=== PATIENT | female | born 1955 | race Caucasian/White ===

== ENCOUNTER 2020-07-26 17:45 | Inpatient (IN) | payer MEDICARE, MEDICAID, SELFPAY ==
[2020-07-26] VITALS (7 sets, daily range): BP systolic 165–173; BP diastolic 79–80; PULSE 72–83; RESP 16–24; TEMP 36.7–36.8; O2SAT 91–98; BMI 31.4
--- NOTE | 2020-07-26 21:14 | CT_ITS ---
Indication: Fall EXAMINATION: Noncontrast CT of the chest and abdomen and pelvis. Axial imaging with coronal and sagittal reformatted images. Radiation dose is [address] abdomen pelvis dated 11/03/2010 CT chest; The thoracic inlet is within normal limits. Coronary calcifications are noted. There is no fluid in the mediastinum. Some mildly prominent nodes are noted. Attention to follow-up Imaging the lung kirkpatrick. Right lung; No pneumothorax or effusion. 6 mm nodule on image 62 of series 10 Numerous small basilar nodules. Largest 4 mm. Left lung; No pneumothorax or effusion. Some scattered small areas of nodularity. Largest at the left base. Measures 7 mm. Upper abdomen; Liver within normal limits. Spleen within normal limits. Region the pancreas is unremarkable The kidneys are nonhydronephrotic. Nonobstructing calculi are noted. The adrenal glands are within normal limits. The bowel pattern is nonobstructing. There is no free fluid. Bladder is within normal limits The anterior abdominal wall is within normal limits Calcified vasculature which is not aneurysmal. There is no bulky adenopathy. Review of the bone windows is limited from motion in the chest. Fracture of the ninth and 10th ribs on the left. CT/CT abdomen pelvis wo con IMPRESSION: Fracture of the ninth and 10th ribs on the left. No underlying pneumothorax or effusion. No acute finding in the abdomen pelvis. Renal calculi Some scattered areas of groundglass change throughout the lungs may represent areas of infiltrate. In addition scattered areas of lung nodularity are noted. Recommendation is low-dose noncontrast study in 3-6 months for continued evaluation
--- NOTE | 2020-07-26 21:15 | ECG_ITS ---
Test Reason : SOB Blood Pressure : / mmHG Vent. Rate : 076 BPM Atrial Rate : 076 BPM P-R Int : 162 ms QRS Dur : 080 ms QT Int : 394 ms P-R-T Axes : 027 -36 044 degrees QTc Int : 443 ms Normal sinus rhythm Left axis deviation Borderline ECG When compared with ECG of 25-DEC-2019 16:07, Premature atrial complexes are no longer Present Referred By: Alisa Ballard Electronically Signed By:SAAD HUYNH
--- NOTE | 2020-07-26 21:15 | CT_ITS ---
EXAMINATION: CT HEAD WITHOUT CONTRAST CT CERVICAL SPINE WITHOUT CONTRAST CLINICAL INFORMATION: Fall. COMPARISON: CT head 09/11/2010 TECHNIQUE: Imaging was performed from the skull base to vertex without intravenous administration of contrast. In addition, helical noncontrast CT imaging was acquired through the cervical spine and source images were reviewed along with axial reconstructions and sagittal and coronal MPRs. [This CT examination was performed using dose optimization techniques as appropriate, variously including the following: *Automated exposure control *Adjustment of mA and/or kV according to patient size (this includes techniques or standardized protocols for targeted exams where dose is matched to indication/reason for exam; i.e. extremities or head) *Use of iterative reconstruction technique] DLP: 1110 mGy-cm FINDINGS: HEAD: Small hypodensity consistent with lacunar infarct in the right thalamus. No intracranial mass, hemorrhage, or midline shift is visualized. The ventricles and sulci are age-appropriate. No extra-axial collections are identified. There are vascular calcifications of the internal carotid arteries bilaterally. The paranasal sinuses and mastoid air cells are well aerated. CERVICAL SPINE: There is no evidence of acute cervical spine fracture. Vertebral bodies remain normal in height. Cervical vertebrae have normal alignment. There is multilevel degenerative spondylosis of the cervical spine with disc height narrowing and endplate spurs and facet joint arthrosis No pre- or paravertebral soft tissue abnormality is identified. Limited assessment of the lung apices is unremarkable. The right lobe of thyroid is mildly enlarged and lobular in contour. This can be further assessed with nonemergent thyroid ultrasound. CT/CT cervical spine wo con IMPRESSION: 1. No acute intracranial pathology. 2. No CT evidence of acute cervical spine fracture or traumatic subluxation
--- NOTE | 2020-07-26 21:17 | XR_ITS ---
EXAMINATION: XR WRIST, LEFT CLINICAL INFORMATION: Fall COMPARISON: None TECHNIQUE: PA, lateral, and oblique views of the left wrist. FINDINGS: There is no fracture or dislocation. Mild degenerative changes at the first carpometacarpal joint with osteophyte formation. The carpal rows are well aligned. Negative ulnar variance of 0.4 cm. The soft tissues are unremarkable. XR/XR wrist LT min 3V IMPRESSION: No fracture or malalignment.
--- NOTE | 2020-07-26 21:18 | ED_ITS ---
HPI - Fall General Chief Complaint: Fall Stated Complaint: Fall Time Seen by Provider: 07/26/20 21:10 Source: patient Mode of arrival: ambulatory Limitations: other (vague historian) History of Present Illness HPI Narrative: in triage noted to be sleepy and wheezing, reports she tripped and fell down 13 stairs at her house complaint: fall Onset (ago): day(s) (last night) Fall from: standing Fall witnessed: no Place fall occurred: home Loss of consciousness: none Prolonged down time: yes (1 hour) Symptoms prior to fall: none Context: tripped/slipped Location of injury - extremities: left: forearm Severity: mild Quality: dull Associated symptoms (after fall): abdominal pain (states prior to the fall c/o LLQ abdominal pain x 4 days) Related Data Home Medications Medication Instructions Recorded Confirmed albuterol sulfate [Ventolin HFA] 2 puff INHALATION Q4H PRN 07/26/20 07/26/20 celecoxib [Celebrex] 200 mg PO DAILY 07/26/20 07/26/20 fentanyl 1 patch TRANSDERMAL Q72H 07/26/20 07/26/20 fluoxetine [Prozac] 40 mg PO DAILY 07/26/20 07/26/20 fluticasone propionate [Flonase] 1 spray INTRANASAL DAILY 07/26/20 07/26/20 gabapentin 300 mg PO TID 07/26/20 07/26/20 glipizide 5 mg PO DAILY 07/26/20 07/26/20 metformin 500 mg PO BID 07/26/20 07/26/20 methocarbamol 1,000 mg PO TID 07/26/20 07/26/20 metoclopramide HCl [Reglan] 5 mg PO DAILY 07/26/20 07/26/20 omeprazole [Prilosec] 20 mg PO DAILY 07/26/20 07/26/20 trazodone 300 mg PO BEDTIME 07/26/20 07/26/20 Allergies Allergy/AdvReac Type Severity Reaction Status Date / Time aspirin [From PERCODAN] Allergy Unknown UNKNOWN Verified 07/26/20 23:11 egg [EGG] Allergy Unknown UNKNOWN Verified 07/26/20 23:11 From PERCODAN Allergy Unknown UNKNOWN Uncoded 03/21/20 17:03 Review of Systems Review of Systems: Constitutional : No Fever, No Chills ENT/Mouth : No Ear Pain, No Hoarseness, No sore throat Eyes: No Eye Pain, No Swelling, No Redness, No Foreign Body Cardiovascular : No Chest Pain, No SOB Respiratory : No Cough, No Dyspnea Gastrointestinal : No Nausea, No Vomiting, No Diarrhea, No abdominal Pain Genitourinary : No Dysuria, No Hematuria Musculoskeletal : positive joint pain, No Myalgias, No Joint Swelling Skin : No Skin lacerations, No rash Neuro : pos Weakness, No Numbness, No Loss of Consciousness, No Dizziness, No Headache Psych : No Anxiety/Panic, No Depression Heme/Lymph: no easy bruising, no Lymphadenopathy Endocrine : No Polyuria, No Polydipsia All other systems reviewed and are negative [facility] Past Medical History Attestation statement: The following information was validated with the patient. Medical History Bronchitis Chronic back pain Diabetes HTN (hypertension) UTI (urinary tract infection) Social History Social History (Updated 07/26/20 @ 21:23 by Alisa Ballard DO) Alcohol intake: never Smoking Status: Current every day smoker Smoked in Last 30 Days: Yes Use of substances other than those prescribed or required for medical reasons: No Advance Directives: No Physical Exam Vital Signs: Vital Signs: Last Vital Signs Temp 98.2 F 07/27/20 00:00 Pulse 81 07/27/20 00:00 Resp 20 07/27/20 00:00 BP 114/72 07/27/20 00:00 Pulse Ox 95 07/27/20 00:00 Body Mass Index 31.4 Appearance: Somnolent. Oriented X3. No acute distress. Eyes: Pupils equal, round and reactive to light. ENT: Pharynx normal. Neck: Normal inspection. Neck supple. CVS: Normal heart rate and rhythm. Pulses normal. Respiratory: No respiratory distress. Breath sounds diffusely wheezing Abdomen: Soft and nontender. Skin: Skin warm and dry. Normal skin color. Normal skin turgor. Extremities: No lower extremity edema. No calf ttp c/o L wrist ttp but no deformity NV intact Neuro: Oriented X 3. No motor deficit. No sensory deficit. Course Course Course Narrative: 91% on RA, wheezing still noted repeat 5mg neb ordered given CT chest possible infection vs COPD exacerbation IV antibiotics ordered 1042pm compensated ABG MDM - Fall MDM Narrative Medical decision making narrative: 65 yo female heavy smoker, bronchitis, DM, HTN c/o fall last night down 13 steps due to tripping notes lower back pain and L wrist injury no AC therapy, she is wheezing on arrival at this time will need labs, EKG, montelongo CT scan as she is somewhat somnolent at times (unsure if this is due to her fentanyl patch and gabepentin), IV steroids/magnesium and albuterol 5mg neb ordered. dispo per results and findings. Likely bronchitis, trauma r/o also ordered along with lytes/VBG for encephalopathy workup. Lab Data Result diagrams: 07/26/20 21:46 07/26/20 21:46 Labs: Lab Results 07/26/20 07/26/20 07/26/20 Range/Units 21:25 21:46 21:46 WBC 15.2 H (4.8-10.8) X10*3/uL RBC 4.72 (4.20-5.50) X10*6/uL Hgb 14.6 (12.0-16.0) g/dl Hct 45.3 (37-47) % MCV 96.0 (80-98) fL MCH 30.9 (27.0-33.0) pg MCHC 32.2 (31.0-35.0) g/dl RDW 13.2 (11.0-16.0) % Plt Count 292 (160-400) X10*3/uL MPV 8.7 L (9.4-12.3) fL Immature Gran % (Auto) 0.5 H (0.0-0.4) % Neut % (Auto) 50.0 (45-73) % Lymph % (Auto) 34.8 (20-40) % Barron % (Auto) 13.7 H (2-11) % Eos % (Auto) 0.6 (0-4) % Baso % (Auto) 0.4 (0-2) % Lymph # (Auto) 5.3 H (1.2-4.9) X10*3/uL Barron # (Auto) 2.1 H (0.1-1.2) X10*3/uL Eos # (Auto) 0.1 (0.0-0.4) X10*3/uL Baso # (Auto) 0.1 (0.0-0.2) X10*3/uL Abs Immat Gran (auto) 0.08 H (0.00-0.03) X10*3/uL Absolute Neuts (auto) 7.6 (2.0-8.3) X10*3/uL Absolute Nucleated RBC 0.000 (0.0-0.012) X10*3/uL Nucleated RBC % (auto) 0.0 (0.0-0.2) /100WBC Smear Tech's Comments VERIFIED PT (10.8-13.0) SEC INR (0.9-1.1) APTT (24.1-38.0) SEC ABG pH (7.35-7.45) ABG pCO2 (32-45) mmHg ABG pO2 (83-108) mmHg ABG HCO3 (22-26) mmol/L ABG O2 Saturation % ABG Base Excess VBG pH (7.32-7.43) VBG pCO2 mmHg VBG pO2 mmHg VBG HCO3 mmol/L VBG O2 Saturation % VBG Base Excess mmol/L Oxygen Given Sodium 136 (135-145) mmol/L Potassium 4.1 (3.3-5.1) mmol/l Chloride 100 (96-108) mmol/L Carbon Dioxide 26 (22-29) mmol/L Anion Gap 14 (12-20) BUN 16 (9-16) mg/dL Creatinine 0.86 (0.5-1.4) mg/dL Estim Creat Clear Calc 71.1 Estimated GFR > 60 POC Glucose 95 (60-115) mg/dL Random Glucose 85 (60-115) mg/dL Lactic Acid (0.5-2.0) mmol/L Calcium 9.2 (8.4-10.2) mg/dL Magnesium 2.0 (1.6-2.6) mg/dL Total Bilirubin 0.8 (0.0-1.0) mg/dL Direct Bilirubin 0.2 (0.0-0.5) mg/dL AST 16 (5-31) U/L ALT 14 (0-31) U/L Alkaline Phosphatase 114 (39-117) U/L Total Creatine Kinase 123 (26-140) U/L Troponin I High Sens (<3.5-17.0) ng/L Total Protein 7.5 (6.5-8.0) g/dL Albumin 4.2 (3.5-5.0) g/dL Ethyl Alcohol mg/dL COVID-19 ([facility]) (Negative) COVID-19 Clin Com 07/26/20 07/26/20 07/26/20 Range/Units 21:46 21:46 21:46 WBC (4.8-10.8) X10*3/uL RBC (4.20-5.50) X10*6/uL Hgb (12.0-16.0) g/dl Hct (37-47) % MCV (80-98) fL MCH (27.0-33.0) pg MCHC (31.0-35.0) g/dl RDW (11.0-16.0) % Plt Count (160-400) X10*3/uL MPV (9.4-12.3) fL Immature Gran % (Auto) (0.0-0.4) % Neut % (Auto) (45-73) % Lymph % (Auto) (20-40) % Barron % (Auto) (2-11) % Eos % (Auto) (0-4) % Baso % (Auto) (0-2) % Lymph # (Auto) (1.2-4.9) X10*3/uL Barron # (Auto) (0.1-1.2) X10*3/uL Eos # (Auto) (0.0-0.4) X10*3/uL Baso # (Auto) (0.0-0.2) X10*3/uL Abs Immat Gran (auto) (0.00-0.03) X10*3/uL Absolute Neuts (auto) (2.0-8.3) X10*3/uL Absolute Nucleated RBC (0.0-0.012) X10*3/uL Nucleated RBC % (auto) (0.0-0.2) /100WBC Smear Tech's Comments PT 12.7 (10.8-13.0) SEC INR 1.1 (0.9-1.1) APTT 26.1 (24.1-38.0) SEC ABG pH (7.35-7.45) ABG pCO2 (32-45) mmHg ABG pO2 (83-108) mmHg ABG HCO3 (22-26) mmol/L ABG O2 Saturation % ABG Base Excess VBG pH (7.32-7.43) VBG pCO2 mmHg VBG pO2 mmHg VBG HCO3 mmol/L VBG O2 Saturation % VBG Base Excess mmol/L Oxygen Given Sodium (135-145) mmol/L Potassium (3.3-5.1) mmol/l Chloride (96-108) mmol/L Carbon Dioxide (22-29) mmol/L Anion Gap (12-20) BUN (9-16) mg/dL Creatinine (0.5-1.4) mg/dL Estim Creat Clear Calc Estimated GFR POC Glucose (60-115) mg/dL Random Glucose (60-115) mg/dL Lactic Acid (0.5-2.0) mmol/L Calcium (8.4-10.2) mg/dL Magnesium (1.6-2.6) mg/dL Total Bilirubin (0.0-1.0) mg/dL Direct Bilirubin (0.0-0.5) mg/dL AST (5-31) U/L ALT (0-31) U/L Alkaline Phosphatase (39-117) U/L Total Creatine Kinase (26-140) U/L Troponin I High Sens 3.8 (<3.5-17.0) ng/L Total Protein (6.5-8.0) g/dL Albumin (3.5-5.0) g/dL Ethyl Alcohol mg/dL COVID-19 ([facility]AMA) Negative (Negative) COVID-19 Clin Com See Note 07/26/20 07/26/20 07/26/20 Range/Units 21:46 21:46 22:43 WBC (4.8-10.8) X10*3/uL RBC (4.20-5.50) X10*6/uL Hgb (12.0-16.0) g/dl Hct (37-47) % MCV (80-98) fL MCH (27.0-33.0) pg MCHC (31.0-35.0) g/dl RDW (11.0-16.0) % Plt Count (160-400) X10*3/uL MPV (9.4-12.3) fL Immature Gran % (Auto) (0.0-0.4) % Neut % (Auto) (45-73) % Lymph % (Auto) (20-40) % Barron % (Auto) (2-11) % Eos % (Auto) (0-4) % Baso % (Auto) (0-2) % Lymph # (Auto) (1.2-4.9) X10*3/uL Barron # (Auto) (0.1-1.2) X10*3/uL Eos # (Auto) (0.0-0.4) X10*3/uL Baso # (Auto) (0.0-0.2) X10*3/uL Abs Immat Gran (auto) (0.00-0.03) X10*3/uL Absolute Neuts (auto) (2.0-8.3) X10*3/uL Absolute Nucleated RBC (0.0-0.012) X10*3/uL Nucleated RBC % (auto) (0.0-0.2) /100WBC Smear Tech's Comments PT (10.8-13.0) SEC INR (0.9-1.1) APTT (24.1-38.0) SEC ABG pH 7.35 (7.35-7.45) ABG pCO2 52 H (32-45) mmHg ABG pO2 68 L (83-108) mmHg ABG HCO3 29 H (22-26) mmol/L ABG O2 Saturation 94.0 % ABG Base Excess 3.1 VBG pH 7.30 L (7.32-7.43) VBG pCO2 69 mmHg VBG pO2 40 mmHg VBG HCO3 34 mmol/L VBG O2 Saturation 70.0 % VBG Base Excess 5.8 mmol/L Oxygen Given ROOM AIR Sodium (135-145) mmol/L Potassium (3.3-5.1) mmol/l Chloride (96-108) mmol/L Carbon Dioxide (22-29) mmol/L Anion Gap (12-20) BUN (9-16) mg/dL Creatinine (0.5-1.4) mg/dL Estim Creat Clear Calc Estimated GFR POC Glucose (60-115) mg/dL Random Glucose (60-115) mg/dL Lactic Acid (0.5-2.0) mmol/L Calcium (8.4-10.2) mg/dL Magnesium (1.6-2.6) mg/dL Total Bilirubin (0.0-1.0) mg/dL Direct Bilirubin (0.0-0.5) mg/dL AST (5-31) U/L ALT (0-31) U/L Alkaline Phosphatase (39-117) U/L Total Creatine Kinase (26-140) U/L Troponin I High Sens (<3.5-17.0) ng/L Total Protein (6.5-8.0) g/dL Albumin (3.5-5.0) g/dL Ethyl Alcohol < 10 mg/dL COVID-19 ([facility]) (Negative) COVID-19 Clin Com 07/26/20 07/27/20 Range/Units 23:39 01:37 WBC (4.8-10.8) X10*3/uL RBC (4.20-5.50) X10*6/uL Hgb (12.0-16.0) g/dl Hct (37-47) % MCV (80-98) fL MCH (27.0-33.0) pg MCHC (31.0-35.0) g/dl RDW (11.0-16.0) % Plt Count (160-400) X10*3/uL MPV (9.4-12.3) fL Immature Gran % (Auto) (0.0-0.4) % Neut % (Auto) (45-73) % Lymph % (Auto) (20-40) % Barron % (Auto) (2-11) % Eos % (Auto) (0-4) % Baso % (Auto) (0-2) % Lymph # (Auto) (1.2-4.9) X10*3/uL Barron # (Auto) (0.1-1.2) X10*3/uL Eos # (Auto) (0.0-0.4) X10*3/uL Baso # (Auto) (0.0-0.2) X10*3/uL Abs Immat Gran (auto) (0.00-0.03) X10*3/uL Absolute Neuts (auto) (2.0-8.3) X10*3/uL Absolute Nucleated RBC (0.0-0.012) X10*3/uL Nucleated RBC % (auto) (0.0-0.2) /100WBC Smear Tech's Comments PT (10.8-13.0) SEC INR (0.9-1.1) APTT (24.1-38.0) SEC ABG pH (7.35-7.45) ABG pCO2 (32-45) mmHg ABG pO2 (83-108) mmHg ABG HCO3 (22-26) mmol/L ABG O2 Saturation % ABG Base Excess VBG pH (7.32-7.43) VBG pCO2 mmHg VBG pO2 mmHg VBG HCO3 mmol/L VBG O2 Saturation % VBG Base Excess mmol/L Oxygen Given Sodium (135-145) mmol/L Potassium (3.3-5.1) mmol/l Chloride (96-108) mmol/L Carbon Dioxide (22-29) mmol/L Anion Gap (12-20) BUN (9-16) mg/dL Creatinine (0.5-1.4) mg/dL Estim Creat Clear Calc Estimated GFR POC Glucose 177 H (60-115) mg/dL Random Glucose (60-115) mg/dL Lactic Acid 1.4 (0.5-2.0) mmol/L Calcium (8.4-10.2) mg/dL Magnesium (1.6-2.6) mg/dL Total Bilirubin (0.0-1.0) mg/dL Direct Bilirubin (0.0-0.5) mg/dL AST (5-31) U/L ALT (0-31) U/L Alkaline Phosphatase (39-117) U/L Total Creatine Kinase (26-140) U/L Troponin I High Sens (<3.5-17.0) ng/L Total Protein (6.5-8.0) g/dL Albumin (3.5-5.0) g/dL Ethyl Alcohol mg/dL COVID-19 ([facility]) (Negative) COVID-19 Clin Com ECG Data Attestation: I personally reviewed and interpreted this ECG as follows: ECG interpretation date: 07/26/20 ECG interpretation time: 23:28 Interpretation: Rate: 76 Rhythm: NSR [place]: left Normal P waves. Normal ANGÉLICA. Normal QRS complex. ST T wave : normal, no TOD qTC: normal prior studies: no acute ischemia The study has been interpreted contemporaneously by me. . Discharge Plan Discharge Clinical Impression: Bronchitis Fracture of rib Qualifiers: Encounter type: initial encounter Rib fracture type: multiple ribs Fracture type: closed Laterality: left Qualified Code(s): S22.42XA - Multiple fractures of ribs, left side, initial encounter for closed fracture Leukocytosis Qualifiers: Leukocytosis type: unspecified Qualified Code(s): D72.829 - Elevated white blood cell count, unspecified Patient Disposition: Admitted As Inpatient
[2020-07-26 21:27] LABS: Glucose, Whole Blood 95 mg/dL (60-115)
[2020-07-26] MEDS: Albuterol Sulfate (0.083%) 2.5 MG/3 ML VIAL.NEB 5 MG INHALE ×2 (21:30→22:51)
[2020-07-26] MEDS: Magnesium Sulfate/H2O 2 GM/50 ML PIGGYBACK IV (21:53)
[2020-07-26] MEDS: methylPREDNISolone Sod Succ/PF 125 MG/2 ML VIAL 60 MG IVPUSH (21:53)
[2020-07-26 22:03] LABS: Basophils Absolute Auto 0.1 X10*3/uL (0.0-0.2); Basophils Percent Auto 0.4 % (0-2); Eosinophils Absolute Auto 0.1 X10*3/uL (0.0-0.4); Eosinophils Percent Auto 0.6 % (0-4); Hematocrit 45.3 % (37-47); Hemoglobin 14.6 g/dl (12.0-16.0); Imm Gran Abs Auto 0.08 X10*3/uL (0.00-0.03); Imm Gran Pct Auto 0.5 % (0.0-0.4); Lymphocytes Absolute Auto 5.3 X10*3/uL (1.2-4.9); Lymphocytes Percent Auto 34.8 % (20-40); MANUAL DIFF FLAG SCAN; Mean Corpuscular HGB Conc 32.2 g/dl (31.0-35.0); Mean Corpuscular Hemoglobin 30.9 pg (27.0-33.0); Mean Platelet Volume 8.7 fL (9.4-12.3); Monocytes Absolute Auto 2.1 X10*3/uL (0.1-1.2); Monocytes Percent Auto 13.7 % (2-11); Neutrophils Absolute Auto 7.6 X10*3/uL (2.0-8.3); Platelet Count 292 X10*3/uL (160-400); Red Blood Count 4.72 X10*6/uL (4.20-5.50); Red Cell Distribution Width 13.2 % (11.0-16.0); SCAN SMEAR FLAG 1; White Blood Count 15.2 X10*3/uL (4.8-10.8)
[2020-07-26 22:07] LABS: Base Excess VBG 5.8 mmol/L; HCO3 VBG 34 mmol/L; PCO2 VBG 69 mmHg; PO2 VBG 40 mmHg
[2020-07-26 22:08] LABS: INTERNATIONAL NORM RATIO 1.1 (0.9-1.1); Prothrombin Time 12.7 SEC (10.8-13.0)
[2020-07-26 22:11] LABS: Partial Thromboplastin Time 26.1 SEC (24.1-38.0)
[2020-07-26 22:30] LABS: COVID-19 Test Negative (Negative)
[2020-07-26 22:38] LABS: SLIDE REVIEW VERIFIED
[2020-07-26 22:43] LABS: Alanine Aminotransferase 14 U/L (0-31); Albumin Level 4.2 g/dL (3.5-5.0); Alkaline Phosphatase 114 U/L (39-117); Anion Gap 14 (12-20); Aspartate Amino Transferase 16 U/L (5-31); Bilirubin Direct 0.2 mg/dL (0.0-0.5); Bilirubin Total 0.8 mg/dL (0.0-1.0); Blood Urea Nitrogen 16 mg/dL (9-16); Calcium 9.2 mg/dL (8.4-10.2); Carbon Dioxide 26 mmol/L (22-29); Chloride 100 mmol/L (96-108); Creatinine Clr Calc Pharmacy 71.1; Estimated Glomerular Filt Rate > 60; Ethanol < 10 mg/dL; Glucose Random 85 mg/dL (60-115); Potassium 4.1 mmol/l (3.3-5.1); Sodium 136 mmol/L (135-145); Total Protein 7.5 g/dL (6.5-8.0)
[2020-07-26 22:44] LABS: Troponin-I High Sensitivity 3.8 ng/L (<3.5-17.0)
[2020-07-26 22:49] LABS: Pt Ventilation O2% ROOM AIR
[2020-07-26 22:52] LABS: ABG PCO2 52 mmHg (32-45); Base Excess ABG 3.1; HCO3 ABG 29 mmol/L (22-26); PO2 ABG 68 mmHg (83-108); pH ABG 7.35 (7.35-7.45)
[2020-07-26] MEDS: cefTRIAXone sodium 1 GM in 0.9 % Sodium Chloride 50 ML IV (23:49)
[2020-07-27] VITALS (13 sets, daily range): BP systolic 110–152; BP diastolic 57–102; PULSE 70–94; RESP 16–20; TEMP 36.1–37.1; O2SAT 92–99
[2020-07-27 00:13] LABS: Lactic Acid 1.4 mmol/L (0.5-2.0)
--- NOTE | 2020-07-27 00:34 | PM.IMHP ---
History of Present Illness Date of Service: 07/27/20 Chief Complaint: Fall This is a 65-year-old female with past medical history of bronchitis(chronic smoker although denies ever being diagnosed with COPD), chronic pain, diabetes, GERD who presents to the hospital after experiencing a fall from 13 steps. She is very lethargic but arousable, does not give much history. Therefore history is obtained mostly from ED physician. It appears the patient was walking down her basement stairs and had a fall of 13 steps. Patient herself does not remember how it happened, she does not report tripping on anything. She denies missing any steps. She comes to the hospital complaining of left-sided pain. On arrival to the ED found to be hypoxic 89% on room air. She was also significantly wheezing, having a cough, sputum production. Chest CT done showed ground-glass opacities concerning for pneumonia.. COVID-19 negative Unable to obtain complete review of system is patient lethargic Vitals significant for temp of 98.2?, respiratory rate of 24, heart rate of 75, blood pressure 165/79, satting 91% on room air. Currently on 2 L of nasal cannula satting 94%. Labs are significant for WBC count of 15.2, ABG pH of 7.35, CO2 of 52, CT of the chest demonstrates of the 9th and 10th ribs on the left, some scattered areas of ground-glass opacity that may represent infiltrate. History is obtained mostly from chart Past medical history: Bronchitis, chronic back pain, diabetes, hypertension, Surgical history: Unknown Family history: Unknown Social history: Chronic heavy smoker per her daughter, no history of alcohol or illicit drugs Review of Systems Review of Systems: Yes Unobtainable due to mental status [facility] Medical History Bronchitis Chronic back pain Diabetes HTN (hypertension) UTI (urinary tract infection) Social History (Updated 07/26/20 @ 21:23 by Alisa Ballard DO) Alcohol intake: never Smoking Status: Current every day smoker Smoked in Last 30 Days: Yes Use of substances other than those prescribed or required for medical reasons: No Advance Directives: No Meds Allergies Allergy/AdvReac Type Severity Reaction Status Date / Time aspirin [From PERCODAN] Allergy Unknown UNKNOWN Verified 07/26/20 23:11 egg [EGG] Allergy Unknown UNKNOWN Verified 07/26/20 23:11 From PERCODAN Allergy Unknown UNKNOWN Uncoded 03/21/20 17:03 Home Medications Medication Instructions Recorded Confirmed Type albuterol sulfate [Ventolin HFA] 2 puff INHALATION Q4H PRN 07/26/20 07/26/20 History celecoxib [Celebrex] 200 mg PO DAILY 07/26/20 07/26/20 History fentanyl 1 patch TRANSDERMAL Q72H 07/26/20 07/26/20 History fluoxetine [Prozac] 40 mg PO DAILY 07/26/20 07/26/20 History fluticasone propionate [Flonase] 1 spray INTRANASAL DAILY 07/26/20 07/26/20 History gabapentin 300 mg PO TID 07/26/20 07/26/20 History glipizide 5 mg PO DAILY 07/26/20 07/26/20 History metformin 500 mg PO BID 07/26/20 07/26/20 History methocarbamol 1,000 mg PO TID 07/26/20 07/26/20 History metoclopramide HCl [Reglan] 5 mg PO DAILY 07/26/20 07/26/20 History omeprazole [Prilosec] 20 mg PO DAILY 07/26/20 07/26/20 History trazodone 300 mg PO BEDTIME 07/26/20 07/26/20 History Physical Exam Vital Signs and Narrative: Vital Signs: Last Vital Signs Temp 98.1 F 07/26/20 23:45 Pulse 83 07/26/20 23:45 Resp 18 07/26/20 23:45 BP 173/80 H 07/26/20 23:45 Pulse Ox 98 07/26/20 23:45 Body Mass Index 31.4 Const: General: cooperative and no acute distress Orientation/consciousness: patient oriented x3 Eyes: General: appearance normal, both eyes and all related structures Pupils: Equal, round and reactive pupils present Resp: Effort & Inspection: normal respiratory effort, able to speak in complete sentences and audible wheezes Auscultation: crackles (Throughout the lungs) Cardio: Rate: regular rate Rhythm: regular rhythm GI: Palpation (GI): Soft to palpation Auscultation: normal bowel sounds Skin: General skin exam: no rashes or lesions noted Neuro: General: patient oriented x3 Cranial nerves: Yes Equal, round and reactive pupils present Cognition (Neuro): normal cognition Extrem: General: Yes normal to inspection and Yes no pedal edema Results Labs CBC and Chem 7: 07/26/20 21:46 07/26/20 21:46 Labs: Laboratory Results - last 24 hr 07/26/20 07/26/20 07/26/20 21:25 21:46 21:46 MCV 96.0 MCH 30.9 MCHC 32.2 RDW 13.2 Plt Count 292 MPV 8.7 L Immature Gran % (Auto) 0.5 H Neut % (Auto) 50.0 Lymph % (Auto) 34.8 Otero % (Auto) 13.7 H Eos % (Auto) 0.6 Baso % (Auto) 0.4 Lymph # (Auto) 5.3 H Otero # (Auto) 2.1 H Eos # (Auto) 0.1 Baso # (Auto) 0.1 Abs Immat Gran (auto) 0.08 H Absolute Neuts (auto) 7.6 Absolute Nucleated RBC 0.000 Nucleated RBC % (auto) 0.0 Smear Tech's Comments VERIFIED PT INR APTT ABG pH ABG pCO2 ABG pO2 ABG HCO3 ABG O2 Saturation ABG Base Excess VBG pH VBG pCO2 VBG pO2 VBG HCO3 VBG O2 Saturation VBG Base Excess Oxygen Given Anion Gap 14 Estim Creat Clear Calc 71.1 Estimated GFR > 60 POC Glucose 95 Random Glucose 85 Lactic Acid Calcium 9.2 Magnesium 2.0 Total Bilirubin 0.8 Direct Bilirubin 0.2 AST 16 ALT 14 Alkaline Phosphatase 114 Total Creatine Kinase 123 Troponin I High Sens Total Protein 7.5 Albumin 4.2 Ethyl Alcohol COVID-19 ([facility]) COVID-19 Clin Com 07/26/20 07/26/20 07/26/20 21:46 21:46 21:46 MCV MCH MCHC RDW Plt Count MPV Immature Gran % (Auto) Neut % (Auto) Lymph % (Auto) Otero % (Auto) Eos % (Auto) Baso % (Auto) Lymph # (Auto) Otero # (Auto) Eos # (Auto) Baso # (Auto) Abs Immat Gran (auto) Absolute Neuts (auto) Absolute Nucleated RBC Nucleated RBC % (auto) Smear Tech's Comments PT 12.7 INR 1.1 APTT 26.1 ABG pH ABG pCO2 ABG pO2 ABG HCO3 ABG O2 Saturation ABG Base Excess VBG pH VBG pCO2 VBG pO2 VBG HCO3 VBG O2 Saturation VBG Base Excess Oxygen Given Anion Gap Estim Creat Clear Calc Estimated GFR POC Glucose Random Glucose Lactic Acid Calcium Magnesium Total Bilirubin Direct Bilirubin AST ALT Alkaline Phosphatase Total Creatine Kinase Troponin I High Sens 3.8 Total Protein Albumin Ethyl Alcohol COVID-19 ([facility]) Negative COVID-19 Clin Com See Note 07/26/20 07/26/20 07/26/20 21:46 21:46 22:43 MCV MCH MCHC RDW Plt Count MPV Immature Gran % (Auto) Neut % (Auto) Lymph % (Auto) Otero % (Auto) Eos % (Auto) Baso % (Auto) Lymph # (Auto) Otero # (Auto) Eos # (Auto) Baso # (Auto) Abs Immat Gran (auto) Absolute Neuts (auto) Absolute Nucleated RBC Nucleated RBC % (auto) Smear Tech's Comments PT INR APTT ABG pH 7.35 ABG pCO2 52 H ABG pO2 68 L ABG HCO3 29 H ABG O2 Saturation 94.0 ABG Base Excess 3.1 VBG pH 7.30 L VBG pCO2 69 VBG pO2 40 VBG HCO3 34 VBG O2 Saturation 70.0 VBG Base Excess 5.8 Oxygen Given ROOM AIR Anion Gap Estim Creat Clear Calc Estimated GFR POC Glucose Random Glucose Lactic Acid Calcium Magnesium Total Bilirubin Direct Bilirubin AST ALT Alkaline Phosphatase Total Creatine Kinase Troponin I High Sens Total Protein Albumin Ethyl Alcohol < 10 COVID-19 ([facility]) COVID-19 Clin Com 07/26/20 23:39 MCV MCH MCHC RDW Plt Count MPV Immature Gran % (Auto) Neut % (Auto) Lymph % (Auto) Otero % (Auto) Eos % (Auto) Baso % (Auto) Lymph # (Auto) Otero # (Auto) Eos # (Auto) Baso # (Auto) Abs Immat Gran (auto) Absolute Neuts (auto) Absolute Nucleated RBC Nucleated RBC % (auto) Smear Tech's Comments PT INR APTT ABG pH ABG pCO2 ABG pO2 ABG HCO3 ABG O2 Saturation ABG Base Excess VBG pH VBG pCO2 VBG pO2 VBG HCO3 VBG O2 Saturation VBG Base Excess Oxygen Given Anion Gap Estim Creat Clear Calc Estimated GFR POC Glucose Random Glucose Lactic Acid 1.4 Calcium Magnesium Total Bilirubin Direct Bilirubin AST ALT Alkaline Phosphatase Total Creatine Kinase Troponin I High Sens Total Protein Albumin Ethyl Alcohol COVID-19 ([facility]) COVID-19 Clin Com Imaging Radiologist's Impressions: Impressions Abdomen/Pelvis CT 07/26/20 21:14 IMPRESSION: Fracture of the ninth and 10th ribs on the left. No underlying pneumothorax or effusion. No acute finding in the abdomen pelvis. Renal calculi Some scattered areas of groundglass change throughout the lungs may represent areas of infiltrate. In addition scattered areas of lung nodularity are noted. Recommendation is low-dose noncontrast study in 3-6 months for continued evaluation Cervical Spine CT 07/26/20 21:15 IMPRESSION: 1. No acute intracranial pathology. 2. No CT evidence of acute cervical spine fracture or traumatic subluxation Chest CT 07/26/20 21:15 IMPRESSION: Fracture of the ninth and 10th ribs on the left. No underlying pneumothorax or effusion. No acute finding in the abdomen pelvis. Renal calculi Some scattered areas of groundglass change throughout the lungs may represent areas of infiltrate. In addition scattered areas of lung nodularity are noted. Recommendation is low-dose noncontrast study in 3-6 months for continued evaluation Head CT 07/26/20 21:15 IMPRESSION: 1. No acute intracranial pathology. 2. No CT evidence of acute cervical spine fracture or traumatic subluxation Wrist X-Ray 07/26/20 21:17 IMPRESSION: No fracture or malalignment. Assessment and Plan (1) COPD exacerbation: Status: Acute (2) Fracture of rib: Qualifiers: Encounter type: initial encounter Fracture type: closed Laterality: left Rib fracture type: multiple ribs Qualified Code(s): S22.42XA - Multiple fractures of ribs, left side, initial encounter for closed fracture Status: Acute (3) Community acquired pneumonia: Qualifiers: Laterality: unspecified laterality Qualified Code(s): J18.9 - Pneumonia, unspecified organism Status: Acute (4) Acute and chronic respiratory failure with hypoxia: Status: Acute This is a 65-year-old female who is a chronic smoker who presents to the hospital after fall. Found to have pneumonia on chest CT # acute on chronic hypoxic respiratory past - patient has history of bronchitis but is also a chronic smoker although never officially been diagnosed with COPD - has significant cough, sputum production, and audible wheezing - presented hypoxic with 89% O2 on room air - COVID-19 negative Plan: - O2 supplement - Solu-Medrol 40 IV b.i.d. - IV antibiotics for pneumonia - follow respiratory status # community-acquired pneumonia - viral versus bacterial - has leukocytosis, tachycardia - chest CT showing ground-glass opacities concerning for infiltrate Plan: - started on ceftriaxone and azithromycin - follow cultures - COVID-19 PCR negative - will obtain respiratory viral panel given CT findings # fall - most likely mechanical as she fell from steps - sustained a fracture of the 9th and 10th left rib - pain control, supportive measures - incentive spirometry - consult PT # hypertension - continue home meds # diabetes - hold oral antihyperglycemics - start low-dose sliding scale insulin DVT prophylaxis: heparin sbq
[2020-07-27] MEDS: Doxycycline Hyclate 100 MG in 0.9 % Sodium Chloride 250 ML 166.67 MG IV (01:10)
[2020-07-27 01:45] LABS: Glucose, Whole Blood 177 mg/dL (60-115)
[2020-07-27] MEDS: Azithromycin 500 MG in 0.9 % Sodium Chloride 250 ML 125 MG IV (02:49)
[2020-07-27] MEDS: fentaNYL 100 MCG PATCH.TD72 TRANSDERMA (03:39)
[2020-07-27 04:54] LABS: Adenovirus PCR Not Detected (Not Detect.); Bordetella parapertussis PCR Not Detected (Not Detect.); Bordetella pertussis PCR Not Detected (Not Detect.); Chlamydia pneumoniae PCR Not Detected (Not Detect.); Coronavirus 229E PCR Not Detected (Not Detect.); Coronavirus HKU1 PCR Not Detected (Not Detect.); Coronavirus NL63 PCR Not Detected (Not Detect.); Coronavirus OC43 PCR Not Detected (Not Detect.); Human metapneumovirus PCR Not Detected (Not Detect.); Influenza A PCR Not Detected (Not Detect.); Influenza B PCR Not Detected (Not Detect.); Mycoplasma pneumoniae PCR Not Detected (Not Detect.); Parainfluenza 1 PCR Not Detected (Not Detect.); Parainfluenza 2 PCR Not Detected (Not Detect.); Parainfluenza 3 PCR Not Detected (Not Detect.); Parainfluenza 4 PCR Not Detected (Not Detect.); RSV PCR Not Detected (Not Detect.); Rhino/Enterovirus PCR Not Detected (Not Detect.); SARS-CoV-2 PCR Not Detected (Not Detect.)
[2020-07-27] MEDS: Heparin Sodium,Porcine 5,000 UNIT/ML VIAL 5000 UNIT SUBCUT ×2 (06:40→17:45)
[2020-07-27] MEDS: oxyCODONE HCl Immed Release 5 MG TABLET PO ×3 (06:41→20:13)
[2020-07-27] MEDS: Albuterol/Iprat 2.5/0.5MG 3 ML AMPUL.NEB INHALE ×4 (07:29→20:27)
[2020-07-27 08:37] LABS: Glucose, Whole Blood 216 mg/dL (60-115)
[2020-07-27] MEDS: Cyclobenzaprine HCl 10 MG TABLET PO ×3 (08:41→20:13)
[2020-07-27] MEDS: FLUoxetine HCl 20 MG CAPSULE 40 MG PO (08:41)
[2020-07-27] MEDS: Gabapentin 300 MG CAPSULE PO ×3 (08:42→20:13)
[2020-07-27] MEDS: Metoclopramide HCl 5 MG TABLET PO (08:42)
[2020-07-27] MEDS: Omeprazole 20 MG CAPSULE.DR PO (08:42)
[2020-07-27] MEDS: Insulin Lispro 100 UNIT/ML 3 ML VIAL SUBCUT ×4 (08:42→22:23)
--- NOTE | 2020-07-27 09:55 | MHC.CM.PN ---
PATIENT LIVES WITH HER DAUGHTER. NO DME OR VNA SERVICES. SHE NO LONGER DRIVES, AND DAUGHTER ASSISTS WITH TRANSPORT,. PATIENT AGREES THAT DAUGHTER IS HER PERSON TO CONTACT . BUT SHE DENIES HCP COMPLETION. PATIENT IS AWARE THAT CASE MANAGEMENT CAN ASSIST WITH COMPLETION DURING HER STAY IF SHE IS TO CHANGE HER MIND. IMM 07/27 IN CHART
[2020-07-27 11:38] LABS: Glucose, Whole Blood 192 mg/dL (60-115)
--- NOTE | 2020-07-27 13:48 | HO.PM.IMPN ---
Subjective Subjective Date of Service: 07/27/20 Interval History: Complaining of shortness of breath, cough, wants diet to be changed to regular, since she does not like diabetic diet, complaining of pain left side of chest worse with deep breathing, also complained of lower back pain. Review of Systems General no headache no dizziness no fever chills. CVS left-sided chest pain with deep breathing and cough, no palpitation. Respiratory dry cough, shortness of breath Gastrointestinal no nausea no vomiting, no abdominal pain Physical Exam Vital Signs: Vital Signs: Last Vital Signs Temp 98.7 F 07/27/20 12:00 Pulse 82 07/27/20 12:00 Resp 19 07/27/20 12:00 BP 144/71 H 07/27/20 12:00 Pulse Ox 96 07/27/20 12:00 Body Mass Index 31.4 General no acute distress Neck is supple no JVD. CVS regular rate rhythm, Respiratory diminished breath sounds left base, clear right lung, no respiratory distress, no wheeze, no rhonchi. Gastrointestinal abdomen soft, nontender, bowel sounds audible Extremities no clubbing cyanosis or edema. Neuro nonfocal , speech clear. Skin no rash Objective Data Current Medications Generic Name Dose Route Start Last Admin Trade Name Freq PRN Reason Stop Dose Admin Acetaminophen 650 mg 07/27/20 04:02 Acetaminophen 325 Mg Tablet PO Q6H PRN Pain, Mild (Pain Scale 1-3) Albuterol Sulfate 2 puff 07/27/20 00:33 Albuterol Sulfate 90 Mcg 8 Gm Inhaler INHALE Q4H PRN Shortness Of Breath Albuterol/Ipratropium 3 ml 07/27/20 08:00 07/27/20 11:07 Albuterol/Iprat 2.5/0.5mg 3 Ml Ampul.Neb INHALE 3 ml RQ4H WHILE AWAKE HSAMIKA Administration Albuterol/Ipratropium 3 ml 07/27/20 00:33 Albuterol/Iprat 2.5/0.5mg 3 Ml Ampul.Neb INHALE RQ4H PRN Shortness of Breath/Wheezing Cyclobenzaprine HCl 10 mg 07/27/20 09:00 07/27/20 08:41 Cyclobenzaprine Hcl 10 Mg Tablet PO 10 mg TID SHAMIKA Administration Docusate Sodium 100 mg 07/27/20 04:02 Docusate Sodium 100 Mg Capsule PO DAILY PRN Constipation Fentanyl 100 mcg 07/27/20 01:00 07/27/20 03:39 Fentanyl 100 Mcg Patch.Td72 TRANSDERMA 100 mcg Q72H SHAMIKA Administration Fluoxetine HCl 40 mg 07/27/20 09:00 07/27/20 08:41 Fluoxetine Hcl 20 Mg Capsule PO 40 mg DAILY SHAMIKA Administration Gabapentin 300 mg 07/27/20 09:00 07/27/20 08:42 Gabapentin 300 Mg Capsule PO 300 mg TID SHAMIKA Administration Heparin Sodium (Porcine) 5,000 unit 07/27/20 06:00 07/27/20 06:40 Heparin Sodium,Porcine 5,000 Unit/Ml Vial SUBCUT 5,000 unit Q12H SHAMIKA Administration Azithromycin 500 mg/ Sodium 250 mls @ 125 mls/hr 07/27/20 00:33 07/27/20 05:01 Chloride IV Infused Q24H SHAMIKA Infusion Ceftriaxone Sodium 1 gm/ 50 mls @ 100 mls/hr 07/27/20 00:33 07/27/20 02:49 Sodium Chloride IV Not Given Q24H [facility] Insulin Human Lispro 0 unit 07/27/20 07:30 07/27/20 12:14 Insulin Lispro 100 Unit/Ml 3 Ml Vial SUBCUT 2 unit QIDACHS [facility] Administration Protocol Methylprednisolone Sodium Succinate 40 mg 07/27/20 00:33 07/27/20 12:07 Methylprednisolone Sod Succ/Pf 40 Mg/Ml Vial IVPUSH 40 mg Q12H SHAMIKA Administration Metoclopramide HCl 5 mg 07/27/20 09:00 07/27/20 08:42 Metoclopramide Hcl 5 Mg Tablet PO 5 mg DAILY [facility] Administration Omeprazole 20 mg 07/27/20 09:00 07/27/20 08:42 Omeprazole 20 Mg Capsule. PO 20 mg DAILY SHAMIKA Administration Ondansetron HCl 4 mg 07/27/20 04:02 Ondansetron Hcl 4 Mg/2 Ml Vial IVPUSH Q8H PRN Nausea and Vomiting Oxycodone HCl 5 mg 07/27/20 06:04 07/27/20 12:13 Oxycodone Hcl Immed Release 5 Mg Tablet PO 5 mg Q4H PRN Administration Pain, Severe (Pain Scale 7-10) Pharmacy Consult 1 each 07/26/20 21:14 Consult Rx Perform Med Rec MISCELLANE ONCE PRN Consult order Trazodone HCl 300 mg 07/27/20 21:00 Trazodone Hcl 100 Mg Tablet PO BEDTIME SHAMIKA Labs CBC & Chem 7: 07/26/20 21:46 07/26/20 21:46 Assessment and Plan (1) Community acquired pneumonia: Status: Acute (2) Acute and chronic respiratory failure with hypoxia: Status: Acute (3) COPD exacerbation: Status: Acute (4) Fracture of rib: Status: Acute (5) Bronchitis: Status: Acute (6) Leukocytosis: Status: Acute Assessment and Plan: 65-year-old female who is a chronic smoker who presents to the hospital after fall. Found to have pneumonia on chest CT # acute on chronic hypoxic respiratory failure due to pneumonia/undiagnosed COPD with exacerbation Complaining of persistent cough and shortness of breath likely due to pneumonia and undiagnosed COPD hypoxic with 89% O2 on room air on arrival to ED, COVID-19 negative, Gradually wean O2 supplement Continue IV Solu-Medrol 40 IV b.i.d. IV azithromycin and ceftriaxone day 2, schedule updraft and as needed, will add cough medication, encourage incentive spirometry chest CT showing ground-glass opacities concerning for infiltrate, and pulmonary nodules will recommend 3-[address] chest follow-up # mechanical fall with 9th and 10th rib fracture - most likely mechanical as she fell from steps, likely due to left leg pain and weakness that she has chronically due to lower spine fusion Encourage out of bed, incentive spirometry, pain control, supportive measures Awake PT input # hypertension - continue home meds, BP stable # diabetes - blood sugars elevated patient takes glipizide and Glucophage at home, continue insulin sliding scale, patient refusing diabetic diet, will resume glipizide # tobacco use disorder counseling done. DVT prophylaxis: heparin sbq
[2020-07-27] MEDS: guaiFENesin DM 200/20/10 ML 10 ML SYRUP PO ×2 (14:16→20:13)
[2020-07-27] MEDS: glipiZIDE 5 MG TABLET PO (14:16)
[2020-07-27 14:54] LABS: Glucose, Whole Blood 264 mg/dL (60-115)
[2020-07-27 17:07] LABS: Glucose, Whole Blood 267 mg/dL (60-115)
[2020-07-27] MEDS: traZODone HCL 100 MG TABLET 300 MG PO (20:13)
[2020-07-27 20:39] LABS: Glucose, Whole Blood 168 mg/dL (60-115)
[2020-07-28] VITALS (11 sets, daily range): BP systolic 123–155; BP diastolic 56–80; PULSE 67–95; RESP 18–20; TEMP 35.9–36.9; O2SAT 93–97
[2020-07-28] MEDS: cefTRIAXone sodium 1 GM in 0.9 % Sodium Chloride 50 ML IV
[2020-07-28] MEDS: Azithromycin 500 MG in 0.9 % Sodium Chloride 250 ML 125 MG IV (00:59)
[2020-07-28] MEDS: guaiFENesin DM 200/20/10 ML 10 ML SYRUP PO ×4 (02:27→20:13)
[2020-07-28] MEDS: oxyCODONE HCl Immed Release 5 MG TABLET PO ×3 (03:31→15:25)
[2020-07-28 05:33] LABS: MANUAL DIFF FLAG NO
[2020-07-28 05:39] LABS: Basophils Percent Auto 0.2 % (0-2); Eosinophils Absolute Auto 0.1 X10*3/uL (0.0-0.4); Eosinophils Percent Auto 0.5 % (0-4); Hematocrit 39.3 % (37-47); Hemoglobin 12.8 g/dl (12.0-16.0); Imm Gran Abs Auto 0.09 X10*3/uL (0.00-0.03); Imm Gran Pct Auto 0.6 % (0.0-0.4); Lymphocytes Absolute Auto 1.4 X10*3/uL (1.2-4.9); Mean Corpuscular HGB Conc 32.6 g/dl (31.0-35.0); Mean Corpuscular Hemoglobin 31.1 pg (27.0-33.0); Mean Corpuscular Volume 95.4 fL (80-98); Mean Platelet Volume 9.5 fL (9.4-12.3); Monocytes Absolute Auto 0.8 X10*3/uL (0.1-1.2); Monocytes Percent Auto 5.9 % (2-11); Neutrophils Absolute Auto 11.7 X10*3/uL (2.0-8.3); Neutrophils Percent Auto 82.8 % (45-73); Platelet Count 287 X10*3/uL (160-400); Red Blood Count 4.12 X10*6/uL (4.20-5.50); Red Cell Distribution Width 13.2 % (11.0-16.0); White Blood Count 14.1 X10*3/uL (4.8-10.8)
[2020-07-28] MEDS: Heparin Sodium,Porcine 5,000 UNIT/ML VIAL 5000 UNIT SUBCUT ×2 (05:45→17:19)
[2020-07-28 06:12] LABS: Anion Gap 17 (12-20); Blood Urea Nitrogen 20 mg/dL (9-16); Calcium 8.9 mg/dL (8.4-10.2); Carbon Dioxide 24 mmol/L (22-29); Chloride 103 mmol/L (96-108); Creatinine Clr Calc Pharmacy 75.5; Estimated Glomerular Filt Rate > 60; Glucose Random 215 mg/dL (60-115); Potassium 4.8 mmol/l (3.3-5.1); Sodium 139 mmol/L (135-145)
[2020-07-28] MEDS: Albuterol/Iprat 2.5/0.5MG 3 ML AMPUL.NEB INHALE ×4 (07:19→19:44)
[2020-07-28 08:27] LABS: Glucose, Whole Blood 213 mg/dL (60-115)
[2020-07-28] MEDS: Gabapentin 300 MG CAPSULE PO ×3 (08:42→20:14)
[2020-07-28] MEDS: Insulin Lispro 100 UNIT/ML 3 ML VIAL SUBCUT ×3 (08:43→20:15)
[2020-07-28] MEDS: FLUoxetine HCl 20 MG CAPSULE 40 MG PO (08:43)
[2020-07-28] MEDS: Metoclopramide HCl 5 MG TABLET PO (08:44)
[2020-07-28] MEDS: glipiZIDE 5 MG TABLET PO (08:44)
[2020-07-28] MEDS: Cyclobenzaprine HCl 10 MG TABLET PO ×3 (08:44→20:13)
[2020-07-28] MEDS: Omeprazole 20 MG CAPSULE.DR PO (08:45)
--- NOTE | 2020-07-28 08:48 | P.PNIM_ITS ---
Subjective Subjective Date of Service: 07/28/20 Interval History: Patient complaining of generalized body ache mostly her feet and left shoulder, denies shortness of breath, feels cough is improving, no other acute issues overnight, no fever no chills. Review of Systems Review of Systems General no headache, no dizziness no fever chills, generalized body ache, left shoulder pain. CVS left-sided chest pain with deep breathing and cough, no palpitation. Respiratory dry cough, shortness of breath Gastrointestinal no nausea no vomiting, no abdominal pain Physical Exam Vital Signs: Vital Signs: Last Vital Signs Temp 98.3 F 07/28/20 07:54 Pulse 73 07/28/20 07:54 Resp 18 07/28/20 07:54 BP 138/70 07/28/20 07:54 Pulse Ox 96 07/28/20 07:54 Body Mass Index 31.4 General no acute distress Neck is supple no JVD. CVS regular rate rhythm, Respiratory diminished breath sounds left base, clear right lung, no respiratory distress, no wheeze, no rhonchi. Gastrointestinal abdomen soft, nontender, bowel sounds audible Extremities no clubbing cyanosis or edema. Neuro nonfocal , speech clear. Skin no rash, no bruising Objective Data Current Medications Generic Name Dose Route Start Last Admin Trade Name Freq PRN Reason Stop Dose Admin Acetaminophen 650 mg 07/27/20 04:02 Acetaminophen 325 Mg Tablet PO Q6H PRN Pain, Mild (Pain Scale 1-3) Albuterol Sulfate 2 puff 07/27/20 00:33 Albuterol Sulfate 90 Mcg 8 Gm Inhaler INHALE Q4H PRN Shortness Of Breath Albuterol/Ipratropium 3 ml 07/27/20 08:00 07/28/20 07:19 Albuterol/Iprat 2.5/0.5mg 3 Ml Ampul.Neb INHALE 3 ml RQ4H WHILE AWAKE SHAMIKA Administration Albuterol/Ipratropium 3 ml 07/27/20 00:33 Albuterol/Iprat 2.5/0.5mg 3 Ml Ampul.Neb INHALE RQ4H PRN Shortness of Breath/Wheezing Cyclobenzaprine HCl 10 mg 07/27/20 09:00 07/27/20 20:13 Cyclobenzaprine Hcl 10 Mg Tablet PO 10 mg TID SHAMIKA Administration Docusate Sodium 100 mg 07/27/20 04:02 Docusate Sodium 100 Mg Capsule PO DAILY PRN Constipation Fentanyl 100 mcg 07/27/20 01:00 07/27/20 03:39 Fentanyl 100 Mcg Patch.Td72 TRANSDERMA 100 mcg Q72H SHAMIKA Administration Fluoxetine HCl 40 mg 07/27/20 09:00 07/27/20 08:41 Fluoxetine Hcl 20 Mg Capsule PO 40 mg DAILY SHAMIKA Administration Gabapentin 300 mg 07/27/20 09:00 07/27/20 20:13 Gabapentin 300 Mg Capsule PO 300 mg TID SHAMIKA Administration Glipizide 5 mg 07/27/20 14:15 07/27/20 14:16 Glipizide 5 Mg Tablet PO 5 mg DAILY SHAMIKA Administration Guaifenesin/Dextromethorphan 10 ml 07/27/20 14:15 07/28/20 02:27 Guaifenesin Dm 200/20/10 Ml 10 Ml Syrup PO 10 ml Q6H SHAMIKA Administration Heparin Sodium (Porcine) 5,000 unit 07/27/20 06:00 07/28/20 05:45 Heparin Sodium,Porcine 5,000 Unit/Ml Vial SUBCUT 5,000 unit Q12H SHAMIKA Administration Azithromycin 500 mg/ Sodium 250 mls @ 125 mls/hr 07/27/20 00:33 07/28/20 02:31 Chloride IV 0 mls/hr Q24H SHAMIKA Infusion Ceftriaxone Sodium 1 gm/ 50 mls @ 100 mls/hr 07/27/20 00:33 07/28/20 00:58 Sodium Chloride IV Infused Q24H SHAMIKA Infusion Insulin Human Lispro 0 unit 07/27/20 07:30 07/27/20 22:23 Insulin Lispro 100 Unit/Ml 3 Ml Vial SUBCUT 2 unit QIDACHS SHAMIKA Administration Protocol Methylprednisolone Sodium Succinate 40 mg 07/27/20 00:33 07/28/20 00:00 Methylprednisolone Sod Succ/Pf 40 Mg/Ml Vial IVPUSH 40 mg Q12H SHAMIKA Administration Metoclopramide HCl 5 mg 07/27/20 09:00 07/27/20 08:42 Metoclopramide Hcl 5 Mg Tablet PO 5 mg DAILY SHAMIKA Administration Omeprazole 20 mg 07/27/20 09:00 07/27/20 08:42 Omeprazole 20 Mg Capsule.Dr PO 20 mg DAILY SHAMIKA Administration Ondansetron HCl 4 mg 07/27/20 04:02 Ondansetron Hcl 4 Mg/2 Ml Vial IVPUSH Q8H PRN Nausea and Vomiting Oxycodone HCl 5 mg 07/27/20 06:04 07/28/20 03:31 Oxycodone Hcl Immed Release 5 Mg Tablet PO 5 mg Q4H PRN Administration Pain, Severe (Pain Scale 7-10) Pharmacy Consult 1 each 07/26/20 21:14 Consult Rx Perform Med Rec MISCELLANE ONCE PRN Consult order Trazodone HCl 300 mg 07/27/20 21:00 07/27/20 20:13 Trazodone Hcl 100 Mg Tablet PO 300 mg BEDTIME SHAMIKA Administration Labs CBC & Chem 7: 07/28/20 04:26 07/28/20 04:26 Microbiology Microbiology Results: Microbiology 07/26/20 23:39 Blood - Venous Blood Culture - Preliminary No growth after 24 hours. 07/26/20 23:39 Blood - Venous Blood Culture - Preliminary No growth after 24 hours. Assessment and Plan (1) Acute and chronic respiratory failure with hypoxia: Status: Acute (2) COPD exacerbation: Status: Acute (3) Fracture of rib: Status: Acute (4) Leukocytosis: Status: Acute (5) Bronchitis: Status: Acute Assessment and Plan: 65-year-old female who is a chronic smoker who presents to the hospital after fall. Found to have pneumonia on chest CT # acute on chronic hypoxic respiratory failure due to pneumonia/undiagnosed COPD with exacerbation cough and shortness of breath improving was likely due to pneumonia and undiagnosed COPD hypoxic with 89% O2 on room air on arrival to ED, COVID-19 negative, patient weaned off oxygen currently 96% on room air Continue IV Solu-Medrol 40 IV b.i.d., on IV azithromycin and ceftriaxone day 3, will switch antibiotics to by mouth, continue schedule updraft changed to q.i.d. and as needed, continue cough medication, encourage incentive spirometry chest CT showing ground-glass opacities concerning for infiltrate, and pulmonary nodules will recommend 3-[address] chest follow-up # mechanical fall with 9th and 10th rib fracture likely due to left leg pain and weakness that she has chronically due to lower spine fusion, today complaining of generalized body ache left shoulder pain and foot pain Encourage out of bed, incentive spirometry, pain control, supportive measures Patient is on fentanyl patch that will be continued, patient placed on as needed oxycodone, also on gabapentin, use cold packs Seen by Physical therapy and they recommend outpatient PT if foot pain continues to limit ambulation # hypertension - patient not on antihypertensive med , patient noted to have high blood pressure readings overnight likely due to pain currently blood pressure is sta ble will follow # diabetes - blood sugars elevated patient takes glipizide and Glucophage at home, continue insulin sliding scale, patient refusing diabetic diet, will resume glipizide and glucophage. # tobacco use disorder counseling done. DVT prophylaxis: heparin sbq
[2020-07-28] MEDS: Docusate Sodium 100 MG CAPSULE PO (09:51)
[2020-07-28 12:07] LABS: Glucose, Whole Blood 143 mg/dL (60-115)
--- NOTE | 2020-07-28 15:20 | MHC.CM.PN ---
PER REVIEW OF REPORTS, NO PLAN FOR DISCHARGE TODAY. BLOOD PRESSURE CONTINUING TO BE MONITORED. PHYSICAL THERAPY RECOMMENDING OUTPATIENT P.T. OF THIS NOTE. CASE MANAGEMENT FOLLOWING.
[2020-07-28 16:25] LABS: Glucose, Whole Blood 276 mg/dL (60-115)
[2020-07-28] MEDS: metFORMIN HCl 500 MG TABLET PO (17:19)
[2020-07-28] MEDS: traZODone HCL 100 MG TABLET 300 MG PO (20:14)
[2020-07-28 20:18] LABS: Glucose, Whole Blood 254 mg/dL (60-115)
[2020-07-29] VITALS (11 sets, daily range): BP systolic 109–153; BP diastolic 55–88; PULSE 61–93; RESP 18–21; TEMP 36.5–37.7; O2SAT 90–97; BMI 31.4
[2020-07-29] MEDS: guaiFENesin DM 200/20/10 ML 10 ML SYRUP PO ×4 (02:56→20:35)
[2020-07-29] MEDS: oxyCODONE HCl Immed Release 5 MG TABLET PO ×3 (03:43→16:08)
[2020-07-29] MEDS: Heparin Sodium,Porcine 5,000 UNIT/ML VIAL 5000 UNIT SUBCUT ×2 (06:00→18:36)
[2020-07-29 07:27] LABS: Glucose, Whole Blood 190 mg/dL (60-115)
[2020-07-29] MEDS: Insulin Lispro 100 UNIT/ML 3 ML VIAL SUBCUT ×3 (08:05→20:36)
[2020-07-29] MEDS: metFORMIN HCl 500 MG TABLET PO ×2 (08:06→18:35)
[2020-07-29] MEDS: FLUoxetine HCl 20 MG CAPSULE 40 MG PO (08:14)
[2020-07-29] MEDS: Omeprazole 20 MG CAPSULE.DR PO (08:15)
[2020-07-29] MEDS: Metoclopramide HCl 5 MG TABLET PO (08:15)
[2020-07-29] MEDS: Gabapentin 300 MG CAPSULE PO ×3 (08:16→20:35)
[2020-07-29] MEDS: Azithromycin 500 MG TABLET PO (08:16)
[2020-07-29] MEDS: glipiZIDE 5 MG TABLET PO (08:16)
[2020-07-29] MEDS: Cyclobenzaprine HCl 10 MG TABLET PO ×3 (08:16→20:35)
[2020-07-29] MEDS: Albuterol/Iprat 2.5/0.5MG 3 ML AMPUL.NEB INHALE ×4 (08:46→19:36)
[2020-07-29 11:36] LABS: Glucose, Whole Blood 155 mg/dL (60-115)
--- NOTE | 2020-07-29 12:34 | P.PNIM_ITS ---
Subjective Subjective Date of Service: 07/29/20 Interval History: Patient foot pain and left-sided chest discomfort is better since yesterday complaining of shortness of breath with exertion, no acute issues overnight. Review of Systems General no headache, no dizziness, no fever chills, generalized body ache, left foot pain. CVS left-sided chest pain with deep breathing and coughing improving, no palpitation. Respiratory dry cough, shortness of breath with exertion. Gastrointestinal no nausea, no vomiting, no abdominal pain Physical Exam Vital Signs: Vital Signs: Last Vital Signs Temp 98.5 F 07/29/20 11:31 Pulse 74 07/29/20 11:46 Resp 18 07/29/20 11:31 BP 143/67 H 07/29/20 11:31 Pulse Ox 92 07/29/20 11:31 Body Mass Index 31.4 General no acute distress Neck is supple no JVD. CVS regular rate rhythm, Respiratory clear lung, good air entry to bases,no respiratory distress, no wheeze, no rhonchi. Gastrointestinal abdomen soft, nontender, bowel sounds audible Extremities no clubbing, cyanosis or edema. Neuro nonfocal , speech clear. Skin no rash, no bruising Objective Data Current Medications Generic Name Dose Route Start Last Admin Trade Name Freq PRN Reason Stop Dose Admin Acetaminophen 650 mg 07/27/20 04:02 Acetaminophen 325 Mg Tablet PO Q6H PRN Pain, Mild (Pain Scale 1-3) Albuterol Sulfate 2 puff 07/27/20 00:33 Albuterol Sulfate 90 Mcg 8 Gm Inhaler INHALE Q4H PRN Shortness Of Breath Albuterol/Ipratropium 3 ml 07/27/20 08:00 07/29/20 11:46 Albuterol/Iprat 2.5/0.5mg 3 Ml Ampul.Neb INHALE 3 ml RQ4H WHILE AWAKE SHAMIKA Administration Albuterol/Ipratropium 3 ml 07/27/20 00:33 Albuterol/Iprat 2.5/0.5mg 3 Ml Ampul.Neb INHALE RQ4H PRN Shortness of Breath/Wheezing Azithromycin 500 mg 07/29/20 09:00 07/29/20 08:16 Azithromycin 500 Mg Tablet PO 500 mg Q24H [facility]A Administration Cefuroxime Axetil 500 mg 07/28/20 09:15 07/29/20 08:15 Cefuroxime Axetil 500 Mg Tablet PO 500 mg Q12H [facility]IKA Administration Cyclobenzaprine HCl 10 mg 07/27/20 09:00 07/29/20 08:16 Cyclobenzaprine Hcl 10 Mg Tablet PO 10 mg TID [facility]A Administration Docusate Sodium 100 mg 07/27/20 04:02 07/28/20 09:51 Docusate Sodium 100 Mg Capsule PO 100 mg DAILY PRN Administration Constipation Fentanyl 100 mcg 07/27/20 01:00 07/27/20 03:39 Fentanyl 100 Mcg Patch.Td72 TRANSDERMA 100 mcg Q72H [facility]IMKA Administration Fluoxetine HCl 40 mg 07/27/20 09:00 07/29/20 08:14 Fluoxetine Hcl 20 Mg Capsule PO 40 mg DAILY [facility] Administration Fluticasone/Vilanterol 1 puff 07/30/20 08:00 Fluticasone/Vilanterol 100/25 Blst.W.Dev INHALE RDAILY [facility] Gabapentin 300 mg 07/27/20 09:00 07/29/20 08:16 Gabapentin 300 Mg Capsule PO 300 mg TID [facility] Administration Glipizide 5 mg 07/27/20 14:15 07/29/20 08:16 Glipizide 5 Mg Tablet PO 5 mg DAILY [facility] Administration Guaifenesin/Dextromethorphan 10 ml 07/27/20 14:15 07/29/20 08:06 Guaifenesin Dm 200/20/10 Ml 10 Ml Syrup PO 10 ml Q6H [facility] Administration Heparin Sodium (Porcine) 5,000 unit 07/27/20 06:00 07/29/20 06:00 Heparin Sodium,Porcine 5,000 Unit/Ml Vial SUBCUT 5,000 unit Q12H [facility]A Administration Insulin Human Lispro 0 unit 07/27/20 07:30 07/29/20 11:47 Insulin Lispro 100 Unit/Ml 3 Ml Vial SUBCUT 2 unit QIDACHS [facility] Administration Protocol Metformin HCl 500 mg 07/28/20 17:00 07/29/20 08:06 Metformin Hcl 500 Mg Tablet PO 500 mg BIDWM [facility] Administration Metoclopramide HCl 5 mg 07/27/20 09:00 07/29/20 08:15 Metoclopramide Hcl 5 Mg Tablet PO 5 mg DAILY [facility] Administration Omeprazole 20 mg 07/27/20 09:00 07/29/20 08:15 Omeprazole 20 Mg Capsule. PO 20 mg DAILY [facility] Administration Ondansetron HCl 4 mg 07/27/20 04:02 Ondansetron Hcl 4 Mg/2 Ml Vial IVPUSH Q8H PRN Nausea and Vomiting Oxycodone HCl 5 mg 07/27/20 06:04 07/29/20 08:16 Oxycodone Hcl Immed Release 5 Mg Tablet PO 5 mg Q4H PRN Administration Pain, Severe (Pain Scale 7-10) Pharmacy Consult 1 each 07/26/20 21:14 Consult Rx Perform Med Rec MISCELLANE ONCE PRN Consult order Prednisone 20 mg 07/30/20 09:00 Prednisone 20 Mg Tablet PO DAILY [facility] Trazodone HCl 300 mg 07/27/20 21:00 07/28/20 20:14 Trazodone Hcl 100 Mg Tablet PO 300 mg BEDTIME [facility] Administration Labs CBC & Chem 7: 07/28/20 04:26 07/28/20 04:26 Microbiology Microbiology Results: Microbiology 07/26/20 23:39 Blood - Venous Blood Culture - Preliminary No growth after 48 hours. 07/26/20 23:39 Blood - Venous Blood Culture - Preliminary No growth after 48 hours. Assessment and Plan (1) Acute and chronic respiratory failure with hypoxia: Status: Acute (2) Community acquired pneumonia: Status: Acute (3) COPD exacerbation: Status: Acute (4) Fracture of rib: Status: Acute (5) Bronchitis: Status: Acute (6) Leukocytosis: Status: Acute Assessment and Plan: 65-year-old female who is a chronic smoker who presents to the hospital after fall. Found to have pneumonia on chest CT # acute on chronic hypoxic respiratory failure due to pneumonia/undiagnosed COPD with exacerbation cough and shortness of breath significantly better, today feels short of breath with exertion hypoxia resolved,COVID-19 negative on prednisone 20 mg, on azithromycin and ceftin day 4, continue schedule updraft q4h. and as needed, continue cough medication, encourage incentive spirometry Will add Breo since patient use a rescue inhaler twice daily will need pulmonary follow-up as outpatient chest CT showing ground-glass opacities concerning for infiltrate, and pulmonary nodules will recommend 3-[address] chest follow-up Home O2 eval obtained it seems patient oxygenation remains stable at rest and with ambulation but noted to have tachycardia likely due to deconditioning, pain and pneumonia patient does not feel ready for discharge therefore will monitor for another 24h. # mechanical fall with 9th and 10th rib fracture Better pain control today continue current pain medication Encourage out of bed, incentive spirometry, supportive measures Patient is on fentanyl patch at home, on as needed oxycodone, also on gabapentin Seen by Physical therapy and they recommend outpatient PT if foot pain continues to limit ambulation, patient is walking better today, but is deconditioned becomes tachycardic and short of breath after ambulating # hypertension - patient not on antihypertensive med , patient noted to have high blood pressure readings likely due to pain, currently blood pressure is stable will follow # diabetes - blood sugars elevated likely due to steroid, continue home meds glipizide and Glucophage , continue insulin sliding scale, patient refusing diabetic diet, strongly recommend to follow a low-carbohydrate Diet # tobacco use disorder counseling done, patient declined nicotine patch. DVT prophylaxis: heparin sbq
[2020-07-29 16:35] LABS: Glucose, Whole Blood 146 mg/dL (60-115)
[2020-07-29 20:27] LABS: Glucose, Whole Blood 202 mg/dL (60-115)
[2020-07-29] MEDS: traZODone HCL 100 MG TABLET 300 MG PO (22:52)
[2020-07-30] MEDS: guaiFENesin DM 200/20/10 ML 10 ML SYRUP PO ×3 (01:22→14:05)
[2020-07-30] MEDS: fentaNYL 100 MCG PATCH.TD72 TRANSDERMA (01:23)
[2020-07-30] MEDS: oxyCODONE HCl Immed Release 5 MG TABLET PO ×4 (01:37→14:05)
[2020-07-30 03:48] VITALS: BP 141/70; PULSE 74; RESP 18; TEMP 36.3; O2SAT 93
[2020-07-30] MEDS: Heparin Sodium,Porcine 5,000 UNIT/ML VIAL 5000 UNIT SUBCUT (05:57)
[2020-07-30] MEDS: Albuterol/Iprat 2.5/0.5MG 3 ML AMPUL.NEB INHALE ×2 (07:16→10:54)
[2020-07-30] MEDS: Fluticasone/Vilanterol 100/25 BLST.W.DEV 1 PUFF INHALE (07:17)
[2020-07-30 07:48] LABS: Glucose, Whole Blood 142 mg/dL (60-115)
[2020-07-30 07:55] VITALS: BP 147/86; PULSE 85; RESP 16; TEMP 36.4; O2SAT 95
[2020-07-30] MEDS: Cyclobenzaprine HCl 10 MG TABLET PO ×2 (09:23→14:05)
[2020-07-30] MEDS: Azithromycin 500 MG TABLET PO (09:24)
[2020-07-30] MEDS: Metoclopramide HCl 5 MG TABLET PO (09:24)
[2020-07-30] MEDS: Omeprazole 20 MG CAPSULE.DR PO (09:24)
[2020-07-30] MEDS: glipiZIDE 5 MG TABLET PO (09:24)
[2020-07-30] MEDS: FLUoxetine HCl 20 MG CAPSULE 40 MG PO (09:24)
[2020-07-30] MEDS: metFORMIN HCl 500 MG TABLET PO (09:24)
[2020-07-30] MEDS: Gabapentin 300 MG CAPSULE PO ×2 (09:24→14:05)
[2020-07-30] MEDS: predniSONE 20 MG TABLET PO (09:24)
[2020-07-30] MEDS: Acetaminophen 325 MG TABLET 650 MG PO (09:58)
[2020-07-30 10:55] VITALS: PULSE 81; O2SAT 94
--- NOTE | 2020-07-30 11:00 | P.DS_ITS ---
DS: Providers Provider Date of Service: 07/30/20 Date of admission: 07/27/20 04:02 Primary care physician: Neymar Daugherty MD DS: Diagnosis Discharge Diagnosis (1) Acute and chronic respiratory failure with hypoxia: Status: Acute (2) Community acquired pneumonia: Status: Acute (3) COPD exacerbation: Status: Acute (4) Fracture of rib: Status: Acute (5) Bronchitis: Status: Acute (6) Leukocytosis: Status: Acute DS: Medications Discharge Medications Home Medications: Home Medications Medication Instructions Recorded Confirmed albuterol sulfate [Ventolin HFA] 2 puff INHALATION Q4H PRN 07/26/20 07/26/20 celecoxib [Celebrex] 200 mg PO DAILY 07/26/20 07/26/20 fentanyl 1 patch TRANSDERMAL Q72H 07/26/20 07/26/20 fluoxetine [Prozac] 40 mg PO DAILY 07/26/20 07/26/20 fluticasone propionate 1 spray INTRANASAL DAILY 07/26/20 07/26/20 gabapentin 300 mg PO TID 07/26/20 07/26/20 glipizide 5 mg PO DAILY 07/26/20 07/26/20 metformin 500 mg PO BID 07/26/20 07/26/20 methocarbamol 1,000 mg PO TID 07/26/20 07/26/20 metoclopramide HCl [Reglan] 5 mg PO DAILY 07/26/20 07/26/20 omeprazole 20 mg PO DAILY 07/26/20 07/26/20 trazodone 300 mg PO BEDTIME 07/26/20 07/26/20 Previous Rx's Medication Instructions Recorded azithromycin 500 mg PO Q24H #3 tab 07/29/20 cefuroxime axetil 500 mg PO Q12H #10 tab 07/29/20 dextromethorphan-guaifenesin 10 ml PO Q6H #200 ml 07/29/20 fluticasone furoate-vilanterol 1 puff INHALATION RDAILY #1 ea 07/30/20 [Breo Ellipta] prednisone 20 mg PO DAILY #5 tab 07/30/20 DS: Summary Hospital Course Hospital Course: 65-year-old female with past medical history of bronchitis(chronic smoker although denies ever being diagnosed with COPD), chronic pain, diabetes, GERD who presents to the hospital after experiencing a fall from 13 steps. She is very lethargic but arousable, does not give much history. Therefore history is obtained mostly from ED physician. It appears the patient was walking down her basement stairs and had a fall of 13 steps. Patient herself does not remember how it happened, she does not report tripping on anything. She denies missing any steps. She comes to the hospital complaining of left-sided pain. On arrival to the ED found to be hypoxic 89% on room air. She was also significantly wheezing, having a cough, sputum production. Chest CT done showed ground-glass opacities concerning for pneumonia.. COVID-19 negative Unable to obtain complete review of system is patient lethargic Vitals significant for temp of 98.2?, respiratory rate of 24, heart rate of 75, blood pressure 165/79, satting 91% on room air. Currently on 2 L of nasal cannula satting 94%. Labs are significant for WBC count of 15.2, ABG pH of 7.35, CO2 of 52, CT of the chest demonstrates of the 9th and 10th ribs on the left, some scattered areas of ground-glass opacity that may represent infiltrate. History is obtained mostly from chart Past medical history: Bronchitis, chronic back pain, diabetes, hypertension, 65-year-old female chronic smoker presented to the hospital after fall. Found to have pneumonia on chest CT # acute on chronic hypoxic respiratory failure due to pneumonia/undiagnosed COPD with exacerbation, COVID-19 negative patient treated with IV steroids IV azithromycin and Ceftin as well as updraft treatment patient shortness of breath and cough has significantly improved patient has been advised to have outpatient follow-up with pulmonology in strongly advised to abstain from smoking patient is now being discharged home on azithromycin and Ceftin to finish a total 7 day course of antibiotics patient was also been given a prescription of 5 days of prednisone 20 mg daily and Breo inhale CT chest showed ground-glass opacities concerning for infiltrate, and pulmonary nodules , recommend 3-[address] chest follow-up Patient has been weaned off oxygen. # Mechanical fall with 9th and 10th rib fracture with significant bruising to both feet and left shoulder, patient with persistent pain she has been encouraged to use incentive spirometry continue fentanyl patch, Celebrex and to use Tylenol, patient evaluated by Physical therapy and they recommended outpatient PT if foot pain continues to limit ambulation,patient provide history of little and ring finger numbness present even prior to fall with history of cervical disc disease and arthritis. # hypertension patient not on antihypertensive med , patient noted to have few high blood pressure readings likely due to pain, advised to follow-up blood pressure with PCP # diabetes - blood sugars elevated likely due to steroid, continue home meds glipizide and Glucophage , strongly advised to follow diabetic diet # tobacco use disorder counseling done, patient declined nicotine patch. Time Spent with Patient Time attestation: Total time spent providing and/or coordinating discharge services: Discharge coordination time: Greater than 30 minutes Physical Exam Vital Signs: Vital Signs: Last Vital Signs Temp 97.5 F 07/30/20 07:55 Pulse 81 07/30/20 10:55 Resp 16 07/30/20 07:55 BP 147/86 H 07/30/20 07:55 Pulse Ox 95 07/30/20 07:55 Body Mass Index 31.4 General no acute distress Neck is supple no JVD. CVS regular rate rhythm, Respiratory clear lung, good air entry to bases,no respiratory distress, no wheeze, no rhonchi. Gastrointestinal abdomen soft, nontender, bowel sounds audible Extremities bruises both feet and left shoulder,no edema Neuro nonfocal , speech clear. Skin no rash, bruising left shoulder and feet now more noticeable DS: Data Data Completed and Pending Labs on day of discharge: Laboratory Tests 07/26/20 07/26/20 07/26/20 21:25 21:46 21:46 WBC 15.2 H RBC 4.72 Hgb 14.6 Hct 45.3 MCV 96.0 MCH 30.9 MCHC 32.2 RDW 13.2 Plt Count 292 MPV 8.7 L Immature Gran % (Auto) 0.5 H Neut % (Auto) 50.0 Lymph % (Auto) 34.8 [place] % (Auto) 13.7 H Eos % (Auto) 0.6 Baso % (Auto) 0.4 Lymph # (Auto) 5.3 H [place] # (Auto) 2.1 H Eos # (Auto) 0.1 Baso # (Auto) 0.1 Abs Immat Gran (auto) 0.08 H Absolute Neuts (auto) 7.6 Absolute Nucleated RBC 0.000 Nucleated RBC % (auto) 0.0 Smear Tech's Comments VERIFIED PT INR APTT ABG pH ABG pCO2 ABG pO2 ABG HCO3 ABG O2 Saturation ABG Base Excess VBG pH VBG pCO2 VBG pO2 VBG HCO3 VBG O2 Saturation VBG Base Excess Oxygen Given Sodium 136 Potassium 4.1 Chloride 100 Carbon Dioxide 26 Anion Gap 14 BUN 16 Creatinine 0.86 Estim Creat Clear Calc 71.1 Estimated GFR > 60 POC Glucose 95 Random Glucose 85 Lactic Acid Calcium 9.2 Magnesium 2.0 Total Bilirubin 0.8 Direct Bilirubin 0.2 AST 16 ALT 14 Alkaline Phosphatase 114 Total Creatine Kinase 123 Troponin I High Sens Total Protein 7.5 Albumin 4.2 Ethyl Alcohol Respiratory Panel Garcia Adenovirus (Rapid PCR) B.pert (TEM-PCR) B.parapertussis DNA PCR C. pneumoniae DNA (PCR) Coronavirus OC43 (PCR) Coronavirus HKU1 (PCR) Coronavirus 229E (PCR) COVID-19 ([facility]) COVID-19 Clin Com Coronavirus NL63 (PCR) Human Metapneumovir PCR Influenza A (RT-PCR) Influenza B (RT-PCR) M. pneumoniae (PCR) Parainfluenza 1 (PCR) Parainfluenza 2 (PCR) Parainfluenza 3 (PCR) Parainfluenza 4 (PCR) RSV (PCR) Entero/Rhino (PCR) SARS-CoV-2 RNA (RT-PCR) 07/26/20 07/26/20 07/26/20 21:46 21:46 21:46 WBC RBC Hgb Hct MCV MCH MCHC RDW Plt Count MPV Immature Gran % (Auto) Neut % (Auto) Lymph % (Auto) [place] % (Auto) Eos % (Auto) Baso % (Auto) Lymph # (Auto) [place] # (Auto) Eos # (Auto) Baso # (Auto) Abs Immat Gran (auto) Absolute Neuts (auto) Absolute Nucleated RBC Nucleated RBC % (auto) Smear Tech's Comments PT 12.7 INR 1.1 APTT 26.1 ABG pH ABG pCO2 ABG pO2 ABG HCO3 ABG O2 Saturation ABG Base Excess VBG pH VBG pCO2 VBG pO2 VBG HCO3 VBG O2 Saturation VBG Base Excess Oxygen Given Sodium Potassium Chloride Carbon Dioxide Anion Gap BUN Creatinine Estim Creat Clear Calc Estimated GFR POC Glucose Random Glucose Lactic Acid Calcium Magnesium Total Bilirubin Direct Bilirubin AST ALT Alkaline Phosphatase Total Creatine Kinase Troponin I High Sens 3.8 Total Protein Albumin Ethyl Alcohol Respiratory Panel Garcia Adenovirus (Rapid PCR) B.pert (TEM-PCR) B.parapertussis DNA PCR C. pneumoniae DNA (PCR) Coronavirus OC43 (PCR) Coronavirus HKU1 (PCR) Coronavirus 229E (PCR) COVID-19 ([facility]) Negative COVID-19 Clin Com See Note Coronavirus NL63 (PCR) Human Metapneumovir PCR Influenza A (RT-PCR) Influenza B (RT-PCR) M. pneumoniae (PCR) Parainfluenza 1 (PCR) Parainfluenza 2 (PCR) Parainfluenza 3 (PCR) Parainfluenza 4 (PCR) RSV (PCR) Entero/Rhino (PCR) SARS-CoV-2 RNA (RT-PCR) 07/26/20 07/26/20 07/26/20 21:46 21:46 22:43 WBC RBC Hgb Hct MCV MCH MCHC RDW Plt Count MPV Immature Gran % (Auto) Neut % (Auto) Lymph % (Auto) [place] % (Auto) Eos % (Auto) Baso % (Auto) Lymph # (Auto) [place] # (Auto) Eos # (Auto) Baso # (Auto) Abs Immat Gran (auto) Absolute Neuts (auto) Absolute Nucleated RBC Nucleated RBC % (auto) Smear Tech's Comments PT INR APTT ABG pH 7.35 ABG pCO2 52 H ABG pO2 68 L ABG HCO3 29 H ABG O2 Saturation 94.0 ABG Base Excess 3.1 VBG pH 7.30 L VBG pCO2 69 VBG pO2 40 VBG HCO3 34 VBG O2 Saturation 70.0 VBG Base Excess 5.8 Oxygen Given ROOM AIR Sodium Potassium Chloride Carbon Dioxide Anion Gap BUN Creatinine Estim Creat Clear Calc Estimated GFR POC Glucose Random Glucose Lactic Acid Calcium Magnesium Total Bilirubin Direct Bilirubin AST ALT Alkaline Phosphatase Total Creatine Kinase Troponin I High Sens Total Protein Albumin Ethyl Alcohol < 10 Respiratory Panel Garcia Adenovirus (Rapid PCR) B.pert (TEM-PCR) B.parapertussis DNA PCR C. pneumoniae DNA (PCR) Coronavirus OC43 (PCR) Coronavirus HKU1 (PCR) Coronavirus 229E (PCR) COVID-19 ([facility]AMA) COVID-19 Clin Com Coronavirus NL63 (PCR) Human Metapneumovir PCR Influenza A (RT-PCR) Influenza B (RT-PCR) M. pneumoniae (PCR) Parainfluenza 1 (PCR) Parainfluenza 2 (PCR) Parainfluenza 3 (PCR) Parainfluenza 4 (PCR) RSV (PCR) Entero/Rhino (PCR) SARS-CoV-2 RNA (RT-PCR) 07/26/20 07/27/20 07/27/20 23:39 01:37 04:49 WBC RBC Hgb Hct MCV MCH MCHC RDW Plt Count MPV Immature Gran % (Auto) Neut % (Auto) Lymph % (Auto) [place] % (Auto) Eos % (Auto) Baso % (Auto) Lymph # (Auto) [place] # (Auto) Eos # (Auto) Baso # (Auto) Abs Immat Gran (auto) Absolute Neuts (auto) Absolute Nucleated RBC Nucleated RBC % (auto) Smear Tech's Comments PT INR APTT ABG pH ABG pCO2 ABG pO2 ABG HCO3 ABG O2 Saturation ABG Base Excess VBG pH VBG pCO2 VBG pO2 VBG HCO3 VBG O2 Saturation VBG Base Excess Oxygen Given Sodium Potassium Chloride Carbon Dioxide Anion Gap BUN Creatinine Estim Creat Clear Calc Estimated GFR POC Glucose 177 H Random Glucose Lactic Acid 1.4 Calcium Magnesium Total Bilirubin Direct Bilirubin AST ALT Alkaline Phosphatase Total Creatine Kinase Troponin I High Sens Total Protein Albumin Ethyl Alcohol Respiratory Panel Garcia See Note Adenovirus (Rapid PCR) Not Detected B.pert (TEM-PCR) Not Detected B.parapertussis DNA PCR Not Detected C. pneumoniae DNA (PCR) Not Detected Coronavirus OC43 (PCR) Not Detected Coronavirus HKU1 (PCR) Not Detected Coronavirus 229E (PCR) Not Detected COVID-19 ([facility]) COVID-19 Clin Com Coronavirus NL63 (PCR) Not Detected Human Metapneumovir PCR Not Detected Influenza A (RT-PCR) Not Detected Influenza B (RT-PCR) Not Detected M. pneumoniae (PCR) Not Detected Parainfluenza 1 (PCR) Not Detected Parainfluenza 2 (PCR) Not Detected Parainfluenza 3 (PCR) Not Detected Parainfluenza 4 (PCR) Not Detected RSV (PCR) Not Detected Entero/Rhino (PCR) Not Detected SARS-CoV-2 RNA (RT-PCR) Not Detected 07/27/20 07/27/20 07/27/20 08:33 11:26 14:40 WBC RBC Hgb Hct MCV MCH MCHC RDW Plt Count MPV Immature Gran % (Auto) Neut % (Auto) Lymph % (Auto) [place] % (Auto) Eos % (Auto) Baso % (Auto) Lymph # (Auto) [place] # (Auto) Eos # (Auto) Baso # (Auto) Abs Immat Gran (auto) Absolute Neuts (auto) Absolute Nucleated RBC Nucleated RBC % (auto) Smear Tech's Comments PT INR APTT ABG pH ABG pCO2 ABG pO2 ABG HCO3 ABG O2 Saturation ABG Base Excess VBG pH VBG pCO2 VBG pO2 VBG HCO3 VBG O2 Saturation VBG Base Excess Oxygen Given Sodium Potassium Chloride Carbon Dioxide Anion Gap BUN Creatinine Estim Creat Clear Calc Estimated GFR POC Glucose 216 H 192 H 264 H Random Glucose Lactic Acid Calcium Magnesium Total Bilirubin Direct Bilirubin AST ALT Alkaline Phosphatase Total Creatine Kinase Troponin I High Sens Total Protein Albumin Ethyl Alcohol Respiratory Panel [place] Adenovirus (Rapid PCR) B.pert (TEM-PCR) B.parapertussis DNA PCR C. pneumoniae DNA (PCR) Coronavirus OC43 (PCR) Coronavirus HKU1 (PCR) Coronavirus 229E (PCR) COVID-19 ([facility]) COVID-19 Clin Com Coronavirus NL63 (PCR) Human Metapneumovir PCR Influenza A (RT-PCR) Influenza B (RT-PCR) M. pneumoniae (PCR) Parainfluenza 1 (PCR) Parainfluenza 2 (PCR) Parainfluenza 3 (PCR) Parainfluenza 4 (PCR) RSV (PCR) Entero/Rhino (PCR) SARS-CoV-2 RNA (RT-PCR) 07/27/20 07/27/20 07/28/20 17:00 20:30 04:26 WBC 14.1 H RBC 4.12 L Hgb 12.8 Hct 39.3 MCV 95.4 MCH 31.1 MCHC 32.6 RDW 13.2 Plt Count 287 MPV 9.5 Immature Gran % (Auto) 0.6 H Neut % (Auto) 82.8 H Lymph % (Auto) 10.0 L [place] % (Auto) 5.9 Eos % (Auto) 0.5 Baso % (Auto) 0.2 Lymph # (Auto) 1.4 [place] # (Auto) 0.8 Eos # (Auto) 0.1 Baso # (Auto) 0.0 Abs Immat Gran (auto) 0.09 H Absolute Neuts (auto) 11.7 H Absolute Nucleated RBC 0.000 Nucleated RBC % (auto) 0.0 Smear Tech's Comments PT INR APTT ABG pH ABG pCO2 ABG pO2 ABG HCO3 ABG O2 Saturation ABG Base Excess VBG pH VBG pCO2 VBG pO2 VBG HCO3 VBG O2 Saturation VBG Base Excess Oxygen Given Sodium Potassium Chloride Carbon Dioxide Anion Gap BUN Creatinine Estim Creat Clear Calc Estimated GFR POC Glucose 267 H 168 H Random Glucose Lactic Acid Calcium Magnesium Total Bilirubin Direct Bilirubin AST ALT Alkaline Phosphatase Total Creatine Kinase Troponin I High Sens Total Protein Albumin Ethyl Alcohol Respiratory Panel [place] Adenovirus (Rapid PCR) B.pert (TEM-PCR) B.parapertussis DNA PCR C. pneumoniae DNA (PCR) Coronavirus OC43 (PCR) Coronavirus HKU1 (PCR) Coronavirus 229E (PCR) COVID-19 ([facility]) COVID-19 Clin Com Coronavirus NL63 (PCR) Human Metapneumovir PCR Influenza A (RT-PCR) Influenza B (RT-PCR) M. pneumoniae (PCR) Parainfluenza 1 (PCR) Parainfluenza 2 (PCR) Parainfluenza 3 (PCR) Parainfluenza 4 (PCR) RSV (PCR) Entero/Rhino (PCR) SARS-CoV-2 RNA (RT-PCR) 07/28/20 07/28/20 07/28/20 04:26 07:53 11:39 WBC RBC Hgb Hct MCV MCH MCHC RDW Plt Count MPV Immature Gran % (Auto) Neut % (Auto) Lymph % (Auto) [place] % (Auto) Eos % (Auto) Baso % (Auto) Lymph # (Auto) [place] # (Auto) Eos # (Auto) Baso # (Auto) Abs Immat Gran (auto) Absolute Neuts (auto) Absolute Nucleated RBC Nucleated RBC % (auto) Smear Tech's Comments PT INR APTT ABG pH ABG pCO2 ABG pO2 ABG HCO3 ABG O2 Saturation ABG Base Excess VBG pH VBG pCO2 VBG pO2 VBG HCO3 VBG O2 Saturation VBG Base Excess Oxygen Given Sodium 139 Potassium 4.8 Chloride 103 Carbon Dioxide 24 Anion Gap 17 BUN 20 H Creatinine 0.81 Estim Creat Clear Calc 75.5 Estimated GFR > 60 POC Glucose 213 H 143 H Random Glucose 215 H D Lactic Acid Calcium 8.9 Magnesium Total Bilirubin Direct Bilirubin AST ALT Alkaline Phosphatase Total Creatine Kinase Troponin I High Sens Total Protein Albumin Ethyl Alcohol Respiratory Panel Garcia Adenovirus (Rapid PCR) B.pert (TEM-PCR) B.parapertussis DNA PCR C. pneumoniae DNA (PCR) Coronavirus OC43 (PCR) Coronavirus HKU1 (PCR) Coronavirus 229E (PCR) COVID-19 ([facility]) COVID-19 Clin Com Coronavirus NL63 (PCR) Human Metapneumovir PCR Influenza A (RT-PCR) Influenza B (RT-PCR) M. pneumoniae (PCR) Parainfluenza 1 (PCR) Parainfluenza 2 (PCR) Parainfluenza 3 (PCR) Parainfluenza 4 (PCR) RSV (PCR) Entero/Rhino (PCR) SARS-CoV-2 RNA (RT-PCR) 07/28/20 07/28/20 07/29/20 16:17 20:08 07:11 WBC RBC Hgb Hct MCV MCH MCHC RDW Plt Count MPV Immature Gran % (Auto) Neut % (Auto) Lymph % (Auto) [place] % (Auto) Eos % (Auto) Baso % (Auto) Lymph # (Auto) [place] # (Auto) Eos # (Auto) Baso # (Auto) Abs Immat Gran (auto) Absolute Neuts (auto) Absolute Nucleated RBC Nucleated RBC % (auto) Smear Tech's Comments PT INR APTT ABG pH ABG pCO2 ABG pO2 ABG HCO3 ABG O2 Saturation ABG Base Excess VBG pH VBG pCO2 VBG pO2 VBG HCO3 VBG O2 Saturation VBG Base Excess Oxygen Given Sodium Potassium Chloride Carbon Dioxide Anion Gap BUN Creatinine Estim Creat Clear Calc Estimated GFR POC Glucose 276 H 254 H 190 H Random Glucose Lactic Acid Calcium Magnesium Total Bilirubin Direct Bilirubin AST ALT Alkaline Phosphatase Total Creatine Kinase Troponin I High Sens Total Protein Albumin Ethyl Alcohol Respiratory Panel Garcia Adenovirus (Rapid PCR) B.pert (TEM-PCR) B.parapertussis DNA PCR C. pneumoniae DNA (PCR) Coronavirus OC43 (PCR) Coronavirus HKU1 (PCR) Coronavirus 229E (PCR) COVID-19 ([facility]) COVID-19 Clin Com Coronavirus NL63 (PCR) Human Metapneumovir PCR Influenza A (RT-PCR) Influenza B (RT-PCR) M. pneumoniae (PCR) Parainfluenza 1 (PCR) Parainfluenza 2 (PCR) Parainfluenza 3 (PCR) Parainfluenza 4 (PCR) RSV (PCR) Entero/Rhino (PCR) SARS-CoV-2 RNA (RT-PCR) 07/29/20 07/29/20 07/29/20 11:29 16:31 20:16 WBC RBC Hgb Hct MCV MCH MCHC RDW Plt Count MPV Immature Gran % (Auto) Neut % (Auto) Lymph % (Auto) [place] % (Auto) Eos % (Auto) Baso % (Auto) Lymph # (Auto) [place] # (Auto) Eos # (Auto) Baso # (Auto) Abs Immat Gran (auto) Absolute Neuts (auto) Absolute Nucleated RBC Nucleated RBC % (auto) Smear Tech's Comments PT INR APTT ABG pH ABG pCO2 ABG pO2 ABG HCO3 ABG O2 Saturation ABG Base Excess VBG pH VBG pCO2 VBG pO2 VBG HCO3 VBG O2 Saturation VBG Base Excess Oxygen Given Sodium Potassium Chloride Carbon Dioxide Anion Gap BUN Creatinine Estim Creat Clear Calc Estimated GFR POC Glucose 155 H 146 H 202 H Random Glucose Lactic Acid Calcium Magnesium Total Bilirubin Direct Bilirubin AST ALT Alkaline Phosphatase Total Creatine Kinase Troponin I High Sens Total Protein Albumin Ethyl Alcohol Respiratory Panel Garcia Adenovirus (Rapid PCR) B.pert (TEM-PCR) B.parapertussis DNA PCR C. pneumoniae DNA (PCR) Coronavirus OC43 (PCR) Coronavirus HKU1 (PCR) Coronavirus 229E (PCR) COVID-19 ([facility]) COVID-19 Clin Com Coronavirus NL63 (PCR) Human Metapneumovir PCR Influenza A (RT-PCR) Influenza B (RT-PCR) M. pneumoniae (PCR) Parainfluenza 1 (PCR) Parainfluenza 2 (PCR) Parainfluenza 3 (PCR) Parainfluenza 4 (PCR) RSV (PCR) Entero/Rhino (PCR) SARS-CoV-2 RNA (RT-PCR) 07/30/20 07:41 WBC RBC Hgb Hct MCV MCH MCHC RDW Plt Count MPV Immature Gran % (Auto) Neut % (Auto) Lymph % (Auto) [place] % (Auto) Eos % (Auto) Baso % (Auto) Lymph # (Auto) [place] # (Auto) Eos # (Auto) Baso # (Auto) Abs Immat Gran (auto) Absolute Neuts (auto) Absolute Nucleated RBC Nucleated RBC % (auto) Smear Tech's Comments PT INR APTT ABG pH ABG pCO2 ABG pO2 ABG HCO3 ABG O2 Saturation ABG Base Excess VBG pH VBG pCO2 VBG pO2 VBG HCO3 VBG O2 Saturation VBG Base Excess Oxygen Given Sodium Potassium Chloride Carbon Dioxide Anion Gap BUN Creatinine Estim Creat Clear Calc Estimated GFR POC Glucose 142 H Random Glucose Lactic Acid Calcium Magnesium Total Bilirubin Direct Bilirubin AST ALT Alkaline Phosphatase Total Creatine Kinase Troponin I High Sens Total Protein Albumin Ethyl Alcohol Respiratory Panel Garcia Adenovirus (Rapid PCR) B.pert (TEM-PCR) B.parapertussis DNA PCR C. pneumoniae DNA (PCR) Coronavirus OC43 (PCR) Coronavirus HKU1 (PCR) Coronavirus 229E (PCR) COVID-19 ([facility]) COVID-19 Clin Com Coronavirus NL63 (PCR) Human Metapneumovir PCR Influenza A (RT-PCR) Influenza B (RT-PCR) M. pneumoniae (PCR) Parainfluenza 1 (PCR) Parainfluenza 2 (PCR) Parainfluenza 3 (PCR) Parainfluenza 4 (PCR) RSV (PCR) Entero/Rhino (PCR) SARS-CoV-2 RNA (RT-PCR) Preliminary micro results at discharge 07/26/20 23:39 Blood Culture - Preliminary Blood - Venous No growth after 48 hours. 07/26/20 23:39 Blood Culture - Preliminary Blood - Venous No growth after 48 hours. Discharge Plan Discharge Patient Disposition: Home, Self-Care Referrals: Neymar Daugherty MD [Primary Care Provider] - Discharge Medications: New dextromethorphan-guaifenesin 10-100 mg/5 mL Syrup 10 ml PO Q6H Qty: 200 RF: 0 cefuroxime axetil 500 mg Tablet 500 mg PO Q12H Qty: 10 RF: 0 azithromycin 500 mg Tablet 500 mg PO Q24H Qty: 3 RF: 0 prednisone 20 mg Tablet 20 mg PO DAILY Qty: 5 RF: 0 Breo Ellipta 100-25 mcg/dose Blister With Device 1 puff inhalation RDAILY Qty: 1 RF: 0 Continued celecoxib [Celebrex] 200 mg Capsule 200 mg PO DAILY RF: 0 fluoxetine [Prozac] 40 mg Capsule 40 mg PO DAILY RF: 0 methocarbamol 500 mg Tablet 1,000 mg PO TID RF: 0 metformin 500 mg Tablet 500 mg PO BID RF: 0 metoclopramide HCl [Reglan] 5 mg Tablet 5 mg PO DAILY RF: 0 fentanyl 100 mcg/hr Patch 72 Hour 1 patch TRANSDERMAL Q72H RF: 0 trazodone 100 mg Tablet 300 mg PO BEDTIME RF: 0 gabapentin 300 mg Capsule 300 mg PO TID RF: 0 omeprazole 20 mg Capsule,Delayed Release(Dr/Ec) 20 mg PO DAILY RF: 0 albuterol sulfate [Ventolin HFA] 90 mcg/actuation Hfa Aerosol Inhaler 2 puff INHALATION Q4H PRN (Reason: Shortness Of Breath) RF: 0 fluticasone propionate 50 mcg/actuation [place],Suspension 1 spray INTRANASAL DAILY RF: 0 glipizide 5 mg Tablet 5 mg PO DAILY RF: 0 Discharge Orders: Discharge Order (Routine); Ordered 07/30/20 Ordered By: Mihaela Beal Diet: diabetic diet Activity on Discharge: As tolerated Stand Alone Forms: Patient Portal Discharge page Visit Report Forms: Patient Portal Discharge page Care Plan Goals: Completely abstain from smoking, repeat CT chest in 3-6 months Health Concerns: Rib fracture,pain, tobacco use disorder and pneumonia take tylenol in addition to fentanyl and celebrex Plan of Treatment: Close outpatient follow-up with Pcp
[2020-07-30 11:40] LABS: Glucose, Whole Blood 148 mg/dL (60-115)
[2020-07-30 12:00] VITALS: BP 162/84; PULSE 86; RESP 16; TEMP 36.2; O2SAT 93
--- NOTE | 2020-07-30 12:03 | MHC.CM.PN ---
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
--- NOTE | 2020-07-30 14:04 | P.DS_ITS ---
DS: Providers Provider Date of Service: 07/30/20 Date of admission: 07/27/20 04:02 Primary care physician: Neymar Daugherty MD DS: Diagnosis Discharge Diagnosis (1) Acute and chronic respiratory failure with hypoxia: Status: Acute (2) Community acquired pneumonia: Status: Acute (3) COPD exacerbation: Status: Acute (4) Fracture of rib: Status: Acute (5) Bronchitis: Status: Acute (6) Leukocytosis: Status: Acute DS: Medications Discharge Medications Home Medications: Home Medications Medication Instructions Recorded Confirmed albuterol sulfate [Ventolin HFA] 2 puff INHALATION Q4H PRN 07/26/20 07/26/20 celecoxib [Celebrex] 200 mg PO DAILY 07/26/20 07/26/20 fentanyl 1 patch TRANSDERMAL Q72H 07/26/20 07/26/20 fluoxetine [Prozac] 40 mg PO DAILY 07/26/20 07/26/20 fluticasone propionate 1 spray INTRANASAL DAILY 07/26/20 07/26/20 gabapentin 300 mg PO TID 07/26/20 07/26/20 glipizide 5 mg PO DAILY 07/26/20 07/26/20 metformin 500 mg PO BID 07/26/20 07/26/20 methocarbamol 1,000 mg PO TID 07/26/20 07/26/20 metoclopramide HCl [Reglan] 5 mg PO DAILY 07/26/20 07/26/20 omeprazole 20 mg PO DAILY 07/26/20 07/26/20 trazodone 300 mg PO BEDTIME 07/26/20 07/26/20 Previous Rx's Medication Instructions Recorded azithromycin 500 mg PO Q24H #3 tab 07/29/20 cefuroxime axetil 500 mg PO Q12H #10 tab 07/29/20 dextromethorphan-guaifenesin 10 ml PO Q6H #200 ml 07/29/20 fluticasone furoate-vilanterol 1 puff INHALATION RDAILY #1 ea 07/30/20 [Breo Ellipta] prednisone 20 mg PO DAILY #5 tab 07/30/20 DS: Summary Hospital Course Hospital Course: 65-year-old female with past medical history of bronchitis(chronic smoker although denies ever being diagnosed with COPD), chronic pain, diabetes, GERD who presents to the hospital after experiencing a fall from 13 steps. She is very lethargic but arousable, does not give much history. Therefore history is obtained mostly from ED physician. It appears the patient was walking down her basement stairs and had a fall of 13 steps. Patient herself does not remember how it happened, she does not report tripping on anything. She denies missing any steps. She comes to the hospital complaining of left-sided pain. On arrival to the ED found to be hypoxic 89% on room air. She was also significantly wheezing, having a cough, sputum production. Chest CT done showed ground-glass opacities concerning for pneumonia.. COVID-19 negative Unable to obtain complete review of system is patient lethargic Vitals significant for temp of 98.2?, respiratory rate of 24, heart rate of 75, blood pressure 165/79, satting 91% on room air. Currently on 2 L of nasal cannula satting 94%. Labs are significant for WBC count of 15.2, ABG pH of 7.35, CO2 of 52, CT of the chest demonstrates of the 9th and 10th ribs on the left, some scattered areas of ground-glass opacity that may represent infiltrate. History is obtained mostly from chart Past medical history: Bronchitis, chronic back pain, diabetes, hypertension, 65-year-old female chronic smoker presented to the hospital after fall. Found to have pneumonia on chest CT # acute on chronic hypoxic respiratory failure due to pneumonia/undiagnosed COPD with exacerbation, COVID-19 negative patient treated with IV steroids IV azithromycin and Ceftin as well as updraft treatment patient shortness of breath and cough has significantly improved patient has been advised to have outpatient follow-up with pulmonology in strongly advised to abstain from smoking patient is now being discharged home on azithromycin and Ceftin to finish a total 7 day course of antibiotics patient was also been given a prescription of 5 days of prednisone 20 mg daily and Breo inhale CT chest showed ground-glass opacities concerning for infiltrate, and pulmonary nodules , recommend 3-[address] chest follow-up Patient has been weaned off oxygen. # Mechanical fall with 9th and 10th rib fracture with significant bruising to both feet and left shoulder, patient with persistent pain she has been encouraged to use incentive spirometry continue fentanyl patch, Celebrex and to use Tylenol, patient evaluated by Physical therapy and they recommended outpatient PT if foot pain continues to limit ambulation,patient provide history of little and ring finger numbness present even prior to fall with history of cervical disc disease and arthritis. # hypertension patient not on antihypertensive med , patient noted to have few high blood pressure readings likely due to pain, advised to follow-up blood pressure with PCP # diabetes - blood sugars elevated likely due to steroid, continue home meds glipizide and Glucophage , strongly advised to follow diabetic diet # tobacco use disorder counseling done, patient declined nicotine patch. Time Spent with Patient Time attestation: Total time spent providing and/or coordinating discharge services: Discharge coordination time: Greater than 30 minutes Physical Exam Vital Signs: Vital Signs: Last Vital Signs Temp 97.1 F 07/30/20 12:00 Pulse 86 07/30/20 12:00 Resp 16 07/30/20 12:00 BP 162/84 H 07/30/20 12:00 Pulse Ox 93 07/30/20 12:00 Body Mass Index 31.4 DS: Data Data Completed and Pending Labs on day of discharge: Laboratory Tests 07/26/20 07/26/20 07/26/20 21:25 21:46 21:46 WBC 15.2 H RBC 4.72 Hgb 14.6 Hct 45.3 MCV 96.0 MCH 30.9 MCHC 32.2 RDW 13.2 Plt Count 292 MPV 8.7 L Immature Gran % (Auto) 0.5 H Neut % (Auto) 50.0 Lymph % (Auto) 34.8 [place] % (Auto) 13.7 H Eos % (Auto) 0.6 Baso % (Auto) 0.4 Lymph # (Auto) 5.3 H [place] # (Auto) 2.1 H Eos # (Auto) 0.1 Baso # (Auto) 0.1 Abs Immat Gran (auto) 0.08 H Absolute Neuts (auto) 7.6 Absolute Nucleated RBC 0.000 Nucleated RBC % (auto) 0.0 Smear Tech's Comments VERIFIED PT INR APTT ABG pH ABG pCO2 ABG pO2 ABG HCO3 ABG O2 Saturation ABG Base Excess VBG pH VBG pCO2 VBG pO2 VBG HCO3 VBG O2 Saturation VBG Base Excess Oxygen Given Sodium 136 Potassium 4.1 Chloride 100 Carbon Dioxide 26 Anion Gap 14 BUN 16 Creatinine 0.86 Estim Creat Clear Calc 71.1 Estimated GFR > 60 POC Glucose 95 Random Glucose 85 Lactic Acid Calcium 9.2 Magnesium 2.0 Total Bilirubin 0.8 Direct Bilirubin 0.2 AST 16 ALT 14 Alkaline Phosphatase 114 Total Creatine Kinase 123 Troponin I High Sens Total Protein 7.5 Albumin 4.2 Ethyl Alcohol Respiratory Panel Garcia Adenovirus (Rapid PCR) B.pert (TEM-PCR) B.parapertussis DNA PCR C. pneumoniae DNA (PCR) Coronavirus OC43 (PCR) Coronavirus HKU1 (PCR) Coronavirus 229E (PCR) COVID-19 ([facility]) COVID-19 Clin Com Coronavirus NL63 (PCR) Human Metapneumovir PCR Influenza A (RT-PCR) Influenza B (RT-PCR) M. pneumoniae (PCR) Parainfluenza 1 (PCR) Parainfluenza 2 (PCR) Parainfluenza 3 (PCR) Parainfluenza 4 (PCR) RSV (PCR) Entero/Rhino (PCR) SARS-CoV-2 RNA (RT-PCR) 07/26/20 07/26/20 07/26/20 21:46 21:46 21:46 WBC RBC Hgb Hct MCV MCH MCHC RDW Plt Count MPV Immature Gran % (Auto) Neut % (Auto) Lymph % (Auto) [place] % (Auto) Eos % (Auto) Baso % (Auto) Lymph # (Auto) [place] # (Auto) Eos # (Auto) Baso # (Auto) Abs Immat Gran (auto) Absolute Neuts (auto) Absolute Nucleated RBC Nucleated RBC % (auto) Smear Tech's Comments PT 12.7 INR 1.1 APTT 26.1 ABG pH ABG pCO2 ABG pO2 ABG HCO3 ABG O2 Saturation ABG Base Excess VBG pH VBG pCO2 VBG pO2 VBG HCO3 VBG O2 Saturation VBG Base Excess Oxygen Given Sodium Potassium Chloride Carbon Dioxide Anion Gap BUN Creatinine Estim Creat Clear Calc Estimated GFR POC Glucose Random Glucose Lactic Acid Calcium Magnesium Total Bilirubin Direct Bilirubin AST ALT Alkaline Phosphatase Total Creatine Kinase Troponin I High Sens 3.8 Total Protein Albumin Ethyl Alcohol Respiratory Panel Garcia Adenovirus (Rapid PCR) B.pert (TEM-PCR) B.parapertussis DNA PCR C. pneumoniae DNA (PCR) Coronavirus OC43 (PCR) Coronavirus HKU1 (PCR) Coronavirus 229E (PCR) COVID-19 ([facility]) Negative COVID-19 Clin Com See Note Coronavirus NL63 (PCR) Human Metapneumovir PCR Influenza A (RT-PCR) Influenza B (RT-PCR) M. pneumoniae (PCR) Parainfluenza 1 (PCR) Parainfluenza 2 (PCR) Parainfluenza 3 (PCR) Parainfluenza 4 (PCR) RSV (PCR) Entero/Rhino (PCR) SARS-CoV-2 RNA (RT-PCR) 07/26/20 07/26/20 07/26/20 21:46 21:46 22:43 WBC RBC Hgb Hct MCV MCH MCHC RDW Plt Count MPV Immature Gran % (Auto) Neut % (Auto) Lymph % (Auto) [place] % (Auto) Eos % (Auto) Baso % (Auto) Lymph # (Auto) [place] # (Auto) Eos # (Auto) Baso # (Auto) Abs Immat Gran (auto) Absolute Neuts (auto) Absolute Nucleated RBC Nucleated RBC % (auto) Smear Tech's Comments PT INR APTT ABG pH 7.35 ABG pCO2 52 H ABG pO2 68 L ABG HCO3 29 H ABG O2 Saturation 94.0 ABG Base Excess 3.1 VBG pH 7.30 L VBG pCO2 69 VBG pO2 40 VBG HCO3 34 VBG O2 Saturation 70.0 VBG Base Excess 5.8 Oxygen Given ROOM AIR Sodium Potassium Chloride Carbon Dioxide Anion Gap BUN Creatinine Estim Creat Clear Calc Estimated GFR POC Glucose Random Glucose Lactic Acid Calcium Magnesium Total Bilirubin Direct Bilirubin AST ALT Alkaline Phosphatase Total Creatine Kinase Troponin I High Sens Total Protein Albumin Ethyl Alcohol < 10 Respiratory Panel Garcia Adenovirus (Rapid PCR) B.pert (TEM-PCR) B.parapertussis DNA PCR C. pneumoniae DNA (PCR) Coronavirus OC43 (PCR) Coronavirus HKU1 (PCR) Coronavirus 229E (PCR) COVID-19 ([facility]) COVID-19 Clin Com Coronavirus NL63 (PCR) Human Metapneumovir PCR Influenza A (RT-PCR) Influenza B (RT-PCR) M. pneumoniae (PCR) Parainfluenza 1 (PCR) Parainfluenza 2 (PCR) Parainfluenza 3 (PCR) Parainfluenza 4 (PCR) RSV (PCR) Entero/Rhino (PCR) SARS-CoV-2 RNA (RT-PCR) 07/26/20 07/27/20 07/27/20 23:39 01:37 04:49 WBC RBC Hgb Hct MCV MCH MCHC RDW Plt Count MPV Immature Gran % (Auto) Neut % (Auto) Lymph % (Auto) [place] % (Auto) Eos % (Auto) Baso % (Auto) Lymph # (Auto) [place] # (Auto) Eos # (Auto) Baso # (Auto) Abs Immat Gran (auto) Absolute Neuts (auto) Absolute Nucleated RBC Nucleated RBC % (auto) Smear Tech's Comments PT INR APTT ABG pH ABG pCO2 ABG pO2 ABG HCO3 ABG O2 Saturation ABG Base Excess VBG pH VBG pCO2 VBG pO2 VBG HCO3 VBG O2 Saturation VBG Base Excess Oxygen Given Sodium Potassium Chloride Carbon Dioxide Anion Gap BUN Creatinine Estim Creat Clear Calc Estimated GFR POC Glucose 177 H Random Glucose Lactic Acid 1.4 Calcium Magnesium Total Bilirubin Direct Bilirubin AST ALT Alkaline Phosphatase Total Creatine Kinase Troponin I High Sens Total Protein Albumin Ethyl Alcohol Respiratory Panel Garcia See Note Adenovirus (Rapid PCR) Not Detected B.pert (TEM-PCR) Not Detected B.parapertussis DNA PCR Not Detected C. pneumoniae DNA (PCR) Not Detected Coronavirus OC43 (PCR) Not Detected Coronavirus HKU1 (PCR) Not Detected Coronavirus 229E (PCR) Not Detected COVID-19 ([facility]) COVID-19 Clin Com Coronavirus NL63 (PCR) Not Detected Human Metapneumovir PCR Not Detected Influenza A (RT-PCR) Not Detected Influenza B (RT-PCR) Not Detected M. pneumoniae (PCR) Not Detected Parainfluenza 1 (PCR) Not Detected Parainfluenza 2 (PCR) Not Detected Parainfluenza 3 (PCR) Not Detected Parainfluenza 4 (PCR) Not Detected RSV (PCR) Not Detected Entero/Rhino (PCR) Not Detected SARS-CoV-2 RNA (RT-PCR) Not Detected 07/27/20 07/27/20 07/27/20 08:33 11:26 14:40 WBC RBC Hgb Hct MCV MCH MCHC RDW Plt Count MPV Immature Gran % (Auto) Neut % (Auto) Lymph % (Auto) [place] % (Auto) Eos % (Auto) Baso % (Auto) Lymph # (Auto) [place] # (Auto) Eos # (Auto) Baso # (Auto) Abs Immat Gran (auto) Absolute Neuts (auto) Absolute Nucleated RBC Nucleated RBC % (auto) Smear Tech's Comments PT INR APTT ABG pH ABG pCO2 ABG pO2 ABG HCO3 ABG O2 Saturation ABG Base Excess VBG pH VBG pCO2 VBG pO2 VBG HCO3 VBG O2 Saturation VBG Base Excess Oxygen Given Sodium Potassium Chloride Carbon Dioxide Anion Gap BUN Creatinine Estim Creat Clear Calc Estimated GFR POC Glucose 216 H 192 H 264 H Random Glucose Lactic Acid Calcium Magnesium Total Bilirubin Direct Bilirubin AST ALT Alkaline Phosphatase Total Creatine Kinase Troponin I High Sens Total Protein Albumin Ethyl Alcohol Respiratory Panel Garcia Adenovirus (Rapid PCR) B.pert (TEM-PCR) B.parapertussis DNA PCR C. pneumoniae DNA (PCR) Coronavirus OC43 (PCR) Coronavirus HKU1 (PCR) Coronavirus 229E (PCR) COVID-19 ([facility]) COVID-19 Clin Com Coronavirus NL63 (PCR) Human Metapneumovir PCR Influenza A (RT-PCR) Influenza B (RT-PCR) M. pneumoniae (PCR) Parainfluenza 1 (PCR) Parainfluenza 2 (PCR) Parainfluenza 3 (PCR) Parainfluenza 4 (PCR) RSV (PCR) Entero/Rhino (PCR) SARS-CoV-2 RNA (RT-PCR) 07/27/20 07/27/20 07/28/20 17:00 20:30 04:26 WBC 14.1 H RBC 4.12 L Hgb 12.8 Hct 39.3 MCV 95.4 MCH 31.1 MCHC 32.6 RDW 13.2 Plt Count 287 MPV 9.5 Immature Gran % (Auto) 0.6 H Neut % (Auto) 82.8 H Lymph % (Auto) 10.0 L [place] % (Auto) 5.9 Eos % (Auto) 0.5 Baso % (Auto) 0.2 Lymph # (Auto) 1.4 [place] # (Auto) 0.8 Eos # (Auto) 0.1 Baso # (Auto) 0.0 Abs Immat Gran (auto) 0.09 H Absolute Neuts (auto) 11.7 H Absolute Nucleated RBC 0.000 Nucleated RBC % (auto) 0.0 Smear Tech's Comments PT INR APTT ABG pH ABG pCO2 ABG pO2 ABG HCO3 ABG O2 Saturation ABG Base Excess VBG pH VBG pCO2 VBG pO2 VBG HCO3 VBG O2 Saturation VBG Base Excess Oxygen Given Sodium Potassium Chloride Carbon Dioxide Anion Gap BUN Creatinine Estim Creat Clear Calc Estimated GFR POC Glucose 267 H 168 H Random Glucose Lactic Acid Calcium Magnesium Total Bilirubin Direct Bilirubin AST ALT Alkaline Phosphatase Total Creatine Kinase Troponin I High Sens Total Protein Albumin Ethyl Alcohol Respiratory Panel Garcia Adenovirus (Rapid PCR) B.pert (TEM-PCR) B.parapertussis DNA PCR C. pneumoniae DNA (PCR) Coronavirus OC43 (PCR) Coronavirus HKU1 (PCR) Coronavirus 229E (PCR) COVID-19 ([facility]) COVID-19 Clin Com Coronavirus NL63 (PCR) Human Metapneumovir PCR Influenza A (RT-PCR) Influenza B (RT-PCR) M. pneumoniae (PCR) Parainfluenza 1 (PCR) Parainfluenza 2 (PCR) Parainfluenza 3 (PCR) Parainfluenza 4 (PCR) RSV (PCR) Entero/Rhino (PCR) SARS-CoV-2 RNA (RT-PCR) 07/28/20 07/28/20 07/28/20 04:26 07:53 11:39 WBC RBC Hgb Hct MCV MCH MCHC RDW Plt Count MPV Immature Gran % (Auto) Neut % (Auto) Lymph % (Auto) [place] % (Auto) Eos % (Auto) Baso % (Auto) Lymph # (Auto) [place] # (Auto) Eos # (Auto) Baso # (Auto) Abs Immat Gran (auto) Absolute Neuts (auto) Absolute Nucleated RBC Nucleated RBC % (auto) Smear Tech's Comments PT INR APTT ABG pH ABG pCO2 ABG pO2 ABG HCO3 ABG O2 Saturation ABG Base Excess VBG pH VBG pCO2 VBG pO2 VBG HCO3 VBG O2 Saturation VBG Base Excess Oxygen Given Sodium 139 Potassium 4.8 Chloride 103 Carbon Dioxide 24 Anion Gap 17 BUN 20 H Creatinine 0.81 Estim Creat Clear Calc 75.5 Estimated GFR > 60 POC Glucose 213 H 143 H Random Glucose 215 H D Lactic Acid Calcium 8.9 Magnesium Total Bilirubin Direct Bilirubin AST ALT Alkaline Phosphatase Total Creatine Kinase Troponin I High Sens Total Protein Albumin Ethyl Alcohol Respiratory Panel Garcia Adenovirus (Rapid PCR) B.pert (TEM-PCR) B.parapertussis DNA PCR C. pneumoniae DNA (PCR) Coronavirus OC43 (PCR) Coronavirus HKU1 (PCR) Coronavirus 229E (PCR) COVID-19 ([facility]) COVID-19 Clin Com Coronavirus NL63 (PCR) Human Metapneumovir PCR Influenza A (RT-PCR) Influenza B (RT-PCR) M. pneumoniae (PCR) Parainfluenza 1 (PCR) Parainfluenza 2 (PCR) Parainfluenza 3 (PCR) Parainfluenza 4 (PCR) RSV (PCR) Entero/Rhino (PCR) SARS-CoV-2 RNA (RT-PCR) 07/28/20 07/28/20 07/29/20 16:17 20:08 07:11 WBC RBC Hgb Hct MCV MCH MCHC RDW Plt Count MPV Immature Gran % (Auto) Neut % (Auto) Lymph % (Auto) [place] % (Auto) Eos % (Auto) Baso % (Auto) Lymph # (Auto) [place] # (Auto) Eos # (Auto) Baso # (Auto) Abs Immat Gran (auto) Absolute Neuts (auto) Absolute Nucleated RBC Nucleated RBC % (auto) Smear Tech's Comments PT INR APTT ABG pH ABG pCO2 ABG pO2 ABG HCO3 ABG O2 Saturation ABG Base Excess VBG pH VBG pCO2 VBG pO2 VBG HCO3 VBG O2 Saturation VBG Base Excess Oxygen Given Sodium Potassium Chloride Carbon Dioxide Anion Gap BUN Creatinine Estim Creat Clear Calc Estimated GFR POC Glucose 276 H 254 H 190 H Random Glucose Lactic Acid Calcium Magnesium Total Bilirubin Direct Bilirubin AST ALT Alkaline Phosphatase Total Creatine Kinase Troponin I High Sens Total Protein Albumin Ethyl Alcohol Respiratory Panel Garcia Adenovirus (Rapid PCR) B.pert (TEM-PCR) B.parapertussis DNA PCR C. pneumoniae DNA (PCR) Coronavirus OC43 (PCR) Coronavirus HKU1 (PCR) Coronavirus 229E (PCR) COVID-19 ([facility]) COVID-19 Clin Com Coronavirus NL63 (PCR) Human Metapneumovir PCR Influenza A (RT-PCR) Influenza B (RT-PCR) M. pneumoniae (PCR) Parainfluenza 1 (PCR) Parainfluenza 2 (PCR) Parainfluenza 3 (PCR) Parainfluenza 4 (PCR) RSV (PCR) Entero/Rhino (PCR) SARS-CoV-2 RNA (RT-PCR) 07/29/20 07/29/20 07/29/20 11:29 16:31 20:16 WBC RBC Hgb Hct MCV MCH MCHC RDW Plt Count MPV Immature Gran % (Auto) Neut % (Auto) Lymph % (Auto) [place] % (Auto) Eos % (Auto) Baso % (Auto) Lymph # (Auto) [place] # (Auto) Eos # (Auto) Baso # (Auto) Abs Immat Gran (auto) Absolute Neuts (auto) Absolute Nucleated RBC Nucleated RBC % (auto) Smear Tech's Comments PT INR APTT ABG pH ABG pCO2 ABG pO2 ABG HCO3 ABG O2 Saturation ABG Base Excess VBG pH VBG pCO2 VBG pO2 VBG HCO3 VBG O2 Saturation VBG Base Excess Oxygen Given Sodium Potassium Chloride Carbon Dioxide Anion Gap BUN Creatinine Estim Creat Clear Calc Estimated GFR POC Glucose 155 H 146 H 202 H Random Glucose Lactic Acid Calcium Magnesium Total Bilirubin Direct Bilirubin AST ALT Alkaline Phosphatase Total Creatine Kinase Troponin I High Sens Total Protein Albumin Ethyl Alcohol Respiratory Panel Garcia Adenovirus (Rapid PCR) B.pert (TEM-PCR) B.parapertussis DNA PCR C. pneumoniae DNA (PCR) Coronavirus OC43 (PCR) Coronavirus HKU1 (PCR) Coronavirus 229E (PCR) COVID-19 ([facility]) COVID-19 Clin Com Coronavirus NL63 (PCR) Human Metapneumovir PCR Influenza A (RT-PCR) Influenza B (RT-PCR) M. pneumoniae (PCR) Parainfluenza 1 (PCR) Parainfluenza 2 (PCR) Parainfluenza 3 (PCR) Parainfluenza 4 (PCR) RSV (PCR) Entero/Rhino (PCR) SARS-CoV-2 RNA (RT-PCR) 07/30/20 07/30/20 07:41 11:18 WBC RBC Hgb Hct MCV MCH MCHC RDW Plt Count MPV Immature Gran % (Auto) Neut % (Auto) Lymph % (Auto) [place] % (Auto) Eos % (Auto) Baso % (Auto) Lymph # (Auto) [place] # (Auto) Eos # (Auto) Baso # (Auto) Abs Immat Gran (auto) Absolute Neuts (auto) Absolute Nucleated RBC Nucleated RBC % (auto) Smear Tech's Comments PT INR APTT ABG pH ABG pCO2 ABG pO2 ABG HCO3 ABG O2 Saturation ABG Base Excess VBG pH VBG pCO2 VBG pO2 VBG HCO3 VBG O2 Saturation VBG Base Excess Oxygen Given Sodium Potassium Chloride Carbon Dioxide Anion Gap BUN Creatinine Estim Creat Clear Calc Estimated GFR POC Glucose 142 H 148 H Random Glucose Lactic Acid Calcium Magnesium Total Bilirubin Direct Bilirubin AST ALT Alkaline Phosphatase Total Creatine Kinase Troponin I High Sens Total Protein Albumin Ethyl Alcohol Respiratory Panel Garcia Adenovirus (Rapid PCR) B.pert (TEM-PCR) B.parapertussis DNA PCR C. pneumoniae DNA (PCR) Coronavirus OC43 (PCR) Coronavirus HKU1 (PCR) Coronavirus 229E (PCR) COVID-19 ([facility]) COVID-19 Clin Com Coronavirus NL63 (PCR) Human Metapneumovir PCR Influenza A (RT-PCR) Influenza B (RT-PCR) M. pneumoniae (PCR) Parainfluenza 1 (PCR) Parainfluenza 2 (PCR) Parainfluenza 3 (PCR) Parainfluenza 4 (PCR) RSV (PCR) Entero/Rhino (PCR) SARS-CoV-2 RNA (RT-PCR) Preliminary micro results at discharge 07/26/20 23:39 Blood Culture - Preliminary Blood - Venous No growth after 48 hours. 07/26/20 23:39 Blood Culture - Preliminary Blood - Venous No growth after 48 hours. Discharge Plan Discharge Patient Disposition: Home, Self-Care Referrals: Neymar Daugherty MD [Primary Care Provider] - Discharge Medications: New dextromethorphan-guaifenesin 10-100 mg/5 mL Syrup 10 ml PO Q6H Qty: 200 RF: 0 cefuroxime axetil 500 mg Tablet 500 mg PO Q12H Qty: 10 RF: 0 azithromycin 500 mg Tablet 500 mg PO Q24H Qty: 3 RF: 0 prednisone 20 mg Tablet 20 mg PO DAILY Qty: 5 RF: 0 Breo Ellipta 100-25 mcg/dose Blister With Device 1 puff inhalation RDAILY Qty: 1 RF: 0 Continued celecoxib [Celebrex] 200 mg Capsule 200 mg PO DAILY RF: 0 fluoxetine [Prozac] 40 mg Capsule 40 mg PO DAILY RF: 0 methocarbamol 500 mg Tablet 1,000 mg PO TID RF: 0 metformin 500 mg Tablet 500 mg PO BID RF: 0 metoclopramide HCl [Reglan] 5 mg Tablet 5 mg PO DAILY RF: 0 fentanyl 100 mcg/hr Patch 72 Hour 1 patch TRANSDERMAL Q72H RF: 0 trazodone 100 mg Tablet 300 mg PO BEDTIME RF: 0 gabapentin 300 mg Capsule 300 mg PO TID RF: 0 omeprazole 20 mg Capsule,Delayed Release(Dr/Ec) 20 mg PO DAILY RF: 0 albuterol sulfate [Ventolin HFA] 90 mcg/actuation Hfa Aerosol Inhaler 2 puff INHALATION Q4H PRN (Reason: Shortness Of Breath) RF: 0 fluticasone propionate 50 mcg/actuation [place],Suspension 1 spray INTRANASAL DAILY RF: 0 glipizide 5 mg Tablet 5 mg PO DAILY RF: 0 Discharge Orders: Discharge Order (Routine); Ordered 07/30/20 Ordered By: Mihaela Beal Diet: diabetic diet Activity on Discharge: As tolerated Stand Alone Forms: Patient Portal Discharge page Discharge Date/Time: 07/30/20 14:40 Visit Report Forms: Patient Portal Discharge page Care Plan Goals: Completely abstain from smoking, repeat CT chest in 3-6 months Health Concerns: Rib fracture,pain, tobacco use disorder and pneumonia take tylenol in addition to fentanyl and celebrex Plan of Treatment: Close outpatient follow-up with Pcp
== END 2020-07-30 14:40 | disposition home or self-care (01) | DRG 193 ==
LOC: HO.ED 22:53 → HO.S3 07-27 04:30
PROVIDERS: Admitting Provider Internal Medicine; Emergency Provider Emergency Medicine; PCP Family Medicine; Visit Provider Hospitalist
DX: J18.9 Pneumonia, unspecified organism (principal); J96.21 Acute and chronic respiratory failure with hypoxia; J44.1 Chronic obstructive pulmonary disease with (acute) exacerbation; S22.42XA Multiple fractures of ribs, left side, initial encounter for closed fracture; N39.0 Urinary tract infection, site not specified; J44.0 Chronic obstructive pulmonary disease with (acute) lower respiratory infection; F17.210 Nicotine dependence, cigarettes, uncomplicated; D72.829 Elevated white blood cell count, unspecified; Z71.6 Tobacco abuse counseling; Z20.822 Contact with and (suspected) exposure to COVID-19; W10.9XXA Fall (on) (from) unspecified stairs and steps, initial encounter; Y93.9 Activity, unspecified; J40 Bronchitis, not specified as acute or chronic; Y92.009 Unspecified place in unspecified non-institutional (private) residence as the place of occurrence of the external cause; E11.9 Type 2 diabetes mellitus without complications; Y99.9 Unspecified external cause status; Z88.6 Allergy status to analgesic agent; Z79.1 Long term (current) use of non-steroidal anti-inflammatories (NSAID); Z79.84 Long term (current) use of oral hypoglycemic drugs; Z79.899 Other long term (current) drug therapy
CPT/HCPCS: 36415; 70450; 71250; 72125; 73110; 74176; 80048; 80076; 80320; 82550; 82803; 82947; 83605; 83735; 84484; 85025; 85610; 85730; 87040; 87633; 87635; 93005; 94640; 96365; 96366; 96367; 96375; 97162; 99285; J0456; J0696; J2920; J2930; J3475

== ENCOUNTER 2020-09-03 17:43 | Emergency (ER) | payer MEDICARE, MEDICAID, SELFPAY ==
--- NOTE | ~2020-09-03 | XR_ITS ---
EXAMINATION: XR CHEST CLINICAL INFORMATION: Weakness COMPARISON: Chest CT 07/26/2020 TECHNIQUE: Frontal view of the chest was obtained. FINDINGS: No significant abnormality is noted involving the heart, lungs, mediastinum, bony thorax or soft tissues. XR/XR chest 1V IMPRESSION: Unremarkable examination.
--- NOTE | ~2020-09-03 | CT_ITS ---
EXAMINATION: CT HEAD WITHOUT CONTRAST CLINICAL INFORMATION: Weakness. COMPARISON: CT head 07/26/2020 TECHNIQUE: Contiguous axial imaging was performed from the skull base to vertex without intravenous administration of contrast. Coronal and sagittal reformatted images performed at the CT scanner This CT examination was performed using dose optimization techniques as appropriate, variously including the following: *Automated exposure control *Adjustment of mA and/or kV according to patient size (this includes techniques or standardized protocols for targeted exams where dose is matched to indication/reason for exam; i.e. extremities or head) *Use of iterative reconstruction technique DLP: 776 mGy-cm FINDINGS: There is no evidence of acute intracranial hemorrhage or territorial infarction. No abnormal mass effect or midline shift is seen. Hutson to white matter differentiation is well preserved. No extra-axial fluid collections are identified. There are vascular calcifications of the internal carotid arteries bilaterally. The ventricles are normal in size for patient age. There is no abnormal attenuation within the brain parenchyma. The osseous structures and soft tissues are normal. The mastoid air cells and visualized portions of the paranasal sinuses are well aerated. CT/CT head/brain wo con IMPRESSION: No acute intracranial pathology.
[2020-09-03 17:51] VITALS: BP 160/92; BP 164/80; PULSE 80; PULSE 81; RESP 14; TEMP 36.9; O2SAT 95; O2SAT 98; BMI 30.7
--- NOTE | 2020-09-03 18:09 | ED_ITS ---
HPI - General Adult General Chief complaint: General Medical Stated complaint: LT RIB PAIN + LT SIDED WEAKNESS S/P FALL 1.5 WKS Source: patient Mode of arrival: ambulatory Limitations: physical limitation History of Present Illness HPI narrative: 65-year-old female with past medical history of COPD, hypertension, leukocytosis, diabetes type 2, GERD, insomnia with 3 rib fractures status post fall on 07/26/2020 presents from home requesting VNA services or home health aides. Patient states that she is having a difficult time managing her care at home. She is being treated for pain with fentanyl patch which she changed earlier today. She still has rib pain, but does not report any chest pressure, palpitations, shortness of breath, abdominal pain, abdominal distention, dysuria, hematuria, fevers or chills. Onset (ago): week(s) Location: chest Radiation: non-radiation Severity: moderate Quality: aching Pain Consistency: constant Exacerbating factors: movement Treatments prior to arrival: other (Fentanyl patch, opioids, muscle relaxers) Related Data Home Medications Medication Instructions Recorded Confirmed albuterol sulfate [Ventolin HFA] 2 puff INHALATION Q4H PRN 07/26/20 09/03/20 celecoxib [Celebrex] 200 mg PO DAILY 07/26/20 09/03/20 fluoxetine [Prozac] 40 mg PO DAILY 07/26/20 09/03/20 fluticasone propionate 1 spray INTRANASAL DAILY 07/26/20 09/03/20 gabapentin 300 mg PO TID 07/26/20 09/03/20 glipizide 5 mg PO DAILY 07/26/20 09/03/20 metformin 500 mg PO BIDWM 07/26/20 09/03/20 methocarbamol 1,000 mg PO TID 07/26/20 09/03/20 metoclopramide HCl [Reglan] 5 mg PO DAILY 07/26/20 09/03/20 omeprazole 20 mg PO DAILY 07/26/20 09/03/20 trazodone 300 mg PO BEDTIME 07/26/20 09/03/20 fentanyl 1 patch TOPICAL Q3D 09/03/20 09/03/20 Previous Rx's Medication Instructions Recorded fluticasone furoate-vilanterol 1 puff INHALATION RDAILY #1 ea 07/30/20 [Breo Ellipta] Allergies Allergy/AdvReac Type Severity Reaction Status Date / Time aspirin [From PERCODAN] Allergy Unknown UNKNOWN Verified 07/26/20 23:11 egg [EGG] Allergy Unknown UNKNOWN Verified 07/26/20 23:11 oxycodone AdvReac Nausea Verified 09/03/20 17:56 From PERCODAN Allergy Unknown UNKNOWN Uncoded 03/21/20 17:03 Review of Systems Review of Systems: Constitutional: Positive weakness, No Fever, No Chills ENT/Mouth: No Ear Pain, No Hoarseness, No sore throat Eyes: No Eye Pain, No Swelling, No Redness, No Foreign Body Cardiovascular: No Chest Pain, No SOB Respiratory: No Cough, No Dyspnea Gastrointestinal: No Nausea, No Vomiting, No Diarrhea, No abdominal Pain Genitourinary: No Dysuria, No Hematuria Musculoskeletal: positive chest wall pain, No Myalgias, No Joint Swelling Skin: No Skin lacerations, No rash Neuro: No Weakness, No Numbness, No Paresthesias, No Loss of Consciousness, No Dizziness, No Headache Psych: No Anxiety/Panic, No Depression Heme/Lymph: no easy bruising, no Lymphadenopathy Endocrine: No Polyuria, No Polydipsia Yes all other systems are reviewed and are negative [facility] Past Medical History Attestation statement: The following information was validated with the patient. Source: old records reviewed Medical History Bronchitis Chronic back pain Diabetes High cholesterol HTN (hypertension) UTI (urinary tract infection) Social History Social History Household Members: Family Housing: House Alcohol intake: never Smoking Status: Smoker, status unknown Tobacco Type: Cigarette Cigarettes Per Day: 1 Second Hand Smoke Exposure: Yes Use of substances other than those prescribed or required for medical reasons: No Advance Directives: No Advance Directives Information Provided: Yes service: No Current occupational status: unemployed Physical Exam Vital Signs: Vital Signs: Last Vital Signs Temp 98.4 F 09/03/20 17:51 Pulse 83 09/03/20 22:36 Resp 15 09/04/20 00:00 BP 150/83 H 09/03/20 22:36 Pulse Ox 95 09/03/20 22:36 Body Mass Index 30.7 Appearance: Alert. Oriented X3. No acute distress. Head: Normal external exam. Normocephalic. Atraumatic. No Reyes signs noted. No raccoon eyes noted Eyes: PERRLA. EOMI. Conjunctiva and sclera normal. Eyelids normal. ENT: TM's Normal. Pharynx normal. Uvula midline. Moist mucous membranes. No trismus noted. No drooling noted. No muffled voice noted. Neck: Normal inspection. Neck supple. No adenopathy. Thyroid Normal. No meningeal signs. No neck mass noted. CVS: Normal heart rate and rhythm. Heart sound normal. No murmurs noted. Pulses equal to all extremities. Respiratory: No respiratory distress. Painless inspiration. Lung sounds i nspiratory and expiratory wheezing, diminished at the bases consistent with COPD and excessive tobacco abuse. Chest appropriately tender to palpation secondary to multiple rib fractures. No accessory muscle usage noted. Abdomen: Soft and nontender. Obese. Bowel sounds normal in all 4 quadrants. No distention noted. No organomegaly noted. No visible injury noted. Back: No CVA tenderness. Full range of motion noted. Skin: Skin warm and dry. Multiple bruises to extremities in various stages of healing consistent with fall on 07/26/2020. Normal skin turgor. No rashes/lesions/lacerations noted. Extremities: No lower extremity edema. Extremities exhibit normal range of motion. Extremities nontender. Neuro: cranial nerves 2-12 intact, no focal neural deficits, strength 5/5 to all extremities, No motor deficit. No sensory deficit. Course Course Course Narrative: 65-year-old female with past medical history of hypertension, hyperlipidemia, diabetes type 2 non-insulin dependent, chronic back pain with opioid management, COPD, and heavy tobacco dependence, recently seen on 07/26/2020 for a fall down 13 stairs and admitted for respiratory failure with hypoxia and multiple rib fracture. patient was discharged with recommendation for subacute rehab however patient wanted to go home that time. Patient has been unable to take care of herself at home, is requesting VNA services. Case management consulted. Because of patient's chest pain and stated weakness, we will rule out ACS. At 7:03 p.m. CBC unremarkable, PT INR normal, chemistries normal with the exception of the elevated glucose of 129. Troponin is 0. Urinalysis is negative, COVID-[address] head negative, chest x-ray negative, EKG shows no significant changes from prior, no ST elevation or depression indicating ischemia. Patient medically cleared. 9:56 p.m. family preservation caseworker states that she discussed in length patient's conditions at home, patient is not able to walk long distances, uses furniture to help support herself has been dropping cigarettes with multiple cigarette ansari to the floor, unable to walk up 1 step. Daughter states that she is afraid for her safety because of the smoking and dropped cigarettes, no one else in the family smokes. Patient has been cared for by her other children, at this point daughter does not feel that this would be a reasonable option for patient and that patient's children may not want her back in the home. The daughter would is willing to take this patient back into her home if patient is strong enough to walk on her own. Order for PT and social work coordinator at this time, based on family discussion patient is not safe to return home. 1:33 a.m. sign out to Dr. Cronin. Medical Decision Making Differential Diagnosis Differential Diagnosis: CVA, pneumonia, ACS, failure to thrive Medical Records Medical records reviewed: Yes I reviewed the patient's medical records. Lab Data Lab results reviewed: Yes I reviewed the patient's lab results. Result diagrams: 09/03/20 18:59 09/03/20 18:59 Labs: Lab Results 09/03/20 09/03/20 09/03/20 Range/Units 18:28 18:56 18:59 WBC 9.9 (4.8-10.8) X10*3/uL RBC 4.56 (4.20-5.50) X10*6/uL Hgb 14.1 (12.0-16.0) g/dl Hct 43.3 (37-47) % MCV 95.0 (80-98) fL MCH 30.9 (27.0-33.0) pg MCHC 32.6 (31.0-35.0) g/dl RDW 12.8 (11.0-16.0) % Plt Count 301 (160-400) X10*3/uL MPV 8.5 L (9.4-12.3) fL Immature Gran % (Auto) 0.7 H (0.0-0.4) % Neut % (Auto) 60.3 (45-73) % Lymph % (Auto) 25.6 (20-40) % [place] % (Auto) 11.8 H (2-11) % Eos % (Auto) 0.8 (0-4) % Baso % (Auto) 0.8 (0-2) % Lymph # (Auto) 2.5 (1.2-4.9) X10*3/uL [place] # (Auto) 1.2 (0.1-1.2) X10*3/uL Eos # (Auto) 0.1 (0.0-0.4) X10*3/uL Baso # (Auto) 0.1 (0.0-0.2) X10*3/uL Abs Immat Gran (auto) 0.07 H (0.00-0.03) X10*3/uL Absolute Neuts (auto) 6.0 (2.0-8.3) X10*3/uL Absolute Nucleated RBC 0.000 (0.0-0.012) X10*3/uL Nucleated RBC % (auto) 0.0 (0.0-0.2) /100WBC PT (10.8-13.0) SEC INR (0.9-1.1) APTT (24.1-38.0) SEC Sodium (135-145) mmol/L Potassium (3.3-5.1) mmol/L Chloride (96-108) mmol/L Carbon Dioxide (22-29) mmol/L Anion Gap (12-20) BUN (9-16) mg/dL Creatinine (0.5-1.4) mg/dL Estim Creat Clear Calc Estimated GFR Random Glucose (60-115) mg/dL Calcium (8.4-10.2) mg/dL Troponin I High Sens (<3.5-17.0) ng/L Urine Color YELLOW Urine Appearance CLEAR Urine pH 8.0 (5.0-8.0) Ur Specific [place] 1.020 (1.005-1.025) Urine Protein NEG (NEG-TRACE) MG/DL Urine Glucose (UA) NEG (NEG) MG/DL Urine Ketones NEG (NEG) MG/DL Urine Blood NEG (NEG) Urine Nitrite NEG (NEG) Ur Leukocyte Esterase NEG (NEG) COVID-19 (ADAMA) Negative (Negative) COVID-19 Clin Com See Note 09/03/20 09/03/20 09/03/20 Range/Units 18:59 18:59 18:59 WBC (4.8-10.8) X10*3/uL RBC (4.20-5.50) X10*6/uL Hgb (12.0-16.0) g/dl Hct (37-47) % MCV (80-98) fL MCH (27.0-33.0) pg MCHC (31.0-35.0) g/dl RDW (11.0-16.0) % Plt Count (160-400) X10*3/uL MPV (9.4-12.3) fL Immature Gran % (Auto) (0.0-0.4) % Neut % (Auto) (45-73) % Lymph % (Auto) (20-40) % [place] % (Auto) (2-11) % Eos % (Auto) (0-4) % Baso % (Auto) (0-2) % Lymph # (Auto) (1.2-4.9) X10*3/uL [place] # (Auto) (0.1-1.2) X10*3/uL Eos # (Auto) (0.0-0.4) X10*3/uL Baso # (Auto) (0.0-0.2) X10*3/uL Abs Immat Gran (auto) (0.00-0.03) X10*3/uL Absolute Neuts (auto) (2.0-8.3) X10*3/uL Absolute Nucleated RBC (0.0-0.012) X10*3/uL Nucleated RBC % (auto) (0.0-0.2) /100WBC PT 11.3 (10.8-13.0) SEC INR 1.0 (0.9-1.1) APTT 34.3 D (24.1-38.0) SEC Sodium 139 (135-145) mmol/L Potassium 4.4 (3.3-5.1) mmol/L Chloride 101 (96-108) mmol/L Carbon Dioxide 29 (22-29) mmol/L Anion Gap 13 (12-20) BUN 12 (9-16) mg/dL Creatinine 0.76 (0.5-1.4) mg/dL Estim Creat Clear Calc 76.8 Estimated GFR > 60 Random Glucose 129 H D (60-115) mg/dL Calcium 8.7 (8.4-10.2) mg/dL Troponin I High Sens < 3.5 (<3.5-17.0) ng/L Urine Color Urine Appearance Urine pH (5.0-8.0) Ur Specific [place] (1.005-1.025) Urine Protein (NEG-TRACE) MG/DL Urine Glucose (UA) (NEG) MG/DL Urine Ketones (NEG) MG/DL Urine Blood (NEG) Urine Nitrite (NEG) Ur Leukocyte Esterase (NEG) COVID-19 (ADAMA) (Negative) COVID-19 Clin Com Imaging Data Chest x-ray: Attestation: I personally reviewed and interpreted this imaging study as follows: Radiologist's impression: EXAMINATION: XR CHEST CLINICAL INFORMATION: Weakness COMPARISON: Chest CT 07/26/2020 TECHNIQUE: Frontal view of the chest was obtained. FINDINGS: No significant abnormality is noted involving the heart, lungs, mediastinum, bony thorax or soft tissues. XR/XR chest 1V IMPRESSION: Unremarkable examination. CT scan - head: Attestation: I personally reviewed and interpreted this imaging study as follows: Radiologist's impression: EXAMINATION: CT HEAD WITHOUT CONTRAST CLINICAL INFORMATION: Weakness. COMPARISON: CT head 07/26/2020 TECHNIQUE: Contiguous axial imaging was performed from the skull base to vertex without intravenous administration of contrast. Coronal and sagittal reformatted images performed at the CT scanner This CT examination was performed using dose optimization techniques as appropriate, variously including the following: *Automated exposure control *Adjustment of mA and/or kV according to patient size (this includes techniques or standardized protocols for targeted exams where dose is matched to indication/reason for exam; i.e. extremities or head) *Use of iterative reconstruction technique DLP: 776 mGy-cm FINDINGS: There is no evidence of acute intracranial hemorrhage or territorial infarction. No abnormal mass effect or midline shift is seen. Hutson to white matter differentiation is well preserved. No extra-axial fluid collections are identified. There are vascular calcifications of the internal carotid arteries bilaterally. The ventricles are normal in size for patient age. There is no abnormal attenuation within the brain parenchyma. The osseous structures and soft tissues are normal. The mastoid air cells and visualized portions of the paranasal sinuses are well aerated. CT/CT head/brain wo con IMPRESSION: No acute intracranial pathology. ECG Data Attestation: I personally reviewed and interpreted this ECG as follows: Prior ECG tracings: available for review Interpretation: Vent. rate 82 BPM MS interval 172 ms QRS duration 70 ms QT/QTc 362/422 ms P-R-T axes 17 -31 17 Normal sinus rhythm Left axis deviation Abnormal ECG When compared with ECG of 26-JUL-2020 23:23, No significant change was found Date September 03, 2020, time 7:02 p.m. Discharge Plan Discharge Prescriptions: No [facility] celecoxib [Celebrex] 200 mg Capsule 200 mg PO DAILY RF: 0 fluoxetine [Prozac] 40 mg Capsule 40 mg PO DAILY RF: 0 methocarbamol 500 mg Tablet 1,000 mg PO TID RF: 0 metformin 500 mg Tablet 500 mg PO BIDWM RF: 0 metoclopramide HCl [Reglan] 5 mg Tablet 5 mg PO DAILY RF: 0 trazodone 100 mg Tablet 300 mg PO BEDTIME RF: 0 gabapentin 300 mg Capsule 300 mg PO TID RF: 0 omeprazole 20 mg Capsule,Delayed Release(Dr/Ec) 20 mg PO DAILY RF: 0 albuterol sulfate [Ventolin HFA] 90 mcg/actuation Hfa Aerosol Inhaler 2 puff INHALATION Q4H PRN (Reason: Shortness Of Breath) RF: 0 fluticasone propionate 50 mcg/actuation [place],Suspension 1 spray INTRANASAL DAILY RF: 0 glipizide 5 mg Tablet 5 mg PO DAILY RF: 0 Breo Ellipta 100-25 mcg/dose Blister With Device 1 puff inhalation RDAILY Qty: 1 RF: 0 fentanyl 100 mcg/hr patch 72 hour 1 patch topical Q3D RF: 0
--- NOTE | 2020-09-03 18:17 | ECG_ITS ---
Test Reason : RIB PAIN Blood Pressure : / mmHG Vent. Rate : 082 BPM Atrial Rate : 082 BPM P-R Int : 172 ms QRS Dur : 070 ms QT Int : 362 ms P-R-T Axes : 017 -31 017 degrees QTc Int : 422 ms Normal sinus rhythm Left axis deviation Borderline ECG When compared with ECG of 26-JUL-2020 23:23, No significant change was found Referred By: Monet Walter Electronically Signed By:SAAD HUYNH
--- NOTE | 2020-09-03 18:32 | PC.NURSE ---
daughter dorcas at [phone]
[2020-09-03 18:38] LABS: Glucose Urine UA NEG (NEG); Leukocyte Esterase Urine NEG (NEG); Nitrite Urine NEG (NEG); Urine Blood NEG (NEG); Urine Ketones NEG (NEG); Urine Protein NEG (NEG-TRACE)
[2020-09-03 18:40] LABS: Appearance Urine CLEAR; Color Urine YELLOW
[2020-09-03 19:07] LABS: MANUAL DIFF FLAG NO
[2020-09-03 19:10] LABS: Basophils Absolute Auto 0.1 X10*3/uL (0.0-0.2); Basophils Percent Auto 0.8 % (0-2); Eosinophils Absolute Auto 0.1 X10*3/uL (0.0-0.4); Eosinophils Percent Auto 0.8 % (0-4); Hematocrit 43.3 % (37-47); Hemoglobin 14.1 g/dl (12.0-16.0); Imm Gran Abs Auto 0.07 X10*3/uL (0.00-0.03); Imm Gran Pct Auto 0.7 % (0.0-0.4); Lymphocytes Absolute Auto 2.5 X10*3/uL (1.2-4.9); Lymphocytes Percent Auto 25.6 % (20-40); Mean Corpuscular HGB Conc 32.6 g/dl (31.0-35.0); Mean Corpuscular Hemoglobin 30.9 pg (27.0-33.0); Mean Platelet Volume 8.5 fL (9.4-12.3); Monocytes Absolute Auto 1.2 X10*3/uL (0.1-1.2); Monocytes Percent Auto 11.8 % (2-11); Neutrophils Percent Auto 60.3 % (45-73); Platelet Count 301 X10*3/uL (160-400); Red Blood Count 4.56 X10*6/uL (4.20-5.50); Red Cell Distribution Width 12.8 % (11.0-16.0); White Blood Count 9.9 X10*3/uL (4.8-10.8)
[2020-09-03 19:22] LABS: Prothrombin Time 11.3 SEC (10.8-13.0)
[2020-09-03 19:24] LABS: Partial Thromboplastin Time 34.3 SEC (24.1-38.0)
[2020-09-03 19:25] LABS: COVID-19 Test Negative (Negative); IDNOW Serial# 9DD0AD1C
[2020-09-03 19:40] LABS: Anion Gap 13 (12-20); Blood Urea Nitrogen 12 mg/dL (9-16); Calcium 8.7 mg/dL (8.4-10.2); Carbon Dioxide 29 mmol/L (22-29); Chloride 101 mmol/L (96-108); Creatinine Clr Calc Pharmacy 76.8; Estimated Glomerular Filt Rate > 60; Glucose Random 129 mg/dL (60-115); Potassium 4.4 mmol/L (3.3-5.1); Sodium 139 mmol/L (135-145)
[2020-09-03 19:45] LABS: Troponin-I High Sensitivity < 3.5 ng/L (<3.5-17.0)
[2020-09-03 20:03] VITALS: BP 133/76; PULSE 73; RESP 18; O2SAT 96
[2020-09-03] MEDS: traZODone HCL 100 MG TABLET 300 MG PO (22:17)
[2020-09-03] MEDS: Gabapentin 300 MG CAPSULE PO (22:17)
[2020-09-03] MEDS: metFORMIN HCl 500 MG TABLET PO (22:17)
--- NOTE | 2020-09-03 22:17 | MHC.CM.PN ---
CM met with pt. Pt weepy and sl. angry. States she has pain on her left chest secondary to 2 fx ribs from a fall she took on 07/26. Pt also s/0 L sided weakness since before her fall. Hx a hx of chronic back pain.Absolutely refuses STR. Pt tells CM that if her daughter cannot take her home, she will sleep in the street. CM explained to pt that it is 20 degrees outside, the shelters fill up at 3pm and if her daughter cannot take her home, she must stay. Pt is agreeable to VNA. Upon further discussion, pt states that her PCP ordered VNA for her last wednesday, but she lost her phone and hasn't had any contact with them. Does not know what VNA company her PCP called. States her almost 2 weeks ago. States she doesn't think her daughter wants her. They have had words over her smoking and her slow healing after the fall and pneumonia. Pt states her daughter thinks she is not trying to get better. Pt aware that Cm will call her daughter. Pt doesn't have a HCP and does not want to complete one now. CM to follow for d/c needs.
--- NOTE | 2020-09-03 22:26 | MHC.CM.ED ---
CM spoke with daughter, Rossi Santizo ([phone]). Rossi expressed frustration over caring for her mother and states that since she feel, she is not the same person. She doesn't try to care for herself, doesn't walk much, and when she does, she cruises the furniture for stability. Rossi also states that her mother smokes in the home and has fallen sleep while smoking. Rossi states it is an unsafe situation. Her mother lives in the finished basement and has great difficulty navigating the stairs. Rossi states she has her mother on a restricted smoking schedule, but her mother hides cigarettes to smoke when no one is watching. Daughter spoke to PCP Dr. Seth Calderon today about her mother and he recommended she bring her to the hospital for evaluation. Rossi and her tell CM that pt does nothing to help herself at home. They understand that her 1 1/2 weeks ago, but state this has been going on for quite some time. Rossi tells me her mother has suffered from depression her entire life. Tells CM that pt has been living with her for 3 years. Prior to that she lived with her son, Mosoe Richard ([phone]). He told both the pt and his father that they could not longer live with him and have had little to do with them. He is aware that she is in the hospital. The other son, Anant Richard ([phone]) had lived with his parents until they were evicted from their home. Rossi suggests that CM call them. This internal communications writer told her we would call them tomorrow. Will speak with pt. Per Rossi, pt cannot come home now and must go to rehab. States she loves her mother and will consider having her return to her home after rehab if she gets stronger. Would like CM to update her tomorrow on plan of care for her mother. Will follow for d/c needs.
[2020-09-03 22:36] VITALS: BP 150/83; PULSE 83; RESP 20; O2SAT 95
--- NOTE | 2020-09-03 22:39 | MHC.CM.PN ---
CM spoke with pt again regarding conversation with her daughter. Explained that her daughter would not take her home now, and that she needed to go to rehab if recommended by PT. Also explained that Rossi loved her and would take her back after she gets stronger. Pt weepy, started to protest, and CM gently explained that she was a very smart woman and understood the situation. Explained that sometimes we have to do what we do not want to and what's best. Pt understands and agrees. Pt will stay overnight and will have PT evaluation in the am. If STR is recommended, then CM will speak with pt to determine where she would like to go. Will facilitate pt calling her son's tomorrow, as it is 10pm now. Offered a nicotine patch, but pt refused x2. Offered cup of tea, which pt happily accepted. Reassured pt that we would care for her and help her to get stronger to return home to her daughter. CM to follow for d/c needs. No referrals placed yet pending PT evaluation . Will address HCP tomorrow.
[2020-09-03] MEDS: fentaNYL 100 MCG PATCH.TD72 TRANSDERMA (22:46)
--- NOTE | 2020-09-03 22:50 | PC.NURSE ---
Prior fentanyl patch from l chest removed and witnessed waste w/ MARIFER Will.
[2020-09-03] MEDS: Acetaminophen 325 MG TABLET 650 MG PO (22:56)
[2020-09-04] VITALS: RESP 15
[2020-09-04 01:37] VITALS: RESP 16
[2020-09-04 02:00] VITALS: RESP 16
[2020-09-04 05:44] VITALS: RESP 18
--- NOTE | 2020-09-04 06:26 | PC.NURSE ---
Patient slept all night and recently got up to use the bathroom. No issues during the shift
[2020-09-04 08:12] VITALS: BP 113/80; PULSE 81; RESP 16; O2SAT 98
[2020-09-04] MEDS: glipiZIDE 5 MG TABLET PO (08:22)
[2020-09-04] MEDS: Omeprazole 20 MG CAPSULE.DR PO (08:22)
[2020-09-04] MEDS: metFORMIN HCl 500 MG TABLET PO (08:22)
[2020-09-04] MEDS: FLUoxetine HCl 20 MG CAPSULE 40 MG PO (08:23)
[2020-09-04] MEDS: Cyclobenzaprine HCl 10 MG TABLET PO (08:23)
[2020-09-04] MEDS: Gabapentin 300 MG CAPSULE PO (08:23)
[2020-09-04] MEDS: Fluticasone/Vilanterol 100/25 BLST.W.DEV 1 PUFF INHALE (08:35)
[2020-09-04] MEDS: Celecoxib 200 MG CAPSULE PO (08:35)
[2020-09-04] MEDS: Metoclopramide HCl 5 MG TABLET PO (08:35)
[2020-09-04] MEDS: Fluticasone Propionate Nasal 16 GM SPRAY 1 SPRAY NOSTRIL-B (08:35)
--- NOTE | 2020-09-04 10:14 | MHC.CM.ED ---
Patient remains in ER. Physical therapy eval completed. Home therapy is recommended. Spoke with patient's daughter, Rossi via telephone. Rossi doesn't feel patient can safely return home regardless of physical therapy eval findings. She will not let the patient return to her home without going to rehab. T/W anticipates patient will not be agreeable. Referral for shor term rehab broadcasted in [employer] at this time. Continue to monitor for d/c needs.
[2020-09-04 11:24] VITALS: BP 130/86; PULSE 75; RESP 16; TEMP 36.8; O2SAT 96
--- NOTE | 2020-09-04 11:41 | MHC.CM.ED ---
Met with patient in regards to discharge planning. List of facilities that are willing to offer patient a bed provided via [facility]. Patient[facility] 1[facility] chioce is [facility]. Continue to monitor for d/c needs.
--- NOTE | 2020-09-04 13:37 | MHC.CM.ED ---
Patient can leave for [facility] at 2pm. [facility] booked. Med nec with chart. Patient, daughter Leonila Richey and Merle CAICEDO aware. Continue to monitor for dc/ needs.
--- NOTE | 2020-09-04 14:06 | PC.NURSE ---
Report called at [phone] x1. No picker operator.
--- NOTE | 2020-09-04 15:04 | PC.NURSE ---
Called report to Tracy- at [facility] at [phone]
== END 2020-09-04 15:41 | disposition skilled nursing facility (03) ==
PROVIDERS: Nurse Practitioner Family; Emergency Provider Student in an Organized Health Care Education/Training Program; PCP Family Medicine
DX: R07.81 Pleurodynia (principal); R53.1 Weakness; Z91.81 History of falling; Z20.822 Contact with and (suspected) exposure to COVID-19; I10 Essential (primary) hypertension; E11.9 Type 2 diabetes mellitus without complications; E78.5 Hyperlipidemia, unspecified; J44.9 Chronic obstructive pulmonary disease, unspecified; G89.29 Other chronic pain; M54.9 Dorsalgia, unspecified; F17.210 Nicotine dependence, cigarettes, uncomplicated; Z79.84 Long term (current) use of oral hypoglycemic drugs; Z79.899 Other long term (current) drug therapy; Z87.440 Personal history of urinary (tract) infections; Z79.891 Long term (current) use of opiate analgesic
CPT/HCPCS: 36415; 70450; 71045; 80048; 81003; 84484; 85025; 85610; 85730; 87635; 93005; 97161; 99284; 99285

== ENCOUNTER 2021-11-21 00:21 | Inpatient (IN) | payer MEDICARE, MEDICAID, SELFPAY ==
[2021-11-21] VITALS (11 sets, daily range): BP systolic 113–171; BP diastolic 55–82; PULSE 90–105; RESP 14–24; TEMP 37–38.3; O2SAT 89–100; BMI 35.5; BMI 34.5
--- NOTE | ~2021-11-21 | XR_ITS ---
EXAMINATION: XR CHEST CLINICAL INFORMATION: Unresponsive COMPARISON: 09/03/2020 TECHNIQUE: Frontal view of the chest was obtained. FINDINGS: Lung volumes are low. Diffuse bronchial wall thickening with patchy opacities. This is throughout both lungs. No pleural effusion or pneumothorax. The cardiomediastinal silhouette is unchanged. XR/XR chest 1V IMPRESSION: Bronchial wall thickening with patchy opacities could represent a small airways process with associated infectious/inflammatory disease. Alternatively this could represent interstitial and alveolar edema.
--- NOTE | ~2021-11-21 | CT_ITS ---
EXAMINATION: CT HEAD WITHOUT CONTRAST CLINICAL INFORMATION: Unresponsive COMPARISON: 09/03/2020 TECHNIQUE: Contiguous axial imaging was performed from the skull base to vertex without intravenous contrast. This CT examination was performed using dose optimization techniques as appropriate, variously including the following: * Automated exposure control * Adjustment of mA and/or kV according to patient size (this includes techniques or standardized protocols for targeted exams where dose is matched to indication/reason for exam; i.e. extremities or head) Use of iterative reconstruction technique DLP: 784 mGy-cm. FINDINGS: There is no evidence of acute intracranial hemorrhage or territorial infarction. No abnormal mass effect or midline shift is seen. [place] to white matter differentiation is well preserved. No extra-axial fluid collections are identified. No hydrocephalus. Proportional prominence of the ventricles and sulcal spaces is consistent with mild volume loss. Patchy periventricular and deep white matter hypoattenuation is consistent with mild small vessel ischemic changes. The osseous structures and soft tissues are normal. The mastoid air cells and visualized portions of the paranasal sinuses are well aerated. CT/CT head/brain wo con IMPRESSION: No acute intracranial pathology.
--- NOTE | ~2021-11-21 | CT_ITS ---
EXAMINATION: CT CERVICAL SPINE WITHOUT CONTRAST CLINICAL INFORMATION: Fall with neck pain COMPARISON: 07/26/2020 TECHNIQUE: Contiguous helical images of the cervical spine were obtained without IV contrast. Multiplanar reconstructions were performed. This CT examination was performed using dose optimization techniques as appropriate, variously including the following: *Automated exposure control *Adjustment of mA and/or kV according to patient size (this includes techniques or standardized protocols for targeted exams where dose is matched to indication/reason for exam; i.e. extremities or head) *Use of iterative reconstruction technique DLP: 378 mGy-cm FINDINGS: Motion limited evaluation. There is anatomic alignment of the vertebral bodies and posterior elements. The atlantoaxial and atlantooccipital articulations are intact. Vertebral body heights are maintained. There is multilevel intervertebral disc space narrowing with endplate osteophyte formation and facet arthropathy. No evidence of acute fracture. No prevertebral soft tissue swelling. There is no cervical lymphadenopathy. 1.6 cm right thyroid nodule.. The visualized base of the brain is unremarkable. The visualized lung apices are clear. CT/CT cervical spine wo con IMPRESSION: No evidence for acute injury to the cervical spine. Motion limited evaluation. 1.6 cm right thyroid nodule. Suggest nonemergent ultrasound to evaluate.
--- NOTE | 2021-11-21 00:43 | ED.AMS ---
HPI - Altered Mental Status General Chief Complaint: General Medical Stated Complaint: IN/OUT CON. Time Seen by Provider: 11/21/21 00:40 Source: patient, EMS and RN notes reviewed Mode of arrival: EMS Limitations: no limitations History of Present Illness HPI narrative: 66-year-old female brought in by ambulance from [facility] for evaluation of change mental status. Patient with past medical history of COPD/active smoker/chronic pain on fentanyl and oxycodone/DM/GERD. Reportedly by EMS patient when out ptosis smoker this morning and fell, patient declined hitting her head, patient is been lethargic and sleepy. In the ED patient had a fentanyl patch on her chest that was removed. Patient is opening her eyes to verbal stimuli able to answer question intermittently. Patient had little wheezing and rales but patient declined subjective shortness of breath. Patient admitted to falling in the morning while she was smoking unable to give the details of the fall and decline head injury. Related Data Home Medications Medication Instructions Recorded Confirmed albuterol sulfate 90 mcg/actuation 2 puff INHALATION Q4H PRN 07/26/20 09/03/20 aerosol inhaler (Ventolin HFA) celecoxib 200 mg capsule (Celebrex) 200 mg PO DAILY 07/26/20 09/03/20 fluoxetine 40 mg capsule (Prozac) 40 mg PO DAILY 07/26/20 09/03/20 fluticasone propionate 50 1 spray INTRANASAL DAILY 07/26/20 09/03/20 mcg/actuation nasal spray,suspension gabapentin 300 mg capsule 300 mg PO TID 07/26/20 09/03/20 glipizide 5 mg tablet 5 mg PO DAILY 07/26/20 09/03/20 metformin 500 mg tablet 500 mg PO BIDWM 07/26/20 09/03/20 methocarbamol 500 mg tablet 1,000 mg PO TID 07/26/20 09/03/20 metoclopramide HCl 5 mg tablet 5 mg PO DAILY 07/26/20 09/03/20 (Reglan) omeprazole 20 mg capsule,delayed 20 mg PO DAILY 07/26/20 09/03/20 release trazodone 100 mg tablet 300 mg PO BEDTIME 07/26/20 09/03/20 fentanyl 100 mcg/hr transdermal 1 patch TOPICAL Q3D 09/03/20 09/03/20 patch Previous Rx's Medication Instructions Recorded fluticasone furoate 100 1 puff INHALATION RDAILY #1 ea 07/30/20 mcg-vilanterol 25 mcg/dose inhalation powder (Breo Ellipta) fentanyl 100 mcg/hr transdermal 1 patch TRANSDERMAL Q72H #5 ea 09/04/20 patch Allergies Allergy/AdvReac Type Severity Reaction Status Date / Time aspirin [From PERCODAN] Allergy Unknown UNKNOWN Verified 07/26/20 23:11 egg [EGG] Allergy Unknown UNKNOWN Verified 07/26/20 23:11 oxycodone AdvReac Nausea Verified 09/03/20 17:56 From PERCODAN Allergy Unknown UNKNOWN Uncoded 03/21/20 17:03 Review of Systems Review of Systems: All other systems are reviewed and are negative Constitutional: Reports as per HPI and Reports no additional constitutional complaints Eyes: Reports as per HPI and Reports no additional eye complaints Reports system reviewed and no additional complaints, except as documented Cardiovascular: Reports as per HPI and Reports no additional cardiovascular complaints Respiratory: Reports as per HPI and Reports no additional respiratory complaints Gastrointestinal: Reports as per HPI and Reports no additional gastrointestinal complaints Genitourinary: Reports no additional female genitourinary complaints Musculoskeletal: Reports no additional musculoskeletal complaints Skin/Breast: Reports system reviewed and no additional complaints, except as docu Psychiatric: Reports no additional psychiatric complaints Endocrine: Reports no additional endocrine complaints Hematologic/Lymphatic: Reports no additional hematologic/lymphatic complaints Allergic/Immunologic: Reports no additional allergic/immunologic complaints Reports system reviewed and no additional complaints, except as documented and Reports Abnormal speech present [facility] Past Medical History Medical History Bronchitis Chronic back pain Diabetes High cholesterol HTN (hypertension) UTI (urinary tract infection) Social History Social History Household Members: Family Housing: House Do you presently have visiting nurse or other home services: No Alcohol intake: never Cigarettes Per Day: 1 Second Hand Smoke Exposure: Yes service: No Current occupational status: unemployed Physical Exam ED Vital Signs: Vital Signs - 24 hr 11/21/21 00:49 11/21/21 01:07 11/21/21 02:10 Temperature 99.5 F 100.9 F H Pulse Rate 105 H 99 92 Respiratory Rate 24 H 24 H 22 H Blood Pressure 144/82 H 121/55 L Pulse Oximetry 89 L 94 95 BMI result Body Mass Index 35.5 Vital signs have been reviewed as appeared to be correct. Blood pressure normal. Heart rate normal. Respiration rate normal. Temperature normal. Oxygen saturation normal. Appearance: Alert. Oriented X3 to place and person and event No acute distress. Head: Normal external exam. Normocephalic. Atraumatic. No Reyes signs noted. No raccoon eyes noted Eyes: PERRLA. EOMI. Conjunctiva and sclera normal. Eyelids normal. ENT: TM's Normal. Pharynx normal. Uvula midline. Moist mucous membranes. No trismus noted. No drooling noted. No muffled voice noted. Neck: Normal inspection. Neck supple. FROM. No adenopathy. Thyroid Normal. No meningeal signs. No neck mass noted. CVS: Normal heart rate and rhythm. Heart sound normal. No murmurs noted. Pulses normal throughout. Respiratory: No respiratory distress. Painless inspiration. Breath sounds normal. Bilateral expiratory wheezing with prolonged expiration, bilateral basilar rales. Chest nontender. No accessory muscle usage noted or decreased air movement noted. Abdomen: Soft and nontender. Bowel sounds normal in all 4 quadrants. No distention noted. No organomegaly noted. No visible injury noted. Back: No CVA tenderness. Full range of motion noted. Skin: Skin warm and dry. Normal skin color. Normal skin turgor. No rashes/lesions/lacerations noted. Extremities: No lower extremity edema. Extremities exhibit normal range of motion. Extremities nontender. Neuro: Oriented X 3 (place, person, and event) Cranial nerve exam: II-XII are grossly intact No motor deficit. No sensory deficit. Reflexes normal. Course Course Course Narrative: Assessment and plan. [age] year female came in for evaluation of lethargy, patient had a prior fall. Also history of COPD and active smoking history. 1. Intact neuro exam except lethargy patient is arousing to vocal stimuli, head CT showing no intracranial trauma. 2. Patient chronic opiate use for chronic pain which is thought to be contributing to patient's symptoms fentanyl patch was discontinued. 3. Flu A positive which is likely triggering her COPD patient received bronchodilator/Solu-Medrol/magnesium will admit for respiratory monitoring. 4. Meets SIRS criteria which is likely secondary to viral infection (flu A positive) and not bacterial, patient is not an septic shock or severe sepsis. MDM - Altered Mental Status Lab Data Attestation: I reviewed the patient's lab results. Result diagrams: 11/21/21 00:56 11/21/21 00:56 Labs: Lab Results 11/21/21 11/21/21 11/21/21 Range/Units 00:56 00:56 00:56 WBC 16.7 H (4.8-10.8) X10*3/uL RBC 4.32 (4.20-5.50) X10*6/uL Hgb 13.0 (12.0-16.0) g/dl Hct 39.2 (37.0-47.0) % MCV 90.7 (80.0-98.0) fL MCH 30.1 (27.0-33.0) pg MCHC 33.2 (31.0-35.0) g/dl RDW 13.2 (11.0-16.0) % Plt Count 274 (160-400) X10*3/uL MPV 9.7 (9.4-12.3) fL Immature Gran % (Auto) 0.8 H (0.0-0.4) % Neut % (Auto) 81.2 H (45-73) % Lymph % (Auto) 7.2 L (20-40) % [place] % (Auto) 10.5 (2-11) % Eos % (Auto) 0.1 (0-4) % Baso % (Auto) 0.2 (0-2) % Lymph # (Auto) 1.2 (1.2-4.9) X10*3/uL [place] # (Auto) 1.8 H (0.1-1.2) X10*3/uL Eos # (Auto) 0.0 (0.0-0.4) X10*3/uL Baso # (Auto) 0.0 (0.0-0.2) X10*3/uL Abs Immat Gran (auto) 0.13 H (0.00-0.03) X10*3/uL Absolute Neuts (auto) 13.6 H (2.0-8.3) x10*3/uL Absolute Nucleated RBC 0.000 (0.0-0.012) X10*3/uL Nucleated RBC % (auto) 0.0 (0.0-0.2) /100WBC Smear Tech's Comments VERIFIED PT 12.6 (9.9-13.0) SEC INR 1.1 (0.9-1.1) APTT 30.2 (24.1-38.0) SEC VBG pH (7.32-7.43) VBG pCO2 mmHg VBG pO2 mmHg VBG HCO3 (22-26) mmol/L VBG O2 Saturation % VBG Base Excess mmol/L Sodium 135 (135-145) mmol/L Potassium 4.0 (3.3-5.1) mmol/L Chloride 100 (96-108) mmol/L Carbon Dioxide 28 (22-29) mmol/L Anion Gap 11 L (12-20) BUN 15 (9-16) mg/dL Creatinine 0.86 (0.5-1.4) mg/dL Estim Creat Clear Calc 74.5 Estimated GFR > 60 Random Glucose 245 H (60-115) mg/dL Lactic Acid (0.5-2.0) mmol/L Calcium 8.6 (8.4-10.2) mg/dL Total Bilirubin 0.4 (0.0-1.0) mg/dL Direct Bilirubin 0.2 (0.0-0.5) mg/dL AST 15 (5-31) U/L ALT 14 (0-31) U/L Alkaline Phosphatase 80 D (39-117) U/L Troponin I High Sens (<3.5-17.0) ng/L B-Natriuretic Peptide (<100) pg/mL Total Protein 6.5 (6.5-8.0) g/dL Albumin 3.5 (3.5-5.0) g/dL Lipase 16 (8-78) U/L Urine Color Urine Appearance Urine pH (5.0-8.0) Ur Specific [place] (1.005-1.025) Urine Protein (NEG-TRACE) MG/DL Urine Glucose (UA) (NEG) MG/DL Urine Ketones (NEG) MG/DL Urine Blood (NEG) Urine Nitrite (NEG) Ur Leukocyte Esterase (NEG) Urine RBC (0) /HPF Urine WBC (0-4) /HPF Urine WBC Clumps Ur Squamous Epith Cells /LPF Urine Bacteria /LPF Urine Mucus /LPF Urine Opiates Screen (Not Detect) Urine Fentanyl Screen (Not Detect) Ur Barbiturates Screen (Not Detect) Ur Phencyclidine Scrn (Not Detect) Ur Amphetamines Screen (Not Detect) U Benzodiazepines Scrn (Not Detect) Urine Cocaine Screen (Not Detect) U Marijuana (THC) Screen (Not Detect) Ethyl Alcohol mg/dL Influenza Type A (PCR) (Negative) Influenza Type B (PCR) (Negative) RSV RNA Qual (PCR) (Negative) SARS-CoV-2 RNA (RT-PCR) (Negative) 11/21/21 11/21/21 11/21/21 Range/Units 00:56 00:56 00:56 WBC (4.8-10.8) X10*3/uL RBC (4.20-5.50) X10*6/uL Hgb (12.0-16.0) g/dl Hct (37.0-47.0) % MCV (80.0-98.0) fL MCH (27.0-33.0) pg MCHC (31.0-35.0) g/dl RDW (11.0-16.0) % Plt Count (160-400) X10*3/uL MPV (9.4-12.3) fL Immature Gran % (Auto) (0.0-0.4) % Neut % (Auto) (45-73) % Lymph % (Auto) (20-40) % [place] % (Auto) (2-11) % Eos % (Auto) (0-4) % Baso % (Auto) (0-2) % Lymph # (Auto) (1.2-4.9) X10*3/uL [place] # (Auto) (0.1-1.2) X10*3/uL Eos # (Auto) (0.0-0.4) X10*3/uL Baso # (Auto) (0.0-0.2) X10*3/uL Abs Immat Gran (auto) (0.00-0.03) X10*3/uL Absolute Neuts (auto) (2.0-8.3) x10*3/uL Absolute Nucleated RBC (0.0-0.012) X10*3/uL Nucleated RBC % (auto) (0.0-0.2) /100WBC Smear Tech's Comments PT (9.9-13.0) SEC INR (0.9-1.1) APTT (24.1-38.0) SEC VBG pH (7.32-7.43) VBG pCO2 mmHg VBG pO2 mmHg VBG HCO3 (22-26) mmol/L VBG O2 Saturation % VBG Base Excess mmol/L Sodium (135-145) mmol/L Potassium (3.3-5.1) mmol/L Chloride (96-108) mmol/L Carbon Dioxide (22-29) mmol/L Anion Gap (12-20) BUN (9-16) mg/dL Creatinine (0.5-1.4) mg/dL Estim Creat Clear Calc Estimated GFR Random Glucose (60-115) mg/dL Lactic Acid 2.2 H* (0.5-2.0) mmol/L Calcium (8.4-10.2) mg/dL Total Bilirubin (0.0-1.0) mg/dL Direct Bilirubin (0.0-0.5) mg/dL AST (5-31) U/L ALT (0-31) U/L Alkaline Phosphatase (39-117) U/L Troponin I High Sens 8.3 (<3.5-17.0) ng/L B-Natriuretic Peptide 68 (<100) pg/mL Total Protein (6.5-8.0) g/dL Albumin (3.5-5.0) g/dL Lipase (8-78) U/L Urine Color Urine Appearance Urine pH (5.0-8.0) Ur Specific [place] (1.005-1.025) Urine Protein (NEG-TRACE) MG/DL Urine Glucose (UA) (NEG) MG/DL Urine Ketones (NEG) MG/DL Urine Blood (NEG) Urine Nitrite (NEG) Ur Leukocyte Esterase (NEG) Urine RBC (0) /HPF Urine WBC (0-4) /HPF Urine WBC Clumps Ur Squamous Epith Cells /LPF Urine Bacteria /LPF Urine Mucus /LPF Urine Opiates Screen (Not Detect) Urine Fentanyl Screen (Not Detect) Ur Barbiturates Screen (Not Detect) Ur Phencyclidine Scrn (Not Detect) Ur Amphetamines Screen (Not Detect) U Benzodiazepines Scrn (Not Detect) Urine Cocaine Screen (Not Detect) U Marijuana (THC) Screen (Not Detect) Ethyl Alcohol mg/dL Influenza Type A (PCR) POSITIVE A (Negative) Influenza Type B (PCR) NEGATIVE (Negative) RSV RNA Qual (PCR) NEGATIVE (Negative) SARS-CoV-2 RNA (RT-PCR) NEGATIVE (Negative) 11/21/21 11/21/21 11/21/21 Range/Units 00:56 00:56 00:56 WBC (4.8-10.8) X10*3/uL RBC (4.20-5.50) X10*6/uL Hgb (12.0-16.0) g/dl Hct (37.0-47.0) % MCV (80.0-98.0) fL MCH (27.0-33.0) pg MCHC (31.0-35.0) g/dl RDW (11.0-16.0) % Plt Count (160-400) X10*3/uL MPV (9.4-12.3) fL Immature Gran % (Auto) (0.0-0.4) % Neut % (Auto) (45-73) % Lymph % (Auto) (20-40) % [place] % (Auto) (2-11) % Eos % (Auto) (0-4) % Baso % (Auto) (0-2) % Lymph # (Auto) (1.2-4.9) X10*3/uL [place] # (Auto) (0.1-1.2) X10*3/uL Eos # (Auto) (0.0-0.4) X10*3/uL Baso # (Auto) (0.0-0.2) X10*3/uL Abs Immat Gran (auto) (0.00-0.03) X10*3/uL Absolute Neuts (auto) (2.0-8.3) x10*3/uL Absolute Nucleated RBC (0.0-0.012) X10*3/uL Nucleated RBC % (auto) (0.0-0.2) /100WBC Smear Tech's Comments PT (9.9-13.0) SEC INR (0.9-1.1) APTT (24.1-38.0) SEC VBG pH (7.32-7.43) VBG pCO2 mmHg VBG pO2 mmHg VBG HCO3 (22-26) mmol/L VBG O2 Saturation % VBG Base Excess mmol/L Sodium (135-145) mmol/L Potassium (3.3-5.1) mmol/L Chloride (96-108) mmol/L Carbon Dioxide (22-29) mmol/L Anion Gap (12-20) BUN (9-16) mg/dL Creatinine (0.5-1.4) mg/dL Estim Creat Clear Calc Estimated GFR Random Glucose (60-115) mg/dL Lactic Acid (0.5-2.0) mmol/L Calcium (8.4-10.2) mg/dL Total Bilirubin (0.0-1.0) mg/dL Direct Bilirubin (0.0-0.5) mg/dL AST (5-31) U/L ALT (0-31) U/L Alkaline Phosphatase (39-117) U/L Troponin I High Sens (<3.5-17.0) ng/L B-Natriuretic Peptide (<100) pg/mL Total Protein (6.5-8.0) g/dL Albumin (3.5-5.0) g/dL Lipase (8-78) U/L Urine Color YELLOW Urine Appearance CLOUDY Urine pH 6.5 (5.0-8.0) Ur Specific [place] 1.015 (1.005-1.025) Urine Protein 2+ H (NEG-TRACE) MG/DL Urine Glucose (UA) 100 H (NEG) MG/DL Urine Ketones NEG (NEG) MG/DL Urine Blood NEG (NEG) Urine Nitrite POS H (NEG) Ur Leukocyte Esterase TRACE H (NEG) Urine RBC 1-4 (0) /HPF Urine WBC 10-14 H (0-4) /HPF Urine WBC Clumps NOTED Ur Squamous Epith Cells TRACE /LPF Urine Bacteria 4+ /LPF Urine Mucus 1+ /LPF Urine Opiates Screen Not Detected (Not Detect) Urine Fentanyl Screen POSITIVE H (Not Detect) Ur Barbiturates Screen Not Detected (Not Detect) Ur Phencyclidine Scrn Not Detected (Not Detect) Ur Amphetamines Screen Not Detected (Not Detect) U Benzodiazepines Scrn Not Detected (Not Detect) Urine Cocaine Screen Not Detected (Not Detect) U Marijuana (THC) Screen Not Detected (Not Detect) Ethyl Alcohol < 10 mg/dL Influenza Type A (PCR) (Negative) Influenza Type B (PCR) (Negative) RSV RNA Qual (PCR) (Negative) SARS-CoV-2 RNA (RT-PCR) (Negative) 11/21/21 Range/Units 01:03 WBC (4.8-10.8) X10*3/uL RBC (4.20-5.50) X10*6/uL Hgb (12.0-16.0) g/dl Hct (37.0-47.0) % MCV (80.0-98.0) fL MCH (27.0-33.0) pg MCHC (31.0-35.0) g/dl RDW (11.0-16.0) % Plt Count (160-400) X10*3/uL MPV (9.4-12.3) fL Immature Gran % (Auto) (0.0-0.4) % Neut % (Auto) (45-73) % Lymph % (Auto) (20-40) % [place] % (Auto) (2-11) % Eos % (Auto) (0-4) % Baso % (Auto) (0-2) % Lymph # (Auto) (1.2-4.9) X10*3/uL [place] # (Auto) (0.1-1.2) X10*3/uL Eos # (Auto) (0.0-0.4) X10*3/uL Baso # (Auto) (0.0-0.2) X10*3/uL Abs Immat Gran (auto) (0.00-0.03) X10*3/uL Absolute Neuts (auto) (2.0-8.3) x10*3/uL Absolute Nucleated RBC (0.0-0.012) X10*3/uL Nucleated RBC % (auto) (0.0-0.2) /100WBC Smear Tech's Comments PT (9.9-13.0) SEC INR (0.9-1.1) APTT (24.1-38.0) SEC VBG pH 7.40 (7.32-7.43) VBG pCO2 43 mmHg VBG pO2 75 mmHg VBG HCO3 27 H (22-26) mmol/L VBG O2 Saturation 92.0 % VBG Base Excess 2.3 mmol/L Sodium (135-145) mmol/L Potassium (3.3-5.1) mmol/L Chloride (96-108) mmol/L Carbon Dioxide (22-29) mmol/L Anion Gap (12-20) BUN (9-16) mg/dL Creatinine (0.5-1.4) mg/dL Estim Creat Clear Calc Estimated GFR Random Glucose (60-115) mg/dL Lactic Acid (0.5-2.0) mmol/L Calcium (8.4-10.2) mg/dL Total Bilirubin (0.0-1.0) mg/dL Direct Bilirubin (0.0-0.5) mg/dL AST (5-31) U/L ALT (0-31) U/L Alkaline Phosphatase (39-117) U/L Troponin I High Sens (<3.5-17.0) ng/L B-Natriuretic Peptide (<100) pg/mL Total Protein (6.5-8.0) g/dL Albumin (3.5-5.0) g/dL Lipase (8-78) U/L Urine Color Urine Appearance Urine pH (5.0-8.0) Ur Specific [place] (1.005-1.025) Urine Protein (NEG-TRACE) MG/DL Urine Glucose (UA) (NEG) MG/DL Urine Ketones (NEG) MG/DL Urine Blood (NEG) Urine Nitrite (NEG) Ur Leukocyte Esterase (NEG) Urine RBC (0) /HPF Urine WBC (0-4) /HPF Urine WBC Clumps Ur Squamous Epith Cells /LPF Urine Bacteria /LPF Urine Mucus /LPF Urine Opiates Screen (Not Detect) Urine Fentanyl Screen (Not Detect) Ur Barbiturates Screen (Not Detect) Ur Phencyclidine Scrn (Not Detect) Ur Amphetamines Screen (Not Detect) U Benzodiazepines Scrn (Not Detect) Urine Cocaine Screen (Not Detect) U Marijuana (THC) Screen (Not Detect) Ethyl Alcohol mg/dL Influenza Type A (PCR) (Negative) Influenza Type B (PCR) (Negative) RSV RNA Qual (PCR) (Negative) SARS-CoV-2 RNA (RT-PCR) (Negative) Imaging Data CT scan - head: Attestation: I personally reviewed and interpreted this imaging study as follows: Radiologist's impression: No acute intracranial pathology. Chest x-ray: Attestation: I personally reviewed and interpreted this imaging study as follows: Radiologist's impression: Bronchial wall thickening with patchy opacities could represent a small airways process with associated infectious/inflammatory disease. Alternatively this could represent interstitial and alveolar edema. ? ECG Data ECG #1: Attestation: I personally reviewed and interpreted this ECG as follows: Interpretation: Sinus tachycardia at 105 beats per minutes, PACs, left axis deviation, normal intervals, no change from old EKG. Discharge Plan Discharge Clinical Impression: Acute exacerbation of chronic obstructive pulmonary disease (COPD), Flu Patient Disposition: Admitted As Inpatient
[2021-11-21 01:07] LABS: Basophils Percent Auto 0.2 % (0-2); Eosinophils Percent Auto 0.1 % (0-4); Hematocrit 39.2 % (37.0-47.0); Imm Gran Abs Auto 0.13 X10*3/uL (0.00-0.03); Imm Gran Pct Auto 0.8 % (0.0-0.4); Lymphocytes Absolute Auto 1.2 X10*3/uL (1.2-4.9); Lymphocytes Percent Auto 7.2 % (20-40); MANUAL DIFF FLAG SCAN; Mean Corpuscular HGB Conc 33.2 g/dl (31.0-35.0); Mean Corpuscular Hemoglobin 30.1 pg (27.0-33.0); Mean Corpuscular Volume 90.7 fL (80.0-98.0); Mean Platelet Volume 9.7 fL (9.4-12.3); Monocytes Absolute Auto 1.8 X10*3/uL (0.1-1.2); Monocytes Percent Auto 10.5 % (2-11); Neutrophils Absolute Auto 13.6 x10*3/uL (2.0-8.3); Neutrophils Percent Auto 81.2 % (45-73); Platelet Count 274 X10*3/uL (160-400); Red Blood Count 4.32 X10*6/uL (4.20-5.50); Red Cell Distribution Width 13.2 % (11.0-16.0); SCAN SMEAR FLAG 1; White Blood Count 16.7 X10*3/uL (4.8-10.8)
[2021-11-21 01:10] LABS: Appearance Urine CLOUDY; Color Urine YELLOW; Glucose Urine UA 100 MG/DL (NEG); Leukocyte Esterase Urine TRACE (NEG); Nitrite Urine POS (NEG); PH 6.5 (5.0-8.0); Specific Gravity - Urine 1.015 (1.005-1.025); UACC Culture Trigger YES; Urine Blood NEG (NEG); Urine Ketones NEG (NEG); Urine Protein 2+ MG/DL (NEG-TRACE)
[2021-11-21 01:12] LABS: Venous Blood Gas Refer to POC result
[2021-11-21 01:12] LABS: VBG Base Excess 2.3 mmol/L; VBG HCO3 27 mmol/L (22-26); VBG pCO2 43 mmHg; VBG pO2 75 mmHg
[2021-11-21 01:16] LABS: INTERNATIONAL NORM RATIO 1.1 (0.9-1.1); Prothrombin Time 12.6 SEC (9.9-13.0)
[2021-11-21 01:18] LABS: Partial Thromboplastin Time 30.2 SEC (24.1-38.0)
[2021-11-21 01:24] LABS: Bacteria Urine 4+ /LPF; Lactic Acid 2.2 mmol/L (0.5-2.0); Mucus Urine 1+ /LPF; Squamous Epithelial Cell Urine TRACE /LPF; WBC Clumps Urine NOTED
--- NOTE | 2021-11-21 01:25 | ECG_ITS ---
Test Reason : weakness Blood Pressure : / mmHG Vent. Rate : 105 BPM Atrial Rate : 105 BPM P-R Int : 192 ms QRS Dur : 072 ms QT Int : 334 ms P-R-T Axes : 085 -27 030 degrees QTc Int : 441 ms Sinus tachycardia with Premature supraventricular complexes Left axis deviation Borderline ECG When compared with ECG of 03-SEP-2020 19:02, Premature supraventricular complexes are now Present Referred By: Barbara Winkler Electronically Signed By:SAAD HUYNH
[2021-11-21 01:27] LABS: B Type Natriuretic Peptide 68 pg/mL (<100); Troponin-I High Sensitivity 8.3 ng/L (<3.5-17.0)
[2021-11-21 01:30] LABS: Amphetamine Screen Urine Not Detected (Not Detect); Barbiturates, Urine Not Detected (Not Detect); Benzodiazepines Screen Urine Not Detected (Not Detect); Cannabinoid Screen Urine Not Detected (Not Detect); Cocaine Screen Urine Not Detected (Not Detect); Fentanyl, urine POSITIVE (Not Detect); Opiate Screen Urine Not Detected (Not Detect); Phencyclidine Screen Urine Not Detected (Not Detect)
[2021-11-21 01:31] LABS: Ethanol < 10 mg/dL
[2021-11-21 01:32] LABS: Alanine Aminotransferase 14 U/L (0-31); Albumin Level 3.5 g/dL (3.5-5.0); Alkaline Phosphatase 80 U/L (39-117); Anion Gap 11 (12-20); Aspartate Amino Transferase 15 U/L (5-31); Bilirubin Direct 0.2 mg/dL (0.0-0.5); Bilirubin Total 0.4 mg/dL (0.0-1.0); Blood Urea Nitrogen 15 mg/dL (9-16); Calcium 8.6 mg/dL (8.4-10.2); Carbon Dioxide 28 mmol/L (22-29); Chloride 100 mmol/L (96-108); Creatinine Clr Calc Pharmacy 74.5; Estimated Glomerular Filt Rate > 60; Glucose Random 245 mg/dL (60-115); Lipase 16 U/L (8-78); Sodium 135 mmol/L (135-145); Total Protein 6.5 g/dL (6.5-8.0)
[2021-11-21 01:37] LABS: SLIDE REVIEW VERIFIED
[2021-11-21 01:44] LABS: Influenza A PCR POSITIVE (Negative); Influenza B PCR NEGATIVE (Negative); Resp Syncy Virus RNA Qual PCR NEGATIVE (Negative); SARS COV2 PCR INHOUSE NEGATIVE (Negative)
[2021-11-21] MEDS: Albuterol/Iprat 2.5/0.5MG 3 ML AMPUL.NEB INHALE ×4 (02:25→20:17)
[2021-11-21] MEDS: Magnesium Sulfate/H2O 2 GM/50 ML PIGGYBACK IV (02:38)
[2021-11-21] MEDS: methylPREDNISolone Sod Succ 125 MG/2 ML VIAL IVPUSH (02:38)
[2021-11-21 03:05] LABS: Reflex Lactate? Lactic Acid Added
[2021-11-21 03:48] LABS: ~Lactic Acid-LAB USE ONLY 2.2 mmol/L (0.5-2.0)
--- NOTE | 2021-11-21 03:50 | PM.IMHP ---
History of Present Illness Date of Service: 11/21/21 Chief Complaint: Altered mental status 66-year-old female with past medical history of COPD, active smoker, chronic pain on fentanyl patch and oxycodone, diabetes, GERD broght in from SNF for evaluation of altered mental status. Patient reportedly went to smoke the morning before admission and fell but without head injury. She was very somnolent, hypoxic with O2 of 89, wheezing and influenza positive. Head CT shows no acute finding. CXR shows Bronchial wall thickening with patchy opacities could represent a small airways process with associated infectious/inflammatory disease. VBG show no CO2 retention, Fentanyl patch taking off and becomes more alert. Review of Systems Review of Systems: Gen: no fever Resp: no sob, no cough CV: no chest, no GUTIERREZ, no leg edema GI: No n/v, no abd pain Neuro: No confusion Yes all other systems are reviewed and are negative [facility] Medical History Bronchitis Chronic back pain Diabetes High cholesterol HTN (hypertension) UTI (urinary tract infection) Social History Household Members: Family Housing: House Do you presently have visiting nurse or other home services: No Alcohol intake: never Cigarettes Per Day: 1 Second Hand Smoke Exposure: Yes Advance Directives: No service: No Current occupational status: unemployed Meds Allergies Allergy/AdvReac Type Severity Reaction Status Date / Time aspirin [From PERCODAN] Allergy Unknown UNKNOWN Verified 07/26/20 23:11 egg [EGG] Allergy Unknown UNKNOWN Verified 07/26/20 23:11 oxycodone AdvReac Nausea Verified 09/03/20 17:56 From PERCODAN Allergy Unknown UNKNOWN Uncoded 03/21/20 17:03 Active Medications: Current Medications Magnesium Sulfate (Magnesium Sulfate/H2o) 2 gm in 50 mls @ 25 mls/hr IV ONCE ONE Stop: 11/21/21 04:14 Last Admin: 11/21/21 02:38 Dose: 25 mls/hr Documented by: Home Medications Medication Instructions Recorded Confirmed Last Taken Type albuterol sulfate 90 mcg/actuation 2 puff INHALATION Q4H PRN 07/26/20 11/21/21 Unknown History aerosol inhaler (Ventolin HFA) celecoxib 200 mg capsule (Celebrex) 200 mg PO DAILY 07/26/20 09/03/20 Unknown History fluoxetine 40 mg capsule (Prozac) 40 mg PO DAILY 07/26/20 09/03/20 Unknown History fluticasone propionate 50 1 spray INTRANASAL DAILY 07/26/20 09/03/20 Unknown History mcg/actuation nasal spray,suspension gabapentin 300 mg capsule 300 mg PO TID 07/26/20 09/03/20 Unknown History glipizide 5 mg tablet 5 mg PO DAILY 07/26/20 09/03/20 Unknown History metformin 500 mg tablet 1,000 mg PO BIDWM 07/26/20 09/03/20 Unknown History methocarbamol 500 mg tablet 1,000 mg PO TID 07/26/20 09/03/20 Unknown History metoclopramide HCl 5 mg tablet 5 mg PO DAILY 07/26/20 09/03/20 Unknown History (Reglan) omeprazole 20 mg capsule,delayed 20 mg PO DAILY 07/26/20 09/03/20 Unknown History release trazodone 100 mg tablet 300 mg PO BEDTIME 07/26/20 09/03/20 Unknown History fentanyl 100 mcg/hr transdermal 1 patch TOPICAL Q3D 09/03/20 09/03/20 Unknown History patch baclofen 10 mg tablet 10 mg Q8W 11/21/21 11/21/21 Unknown History cholecalciferol (vitamin D3) 25 11/21/21 Unknown History mcg (1,000 unit) capsule furosemide 20 mg tablet (Lasix) 20 mg PO DAILY 11/21/21 11/21/21 Unknown History insulin detemir U-100 100 unit/mL 22 unit SUBCUT DAILY 11/21/21 11/21/21 Unknown History subcutaneous solution (Levemir U-100 Insulin) insulin lispro 100 unit/mL See Protocol 11/21/21 Unknown History subcutaneous cartridge (Humalog U-100 Insulin) lansoprazole 15 mg capsule,delayed 15 mg PO DAILY 11/21/21 11/21/21 Unknown History release (Prevacid 24Hr) Physical Exam Vital Signs and Narrative: Vital Signs: Last Vital Signs Temp 100.9 F H 11/21/21 01:07 Pulse 92 11/21/21 02:10 Resp 22 H 11/21/21 02:10 BP 121/55 L 11/21/21 02:10 Pulse Ox 95 11/21/21 02:10 BMI result Body Mass Index 35.5 Const: Other: Constitutional: Alert, in no distress, overweight. Mental Status: Oriented to person, place and time. Eyes: Pupils are equal, round and reactive to light. Ear, Nose and Throat: Oropharynx clear, mucous membranes moist. Respiratory: Clear to auscultation. No wheezing, rales or rhonchi. Cardiovascular: S1 S2 regular. No murmurs, rubs or gallops. Gastrointestinal: Abdomen soft, non-tender, non-distended. Normal bowel sounds.? Neurologic: Cranial nerves II-XII grossly intact. No focal neurological deficits. Moves all extremities spontaneously.? Skin: No rashes or lesions.? Musculoskeletal: No cyanosis or clubbing. Psychiatric: Normal mood and affect? Results Labs CBC and Chem 7: 11/21/21 00:56 11/21/21 00:56 Labs: Laboratory Results - last 24 hr 11/21/21 11/21/21 11/21/21 00:56 00:56 00:56 MCV 90.7 MCH 30.1 MCHC 33.2 RDW 13.2 Plt Count 274 MPV 9.7 Immature Gran % (Auto) 0.8 H Neut % (Auto) 81.2 H Lymph % (Auto) 7.2 L [place] % (Auto) 10.5 Eos % (Auto) 0.1 Baso % (Auto) 0.2 Lymph # (Auto) 1.2 [place] # (Auto) 1.8 H Eos # (Auto) 0.0 Baso # (Auto) 0.0 Abs Immat Gran (auto) 0.13 H Absolute Neuts (auto) 13.6 H Absolute Nucleated RBC 0.000 Nucleated RBC % (auto) 0.0 Smear Tech's Comments VERIFIED PT 12.6 INR 1.1 APTT 30.2 VBG pH VBG pCO2 VBG pO2 VBG HCO3 VBG O2 Saturation VBG Base Excess Anion Gap 11 L Estim Creat Clear Calc 74.5 Estimated GFR > 60 Random Glucose 245 H Lactic Acid Lactic Acid F/U @ 2Hr Calcium 8.6 Total Bilirubin 0.4 Direct Bilirubin 0.2 AST 15 ALT 14 Alkaline Phosphatase 80 D Troponin I High Sens B-Natriuretic Peptide Total Protein 6.5 Albumin 3.5 Lipase 16 Urine Color Urine Appearance Urine pH Ur Specific [place] Urine Protein Urine Glucose (UA) Urine Ketones Urine Blood Urine Nitrite Ur Leukocyte Esterase Urine RBC Urine WBC Urine WBC Clumps Ur Squamous Epith Cells Urine Bacteria Urine Mucus Urine Opiates Screen Urine Fentanyl Screen Ur Barbiturates Screen Ur Phencyclidine Scrn Ur Amphetamines Screen U Benzodiazepines Scrn Urine Cocaine Screen U Marijuana (THC) Screen Ethyl Alcohol Influenza Type A (PCR) Influenza Type B (PCR) RSV RNA Qual (PCR) SARS-CoV-2 RNA (RT-PCR) 11/21/21 11/21/21 11/21/21 00:56 00:56 00:56 MCV MCH MCHC RDW Plt Count MPV Immature Gran % (Auto) Neut % (Auto) Lymph % (Auto) [place] % (Auto) Eos % (Auto) Baso % (Auto) Lymph # (Auto) [place] # (Auto) Eos # (Auto) Baso # (Auto) Abs Immat Gran (auto) Absolute Neuts (auto) Absolute Nucleated RBC Nucleated RBC % (auto) Smear Tech's Comments PT INR APTT VBG pH VBG pCO2 VBG pO2 VBG HCO3 VBG O2 Saturation VBG Base Excess Anion Gap Estim Creat Clear Calc Estimated GFR Random Glucose Lactic Acid 2.2 H* Lactic Acid F/U @ 2Hr Calcium Total Bilirubin Direct Bilirubin AST ALT Alkaline Phosphatase Troponin I High Sens 8.3 B-Natriuretic Peptide 68 Total Protein Albumin Lipase Urine Color Urine Appearance Urine pH Ur Specific [place] Urine Protein Urine Glucose (UA) Urine Ketones Urine Blood Urine Nitrite Ur Leukocyte Esterase Urine RBC Urine WBC Urine WBC Clumps Ur Squamous Epith Cells Urine Bacteria Urine Mucus Urine Opiates Screen Urine Fentanyl Screen Ur Barbiturates Screen Ur Phencyclidine Scrn Ur Amphetamines Screen U Benzodiazepines Scrn Urine Cocaine Screen U Marijuana (THC) Screen Ethyl Alcohol Influenza Type A (PCR) POSITIVE A Influenza Type B (PCR) NEGATIVE RSV RNA Qual (PCR) NEGATIVE SARS-CoV-2 RNA (RT-PCR) NEGATIVE 11/21/21 11/21/21 11/21/21 00:56 00:56 00:56 MCV MCH MCHC RDW Plt Count MPV Immature Gran % (Auto) Neut % (Auto) Lymph % (Auto) [place] % (Auto) Eos % (Auto) Baso % (Auto) Lymph # (Auto) [place] # (Auto) Eos # (Auto) Baso # (Auto) Abs Immat Gran (auto) Absolute Neuts (auto) Absolute Nucleated RBC Nucleated RBC % (auto) Smear Tech's Comments PT INR APTT VBG pH VBG pCO2 VBG pO2 VBG HCO3 VBG O2 Saturation VBG Base Excess Anion Gap Estim Creat Clear Calc Estimated GFR Random Glucose Lactic Acid Lactic Acid F/U @ 2Hr Calcium Total Bilirubin Direct Bilirubin AST ALT Alkaline Phosphatase Troponin I High Sens B-Natriuretic Peptide Total Protein Albumin Lipase Urine Color YELLOW Urine Appearance CLOUDY Urine pH 6.5 Ur Specific [place] 1.015 Urine Protein 2+ H Urine Glucose (UA) 100 H Urine Ketones NEG Urine Blood NEG Urine Nitrite POS H Ur Leukocyte Esterase TRACE H Urine RBC 1-4 Urine WBC 10-14 H Urine WBC Clumps NOTED Ur Squamous Epith Cells TRACE Urine Bacteria 4+ Urine Mucus 1+ Urine Opiates Screen Not Detected Urine Fentanyl Screen POSITIVE H Ur Barbiturates Screen Not Detected Ur Phencyclidine Scrn Not Detected Ur Amphetamines Screen Not Detected U Benzodiazepines Scrn Not Detected Urine Cocaine Screen Not Detected U Marijuana (THC) Screen Not Detected Ethyl Alcohol < 10 Influenza Type A (PCR) Influenza Type B (PCR) RSV RNA Qual (PCR) SARS-CoV-2 RNA (RT-PCR) 11/21/21 11/21/21 01:03 03:30 MCV MCH MCHC RDW Plt Count MPV Immature Gran % (Auto) Neut % (Auto) Lymph % (Auto) [place] % (Auto) Eos % (Auto) Baso % (Auto) Lymph # (Auto) [place] # (Auto) Eos # (Auto) Baso # (Auto) Abs Immat Gran (auto) Absolute Neuts (auto) Absolute Nucleated RBC Nucleated RBC % (auto) Smear Tech's Comments PT INR APTT VBG pH 7.40 VBG pCO2 43 VBG pO2 75 VBG HCO3 27 H VBG O2 Saturation 92.0 VBG Base Excess 2.3 Anion Gap Estim Creat Clear Calc Estimated GFR Random Glucose Lactic Acid Lactic Acid F/U @ 2Hr 2.2 H* Calcium Total Bilirubin Direct Bilirubin AST ALT Alkaline Phosphatase Troponin I High Sens B-Natriuretic Peptide Total Protein Albumin Lipase Urine Color Urine Appearance Urine pH Ur Specific [place] Urine Protein Urine Glucose (UA) Urine Ketones Urine Blood Urine Nitrite Ur Leukocyte Esterase Urine RBC Urine WBC Urine WBC Clumps Ur Squamous Epith Cells Urine Bacteria Urine Mucus Urine Opiates Screen Urine Fentanyl Screen Ur Barbiturates Screen Ur Phencyclidine Scrn Ur Amphetamines Screen U Benzodiazepines Scrn Urine Cocaine Screen U Marijuana (THC) Screen Ethyl Alcohol Influenza Type A (PCR) Influenza Type B (PCR) RSV RNA Qual (PCR) SARS-CoV-2 RNA (RT-PCR) Imaging Radiologist's Impressions: Impressions Chest X-Ray 11/21/21 01:15 IMPRESSION: Bronchial wall thickening with patchy opacities could represent a small airways process with associated infectious/inflammatory disease. Alternatively this could represent interstitial and alveolar edema. Head CT 11/21/21 01:29 IMPRESSION: No acute intracranial pathology. Assessment and Plan (1) Acute exacerbation of chronic obstructive pulmonary disease (COPD): Status: Acute (2) Metabolic encephalopathy: Status: Acute (3) Acute respiratory failure without hypercapnia: Status: Acute (4) Influenza: Status: Acute Plan 66-year-old female with past medical history of COPD, active smoker, chronic pain on fentanyl patch and oxycodone, diabetes, GERD broght in from SNF for evaluation of altered mental status and found to have acute hypoxic respiratory failure due to COPD exacerbation and Influeza, metatabolic encephalopathy due to Fentanyl and UTI. #Acute on chronic hypoxic respiratory failure due to COPD, and Influenza -treat underlying issues -O2 maintain sat around 92 #COPD exacer+Bronhitis--Initial hypoxia is better -Bronchodilators by Neb, IV corticosteroid, O2 #Influenza with viral sepsis--Tamiflu 75 bid x 5 days #Metabolic encephalopathy--due to hypoxia, UTI -Treat underlying causes #UTI--Ceftriaxone, culture pending #Diabetes---Lantus, Metformin and add SSI, Diabetic diet #Chronic Pain--hold Fentanyl, Oxycodone or Tramadol PRN #Obesity-- affecting underlying medical issues (diabetes) weight loss advised #Tobaccco dependence--NRT, Cessation discussed DVT prophylaxis: Lovneox Full Code, MOLST in chart Admission to span at least 2 midnight to treat Acute hypoxic resp due to COPD, associated with encephalopathy Quality Stroke Does the patient have a stroke diagnosis?: No VTE Prior VTE?: No VTE Risk Level:: Medical - moderate - high VTE Device Contraindication: Treatment Not Indicated VTE Drug Contraindication: N/A - Med Ordered
[2021-11-21] MEDS: cefTRIAXone sodium 1 GM in 0.9 % Sodium Chloride 50 ML IV (05:02)
[2021-11-21] MEDS: methylPREDNISolone Sod Succ 40 MG/ML VIAL IVPUSH ×4 (05:02→22:01)
[2021-11-21] MEDS: Enoxaparin Sodium 40 MG/0.4 ML SYRINGE SUBCUT (05:02)
[2021-11-21] MEDS: Oseltamivir Phosphate 75 MG CAPSULE PO ×2 (05:03→17:40)
[2021-11-21 05:34] LABS: Reflex Lactate? 2 Y
[2021-11-21 07:08] LABS: Glucose, Whole Blood 312 mg/dL (60-115)
[2021-11-21] MEDS: Insulin Lispro 100 UNIT/ML 3 ML VIAL SUBCUT ×3 (07:12→22:04)
[2021-11-21 07:21] LABS: ~Lactic Acid-LAB USE ONLY 1.7 mmol/L (0.5-2.0)
--- NOTE | 2021-11-21 10:02 | PHA.MEDREC ---
MED REC COMPLETE, NO ISSUES Pharmacy Consult ? Medication Reconciliation Pharmacy has completed the medication reconciliation.
--- NOTE | 2021-11-21 12:08 | MHC.CM.PN ---
Addendum entered by Evelyn Berger 11/21/21 12:12: CM RETRIEVED AN ALTERNATE PHONE NUMBER FOR PTS DAUGHTER IN PTS EMR CM TRIED TO REACH THOMPSON WITH THIS NUMBER [phone] HOWEVER THE PHONE JUST CONTINUES TO RING. THERE IS NO ANSWER AND NO VM. Original Note: PT IS ADMITTED WITH THE FLU. SHE HAS NO ONE LISTED PRIMARY CONTACT OR NOK. SHE IS A LTC RESIDENT OF [facility] CM CONTACTED [facility] AND THEY REPORTED THE PTS CONTACT IS HER DAUGHTER, THOMPSON MCBRIDE, AND PROVIDED A PHONE NUMBER OF [phone]. CM CALLED THE NUMBER PROVIDED AND REACHED A VM THAT INDICATED THE NUMBER BELONGED TO THE ICER HAND OF [facility]. MESSAGE SENT TO [place] TO DETERMINE IF THEY HAVE ANY OTHER PHONE NUMBERS FOR FAMILY. [facility]. PT IS A BED HOLD
[2021-11-21 12:39] LABS: Glucose, Whole Blood 341 mg/dL (60-115)
[2021-11-21] MEDS: fentaNYL 100 MCG PATCH.TD72 TRANSDERMA (13:16)
[2021-11-21 13:22] LABS: Glucose, Whole Blood 318 mg/dL (60-115)
--- NOTE | 2021-11-21 13:35 | PM.EVENT ---
Event Note Date of Service: 11/21/21 Event Note: patient seen examined history and physical reviewed , patient remained somnolent easily arousable wakes up and complain of pain and request for her fentanyl patch that was discontinued in the ED patient admitted early this morning due to altered mental status and fall without head injury and admitted to medical floor with a diagnosis of acute on chronic hypoxic respiratory failure due to COPD influenza 66-year-old female with past medical history of COPD, active smoker, chronic pain on fentanyl patch and oxycodone, diabetes, GERD broght in from SNF for evaluation of altered mental status and found to have acute hypoxic respiratory failure due to COPD exacerbation and Influeza, metatabolic encephalopathy due to Fentanyl and UTI. #Acute on chronic hypoxic respiratory failure due to COPD, and Influenza continue oxygen and gradually wean as tolerated #COPD exacer+Bronchitis continue Bronchodilators , IV corticosteroid, O2 #Influenza with viral sepsis--Tamiflu 75 bid x day1/5 days #Metabolic encephalopathy--due to hypoxia, UTI and polypharmacy on fentanyl patch, trazodone ,Neurontin all contributing to sedation - will treat influenza, UTI, dose trazodone reduced to 100 mg #UTI--Ceftriaxone, follow urine and blood culture #Diabetes--- will hold Levemir, Metformin and glipizide, continue insulin sliding scale diabetic diet will add low-dose Lantus 10 units at bedtime #Chronic Pain-- reordered fentanyl, will hold oxycodone, on multiple stool softeners at home, follow bowels closely continue Senokot and MiraLax #Obesity-- affecting underlying medical issues (diabetes) weight loss advised #Tobaccco dependence--NRT, Cessation discussed med reconciliation done patient on multiple medications including antihypertensive/ muscle relaxers/ antidepressants, will hold these medications follow BP closely ,resume as indicated. DVT prophylaxis: Lovneox.
[2021-11-21] MEDS: Gabapentin 400 MG CAPSULE PO ×2 (16:03→22:01)
--- NOTE | 2021-11-21 16:09 | PC.NURSE ---
pt a&ox3, vss - hypertensive, pt c/o 03/14 pain, medicated per provider order. no new orders at this time.
[2021-11-21] MEDS: Acetaminophen 325 MG TABLET 650 MG PO (17:40)
--- NOTE | 2021-11-21 17:42 | PC.NURSE ---
medicated per provider order. pt c/o 03/14 headache, medicated w PRN tylenol. insulin held, pending dinner arrival to ED
--- NOTE | 2021-11-21 18:40 | PC.NURSE ---
RN-RN report given.
[2021-11-21 19:15] LABS: Glucose, Whole Blood 318 mg/dL (60-115)
[2021-11-21 21:22] LABS: Glucose, Whole Blood 313 mg/dL (60-115)
[2021-11-21] MEDS: Sennosides 8.6 MG TABLET 17.2 MG PO (22:00)
[2021-11-21] MEDS: Insulin Glargine,Hum.rec.anlog 100 UNIT/ML 10 ML VIAL 10 UNIT SUBCUT (22:01)
[2021-11-21] MEDS: 0.9 % Sodium Chloride Flush 3 ML SYRINGE IVFLUSH (22:04)
[2021-11-21] MEDS: traZODone HCL 100 MG TABLET PO (22:07)
[2021-11-22] VITALS (10 sets, daily range): BP systolic 138–168; BP diastolic 69–74; PULSE 64–101; RESP 16–20; TEMP 36.2–37; O2SAT 91–96
[2021-11-22] MEDS: cefTRIAXone sodium 1 GM in 0.9 % Sodium Chloride 50 ML IV (05:47)
[2021-11-22] MEDS: Omeprazole 20 MG CAPSULE.DR PO (05:48)
[2021-11-22] MEDS: methylPREDNISolone Sod Succ 40 MG/ML VIAL IVPUSH ×4 (05:48→21:25)
[2021-11-22] MEDS: Oseltamivir Phosphate 75 MG CAPSULE PO ×2 (05:48→16:04)
[2021-11-22] MEDS: Enoxaparin Sodium 40 MG/0.4 ML SYRINGE SUBCUT (05:49)
[2021-11-22 06:32] LABS: Hematocrit 36.3 % (37.0-47.0); Hemoglobin 11.7 g/dl (12.0-16.0); Mean Corpuscular HGB Conc 32.2 g/dl (31.0-35.0); Mean Corpuscular Hemoglobin 29.9 pg (27.0-33.0); Mean Corpuscular Volume 92.8 fL (80.0-98.0); Mean Platelet Volume 9.2 fL (9.4-12.3); Platelet Count 264 X10*3/uL (160-400); Red Blood Count 3.91 X10*6/uL (4.20-5.50); Red Cell Distribution Width 13.1 % (11.0-16.0); White Blood Count 13.4 X10*3/uL (4.8-10.8)
[2021-11-22 06:47] LABS: Anion Gap 10 (12-20); Blood Urea Nitrogen 15 mg/dL (9-16); Calcium 8.8 mg/dL (8.4-10.2); Carbon Dioxide 29 mmol/L (22-29); Chloride 100 mmol/L (96-108); Creatinine Clr Calc Pharmacy 79.1; Estimated Glomerular Filt Rate > 60; Glucose Random 293 mg/dL (60-115); Potassium 4.2 mmol/L (3.3-5.1); Sodium 135 mmol/L (135-145)
[2021-11-22] MEDS: Albuterol/Iprat 2.5/0.5MG 3 ML AMPUL.NEB INHALE ×4 (07:45→20:41)
[2021-11-22 07:54] LABS: Glucose, Whole Blood 246 mg/dL (60-115)
[2021-11-22] MEDS: Fluticasone/Vilanterol 100/25 BLST.W.DEV 1 PUFF INHALE (07:54)
[2021-11-22] MEDS: Cholecalciferol (Vitamin D3) 25 MCG TABLET PO (09:01)
[2021-11-22] MEDS: Insulin Lispro 100 UNIT/ML 3 ML VIAL SUBCUT ×4 (09:01→21:26)
[2021-11-22] MEDS: 0.9 % Sodium Chloride Flush 3 ML SYRINGE IVFLUSH ×3 (09:02→21:26)
[2021-11-22] MEDS: polyethylene glycoL 3350 17 GM POWD.PACK PO (09:02)
[2021-11-22] MEDS: Celecoxib 200 MG CAPSULE PO (09:02)
[2021-11-22] MEDS: Sennosides 8.6 MG TABLET 17.2 MG PO ×2 (09:02→21:25)
[2021-11-22] MEDS: Gabapentin 400 MG CAPSULE PO ×3 (09:02→21:25)
[2021-11-22] MEDS: FLUoxetine HCl 20 MG CAPSULE 40 MG PO (09:02)
[2021-11-22 11:13] LABS: Glucose, Whole Blood 317 mg/dL (60-115)
--- NOTE | 2021-11-22 14:21 | HO.PM.IMPN ---
Subjective Subjective Date of Service: 11/22/21 Interval History: No acute issues overnight. States back to baseline Review of Systems Denies chest pain Denies shortness of breath Denies nausea vomiting diarrhea denies fever chills Physical Exam Vital Signs: Vital Signs: Last Vital Signs Temp 98.3 F 11/22/21 11:28 Pulse 82 11/22/21 11:28 Resp 20 11/22/21 11:28 BP 150/70 H 11/22/21 11:28 Pulse Ox 92 11/22/21 11:28 BMI result Body Mass Index 34.5 Const: Other: Awake alert no acute distress Resp: Other: Clear but diminished at bases; scant expiratory wheezes throughout Cardio: Other: No S4; positive S1-S2; no S3 murmurs rubs or gallops GI: Other: Soft nontender nondistended with normoactive bowel sounds Neuro: Other: Cranial nerves 2-12 grossly intact as tested. Motor is 5/5 all extremities. Sensation is intact. Cognition appropriate Extrem: Other: No edema bilaterally Objective Data Active Medications Acetaminophen (Acetaminophen 325 Mg Tablet) 650 mg PO Q6H PRN PRN Reason: Pain, Mild (Pain Scale 1-3) Last Admin: 11/21/21 17:40 Dose: 650 mg Documented by: RACHEL Albuterol Sulfate (Albuterol Sulfate 90 Mcg 8 Gm Inhaler) 1 puff INHALE Q4H PRN PRN Reason: Shortness Of Breath Albuterol/Ipratropium (Albuterol/Iprat 2.5/0.5mg 3 Ml Ampul.Neb) 3 ml INHALE RQ4H WHILE AWAKE [facility] Last Admin: 11/22/21 10:58 Dose: 3 ml Documented by: TRAE Celecoxib (Celecoxib 200 Mg Capsule) 200 mg PO DAILY [facility] Last Admin: 11/22/21 09:02 Dose: 200 mg Documented by: LUPILLO Enoxaparin Sodium (Enoxaparin Sodium 40 Mg/0.4 Ml Syringe) 40 mg SUBCUT Q24H [facility] Last Admin: 11/22/21 05:49 Dose: 40 mg Documented by: CARMEN Fluoxetine HCl (Fluoxetine Hcl 20 Mg Capsule) 40 mg PO DAILY [facility] Last Admin: 11/22/21 09:02 Dose: 40 mg Documented by: LUPILLO Fluticasone/Vilanterol (Fluticasone/Vilanterol 100/25 Blst.W.Dev) 1 puff INHALE RDAILY [facility] Last Admin: 11/22/21 07:54 Dose: 1 puff Documented by: TRAE Gabapentin (Gabapentin 400 Mg Capsule) 400 mg PO TID [facility] Last Admin: 11/22/21 09:02 Dose: 400 mg Documented by: LUPILLO Ceftriaxone Sodium 1 gm/ (Sodium Chloride) 50 mls @ 100 mls/hr IV Q24H [facility] Last Infusion: 11/22/21 06:17 Dose: 0 mls/hr Documented by: CARMEN Insulin Glargine (Insulin Glargine,Hum.Rec.Anlog 100 Unit/Ml 10 Ml Vial) 10 unit SUBCUT BEDTIME [facility] Last Admin: 11/21/21 22:01 Dose: 10 unit Documented by: CARMEN Insulin Human Lispro (Insulin Lispro 100 Unit/Ml 3 Ml Vial) 0 unit SUBCUT QIDACHS [facility]; Protocol Last Admin: 11/22/21 12:17 Dose: 8 unit Documented by: LUPILLO Lisinopril (Lisinopril 5 Mg Tablet) 5 mg PO DAILY [facility]; Protocol Melatonin (Melatonin 3 Mg Tablet) 6 mg PO BEDTIME PRN PRN Reason: Insomnia Methylprednisolone Sodium Succinate (Methylprednisolone Sod Succ 40 Mg/Ml Vial) 40 mg IVPUSH Q6H [facility] Last Admin: 11/22/21 09:02 Dose: 40 mg Documented by: LUPILLO Nicotine (Nicotine 14 Mg Patch.Td24) 14 mg TRANSDERMA DAILY [facility] Last Admin: 11/22/21 09:03 Dose: Not Given Documented by: LUPILLO Non-Admin Reason: Patient Refused Omeprazole (Omeprazole 20 Mg Capsule.) 20 mg PO DAILY@0630 [facility] Last Admin: 11/22/21 05:48 Dose: 20 mg Documented by: CARMEN Ondansetron HCl (Ondansetron Hcl 4 Mg/2 Ml Vial) 4 mg IVPUSH Q8H PRN PRN Reason: Nausea and Vomiting Oseltamivir Phosphate (Oseltamivir Phosphate 75 Mg Capsule) 75 mg PO Q12H [facility] Stop: 11/25/21 17:01 Last Admin: 11/22/21 05:48 Dose: 75 mg Documented by: CARMEN Oxycodone HCl (Oxycodone Hcl Immed Release 5 Mg Tablet) 5 mg PO BID PRN PRN Reason: Pain (Scale Score 4-6) Polyethylene Glycol (Polyethylene Glycol 3350 17 Gm Powd.Pack) 17 gm PO DAILY [facility] Last Admin: 11/22/21 09:02 Dose: 17 gm Documented by: LUPILLO Senna (Sennosides 8.6 Mg Tablet) 17.2 mg PO BID [facility] Last Admin: 11/22/21 09:02 Dose: 17.2 mg Documented by: LUPILLO Sodium Chloride (0.9 % Sodium Chloride Flush 3 Ml Syringe) 3 ml IVFLUSH QSHIFT [facility] Last Admin: 11/22/21 09:02 Dose: 3 ml Documented by: LUPILLO Trazodone HCl (Trazodone Hcl 100 Mg Tablet) 100 mg PO BEDTIME [facility] Last Admin: 11/21/21 22:07 Dose: 100 mg Documented by: CARMEN Trazodone HCl (Trazodone Hcl 100 Mg Tablet) 300 mg PO BEDTIME [facility] Vitamin D (Cholecalciferol (Vitamin D3) 25 Mcg Tablet) 25 mcg PO DAILY [facility] Last Admin: 11/22/21 09:01 Dose: 25 mcg Documented by: LUPILLO Labs CBC & Chem 7: 11/22/21 06:05 11/22/21 06:05 Labs: Laboratory Results - last 24 hr 11/21/21 11/21/21 11/21/21 00:56 18:47 21:12 WBC 16.7 H MCV MCH MCHC RDW Plt Count MPV Absolute Nucleated RBC Nucleated RBC % (auto) Anion Gap Estim Creat Clear Calc Estimated GFR POC Glucose 318 H 313 H Random Glucose Calcium 11/22/21 11/22/21 11/22/21 06:05 06:05 07:48 WBC 13.4 H MCV 92.8 MCH 29.9 MCHC 32.2 RDW 13.1 Plt Count 264 MPV 9.2 L Absolute Nucleated RBC 0.000 Nucleated RBC % (auto) 0.0 Anion Gap 10 L Estim Creat Clear Calc 79.1 Estimated GFR > 60 POC Glucose 246 H Random Glucose 293 H Calcium 8.8 11/22/21 11:00 WBC MCV MCH MCHC RDW Plt Count MPV Absolute Nucleated RBC Nucleated RBC % (auto) Anion Gap Estim Creat Clear Calc Estimated GFR POC Glucose 317 H Random Glucose Calcium Microbiology Microbiology Results: Microbiology 11/21/21 Unknown Urine Culture - Preliminary Urine clean catch - Urine hoang top Gram negative latoya 11/21/21 00:56 Blood Culture - Preliminary Blood - Venous No growth after 24 hours. 11/21/21 00:56 Blood Culture - Preliminary Blood - Venous No growth after 24 hours. Assessment and Plan (1) Acute exacerbation of chronic obstructive pulmonary disease (COPD): Status: Acute (2) UTI (urinary tract infection): Status: Acute (3) Acute respiratory failure without hypercapnia: Status: Acute (4) Influenza: Status: Acute Plan 66-year-old female with past medical history of COPD, active smoker, chronic pain on fentanyl patch and oxycodone, diabetes, GERD broght in from SNF for evaluation of altered mental status and found to have acute hypoxic respiratory failure due to COPD exacerbation and Influeza, metatabolic encephalopathy due to Fentanyl and UTI. 1. Acute respiratory failure without hypercapnia/COPD exacerbation -mentation appears back to baseline -continue pulse dose Solu-Medrol nebulizers, supplemental O2 to maintain sats greater than 92% 2. Urinary tract infection -preliminary GNR>100K continue ceftriaxone pending ID and sensitivities 3. Influenza -continue Tamiflu as ordered Full Code Lovenox Requires ongoing hospitalization for IV be antibiotics for treatment of UTI until ID and sensitivities Quality Stroke Does the patient have a stroke diagnosis?: No VTE Prior VTE?: No VTE Risk Level:: Medical - moderate - high VTE Device Contraindication: Treatment Not Indicated VTE Drug Contraindication: N/A - Med Ordered
[2021-11-22 16:04] LABS: Glucose, Whole Blood 327 mg/dL (60-115)
[2021-11-22] MEDS: oxyCODONE HCl Immed Release 5 MG TABLET PO (16:04)
[2021-11-22] MEDS: fentaNYL 75 MCG PATCH.TD72 TRANSDERMA (19:08)
[2021-11-22 21:18] LABS: Glucose, Whole Blood 263 mg/dL (60-115)
[2021-11-22] MEDS: traZODone HCL 100 MG TABLET 300 MG PO (21:25)
[2021-11-22] MEDS: Insulin Glargine,Hum.rec.anlog 100 UNIT/ML 10 ML VIAL 10 UNIT SUBCUT (21:26)
[2021-11-23 03:10] VITALS: BP 130/65; PULSE 64; RESP 16; TEMP 36; O2SAT 90
[2021-11-23] MEDS: methylPREDNISolone Sod Succ 40 MG/ML VIAL IVPUSH (05:17)
[2021-11-23] MEDS: Oseltamivir Phosphate 75 MG CAPSULE PO (05:17)
[2021-11-23] MEDS: Enoxaparin Sodium 40 MG/0.4 ML SYRINGE SUBCUT (05:18)
[2021-11-23] MEDS: cefTRIAXone sodium 1 GM in 0.9 % Sodium Chloride 50 ML IV (05:18)
[2021-11-23] MEDS: Omeprazole 20 MG CAPSULE.DR PO (05:25)
[2021-11-23 06:42] LABS: MANUAL DIFF FLAG NO
[2021-11-23 06:45] LABS: Basophils Percent Auto 0.1 % (0-2); Eosinophils Percent Auto 0.1 % (0-4); Hematocrit 36.3 % (37.0-47.0); Hemoglobin 11.8 g/dl (12.0-16.0); Imm Gran Abs Auto 0.14 X10*3/uL (0.00-0.03); Imm Gran Pct Auto 1.2 % (0.0-0.4); Lymphocytes Absolute Auto 1.4 X10*3/uL (1.2-4.9); Lymphocytes Percent Auto 12.2 % (20-40); Mean Corpuscular HGB Conc 32.5 g/dl (31.0-35.0); Mean Corpuscular Hemoglobin 30.1 pg (27.0-33.0); Mean Corpuscular Volume 92.6 fL (80.0-98.0); Mean Platelet Volume 9.2 fL (9.4-12.3); Monocytes Absolute Auto 1.2 X10*3/uL (0.1-1.2); Monocytes Percent Auto 10.1 % (2-11); Neutrophils Absolute Auto 8.7 x10*3/uL (2.0-8.3); Neutrophils Percent Auto 76.3 % (45-73); Platelet Count 271 X10*3/uL (160-400); Red Blood Count 3.92 X10*6/uL (4.20-5.50); Red Cell Distribution Width 13.1 % (11.0-16.0); White Blood Count 11.4 X10*3/uL (4.8-10.8)
[2021-11-23 07:13] LABS: Alanine Aminotransferase 19 U/L (0-31); Albumin Level 3.1 g/dL (3.5-5.0); Alkaline Phosphatase 67 U/L (39-117); Anion Gap 11 (12-20); Aspartate Amino Transferase 13 U/L (5-31); Bilirubin Total 0.2 mg/dL (0.0-1.0); Blood Urea Nitrogen 23 mg/dL (9-16); Calcium 8.7 mg/dL (8.4-10.2); Carbon Dioxide 29 mmol/L (22-29); Chloride 100 mmol/L (96-108); Estimated Glomerular Filt Rate > 60; Glucose Fasting 341 mg/dL (60-99); Potassium 4.6 mmol/L (3.3-5.1); Sodium 135 mmol/L (135-145); Total Protein 5.9 g/dL (6.5-8.0)
[2021-11-23 07:45] VITALS: PULSE 64; O2SAT 90
[2021-11-23] MEDS: Albuterol/Iprat 2.5/0.5MG 3 ML AMPUL.NEB INHALE (07:45)
[2021-11-23] MEDS: Fluticasone/Vilanterol 100/25 BLST.W.DEV 1 PUFF INHALE (07:45)
[2021-11-23 08:00] VITALS: BP 172/82; PULSE 75; RESP 20; TEMP 36.2; O2SAT 94
[2021-11-23] MEDS: Insulin Lispro 100 UNIT/ML 3 ML VIAL SUBCUT (08:43)
[2021-11-23] MEDS: 0.9 % Sodium Chloride Flush 3 ML SYRINGE IVFLUSH (08:45)
[2021-11-23] MEDS: Celecoxib 200 MG CAPSULE PO (08:45)
[2021-11-23] MEDS: Gabapentin 400 MG CAPSULE PO (08:45)
[2021-11-23] MEDS: lisinopriL 5 MG TABLET PO (08:45)
[2021-11-23] MEDS: Sennosides 8.6 MG TABLET 17.2 MG PO (08:45)
[2021-11-23] MEDS: Cholecalciferol (Vitamin D3) 25 MCG TABLET PO (08:45)
[2021-11-23] MEDS: polyethylene glycoL 3350 17 GM POWD.PACK PO (08:45)
[2021-11-23] MEDS: FLUoxetine HCl 20 MG CAPSULE 40 MG PO (08:45)
[2021-11-23] MEDS: oxyCODONE HCl Immed Release 5 MG TABLET PO (08:52)
--- NOTE | 2021-11-23 09:57 | MHC.CM.PN ---
PT CLEARED TO RETURN TO [facility] TODAY [facility]IA [facility] CM UNABLE TO REACH PTS DAUGHTER HOWEVER PT IS ALERT AND ORIENTED AND EAGER TO DC
--- NOTE | 2021-11-23 10:01 | P.DS_ITS ---
DS: Providers Provider Date of Service: 11/23/21 Date of admission: 11/21/21 04:33 Date of discharge: 11/23/21 Primary care physician: Vaishali Mora MD DS: Diagnosis Discharge Diagnosis (1) Acute exacerbation of chronic obstructive pulmonary disease (COPD): Status: Resolved (2) UTI (urinary tract infection): Status: Resolved (3) Acute respiratory failure without hypercapnia: Status: Resolved (4) Influenza: Status: Resolved DS: Summary Hospital Course Hospital Course: 66-year-old female with past medical history of COPD, active smoker, chronic pain on fentanyl patch and oxycodone, diabetes, GERD broght in from SNF for evaluation of altered mental status. Patient reportedly went to smoke the morning before admission and fell but without head injury. She was very somnolent, hypoxic with O2 of 89, wheezing and influenza positive. Head CT shows no acute finding.? CXR shows?Bronchial wall thickening with patchy opacities could represent a small airways process with associated infectious/inflammatory disease. VBG show no CO2 retention, Fentanyl patch? taking off and becomes more alert.? Hospital Course Admitted to general medical floor and treated with ceftriaxone, IV steroids and DuoNebs. Urine growing E coli. Over the next 48 hours patient improved to the point where she is medically acceptable for transport back to facility. Complete course of Tamiflu, Ceftin and steroids as Time Spent with Patient Time attestation: Total time spent providing and/or coordinating discharge services: Discharge coordination time: Greater than 30 minutes Quality: Safe Use of Opioids Does Pt have an Active Cancer Diagnosis on the Problem List?: No Quality: Stroke Does the patient have a stroke diagnosis?: No Physical Exam Vital Signs: Vital Signs: Last Vital Signs Temp 97.1 F 11/23/21 08:00 Pulse 75 11/23/21 08:00 Resp 20 11/23/21 08:00 BP 172/82 H 11/23/21 08:00 Pulse Ox 94 11/23/21 08:00 BMI result Body Mass Index 34.5 Const: Other: Awake alert no acute distress Resp: Other: Clear but diminished at bases; scant expiratory wheezes throughout Cardio: Other: No S4; positive S1-S2; no S3 murmurs rubs or gallops GI: Other: Soft nontender nondistended with normoactive bowel sounds Neuro: Other: Cranial nerves 2-12 grossly intact as tested. Motor is 5/5 all extremities. Se nsation is intact. Cognition appropriate Extrem: Other: No edema bilaterally DS: Data Data Completed and Pending Labs on day of discharge: Laboratory Results - last 24 hr 11/22/21 11/22/21 11/22/21 11:00 15:40 21:15 WBC RBC Hgb Hct MCV MCH MCHC RDW Plt Count MPV Immature Gran % (Auto) Neut % (Auto) Lymph % (Auto) Cameron % (Auto) Eos % (Auto) Baso % (Auto) Lymph # (Auto) Cameron # (Auto) Eos # (Auto) Baso # (Auto) Abs Immat Gran (auto) Absolute Neuts (auto) Absolute Nucleated RBC Nucleated RBC % (auto) Sodium Potassium Chloride Carbon Dioxide Anion Gap BUN Creatinine Estim Creat Clear Calc Estimated GFR POC Glucose 317 H 327 H 263 H Fasting Glucose Calcium Total Bilirubin AST ALT Alkaline Phosphatase Total Protein Albumin 11/23/21 11/23/21 06:26 06:26 WBC 11.4 H RBC 3.92 L Hgb 11.8 L Hct 36.3 L MCV 92.6 MCH 30.1 MCHC 32.5 RDW 13.1 Plt Count 271 MPV 9.2 L Immature Gran % (Auto) 1.2 H Neut % (Auto) 76.3 H Lymph % (Auto) 12.2 L Cameron % (Auto) 10.1 Eos % (Auto) 0.1 Baso % (Auto) 0.1 Lymph # (Auto) 1.4 Cameron # (Auto) 1.2 Eos # (Auto) 0.0 Baso # (Auto) 0.0 Abs Immat Gran (auto) 0.14 H Absolute Neuts (auto) 8.7 H Absolute Nucleated RBC 0.000 Nucleated RBC % (auto) 0.0 Sodium 135 Potassium 4.6 Chloride 100 Carbon Dioxide 29 Anion Gap 11 L BUN 23 H D Creatinine 0.81 Estim Creat Clear Calc 78.0 Estimated GFR > 60 POC Glucose Fasting Glucose 341 H Calcium 8.7 Total Bilirubin 0.2 AST 13 ALT 19 Alkaline Phosphatase 67 Total Protein 5.9 L Albumin 3.1 L Preliminary micro results at discharge 11/21/21 Unknown Urine Culture - Preliminary Urine clean catch - Urine hoang top Escherichia coli 11/21/21 00:56 Blood Culture - Preliminary Blood - Venous No growth after 48 hours. 11/21/21 00:56 Blood Culture - Preliminary Blood - Venous No growth after 48 hours. Discharge Plan Discharge Patient Disposition: Xfer [facility] Discharge Diagnosis: Urinary tract infection Referrals: VIK[facility] ROE [Other] - 1 Week Vaishali Mora MD [Primary Care Provider] - 1 Week Discharge Medications: New fentanyl 75 mcg/hr Patch 72 Hour 75 mcg transdermal Q72H Qty: 5 0RF Continued celecoxib [Celebrex] 200 mg Capsule 200 mg PO DAILY fluoxetine [Prozac] 40 mg Capsule 40 mg PO DAILY metformin 500 mg Tablet 1,000 mg PO BIDWM metoclopramide HCl [Reglan] 5 mg Tablet 5 mg PO DAILY albuterol sulfate [Ventolin HFA] 90 mcg/actuation Hfa Aerosol Inhaler 1 puff INHALATION Q4H PRN (Reason: Shortness Of Breath) fluticasone propionate 50 mcg/actuation Dahinda,Suspension 1 spray INTRANASAL DAILY glipizide 5 mg Tablet 10 mg PO BIDAC fluticasone furoate-vilanterol [Breo Ellipta] 100-25 mcg/dose Blister With Device 1 puff inhalation RDAILY Qty: 1 0RF baclofen 10 mg Tablet 10 mg Q8H PRN (Reason: Muscle Spasm) Humalog U-100 Insulin 100 unit/mL Cartridge See Protocol QIDACHS Protocol: Insulin Correction Scale Less than or equal to 110 ---- Give (units): 0 111 to 150 Give (units): 0 151 to 200 Give (units): 0 201 to 250 Give (units): 2 251 to 300 Give (units): 4 301 to 350 Give (units): 6 Greater than 350 Give (units): 8 Call if Blood Glucose > : 350 furosemide [Lasix] 20 mg Tablet 20 mg PO DAILY Levemir U-100 Insulin 100 unit/mL Solution 22 unit SUBCUT DAILY lansoprazole [Prevacid 24Hr] 15 mg Capsule,Delayed Release(Dr/Ec) 15 mg PO DAILY lisinopril 5 mg Tablet 5 mg PO DAILY oxycodone 5 mg Tablet 5 mg PO BID PRN (Reason: Pain (Scale Score 4-6)) gabapentin 400 mg Capsule 400 mg PO TID acetaminophen 325 mg Tablet 650 mg PO Q4H PRN (Reason: PAIN/FEVER) Discontinued fentanyl 100 mcg/hr patch 72 hour 1 patch transdermal Q72H Qty: 5 0RF No Action trazodone 150 mg tablet 300 tab PO BEDTIME amoxicillin-pot clavulanate 875-125 mg tablet 1 tab PO BID Qty: 14 0RF Discharge Orders: Discharge Order (Routine); Ordered 11/23/21 Ordered By: Paul Hammond Diet: Advance to usual diet Activity on Discharge: As tolerated Stand Alone Forms: Patient Portal Discharge page Care Plan Goals: Complete course of Tamiflu as ordered. Ceftin 500 mg twice a day for 7 days Health Concerns: Resume all previous therapies Plan of Treatment: As dictated by receiving facility Assessment: See discharge summary Discharge Date/Time: 11/23/21 11:27
[2021-11-23 11:23] LABS: Glucose, Whole Blood 399 mg/dL (60-115)
== END 2021-11-23 11:27 | DRG 871 ==
LOC: HO.ED 04:37 → HO.EDOVER 04:52 → HO.IMC 18:26 → HO.S3 11-22 17:39
PROVIDERS: Hospitalist; Admitting Provider Internal Medicine; Emergency Provider Emergency Medicine; PCP Internal Medicine; Visit Provider Hospitalist
DX: A41.89 Other specified sepsis (principal); J96.21 Acute and chronic respiratory failure with hypoxia; G92.8 Other toxic encephalopathy; J96.22 Acute and chronic respiratory failure with hypercapnia; J44.1 Chronic obstructive pulmonary disease with (acute) exacerbation; N39.0 Urinary tract infection, site not specified; G89.29 Other chronic pain; E11.9 Type 2 diabetes mellitus without complications; I10 Essential (primary) hypertension; E66.9 Obesity, unspecified; J11.81 Influenza due to unidentified influenza virus with encephalopathy; Z20.822 Contact with and (suspected) exposure to COVID-19; Z68.34 Body mass index [BMI] 34.0-34.9, adult; T50.915A Adverse effect of multiple unspecified drugs, medicaments and biological substances, initial encounter; F17.210 Nicotine dependence, cigarettes, uncomplicated; Z71.6 Tobacco abuse counseling; Z91.012 Allergy to eggs; Z88.5 Allergy status to narcotic agent; Z88.6 Allergy status to analgesic agent; Z79.4 Long term (current) use of insulin; Z79.899 Other long term (current) drug therapy
CPT/HCPCS: 0241U; 36415; 70450; 71045; 72125; 80048; 80053; 80076; 80307; 81001; 82077; 82803; 82947; 83605; 83690; 83880; 84484; 85025; 85027; 85610; 85730; 87040; 87086; 87088; 87186; 93005; 94640; 96361; 96365; 96375; 99285; J0696; J1650; J2920; J2930; J3475

== ENCOUNTER 2021-12-17 12:45 | Inpatient (IN) | payer MEDICARE, MEDICAID, SELFPAY ==
[2021-12-17] VITALS (7 sets, daily range): BP systolic 113–142; BP diastolic 54–88; PULSE 40–85; RESP 16–20; TEMP 36.7–37.3; O2SAT 91–96; BMI 37.4
--- NOTE | ~2021-12-17 | US_ITS ---
EXAMINATION: US VENOUS ULTRASOUND WITH DOPPLER LOWER EXTREMITY, BILATERAL CLINICAL INFORMATION: Pain. Swelling. COMPARISON: None TECHNIQUE: Ultrasound of the deep veins is performed from the hip to the calf with compression sonography and color and pulse Doppler assessment. Spectral analysis with color-flow imaging is performed. FINDINGS: RIGHT: There is normal venous compression and respiratory variation and augmented flow. The visualized common femoral vein, superficial femoral vein, profunda femoral vein, popliteal vein, and the trifurcation region shows no evidence of deep venous thrombosis. There is no significant popliteal fossa cyst. LEFT: There is normal venous compression and respiratory variation and augmented flow. The visualized common femoral vein, superficial femoral vein, profunda femoral vein, popliteal vein, and the trifurcation region shows no evidence of deep venous thrombosis. There is no significant popliteal fossa cyst. If the patient's symptoms persist, followup ultrasound in 5 days 7 days might be of value to exclude proximal propagation from a non-visualized calf vein. US/US venous duplex LE BI IMPRESSION: No DVT demonstrated in the bilateral lower extremity.
--- NOTE | ~2021-12-17 | XR_ITS ---
EXAMINATION: XR CHEST CLINICAL INFORMATION: Weakness COMPARISON: Previous chest x-ray most recent November 2021 TECHNIQUE: Frontal view of the chest was obtained. FINDINGS: The cardiac and mediastinal contours are stable. The lungs are clear. The lung volumes are low. There is no pleural effusion or pneumothorax. There is curvature of the mid thoracic spine to the right and degenerative changes. XR/XR chest 1V IMPRESSION: No evidence for acute disease in the chest.
--- NOTE | 2021-12-17 13:10 | ED.WEAKNESS ---
HPI - Weakness General Chief complaint: Altered Mental Status Stated complaint: WEAK,H/O UTI FROM SNF PER EMS Time Seen by Provider: 12/17/21 13:06 Source: patient and old records reviewed Mode of arrival: EMS Limitations: no limitations History of Present Illness HPI Narrative: 66 yo female with hx asthma, HTN, COPD, depression, DM, GERD, HLD, ERIKA, ESBL + E. Coli UTI, chronic pain on fentanyl patches and PRN oxycodone at [facility] - treated for multiple recurrent UTIs currently on macrobid suppressive therapy has hx of ESBL + UTI states today I have a UTI and I am sleepy Also reports she is WC bound and her legs are swollen MD Complaint: generalized weakness ( I have a UTI ) Onset (ago): week(s) (8) Duration: constant Location: generalized Migration: none Severity: moderate Quality: dull Relieving factors: none Exacerbating factors: none Context: recent illness Associated symptoms: loss of appetite and other (fatigue, malaise) Related Data Home Medications Medication Instructions Recorded Confirmed albuterol sulfate 90 mcg/actuation 1 puff inhalation Q4H PRN 07/26/20 12/17/21 aerosol inhaler (Ventolin HFA) Shortness Of Breath celecoxib 200 mg capsule (Celebrex) 200 mg PO DAILY 07/26/20 12/17/21 fluoxetine 40 mg capsule (Prozac) 40 mg PO DAILY 07/26/20 12/17/21 fluticasone propionate 50 1 spray intranasal DAILY 07/26/20 12/17/21 mcg/actuation nasal spray,suspension glipizide 5 mg tablet 10 mg PO BIDAC 07/26/20 12/17/21 metformin 500 mg tablet 1,000 mg PO BIDWM 07/26/20 12/17/21 methocarbamol 500 mg tablet 1,000 mg PO TID 07/26/20 11/21/21 metoclopramide HCl 5 mg tablet 5 mg PO DAILY 07/26/20 12/17/21 (Reglan) omeprazole 20 mg capsule,delayed 20 mg PO DAILY 07/26/20 11/21/21 release Lactobacillus acidophilus 10 mg PO BID 11/21/21 11/21/21 acetaminophen 325 mg tablet 650 mg PO Q4H PRN PAIN/FEVER 11/21/21 11/21/21 baclofen 10 mg tablet 10 mg Q8H PRN Muscle Spasm 11/21/21 12/17/21 bisacodyl 10 mg rectal suppository 10 mg UT Q8H PRN IF NO BM AFTER MOM 11/21/21 11/21/21 bisacodyl 5 mg tablet 10 mg PO Q12H PRN Constipation 11/21/21 11/21/21 cholecalciferol (vitamin D3) 25 25 mcg PO DAILY 11/21/21 11/21/21 mcg (1,000 unit) capsule furosemide 20 mg tablet (Lasix) 20 mg PO DAILY 11/21/21 12/17/21 gabapentin 400 mg capsule 400 mg PO TID 11/21/21 12/17/21 hydralazine 50 mg tablet 50 mg PO Q8H PRN SBP>160, DBP>90 11/21/21 11/21/21 insulin detemir U-100 100 unit/mL 22 unit subcut DAILY 11/21/21 12/17/21 subcutaneous solution (Levemir U-100 Insulin) insulin lispro 100 unit/mL See Protocol QIDACHS 11/21/21 12/17/21 subcutaneous cartridge (Humalog U-100 Insulin) lansoprazole 15 mg capsule,delayed 15 mg PO DAILY 11/21/21 12/17/21 release (Prevacid 24Hr) lisinopril 5 mg tablet 5 mg PO DAILY 11/21/21 12/17/21 magnesium citrate (Citrate of 300 ml PO DAILY PRN Constipation 11/21/21 11/21/21 Magnesia) magnesium hydroxide 400 mg/5 mL 30 ml PO BEDTIME PRN Constipation 11/21/21 11/21/21 oral suspension (Milk of Magnesia) oxycodone 5 mg tablet 5 mg PO BID PRN Pain (Scale Score 11/21/21 12/17/21 4-6) polyethylene glycol 3350 17 17 g PO DAILY 11/21/21 11/21/21 gram/dose oral powder (Miralax) polyethylene glycol 3350 17 17 g PO DAILY PRN Constipation 11/21/21 11/21/21 gram/dose oral powder (Miralax) sennosides 8.6 mg tablet (senna) 17.2 mg PO BID 11/21/21 11/21/21 sennosides 8.6 mg tablet (senna) 17.2 mg PO DAILY PRN Constipation 11/21/21 11/21/21 trazodone 150 mg tablet 300 tab PO BEDTIME 12/17/21 12/17/21 Previous Rx's Medication Instructions Recorded fluticasone furoate 100 1 puff inhalation RDAILY #1 ea 07/30/20 mcg-vilanterol 25 mcg/dose inhalation powder (Breo Ellipta) cefuroxime axetil 500 mg tablet 500 mg PO BID 7 days #14 tabs 11/23/21 fentanyl 75 mcg/hr transdermal 75 mcg transdermal Q72H pain #5 ea 11/23/21 patch oseltamivir 75 mg capsule (Tamiflu) 75 mg PO Q12H #5 caps 11/23/21 prednisone 10 mg tablet See Rx Instructions .Route 11/23/21 .COMPLEX #45 tabs Allergies Allergy/AdvReac Type Severity Reaction Status Date / Time aspirin [From PERCODAN] Allergy Unknown UNKNOWN Verified 07/26/20 23:11 egg [EGG] Allergy Unknown UNKNOWN Verified 07/26/20 23:11 oxycodone AdvReac Nausea Verified 09/03/20 17:56 From PERCODAN Allergy Unknown UNKNOWN Uncoded 03/21/20 17:03 Review of Systems Review of Systems: Constitutional : No Weight loss, No Fever, No Chills, pos Fatigue, pos Malaise ENT/Mouth : No sore throat, No Rhinorrhea Eyes: No Eye Pain, No Swelling, No Redness Cardiovascular : No Chest Pain, No SOB, No Dyspnea on Exertion, No Orthopnea, pos Edema, No Palpitations Respiratory : No Cough, No Sputum, pos Wheezing Gastrointestinal : No Nausea, No Vomiting, No Diarrhea, No Constipation, No abdominal Pain, No Hematochezia, No Melena Genitourinary : No Dysuria, pos Urinary Frequency, No Hematuria, Musculoskeletal : No joint pain, No Myalgias, No Joint Swelling Skin : No Skin Lesions, No rash Neuro : pos Weakness, No Numbness, No Dizziness, No Headache Psych : No Anxiety/Panic, No Depression Heme/Lymph: No Bruising, No Bleeding,No Lymphadenopathy Endocrine : No Polyuria, No Polydipsia All other systems reviewed and are negative PMFSH Past Medical History Attestation statement: The following information was validated with the patient. Medical History Bronchitis Chronic back pain Diabetes High cholesterol HTN (hypertension) UTI (urinary tract infection) Social History Social History Household Members: Other Household Members Other:: roomate Housing: Intermediate Do you presently have visiting nurse or other home services: No Alcohol intake: never Patient Tobacco Use Status: Current everyday Tobacco user Tobacco use type: Cigarette Cigarettes Per Day: 8 Second Hand Smoke Exposure: Yes Advance Directives: No Advance Directives Information Provided: No service: No Current occupational status: unemployed Physical Exam Vital Signs: Vital Signs: Last Vital Signs Temp 98.4 F 12/17/21 13:48 Pulse 73 12/17/21 14:47 Resp 20 12/17/21 14:47 BP 131/67 12/17/21 14:47 Pulse Ox 96 12/17/21 14:47 O2 Del Method 12/17/21 14:47 BMI result Body Mass Index 37.4 Appearance: Alert. Oriented X3. No acute distress. Eyes: Pupils equal, round and reactive to light. ENT: Pharynx normal. Neck: Normal inspection. Neck supple. CVS: Normal heart rate and rhythm. Pulses normal. Chest: fentanyl patch dated 12/16 12pm on chest wall Respiratory: No respiratory distress. Breath sounds diminished with mild wheezes Abdomen: Soft and nontender. Skin: Skin warm and dry. Normal skin color. Normal skin turgor. Extremities: 1+ pitting lower extremity edema. No calf ttp Neuro: Oriented X 3. No motor deficit. No sensory deficit. Course Course Course Narrative: + UTI with weakness already on macrobid suppressant will start on ertapenam MDM - Weakness MDM Narrative Medical decision making narrative: 6 yo female with hx asthma, HTN, COPD, depression, DM, GERD, HLD, REIKA, ESBL + E. Coli UTI, chronic pain on fentanyl patches and PRN oxycodone comes in today stating that she has a UTI for 8 weeks and that my legs are swollen and that she doesn't feel well. At this time will need labs, albuterol treatment, VBG, CXR, UA. Given LE edema will obtain BNP and DVT study. Dispo per results and findings. Lab Data Result diagrams: 12/17/21 14:08 12/17/21 14:08 Labs: Lab Results 12/17/21 12/17/21 12/17/21 Range/Units 14:08 14:08 14:08 WBC 14.0 H (4.8-10.8) X10*3/uL RBC 3.95 L (4.20-5.50) X10*6/uL Hgb 11.9 L (12.0-16.0) g/dl Hct 37.1 (37.0-47.0) % MCV 93.9 (80.0-98.0) fL MCH 30.1 (27.0-33.0) pg MCHC 32.1 (31.0-35.0) g/dl RDW 13.2 (11.0-16.0) % Plt Count 257 (160-400) X10*3/uL MPV 9.2 L (9.4-12.3) fL Immature Gran % (Auto) 0.6 H (0.0-0.4) % Neut % (Auto) 56.6 (45-73) % Lymph % (Auto) 31.2 (20-40) % [place] % (Auto) 10.6 (2-11) % Eos % (Auto) 0.6 (0-4) % Baso % (Auto) 0.4 (0-2) % Lymph # (Auto) 4.4 (1.2-4.9) X10*3/uL [place] # (Auto) 1.5 H (0.1-1.2) X10*3/uL Eos # (Auto) 0.1 (0.0-0.4) X10*3/uL Baso # (Auto) 0.1 (0.0-0.2) X10*3/uL Abs Immat Gran (auto) 0.08 H (0.00-0.03) X10*3/uL Absolute Neuts (auto) 7.9 (2.0-8.3) x10*3/uL Absolute Nucleated RBC 0.000 (0.0-0.012) X10*3/uL Nucleated RBC % (auto) 0.0 (0.0-0.2) /100WBC PT (9.9-13.0) SEC INR (0.9-1.1) APTT (24.1-38.0) SEC VBG pH (7.32-7.43) VBG pCO2 mmHg VBG pO2 mmHg VBG HCO3 (22-26) mmol/L VBG O2 Saturation % VBG Base Excess mmol/L Sodium 138 (135-145) mmol/L Potassium 4.4 (3.3-5.1) mmol/L Chloride 101 (96-108) mmol/L Carbon Dioxide 30 H (22-29) mmol/L Anion Gap 11 L (12-20) BUN 11 D (9-16) mg/dL Creatinine 0.79 (0.5-1.4) mg/dL Estim Creat Clear Calc 77.9 Estimated GFR > 60 Random Glucose 121 H (60-115) mg/dL Lactic Acid (0.5-2.0) mmol/L Calcium 8.4 (8.4-10.2) mg/dL Magnesium 1.3 L* (1.6-2.6) mg/dL Total Bilirubin 0.5 (0.0-1.0) mg/dL Direct Bilirubin 0.2 (0.0-0.5) mg/dL AST 14 (5-31) U/L ALT 13 (0-31) U/L Alkaline Phosphatase 76 (39-117) U/L Troponin I High Sens (<3.5-17.0) ng/L B-Natriuretic Peptide Cancelled Total Protein 6.3 L (6.5-8.0) g/dL Albumin 3.3 L (3.5-5.0) g/dL Lipase 18 (8-78) U/L Urine Color Urine Appearance Urine pH (5.0-8.0) Ur Specific [place] (1.005-1.025) Urine Protein (NEG-TRACE) MG/DL Urine Glucose (UA) (NEG) MG/DL Urine Ketones (NEG) MG/DL Urine Blood (NEG) Urine Nitrite (NEG) Ur Leukocyte Esterase (NEG) Urine RBC (0) /HPF Urine WBC (0-4) /HPF Ur Squamous Epith Cells /LPF Urine Bacteria /LPF COVID-19 ([facility]) (Negative) COVID-19 Clin Com 12/17/21 12/17/21 12/17/21 Range/Units 14:08 14:08 14:08 WBC (4.8-10.8) X10*3/uL RBC (4.20-5.50) X10*6/uL Hgb (12.0-16.0) g/dl Hct (37.0-47.0) % MCV (80.0-98.0) fL MCH (27.0-33.0) pg MCHC (31.0-35.0) g/dl RDW (11.0-16.0) % Plt Count (160-400) X10*3/uL MPV (9.4-12.3) fL Immature Gran % (Auto) (0.0-0.4) % Neut % (Auto) (45-73) % Lymph % (Auto) (20-40) % [place] % (Auto) (2-11) % Eos % (Auto) (0-4) % Baso % (Auto) (0-2) % Lymph # (Auto) (1.2-4.9) X10*3/uL [place] # (Auto) (0.1-1.2) X10*3/uL Eos # (Auto) (0.0-0.4) X10*3/uL Baso # (Auto) (0.0-0.2) X10*3/uL Abs Immat Gran (auto) (0.00-0.03) X10*3/uL Absolute Neuts (auto) (2.0-8.3) x10*3/uL Absolute Nucleated RBC (0.0-0.012) X10*3/uL Nucleated RBC % (auto) (0.0-0.2) /100WBC PT 12.7 (9.9-13.0) SEC INR 1.1 (0.9-1.1) APTT 29.4 (24.1-38.0) SEC VBG pH (7.32-7.43) VBG pCO2 mmHg VBG pO2 mmHg VBG HCO3 (22-26) mmol/L VBG O2 Saturation % VBG Base Excess mmol/L Sodium (135-145) mmol/L Potassium (3.3-5.1) mmol/L Chloride (96-108) mmol/L Carbon Dioxide (22-29) mmol/L Anion Gap (12-20) BUN (9-16) mg/dL Creatinine (0.5-1.4) mg/dL Estim Creat Clear Calc Estimated GFR Random Glucose (60-115) mg/dL Lactic Acid 1.6 (0.5-2.0) mmol/L Calcium (8.4-10.2) mg/dL Magnesium (1.6-2.6) mg/dL Total Bilirubin (0.0-1.0) mg/dL Direct Bilirubin (0.0-0.5) mg/dL AST (5-31) U/L ALT (0-31) U/L Alkaline Phosphatase (39-117) U/L Troponin I High Sens (<3.5-17.0) ng/L B-Natriuretic Peptide Total Protein (6.5-8.0) g/dL Albumin (3.5-5.0) g/dL Lipase (8-78) U/L Urine Color Urine Appearance Urine pH (5.0-8.0) Ur Specific [place] (1.005-1.025) Urine Protein (NEG-TRACE) MG/DL Urine Glucose (UA) (NEG) MG/DL Urine Ketones (NEG) MG/DL Urine Blood (NEG) Urine Nitrite (NEG) Ur Leukocyte Esterase (NEG) Urine RBC (0) /HPF Urine WBC (0-4) /HPF Ur Squamous Epith Cells /LPF Urine Bacteria /LPF COVID-19 ([facility]) Negative (Negative) COVID-19 Clin Com See Note 12/17/21 12/17/21 12/17/21 Range/Units 14:08 14:08 14:16 WBC (4.8-10.8) X10*3/uL RBC (4.20-5.50) X10*6/uL Hgb (12.0-16.0) g/dl Hct (37.0-47.0) % MCV (80.0-98.0) fL MCH (27.0-33.0) pg MCHC (31.0-35.0) g/dl RDW (11.0-16.0) % Plt Count (160-400) X10*3/uL MPV (9.4-12.3) fL Immature Gran % (Auto) (0.0-0.4) % Neut % (Auto) (45-73) % Lymph % (Auto) (20-40) % [place] % (Auto) (2-11) % Eos % (Auto) (0-4) % Baso % (Auto) (0-2) % Lymph # (Auto) (1.2-4.9) X10*3/uL [place] # (Auto) (0.1-1.2) X10*3/uL Eos # (Auto) (0.0-0.4) X10*3/uL Baso # (Auto) (0.0-0.2) X10*3/uL Abs Immat Gran (auto) (0.00-0.03) X10*3/uL Absolute Neuts (auto) (2.0-8.3) x10*3/uL Absolute Nucleated RBC (0.0-0.012) X10*3/uL Nucleated RBC % (auto) (0.0-0.2) /100WBC PT (9.9-13.0) SEC INR (0.9-1.1) APTT (24.1-38.0) SEC VBG pH 7.36 (7.32-7.43) VBG pCO2 46 mmHg VBG pO2 50 mmHg VBG HCO3 26 (22-26) mmol/L VBG O2 Saturation 79.0 % VBG Base Excess 1.1 mmol/L Sodium (135-145) mmol/L Potassium (3.3-5.1) mmol/L Chloride (96-108) mmol/L Carbon Dioxide (22-29) mmol/L Anion Gap (12-20) BUN (9-16) mg/dL Creatinine (0.5-1.4) mg/dL Estim Creat Clear Calc Estimated GFR Random Glucose (60-115) mg/dL Lactic Acid (0.5-2.0) mmol/L Calcium (8.4-10.2) mg/dL Magnesium (1.6-2.6) mg/dL Total Bilirubin (0.0-1.0) mg/dL Direct Bilirubin (0.0-0.5) mg/dL AST (5-31) U/L ALT (0-31) U/L Alkaline Phosphatase (39-117) U/L Troponin I High Sens 5.5 (<3.5-17.0) ng/L B-Natriuretic Peptide 48 Total Protein (6.5-8.0) g/dL Albumin (3.5-5.0) g/dL Lipase (8-78) U/L Urine Color YELLOW Urine Appearance HAZY Urine pH 7.0 (5.0-8.0) Ur Specific [place] <= 1.005 (1.005-1.025) Urine Protein NEG (NEG-TRACE) MG/DL Urine Glucose (UA) NEG (NEG) MG/DL Urine Ketones NEG (NEG) MG/DL Urine Blood NEG (NEG) Urine Nitrite POS H (NEG) Ur Leukocyte Esterase 3+ H (NEG) Urine RBC 0 (0) /HPF Urine WBC 50-75 H (0-4) /HPF Ur Squamous Epith Cells 1+ /LPF Urine Bacteria 2+ /LPF COVID-19 ([facility]) (Negative) COVID-19 Clin Com ECG Data Attestation: I personally reviewed and interpreted this ECG as follows: ECG interpretation date: 12/17/21 ECG interpretation time: 14:03 Interpretation: Rate: 76 Rhythm: NSR [place]: left Normal P waves. Normal ANGÉLICA. Normal QRS complex. ST T wave : normal no TOD qTC: normal prior studies: no acute ischemia The study has been interpreted contemporaneously by me. . Discharge Plan Discharge Clinical Impression: Weakness, Acute UTI, Hypomagnesemia Leukocytosis Qualifiers: Leukocytosis type: unspecified Qualified Code(s): D72.829 - Elevated white blood cell count, unspecified Patient Disposition: Admitted As Inpatient
--- NOTE | 2021-12-17 13:18 | ECG_ITS ---
Test Reason : weakness Blood Pressure : / mmHG Vent. Rate : 076 BPM Atrial Rate : 076 BPM P-R Int : 184 ms QRS Dur : 074 ms QT Int : 362 ms P-R-T Axes : 011 -26 016 degrees QTc Int : 407 ms Normal sinus rhythm Low voltage QRS Borderline ECG When compared with ECG of 21-NOV-2021 00:26, Premature supraventricular complexes are no longer Present Referred By: Alisa Ballard Electronically Signed By:Diego Fajardo
[2021-12-17] MEDS: Albuterol Sulfate (0.083%) 2.5 MG/3 ML VIAL.NEB INHALE (13:32)
--- NOTE | 2021-12-17 14:19 | PC.NURSE ---
pt amb to br independent, aox4 how ever is very sleepy. arouses to voice
[2021-12-17 14:20] LABS: Venous Blood Gas Refer to POC result
[2021-12-17 14:21] LABS: VBG Base Excess 1.1 mmol/L; VBG HCO3 26 mmol/L (22-26); VBG pCO2 46 mmHg; VBG pH 7.36 (7.32-7.43); VBG pO2 50 mmHg
[2021-12-17 14:24] LABS: MANUAL DIFF FLAG NO
[2021-12-17 14:28] LABS: Basophils Absolute Auto 0.1 X10*3/uL (0.0-0.2); Basophils Percent Auto 0.4 % (0-2); Eosinophils Absolute Auto 0.1 X10*3/uL (0.0-0.4); Eosinophils Percent Auto 0.6 % (0-4); Hematocrit 37.1 % (37.0-47.0); Hemoglobin 11.9 g/dl (12.0-16.0); Imm Gran Abs Auto 0.08 X10*3/uL (0.00-0.03); Imm Gran Pct Auto 0.6 % (0.0-0.4); Lymphocytes Absolute Auto 4.4 X10*3/uL (1.2-4.9); Lymphocytes Percent Auto 31.2 % (20-40); Mean Corpuscular HGB Conc 32.1 g/dl (31.0-35.0); Mean Corpuscular Hemoglobin 30.1 pg (27.0-33.0); Mean Corpuscular Volume 93.9 fL (80.0-98.0); Mean Platelet Volume 9.2 fL (9.4-12.3); Monocytes Absolute Auto 1.5 X10*3/uL (0.1-1.2); Monocytes Percent Auto 10.6 % (2-11); Neutrophils Absolute Auto 7.9 x10*3/uL (2.0-8.3); Neutrophils Percent Auto 56.6 % (45-73); Platelet Count 257 X10*3/uL (160-400); Red Blood Count 3.95 X10*6/uL (4.20-5.50); Red Cell Distribution Width 13.2 % (11.0-16.0)
[2021-12-17 14:29] LABS: Appearance Urine HAZY; Color Urine YELLOW; Glucose Urine UA NEG (NEG); Leukocyte Esterase Urine 3+ (NEG); Nitrite Urine POS (NEG); Specific Gravity - Urine <= 1.005 (1.005-1.025); UACC Culture Trigger YES; Urine Blood NEG (NEG); Urine Ketones NEG (NEG); Urine Protein NEG (NEG-TRACE)
[2021-12-17 14:33] LABS: INTERNATIONAL NORM RATIO 1.1 (0.9-1.1); Prothrombin Time 12.7 SEC (9.9-13.0)
[2021-12-17 14:36] LABS: Bacteria Urine 2+ /LPF; Partial Thromboplastin Time 29.4 SEC (24.1-38.0); RBC Urine 0 /HPF (0); Squamous Epithelial Cell Urine 1+ /LPF; WBC Urine 50-75 /HPF (0-4)
[2021-12-17 14:38] LABS: Lactic Acid 1.6 mmol/L (0.5-2.0)
[2021-12-17 14:48] LABS: B Type Natriuretic Peptide 48 pg/mL (<100); Troponin-I High Sensitivity 5.5 ng/L (<3.5-17.0)
[2021-12-17 14:52] LABS: COVID-19 Test Negative (Negative); IDNOW Serial# 16C4AD1C
[2021-12-17 14:53] LABS: Alanine Aminotransferase 13 U/L (0-31); Albumin Level 3.3 g/dL (3.5-5.0); Alkaline Phosphatase 76 U/L (39-117); Anion Gap 11 (12-20); Aspartate Amino Transferase 14 U/L (5-31); Bilirubin Direct 0.2 mg/dL (0.0-0.5); Bilirubin Total 0.5 mg/dL (0.0-1.0); Blood Urea Nitrogen 11 mg/dL (9-16); Calcium 8.4 mg/dL (8.4-10.2); Carbon Dioxide 30 mmol/L (22-29); Chloride 101 mmol/L (96-108); Creatinine Clr Calc Pharmacy 77.9; Estimated Glomerular Filt Rate > 60; Glucose Random 121 mg/dL (60-115); Lipase 18 U/L (8-78); Magnesium 1.3 mg/dL (1.6-2.6); Potassium 4.4 mmol/L (3.3-5.1); Sodium 138 mmol/L (135-145); Total Protein 6.3 g/dL (6.5-8.0)
[2021-12-17] MEDS: Ertapenem Sodium 1 GM in 0.9 % Sodium Chloride 50 ML IV (14:58)
[2021-12-17] MEDS: Magnesium Sulfate/H2O 2 GM/50 ML PIGGYBACK IV (15:45)
--- NOTE | 2021-12-17 16:15 | PM.IMHP ---
History of Present Illness Date of Service: 12/17/21 Chief Complaint: weakness, leg edema a 66 years old female with PMH of HTN, COPD, diabetes, asthma, ERIKA, chronic pain on fentanyl, recurrent UTIs who presents to the hospital complaining of increased weakness and sleepiness for the last week. The patient reports that she has been feeling more tired with no energy and feeling like sleepy all the time stable most of the day for the last week or so. Denies any fever or chills but reported decreased oral intake in feeling and well with associated bilateral lower extremities edema and mild pain to the left leg. Denies any chest pain, palpitation, shortness of breath, nausea, vomiting, change in bowel habit but reported feeling of urine infection. She was recently discharged from the hospital for treatment of UTI. Has been on Macrobid suppressive therapy at home. Last urine infection grew ESBL E coli. Admitted for further evaluation and treatment. Review of Systems Review of Systems: No fever, chills But reports generalized weakness No chest pain, palpitation No shortness of breath or coughing No abdominal pain, nausea or vomiting feels like having your UTI symptoms No any rash or wounds PMFSH Medical History Bronchitis Chronic back pain Diabetes High cholesterol HTN (hypertension) UTI (urinary tract infection) Social History Household Members: None Household Members Other:: roomate Housing: Half-Way Do you presently have visiting nurse or other home services: No Alcohol intake: never Patient Tobacco Use Status: Current everyday Tobacco user Tobacco use type: Cigarette Cigarettes Per Day: 8 Smoked in Last 30 Days: Yes Patient Interested in Nicotine Replacement: No Second Hand Smoke Exposure: Yes Use of substances other than those prescribed or required for medical reasons: No Have you been hit, kicked, punched, or otherwise hurt by someone within the past year? If so, by whom?: No Do you feel safe in your current relationship?: No Current Relationship Is there a partner from a previous relationship who is making you feel unsafe now?: No Advance Directives: No Advance Directives Information Provided: No Do you have thoughts of harming others: None Do you have a plan to hurt others: No Plan Recently lost weight without trying: No Eating poorly because of decreased appetite: No Nutrition Risks: No Nutritional Risk Patient : No : No Poor oral hygiene: No service: No Current occupational status: unemployed Meds Allergies Allergy/AdvReac Type Severity Reaction Status Date / Time aspirin [From PERCODAN] Allergy Unknown UNKNOWN Verified 12/17/21 17:40 egg [EGG] Allergy Unknown UNKNOWN Verified 12/17/21 17:40 oxycodone AdvReac Nausea Verified 12/17/21 17:40 From PERCODAN Allergy Unknown UNKNOWN Uncoded 12/17/21 17:40 Active Medications: Current Medications Magnesium Sulfate (Magnesium Sulfate/H2o) 2 gm in 50 mls @ 25 mls/hr IV ONCE ONE Stop: 12/17/21 16:52 Last Admin: 12/17/21 15:45 Dose: 25 mls/hr Insulin Glargine (Insulin Glargine,Hum.Rec.Anlog 100 Unit/Ml 10 Ml Vial) 20 unit SUBCUT DAILY [facility] Insulin Human Lispro (Insulin Lispro 100 Unit/Ml 3 Ml Vial) 0 unit SUBCUT QIDACHS [facility]; Protocol Omeprazole (Omeprazole 40 Mg Capsule.Dr) 40 mg PO DAILY@0630 [facility] Pharmacy Consult (Consult Rx Perform Med Rec) 1 each MISCELLANE ONCE PRN PRN Reason: Consult order Home Medications Medication Instructions Recorded Confirmed Last Taken Type albuterol sulfate 90 mcg/actuation 1 puff inhalation Q4H PRN 07/26/20 12/17/21 Unknown History aerosol inhaler (Ventolin HFA) Shortness Of Breath celecoxib 200 mg capsule (Celebrex) 200 mg PO DAILY 07/26/20 12/17/21 Unknown History fluoxetine 40 mg capsule (Prozac) 40 mg PO DAILY 07/26/20 12/17/21 Unknown History fluticasone propionate 50 1 spray intranasal DAILY 07/26/20 12/17/21 Unknown History mcg/actuation nasal spray,suspension glipizide 5 mg tablet 10 mg PO BIDAC 07/26/20 12/17/21 Unknown History metformin 500 mg tablet 1,000 mg PO BIDWM 07/26/20 12/17/21 Unknown History metoclopramide HCl 5 mg tablet 5 mg PO DAILY 07/26/20 12/17/21 Unknown History (Reglan) acetaminophen 325 mg tablet 650 mg PO Q4H PRN PAIN/FEVER 11/21/21 12/17/21 Unknown History baclofen 10 mg tablet 10 mg Q8H PRN Muscle Spasm 11/21/21 12/17/21 Unknown History furosemide 20 mg tablet (Lasix) 20 mg PO DAILY 11/21/21 12/17/21 Unknown History gabapentin 400 mg capsule 400 mg PO TID 11/21/21 12/17/21 Unknown History insulin detemir U-100 100 unit/mL 22 unit subcut DAILY 11/21/21 12/17/21 Unknown History subcutaneous solution (Levemir U-100 Insulin) insulin lispro 100 unit/mL See Protocol QIDACHS 11/21/21 12/17/21 Unknown History subcutaneous cartridge (Humalog U-100 Insulin) lansoprazole 15 mg capsule,delayed 15 mg PO DAILY 11/21/21 12/17/21 Unknown History release (Prevacid 24Hr) lisinopril 5 mg tablet 5 mg PO DAILY 11/21/21 12/17/21 Unknown History oxycodone 5 mg tablet 5 mg PO BID PRN Pain (Scale Score 11/21/21 12/17/21 Unknown History 4-6) trazodone 150 mg tablet 300 tab PO BEDTIME 12/17/21 12/17/21 Unknown History Physical Exam Vital Signs and Narrative: Vital Signs: Last Vital Signs Temp 98.4 F 12/17/21 13:48 Pulse 73 12/17/21 14:47 Resp 20 12/17/21 14:47 BP 131/67 12/17/21 14:47 Pulse Ox 96 12/17/21 14:47 O2 Del Method 12/17/21 14:47 BMI result Body Mass Index 37.4 Const: Other: Constitutional : Alert with stimulation, very sleepy, not in distress Neck : Normal inspection, Supple Cardiovascular : RRR, no JVP, no lower extremity edema Respiratory : fair bilateral air entry, no crackles, wheezes or rhonchi Gastrointestinal: soft, lax, Normal bowel sounds, Non tender Skin : Warm, Dry Neurological : Alert & oriented to self and place, No focal deficit , CN 2-12 within normal Results Labs CBC and Chem 7: 12/18/21 06:08 12/18/21 06:08 Labs: Laboratory Results - last 24 hr 12/17/21 12/17/21 12/17/21 14:08 14:08 14:08 MCV 93.9 MCH 30.1 MCHC 32.1 RDW 13.2 Plt Count 257 MPV 9.2 L Immature Gran % (Auto) 0.6 H Neut % (Auto) 56.6 Lymph % (Auto) 31.2 [place] % (Auto) 10.6 Eos % (Auto) 0.6 Baso % (Auto) 0.4 Lymph # (Auto) 4.4 [place] # (Auto) 1.5 H Eos # (Auto) 0.1 Baso # (Auto) 0.1 Abs Immat Gran (auto) 0.08 H Absolute Neuts (auto) 7.9 Absolute Nucleated RBC 0.000 Nucleated RBC % (auto) 0.0 PT INR APTT VBG pH VBG pCO2 VBG pO2 VBG HCO3 VBG O2 Saturation VBG Base Excess Anion Gap 11 L Estim Creat Clear Calc 77.9 Estimated GFR > 60 Random Glucose 121 H Lactic Acid Calcium 8.4 Magnesium 1.3 L* Total Bilirubin 0.5 Direct Bilirubin 0.2 AST 14 ALT 13 Alkaline Phosphatase 76 Troponin I High Sens B-Natriuretic Peptide Cancelled Total Protein 6.3 L Albumin 3.3 L Lipase 18 Urine Color Urine Appearance Urine pH Ur Specific [place] Urine Protein Urine Glucose (UA) Urine Ketones Urine Blood Urine Nitrite Ur Leukocyte Esterase Urine RBC Urine WBC Ur Squamous Epith Cells Urine Bacteria COVID-19 ([facility]) COVID-19 Clin Com 12/17/21 12/17/21 12/17/21 14:08 14:08 14:08 MCV MCH MCHC RDW Plt Count MPV Immature Gran % (Auto) Neut % (Auto) Lymph % (Auto) [place] % (Auto) Eos % (Auto) Baso % (Auto) Lymph # (Auto) [place] # (Auto) Eos # (Auto) Baso # (Auto) Abs Immat Gran (auto) Absolute Neuts (auto) Absolute Nucleated RBC Nucleated RBC % (auto) PT 12.7 INR 1.1 APTT 29.4 VBG pH VBG pCO2 VBG pO2 VBG HCO3 VBG O2 Saturation VBG Base Excess Anion Gap Estim Creat Clear Calc Estimated GFR Random Glucose Lactic Acid 1.6 Calcium Magnesium Total Bilirubin Direct Bilirubin AST ALT Alkaline Phosphatase Troponin I High Sens B-Natriuretic Peptide Total Protein Albumin Lipase Urine Color Urine Appearance Urine pH Ur Specific [place] Urine Protein Urine Glucose (UA) Urine Ketones Urine Blood Urine Nitrite Ur Leukocyte Esterase Urine RBC Urine WBC Ur Squamous Epith Cells Urine Bacteria COVID-19 ([facility]) Negative COVID-19 Clin Com See Note 12/17/21 12/17/21 12/17/21 14:08 14:08 14:16 MCV MCH MCHC RDW Plt Count MPV Immature Gran % (Auto) Neut % (Auto) Lymph % (Auto) [place] % (Auto) Eos % (Auto) Baso % (Auto) Lymph # (Auto) [place] # (Auto) Eos # (Auto) Baso # (Auto) Abs Immat Gran (auto) Absolute Neuts (auto) Absolute Nucleated RBC Nucleated RBC % (auto) PT INR APTT VBG pH 7.36 VBG pCO2 46 VBG pO2 50 VBG HCO3 26 VBG O2 Saturation 79.0 VBG Base Excess 1.1 Anion Gap Estim Creat Clear Calc Estimated GFR Random Glucose Lactic Acid Calcium Magnesium Total Bilirubin Direct Bilirubin AST ALT Alkaline Phosphatase Troponin I High Sens 5.5 B-Natriuretic Peptide 48 Total Protein Albumin Lipase Urine Color YELLOW Urine Appearance HAZY Urine pH 7.0 Ur Specific [place] <= 1.005 Urine Protein NEG Urine Glucose (UA) NEG Urine Ketones NEG Urine Blood NEG Urine Nitrite POS H Ur Leukocyte Esterase 3+ H Urine RBC 0 Urine WBC 50-75 H Ur Squamous Epith Cells 1+ Urine Bacteria 2+ COVID-19 ([facility]) COVID-19 Clin Com Imaging Radiologist's Impressions: Impressions Chest X-Ray 12/17/21 14:36 IMPRESSION: No evidence for acute disease in the chest. Assessment and Plan (1) Weakness: Status: Acute (2) Leukocytosis: Qualifiers: Leukocytosis type: unspecified Qualified Code(s): D72.829 - Elevated white blood cell count, unspecified Status: Acute (3) Acute UTI: Status: Acute (4) Hypomagnesemia: Status: Acute Plan a 66 years old female with PMH of HTN, COPD, diabetes, asthma, ERIKA, chronic pain on fentanyl, recurrent UTIs who presents to the hospital complaining of increased weakness and sleepiness for the last week. weakness likely 2/2 ESBL E coli UTI Start meropenem Pending blood cultures ID evaluation Hypo magnesemia Replacement given Follow the levels Type 2 diabetes Start SSI, diabetic diet Lantus 20 units in the morning Hold p.o. meds Chronic pain continue home medications of fentanyl and oxycodone DVT PPX Lovenox The patient will need at least 2 overnight hospital stay for treatment of acute infection pending ID evaluation to prevent possible decompensation in to sepsis. Quality Stroke Does the patient have a stroke diagnosis?: No VTE Prior VTE?: No VTE Risk Level:: Medical - moderate - high VTE Device Contraindication: Treatment Not Indicated VTE Drug Contraindication: N/A - Med Ordered
[2021-12-17 16:39] LABS: Glucose, Whole Blood 86 mg/dL (60-115)
--- NOTE | 2021-12-17 16:43 | PHA.MEDREC ---
Pharmacy Consult ? Medication Reconciliation Pharmacy has completed the medication reconciliation. Patient kept falling asleep during interview. Report it would be easier for me to contact pharmacy. Patient could not confirm how much insulin she takes therefore it was left the same as previous admission. Marisela Garcia, PharmD
[2021-12-17] MEDS: Enoxaparin Sodium 40 MG/0.4 ML SYRINGE SUBCUT (18:24)
[2021-12-17] MEDS: traZODone HCL 100 MG TABLET 300 MG PO (20:11)
[2021-12-17] MEDS: Gabapentin 100 MG CAPSULE 200 MG PO (20:11)
[2021-12-17] MEDS: 0.9 % Sodium Chloride Flush 3 ML SYRINGE IVFLUSH (20:11)
[2021-12-17 20:26] LABS: Glucose, Whole Blood 142 mg/dL (60-115)
[2021-12-18] VITALS (7 sets, daily range): BP systolic 146–171; BP diastolic 60–76; PULSE 68–74; RESP 18; TEMP 36.6–37.4; O2SAT 90–95
[2021-12-18] MEDS: oxyCODONE HCl Immed Release 5 MG TABLET PO ×3 (03:00→23:12)
[2021-12-18] MEDS: Omeprazole 40 MG CAPSULE.DR PO (05:38)
[2021-12-18 06:35] LABS: Hematocrit 35.9 % (37.0-47.0); Hemoglobin 11.5 g/dl (12.0-16.0); Mean Corpuscular Hemoglobin 30.2 pg (27.0-33.0); Mean Corpuscular Volume 94.2 fL (80.0-98.0); Mean Platelet Volume 9.1 fL (9.4-12.3); Platelet Count 234 X10*3/uL (160-400); Red Blood Count 3.81 X10*6/uL (4.20-5.50); Red Cell Distribution Width 13.3 % (11.0-16.0); White Blood Count 8.6 X10*3/uL (4.8-10.8)
[2021-12-18 07:09] LABS: Anion Gap 10 (12-20); Blood Urea Nitrogen 9 mg/dL (9-16); Calcium 8.2 mg/dL (8.4-10.2); Carbon Dioxide 29 mmol/L (22-29); Chloride 104 mmol/L (96-108); Creatinine Clr Calc Pharmacy 83.1; Estimated Glomerular Filt Rate > 60; Glucose Random 164 mg/dL (60-115); Potassium 4.1 mmol/L (3.3-5.1); Sodium 139 mmol/L (135-145)
[2021-12-18 08:03] LABS: Glucose, Whole Blood 164 mg/dL (60-115)
[2021-12-18] MEDS: Insulin Lispro 100 UNIT/ML 3 ML VIAL SUBCUT ×4 (08:31→21:07)
[2021-12-18] MEDS: Insulin Glargine,Hum.rec.anlog 100 UNIT/ML 10 ML VIAL 20 UNIT SUBCUT (08:32)
[2021-12-18] MEDS: Celecoxib 200 MG CAPSULE PO (08:33)
[2021-12-18] MEDS: Gabapentin 100 MG CAPSULE 200 MG PO ×3 (08:33→21:07)
[2021-12-18] MEDS: Metoclopramide HCl 5 MG TABLET PO (08:33)
[2021-12-18] MEDS: Furosemide 20 MG TABLET PO (08:33)
[2021-12-18] MEDS: FLUoxetine HCl 20 MG CAPSULE 40 MG PO (08:33)
[2021-12-18] MEDS: 0.9 % Sodium Chloride Flush 3 ML SYRINGE IVFLUSH ×3 (08:35→23:00)
[2021-12-18] MEDS: lisinopriL 5 MG TABLET PO (08:42)
[2021-12-18] MEDS: Acetaminophen 325 MG TABLET 650 MG PO (08:47)
[2021-12-18] MEDS: Baclofen 10 MG TABLET PO (08:47)
[2021-12-18] MEDS: Fluticasone/Vilanterol 100/25 BLST.W.DEV 1 PUFF INHALE (09:11)
[2021-12-18] MEDS: Fluticasone Propionate Nasal 16 GM SPRAY 1 SPRAY NOSTRIL-B (09:24)
--- NOTE | 2021-12-18 11:19 | MHC.CM.PN ---
Met [facility] patient. Delivered IMM. Patient from [facility]. reports she has lived there for 1.5 years. She is not sure if she has a HCP on file with them, thinks it would be her daughter. Sent referral to [facility] and requested copy of HCP
[2021-12-18 12:02] LABS: Glucose, Whole Blood 229 mg/dL (60-115)
--- NOTE | 2021-12-18 12:59 | P.PNIM_ITS ---
Subjective Subjective Date of Service: 12/18/21 Interval History: seen and evaluated this morning More alert and interactive denies any fever, chills No other overnight events Review of Systems No fever, chills But reports generalized weakness No chest pain, palpitation No shortness of breath or coughing No abdominal pain, nausea or vomiting feels like having your UTI symptoms No any rash or wounds Physical Exam Vital Signs: Vital Signs: Last Vital Signs Temp 98.3 F 12/18/21 07:50 Pulse 74 12/18/21 09:14 Resp 18 12/18/21 09:14 BP 150/76 H 12/18/21 08:11 Pulse Ox 90 L 12/18/21 08:11 O2 Del Method 12/18/21 07:50 O2 Flow Rate 2 12/17/21 23:18 BMI result Body Mass Index 37.4 Const: Other: Constitutional : Alert , more interactive, not in distress Neck : Normal inspection, Supple Cardiovascular : RRR, no JVP, no lower extremity edema Respiratory : fair bilateral air entry, no crackles, wheezes or rhonchi Gastrointestinal: soft, lax, Normal bowel sounds, Non tender Skin : Warm, Dry Neurological : Alert & oriented to self and place, No focal deficit Objective Data Active Medications Acetaminophen (Acetaminophen 325 Mg Tablet) 650 mg PO Q6H PRN PRN Reason: Pain, Mild (Pain Scale 1-3) Last Admin: 12/18/21 08:47 Dose: 650 mg Documented By: CUONG Albuterol Sulfate (Albuterol Sulfate 90 Mcg 8 Gm Inhaler) 1 puff INHALE Q4H PRN PRN Reason: Shortness Of Breath Baclofen (Baclofen 10 Mg Tablet) 10 mg PO Q8H PRN PRN Reason: Muscle Spasm Last Admin: 12/18/21 08:47 Dose: 10 mg Documented By: CUONG Celecoxib (Celecoxib 200 Mg Capsule) 200 mg PO DAILY [facility] Last Admin: 12/18/21 08:33 Dose: 200 mg Documented By: CUONG Enoxaparin Sodium (Enoxaparin Sodium 40 Mg/0.4 Ml Syringe) 40 mg SUBCUT Q24H [facility] Last Admin: 12/17/21 18:24 Dose: 40 mg Documented By: GOOD Fentanyl (Fentanyl 75 Mcg Patch.Td72) 75 mcg TRANSDERMA Q72H [facility] Fluoxetine HCl (Fluoxetine Hcl 20 Mg Capsule) 40 mg PO DAILY [facility] Last Admin: 12/18/21 08:33 Dose: 40 mg Documented By: CUONG Fluticasone Propionate (Fluticasone Propionate Nasal 16 Gm [place]) 1 spray NOSTRIL-B DAILY [facility] Last Admin: 12/18/21 09:24 Dose: 1 spray Documented By: GOOD Fluticasone/Vilanterol (Fluticasone/Vilanterol 100/25 Blst.W.Dev) 1 puff INHALE RDAILY [facility] Last Admin: 12/18/21 09:11 Dose: 1 puff Documented By: PJ Furosemide (Furosemide 20 Mg Tablet) 20 mg PO DAILY [facility]; Protocol Last Admin: 12/18/21 08:33 Dose: 20 mg Documented By: CUONG Gabapentin (Gabapentin 100 Mg Capsule) 200 mg PO TID [facility] Last Admin: 12/18/21 08:33 Dose: 200 mg Documented By: CUONG Meropenem 1,000 mg/ Sodium (Chloride) 50 mls @ 100 mls/hr IV Q8H [facility] Insulin Glargine (Insulin Glargine,Hum.Rec.Anlog 100 Unit/Ml 10 Ml Vial) 20 unit SUBCUT DAILY [facility] Last Admin: 12/18/21 08:32 Dose: 20 unit Documented By: CUONG Insulin Human Lispro (Insulin Lispro 100 Unit/Ml 3 Ml Vial) 0 unit SUBCUT QIDACHS [facility]; Protocol Last Admin: 12/18/21 12:19 Dose: 4 unit Documented By: UCONG Lisinopril (Lisinopril 5 Mg Tablet) 5 mg PO DAILY [facility]; Protocol Last Admin: 12/18/21 08:42 Dose: 5 mg Documented By: CUONG Metoclopramide HCl (Metoclopramide Hcl 5 Mg Tablet) 5 mg PO DAILY [facility] Last Admin: 12/18/21 08:33 Dose: 5 mg Documented By: CUONG Omeprazole (Omeprazole 40 Mg Capsule.Dr) 40 mg PO DAILY@0630 [facility] Last Admin: 12/18/21 05:38 Dose: 40 mg Documented By: PHOEBE Ondansetron HCl (Ondansetron Hcl 4 Mg/2 Ml Vial) 4 mg IVPUSH Q8H PRN PRN Reason: Nausea and Vomiting Oxycodone HCl (Oxycodone Hcl Immed Release 5 Mg Tablet) 5 mg PO BID PRN PRN Reason: Pain (Scale Score 4-6) Last Admin: 12/18/21 03:00 Dose: 5 mg Documented By: PHOEBE Pharmacy Consult (Consult Rx Perform Med Rec) 1 each MISCELLANE ONCE PRN PRN Reason: Consult order Sodium Chloride (0.9 % Sodium Chloride Flush 3 Ml Syringe) 3 ml IVFLUSH QSHIFT [facility] Last Admin: 12/18/21 08:35 Dose: 3 ml Documented By: CUONG Trazodone HCl (Trazodone Hcl 100 Mg Tablet) 300 mg PO BEDTIME [facility] Last Admin: 12/17/21 20:11 Dose: 300 mg Documented By: PHOEBE Labs CBC & Chem 7: 12/18/21 06:08 12/18/21 06:08 Labs: Laboratory Results - last 24 hr 12/17/21 12/17/21 12/17/21 14:08 14:08 14:08 MCV 93.9 MCH 30.1 MCHC 32.1 RDW 13.2 Plt Count 257 MPV 9.2 L Immature Gran % (Auto) 0.6 H Neut % (Auto) 56.6 Lymph % (Auto) 31.2 [place] % (Auto) 10.6 Eos % (Auto) 0.6 Baso % (Auto) 0.4 Lymph # (Auto) 4.4 [place] # (Auto) 1.5 H Eos # (Auto) 0.1 Baso # (Auto) 0.1 Abs Immat Gran (auto) 0.08 H Absolute Neuts (auto) 7.9 Absolute Nucleated RBC 0.000 Nucleated RBC % (auto) 0.0 PT INR APTT VBG pH VBG pCO2 VBG pO2 VBG HCO3 VBG O2 Saturation VBG Base Excess Anion Gap 11 L Estim Creat Clear Calc 77.9 Estimated GFR > 60 POC Glucose Random Glucose 121 H Lactic Acid Calcium 8.4 Magnesium 1.3 L* Total Bilirubin 0.5 Direct Bilirubin 0.2 AST 14 ALT 13 Alkaline Phosphatase 76 Troponin I High Sens B-Natriuretic Peptide Cancelled Total Protein 6.3 L Albumin 3.3 L Lipase 18 Urine Color Urine Appearance Urine pH Ur Specific [place] Urine Protein Urine Glucose (UA) Urine Ketones Urine Blood Urine Nitrite Ur Leukocyte Esterase Urine RBC Urine WBC Ur Squamous Epith Cells Urine Bacteria COVID-19 ([facility]) COVID-19 Clin Com 12/17/21 12/17/21 12/17/21 14:08 14:08 14:08 MCV MCH MCHC RDW Plt Count MPV Immature Gran % (Auto) Neut % (Auto) Lymph % (Auto) [place] % (Auto) Eos % (Auto) Baso % (Auto) Lymph # (Auto) [place] # (Auto) Eos # (Auto) Baso # (Auto) Abs Immat Gran (auto) Absolute Neuts (auto) Absolute Nucleated RBC Nucleated RBC % (auto) PT 12.7 INR 1.1 APTT 29.4 VBG pH VBG pCO2 VBG pO2 VBG HCO3 VBG O2 Saturation VBG Base Excess Anion Gap Estim Creat Clear Calc Estimated GFR POC Glucose Random Glucose Lactic Acid 1.6 Calcium Magnesium Total Bilirubin Direct Bilirubin AST ALT Alkaline Phosphatase Troponin I High Sens B-Natriuretic Peptide Total Protein Albumin Lipase Urine Color Urine Appearance Urine pH Ur Specific [place] Urine Protein Urine Glucose (UA) Urine Ketones Urine Blood Urine Nitrite Ur Leukocyte Esterase Urine RBC Urine WBC Ur Squamous Epith Cells Urine Bacteria COVID-19 ([facility]) Negative COVID-19 Clin Com See Note 12/17/21 12/17/21 12/17/21 14:08 14:08 14:16 MCV MCH MCHC RDW Plt Count MPV Immature Gran % (Auto) Neut % (Auto) Lymph % (Auto) [place] % (Auto) Eos % (Auto) Baso % (Auto) Lymph # (Auto) [place] # (Auto) Eos # (Auto) Baso # (Auto) Abs Immat Gran (auto) Absolute Neuts (auto) Absolute Nucleated RBC Nucleated RBC % (auto) PT INR APTT VBG pH 7.36 VBG pCO2 46 VBG pO2 50 VBG HCO3 26 VBG O2 Saturation 79.0 VBG Base Excess 1.1 Anion Gap Estim Creat Clear Calc Estimated GFR POC Glucose Random Glucose Lactic Acid Calcium Magnesium Total Bilirubin Direct Bilirubin AST ALT Alkaline Phosphatase Troponin I High Sens 5.5 B-Natriuretic Peptide 48 Total Protein Albumin Lipase Urine Color YELLOW Urine Appearance HAZY Urine pH 7.0 Ur Specific [place] <= 1.005 Urine Protein NEG Urine Glucose (UA) NEG Urine Ketones NEG Urine Blood NEG Urine Nitrite POS H Ur Leukocyte Esterase 3+ H Urine RBC 0 Urine WBC 50-75 H Ur Squamous Epith Cells 1+ Urine Bacteria 2+ COVID-19 ([facility]) COVID-19 Clin Com 12/17/21 12/17/21 12/18/21 16:32 19:21 06:08 MCV 94.2 MCH 30.2 MCHC 32.0 RDW 13.3 Plt Count 234 MPV 9.1 L Immature Gran % (Auto) Neut % (Auto) Lymph % (Auto) [place] % (Auto) Eos % (Auto) Baso % (Auto) Lymph # (Auto) [place] # (Auto) Eos # (Auto) Baso # (Auto) Abs Immat Gran (auto) Absolute Neuts (auto) Absolute Nucleated RBC 0.000 Nucleated RBC % (auto) 0.0 PT INR APTT VBG pH VBG pCO2 VBG pO2 VBG HCO3 VBG O2 Saturation VBG Base Excess Anion Gap Estim Creat Clear Calc Estimated GFR POC Glucose 86 142 H Random Glucose Lactic Acid Calcium Magnesium Total Bilirubin Direct Bilirubin AST ALT Alkaline Phosphatase Troponin I High Sens B-Natriuretic Peptide Total Protein Albumin Lipase Urine Color Urine Appearance Urine pH Ur Specific [place] Urine Protein Urine Glucose (UA) Urine Ketones Urine Blood Urine Nitrite Ur Leukocyte Esterase Urine RBC Urine WBC Ur Squamous Epith Cells Urine Bacteria COVID-19 ([facility]) COVID-19 Clin Com 12/18/21 12/18/21 12/18/21 06:08 07:52 11:01 MCV MCH MCHC RDW Plt Count MPV Immature Gran % (Auto) Neut % (Auto) Lymph % (Auto) [place] % (Auto) Eos % (Auto) Baso % (Auto) Lymph # (Auto) [place] # (Auto) Eos # (Auto) Baso # (Auto) Abs Immat Gran (auto) Absolute Neuts (auto) Absolute Nucleated RBC Nucleated RBC % (auto) PT INR APTT VBG pH VBG pCO2 VBG pO2 VBG HCO3 VBG O2 Saturation VBG Base Excess Anion Gap 10 L Estim Creat Clear Calc 83.1 Estimated GFR > 60 POC Glucose 164 H 229 H Random Glucose 164 H Lactic Acid Calcium 8.2 L Magnesium Total Bilirubin Direct Bilirubin AST ALT Alkaline Phosphatase Troponin I High Sens B-Natriuretic Peptide Total Protein Albumin Lipase Urine Color Urine Appearance Urine pH Ur Specific [place] Urine Protein Urine Glucose (UA) Urine Ketones Urine Blood Urine Nitrite Ur Leukocyte Esterase Urine RBC Urine WBC Ur Squamous Epith Cells Urine Bacteria COVID-19 ([facility]) COVID-19 Clin Com Microbiology Microbiology Results: Microbiology 12/17/21 Unknown Urine Culture - Preliminary Urine clean catch - Urine hoang top Culture in progress. Assessment and Plan (1) Weakness: Status: Acute (2) Acute UTI: Status: Acute (3) Hypomagnesemia: Status: Acute Plan a 66 years old female with PMH of HTN, COPD, diabetes, asthma, ERIKA, chronic omid n on fentanyl, recurrent UTIs who presents to the hospital complaining of increased weakness and sleepiness for the last week. ESBL E coli UTI continue meropenem Pending blood cultures ID evaluation weakness To do physical therapy evaluation Treat underlying infection Hypomagnesemia Replacement given Follow the levels Type 2 diabetes Continue SSI, diabetic diet Lantus 20 units in the morning Hold p.o. meds Chronic pain continue home medications of fentanyl and oxycodone DVT PPX Lovenox The patient will need overnight hospital stay for treatment of acute infection pending ID evaluation to prevent possible decompensation in to sepsis. Quality Stroke Does the patient have a stroke diagnosis?: No VTE Prior VTE?: No VTE Risk Level:: Medical - moderate - high VTE Device Contraindication: Treatment Not Indicated VTE Drug Contraindication: N/A - Med Ordered
[2021-12-18 17:05] LABS: Glucose, Whole Blood 171 mg/dL (60-115)
[2021-12-18] MEDS: Enoxaparin Sodium 40 MG/0.4 ML SYRINGE SUBCUT (17:51)
[2021-12-18 20:31] LABS: Glucose, Whole Blood 198 mg/dL (60-115)
--- NOTE | 2021-12-18 22:54 | P.CNID_ITS ---
History of Present Illness Data of Consult Service Date: 12/18/21 Requesting physician: Courtney Gillespie Primary Care Provider: Unknown Physician HPI Reason for consult: UTI She presents with discomfort right flank. She has dysuria. She has ESBL urinary infection one month ago. She has been on preventive nitrofurantion for last month. Review of Systems Review of Systems: Yes all other systems are reviewed and are negative PMFSH Past Medical History Medical History Bronchitis Chronic back pain Diabetes High cholesterol HTN (hypertension) UTI (urinary tract infection) Family History Family history: reviewed and not pertinent Social History Social History Household Members: None Household Members Other:: roomate Housing: Long Term Do you presently have visiting nurse or other home services: No Alcohol intake: never Patient Tobacco Use Status: Current everyday Tobacco user Tobacco use type: Cigarette Cigarettes Per Day: 8 Smoked in Last 30 Days: Yes Patient Interested in Nicotine Replacement: No Second Hand Smoke Exposure: Yes Use of substances other than those prescribed or required for medical reasons: No Have you been hit, kicked, punched, or otherwise hurt by someone within the past year? If so, by whom?: No Do you feel safe in your current relationship?: No Current Relationship Is there a partner from a previous relationship who is making you feel unsafe now?: No Advance Directives: No Advance Directives Information Provided: No Do you have thoughts of harming others: None Do you have a plan to hurt others: No Plan Recently lost weight without trying: No Eating poorly because of decreased appetite: No Nutrition Risks: No Nutritional Risk Patient : No : No Poor oral hygiene: No service: No Current occupational status: unemployed Meds Allergies Allergy/AdvReac Type Severity Reaction Status Date / Time aspirin [From PERCODAN] Allergy Unknown UNKNOWN Verified 12/17/21 17:40 egg [EGG] Allergy Unknown UNKNOWN Verified 12/17/21 17:40 oxycodone AdvReac Nausea Verified 12/17/21 17:40 From PERCODAN Allergy Unknown UNKNOWN Uncoded 12/17/21 17:40 Active Medications: Current Medications Acetaminophen (Acetaminophen 325 Mg Tablet) 650 mg PO Q6H PRN PRN Reason: Pain, Mild (Pain Scale 1-3) Last Admin: 12/18/21 08:47 Dose: 650 mg Albuterol Sulfate (Albuterol Sulfate 90 Mcg 8 Gm Inhaler) 1 puff INHALE Q4H PRN PRN Reason: Shortness Of Breath Baclofen (Baclofen 10 Mg Tablet) 10 mg PO Q8H PRN PRN Reason: Muscle Spasm Last Admin: 12/18/21 08:47 Dose: 10 mg Celecoxib (Celecoxib 200 Mg Capsule) 200 mg PO DAILY [facility] Last Admin: 12/18/21 08:33 Dose: 200 mg Enoxaparin Sodium (Enoxaparin Sodium 40 Mg/0.4 Ml Syringe) 40 mg SUBCUT Q24H [facility] Last Admin: 12/18/21 17:51 Dose: 40 mg Fentanyl (Fentanyl 75 Mcg Patch.Td72) 75 mcg TRANSDERMA Q72H [facility] Fluoxetine HCl (Fluoxetine Hcl 20 Mg Capsule) 40 mg PO DAILY [facility] Last Admin: 12/18/21 08:33 Dose: 40 mg Fluticasone Propionate (Fluticasone Propionate Nasal 16 Gm [place]) 1 spray NOSTRIL-B DAILY [facility], [facility] Last Admin: 12/18/21 09:24 Dose: 1 spray Fluticasone/Vilanterol (Fluticasone/Vilanterol 100/25 Blst.W.Dev) 1 puff INHALE RDAILY [facility] Last Admin: 12/18/21 09:11 Dose: 1 puff Furosemide (Furosemide 20 Mg Tablet) 20 mg PO DAILY [facility], [facility]; Protocol Last Admin: 12/18/21 08:33 Dose: 20 mg Gabapentin (Gabapentin 100 Mg Capsule) 200 mg PO TID [facility] Last Admin: 12/18/21 21:07 Dose: 200 mg Meropenem 1 gm/ Sodium (Chloride) 100 mls @ 100 mls/hr IV Q8H [facility] Last Infusion: 12/18/21 13:45 Dose: Infused Insulin Glargine (Insulin Glargine,Hum.Rec.Anlog 100 Unit/Ml 10 Ml Vial) 20 unit SUBCUT DAILY [facility] Last Admin: 12/18/21 08:32 Dose: 20 unit Insulin Human Lispro (Insulin Lispro 100 Unit/Ml 3 Ml Vial) 0 unit SUBCUT Q IDACHS [facility], [facility]; Protocol Last Admin: 12/18/21 21:07 Dose: 2 unit Lisinopril (Lisinopril 5 Mg Tablet) 5 mg PO DAILY [facility]; Protocol Last Admin: 12/18/21 08:42 Dose: 5 mg Metoclopramide HCl (Metoclopramide Hcl 5 Mg Tablet) 5 mg PO DAILY [facility] Last Admin: 12/18/21 08:33 Dose: 5 mg Omeprazole (Omeprazole 40 Mg Capsule.Dr) 40 mg PO DAILY@0630 [facility] Last Admin: 12/18/21 05:38 Dose: 40 mg Ondansetron HCl (Ondansetron Hcl 4 Mg/2 Ml Vial) 4 mg IVPUSH Q8H PRN PRN Reason: Nausea and Vomiting Oxycodone HCl (Oxycodone Hcl Immed Release 5 Mg Tablet) 5 mg PO BID PRN PRN Reason: Pain (Scale Score 4-6) Last Admin: 12/18/21 14:50 Dose: 5 mg Pharmacy Consult (Consult Rx Perform Med Rec) 1 each MISCELLANE ONCE PRN PRN Reason: Consult order Sodium Chloride (0.9 % Sodium Chloride Flush 3 Ml Syringe) 3 ml IVFLUSH QSHIFT [facility] Last Admin: 12/18/21 14:51 Dose: 3 ml Trazodone HCl (Trazodone Hcl 100 Mg Tablet) 300 mg PO BEDTIME [facility] Last Admin: 12/17/21 20:11 Dose: 300 mg Home Medications Medication Instructions Recorded Confirmed Last Taken Type albuterol sulfate 90 mcg/actuation 1 puff inhalation Q4H PRN 07/26/20 12/17/21 Unknown History aerosol inhaler (Ventolin HFA) Shortness Of Breath celecoxib 200 mg capsule (Celebrex) 200 mg PO DAILY 07/26/20 12/17/21 Unknown History fluoxetine 40 mg capsule (Prozac) 40 mg PO DAILY 07/26/20 12/17/21 Unknown History fluticasone propionate 50 1 spray intranasal DAILY 07/26/20 12/17/21 Unknown History mcg/actuation nasal spray,suspension glipizide 5 mg tablet 10 mg PO BIDAC 07/26/20 12/17/21 Unknown History metformin 500 mg tablet 1,000 mg PO BIDWM 07/26/20 12/17/21 Unknown History metoclopramide HCl 5 mg tablet 5 mg PO DAILY 07/26/20 12/17/21 Unknown History (Reglan) acetaminophen 325 mg tablet 650 mg PO Q4H PRN PAIN/FEVER 11/21/21 12/17/21 Unknown History baclofen 10 mg tablet 10 mg Q8H PRN Muscle Spasm 11/21/21 12/17/21 Unknown History furosemide 20 mg tablet (Lasix) 20 mg PO DAILY 11/21/21 12/17/21 Unknown History gabapentin 400 mg capsule 400 mg PO TID 11/21/21 12/17/21 Unknown History insulin detemir U-100 100 unit/mL 22 unit subcut DAILY 11/21/21 12/17/21 Unknown History subcutaneous solution (Levemir U-100 Insulin) insulin lispro 100 unit/mL See Protocol QIDACHS 11/21/21 12/17/21 Unknown History subcutaneous cartridge (Humalog U-100 Insulin) lansoprazole 15 mg capsule,delayed 15 mg PO DAILY 11/21/21 12/17/21 Unknown History release (Prevacid 24Hr) lisinopril 5 mg tablet 5 mg PO DAILY 11/21/21 12/17/21 Unknown History oxycodone 5 mg tablet 5 mg PO BID PRN Pain (Scale Score 11/21/21 12/17/21 Unknown History 4-6) trazodone 150 mg tablet 300 tab PO BEDTIME 12/17/21 12/17/21 Unknown History Physical Exam Vital Signs: Vital Signs: Last Vital Signs Temp 98.8 F 12/18/21 19:31 Pulse 70 12/18/21 19:31 Resp 18 12/18/21 19:31 BP 146/67 H 12/18/21 19:31 Pulse Ox 95 12/18/21 19:31 O2 Del Method 12/18/21 19:31 O2 Flow Rate 2 12/17/21 23:18 BMI result Body Mass Index 37.4 Const: General: cooperative HEENT: Mouth: Normal oral and palatal mucosa present Eyes: Pupils: Equal, round and reactive pupils present Resp: Effort & Inspection: normal respiratory effort Cardio: Rate: regular rate Rhythm: regular rhythm GI: Palpation (GI): Soft to palpation and nontender Neuro: Cranial nerves: Yes Equal, round and reactive pupils present Results Labs CBC & Chem 7: 12/18/21 06:08 12/18/21 06:08 Labs: Short CBC 12/18/21 Range/Units 06:08 WBC 8.6 (4.8-10.8) X10*3/uL Hgb 11.5 L (12.0-16.0) g/dl Hct 35.9 L (37.0-47.0) % Plt Count 234 (160-400) X10*3/uL BMP 12/18/21 06:08 Sodium 139 Potassium 4.1 Chloride 104 Carbon Dioxide 29 BUN 9 Creatinine 0.74 Calcium 8.2 L Microbiology Microbiology Results: Microbiology 12/17/21 14:08 Blood - Venous Blood Culture - Preliminary No growth after 24 hours. 12/17/21 14:08 Blood - Venous Blood Culture - Preliminary No growth after 24 hours. 12/17/21 Unknown Urine clean catch - Urine hoang top Urine Culture - Preliminary Culture in progress. Assessment and Plan (1) Weakness: Status: Acute (2) Leukocytosis: Qualifiers: Leukocytosis type: unspecified Qualified Code(s): D72.829 - Elevated white blood cell count, unspecified Status: Acute She has dysuria and recent resistant UTI. She has urine culture pending. (3) Acute UTI: Status: Acute Plan Continue Merem awaiting results of above. Await urine culture and adjust antibiotics accordingly.
[2021-12-18] MEDS: traZODone HCL 100 MG TABLET 300 MG PO (23:00)
[2021-12-19] MEDS: Omeprazole 40 MG CAPSULE.DR PO (05:21)
[2021-12-19 07:10] LABS: Anion Gap 10 (12-20); Blood Urea Nitrogen 9 mg/dL (9-16); Calcium 8.5 mg/dL (8.4-10.2); Carbon Dioxide 29 mmol/L (22-29); Chloride 104 mmol/L (96-108); Creatinine Clr Calc Pharmacy 71.6; Estimated Glomerular Filt Rate > 60; Glucose Random 209 mg/dL (60-115); Magnesium 1.7 mg/dL (1.6-2.6); Sodium 139 mmol/L (135-145)
[2021-12-19 07:31] VITALS: BP 163/85; PULSE 64; RESP 18; TEMP 36.6; O2SAT 94
[2021-12-19] MEDS: Furosemide 20 MG TABLET PO (07:43)
[2021-12-19] MEDS: Gabapentin 100 MG CAPSULE 200 MG PO ×3 (07:43→22:17)
[2021-12-19] MEDS: Celecoxib 200 MG CAPSULE PO (07:43)
[2021-12-19] MEDS: FLUoxetine HCl 20 MG CAPSULE 40 MG PO (07:43)
[2021-12-19] MEDS: Insulin Glargine,Hum.rec.anlog 100 UNIT/ML 10 ML VIAL 20 UNIT SUBCUT (07:44)
[2021-12-19] MEDS: Metoclopramide HCl 5 MG TABLET PO (07:44)
[2021-12-19] MEDS: lisinopriL 5 MG TABLET PO (07:44)
[2021-12-19] MEDS: Insulin Lispro 100 UNIT/ML 3 ML VIAL SUBCUT ×4 (07:45→22:18)
[2021-12-19] MEDS: 0.9 % Sodium Chloride Flush 3 ML SYRINGE IVFLUSH ×3 (07:45→22:18)
[2021-12-19] MEDS: Fluticasone Propionate Nasal 16 GM SPRAY 1 SPRAY NOSTRIL-B (07:45)
[2021-12-19 07:46] LABS: Glucose, Whole Blood 196 mg/dL (60-115)
[2021-12-19] MEDS: oxyCODONE HCl Immed Release 5 MG TABLET PO ×3 (07:47→22:18)
[2021-12-19 11:55] LABS: Glucose, Whole Blood 173 mg/dL (60-115)
[2021-12-19] MEDS: cefTRIAXone sodium 1 GM in 0.9 % Sodium Chloride 50 ML IV (12:04)
[2021-12-19 15:46] VITALS: BP 168/71; PULSE 73; RESP 18; TEMP 37; O2SAT 96
[2021-12-19 16:44] LABS: Glucose, Whole Blood 198 mg/dL (60-115)
[2021-12-19] MEDS: fentaNYL 75 MCG PATCH.TD72 TRANSDERMA (17:00)
[2021-12-19] MEDS: Enoxaparin Sodium 40 MG/0.4 ML SYRINGE SUBCUT (17:01)
[2021-12-19 19:00] LABS: Glucose, Whole Blood 276 mg/dL (60-115)
[2021-12-19] MEDS: traZODone HCL 100 MG TABLET 300 MG PO (22:18)
[2021-12-20] VITALS: BP 167/94; PULSE 76; RESP 20; TEMP 36.8; O2SAT 93
[2021-12-20] MEDS: Omeprazole 40 MG CAPSULE.DR PO (06:07)
[2021-12-20 07:18] LABS: Anion Gap 11 (12-20); Blood Urea Nitrogen 9 mg/dL (9-16); Calcium 8.8 mg/dL (8.4-10.2); Carbon Dioxide 28 mmol/L (22-29); Chloride 103 mmol/L (96-108); Creatinine Clr Calc Pharmacy 76.9; Estimated Glomerular Filt Rate > 60; Glucose Random 145 mg/dL (60-115); Potassium 3.6 mmol/L (3.3-5.1); Sodium 138 mmol/L (135-145)
[2021-12-20 07:35] VITALS: PULSE 72; RESP 18; O2SAT 95
[2021-12-20] MEDS: Fluticasone/Vilanterol 100/25 BLST.W.DEV 1 PUFF INHALE (07:35)
--- NOTE | 2021-12-20 07:38 | HO.PM.IMPN ---
Subjective Subjective Date of Service: 12/19/21 Interval History: Late entry the patient was seen and evaluated this morning Laying in bed, feels comfortable Denies any fever, chills or shortness of breath No reported other overnight events. Systemic review: No fever, chills but has weakness No chest pain, palpitation No shortness of breath or coughing No abdominal pain, nausea or vomiting No urinary symptoms No any rash or wounds Physical Exam Vital Signs: Vital Signs: Last Vital Signs Temp 98.3 F 12/20/21 00:00 Pulse 72 12/20/21 07:35 Resp 18 12/20/21 07:35 BP 167/94 H 12/20/21 00:00 Pulse Ox 93 12/20/21 00:00 O2 Del Method 12/20/21 00:00 O2 Flow Rate 2 12/17/21 23:18 BMI result Body Mass Index 37.4 Const: Other: Constitutional : Alert , more interactive, not in distress Neck : Normal inspection, Supple Cardiovascular : RRR, no JVP, no lower extremity edema Respiratory : fair bilateral air entry, no crackles, wheezes or rhonchi Gastrointestinal: soft, lax, Normal bowel sounds, Non tender Skin : Warm, Dry Neurological : Alert & oriented to self and place, No focal deficit Objective Data Active Medications Acetaminophen (Acetaminophen 325 Mg Tablet) 650 mg PO Q6H PRN PRN Reason: Pain, Mild (Pain Scale 1-3) Last Admin: 12/18/21 08:47 Dose: 650 mg Documented By: CUONG Albuterol Sulfate (Albuterol Sulfate 90 Mcg 8 Gm Inhaler) 1 puff INHALE Q4H PRN PRN Reason: Shortness Of Breath Baclofen (Baclofen 10 Mg Tablet) 10 mg PO Q8H PRN PRN Reason: Muscle Spasm Last Admin: 12/18/21 08:47 Dose: 10 mg Documented By: CUONG Celecoxib (Celecoxib 200 Mg Capsule) 200 mg PO DAILY [facility] Last Admin: 12/19/21 07:43 Dose: 200 mg Documented By: GOOD Enoxaparin Sodium (Enoxaparin Sodium 40 Mg/0.4 Ml Syringe) 40 mg SUBCUT Q24H [facility] Last Admin: 12/19/21 17:01 Dose: 40 mg Documented By: GOOD Fentanyl (Fentanyl 75 Mcg Patch.Td72) 75 mcg TRANSDERMA Q72H [facility] Last Admin: 12/19/21 17:00 Dose: 75 mcg Documented By: GOOD Fluoxetine HCl (Fluoxetine Hcl 20 Mg Capsule) 40 mg PO DAILY [facility] Last Admin: 12/19/21 07:43 Dose: 40 mg Documented By: GOOD Fluticasone Propionate (Fluticasone Propionate Nasal 16 Gm [place]) 1 spray NOSTRIL-B DAILY [facility] Last Admin: 12/19/21 07:45 Dose: 1 spray Documented By: GOOD Fluticasone/Vilanterol (Fluticasone/Vilanterol 100/25 Blst.W.Dev) 1 puff INHALE RDAILY [facility] Last Admin: 12/20/21 07:35 Dose: 1 puff Documented By: TRAE Furosemide (Furosemide 20 Mg Tablet) 20 mg PO DAILY [facility]; Protocol Last Admin: 12/19/21 07:43 Dose: 20 mg Documented By: GOOD Gabapentin (Gabapentin 100 Mg Capsule) 200 mg PO TID [facility] Last Admin: 12/19/21 22:17 Dose: 200 mg Documented By: SACHA Ceftriaxone Sodium 1 gm/ (Sodium Chloride) 50 mls @ 100 mls/hr IV Q24H [facility] Last Infusion: 12/19/21 13:00 Dose: 0 mls/hr Documented By: GOOD Insulin Glargine (Insulin Glargine,Hum.Rec.Anlog 100 Unit/Ml 10 Ml Vial) 20 unit SUBCUT DAILY [facility] Last Admin: 12/19/21 07:44 Dose: 20 unit Documented By: GOOD Insulin Human Lispro (Insulin Lispro 100 Unit/Ml 3 Ml Vial) 0 unit SUBCUT QIDACHS [facility]; Protocol Last Admin: 12/19/21 22:18 Dose: 6 unit Documented By: SACHA Lisinopril (Lisinopril 5 Mg Tablet) 5 mg PO DAILY [facility]; Protocol Last Admin: 12/19/21 07:44 Dose: 5 mg Documented By: GOOD Metoclopramide HCl (Metoclopramide Hcl 5 Mg Tablet) 5 mg PO DAILY [facility] Last Admin: 12/19/21 07:44 Dose: 5 mg Documented By: GOOD Omeprazole (Omeprazole 40 Mg Capsule.Dr) 40 mg PO DAILY@0630 [facility] Last Admin: 12/20/21 06:07 Dose: 40 mg Documented By: SACHA Ondansetron HCl (Ondansetron Hcl 4 Mg/2 Ml Vial) 4 mg IVPUSH Q8H PRN PRN Reason: Nausea and Vomiting Oxycodone HCl (Oxycodone Hcl Immed Release 5 Mg Tablet) 5 mg PO Q6H PRN PRN Reason: Pain (Scale Score 4-6) Last Admin: 12/19/21 22:18 Dose: 5 mg Documented By: SACHA Pharmacy Consult (Consult Rx Perform Med Rec) 1 each MISCELLANE ONCE PRN PRN Reason: Consult order Sodium Chloride (0.9 % Sodium Chloride Flush 3 Ml Syringe) 3 ml IVFLUSH QSHIFT [facility] Last Admin: 12/19/21 22:18 Dose: 3 ml Documented By: SACHA Trazodone HCl (Trazodone Hcl 100 Mg Tablet) 300 mg PO BEDTIME [facility] Last Admin: 12/19/21 22:18 Dose: 300 mg Documented By: SACHA Labs CBC & Chem 7: 12/18/21 06:08 12/20/21 05:42 Labs: Laboratory Results - last 24 hr 12/19/21 12/19/21 12/19/21 07:30 11:45 16:37 Anion Gap Estim Creat Clear Calc Estimated GFR POC Glucose 196 H 173 H 198 H Random Glucose Calcium 12/19/21 12/20/21 18:56 05:42 Anion Gap 11 L Estim Creat Clear Calc 76.9 Estimated GFR > 60 POC Glucose 276 H Random Glucose 145 H Calcium 8.8 Microbiology Microbiology Results: Microbiology 12/17/21 14:08 Blood Culture - Preliminary Blood - Venous No growth after 48 hours. 12/17/21 14:08 Blood Culture - Preliminary Blood - Venous No growth after 48 hours. 12/17/21 Unknown Urine Culture - Final Urine clean catch - Urine hoang top Assessment and Plan (1) Weakness: Status: Acute (2) Leukocytosis: Status: Acute (3) Acute UTI: Status: Acute (4) Hypomagnesemia: Status: Acute Plan a 66 years old female with PMH of HTN, COPD, diabetes, asthma, ERIKA, chronic pain on fentanyl, recurrent UTIs who presents to the hospital complaining of increased weakness and sleepiness for the last week. ESBL E coli UTI continue meropenem U.cx growing mix bacteria Pending blood cultures ID evaluation weakness physical therapy evaluation Treat underlying infection Hypomagnesemia Replacement given Follow the levels Type 2 diabetes Continue SSI, diabetic diet Lantus 20 units in the morning Hold p.o. meds Chronic pain continue home medications of fentanyl and oxycodone DVT PPX Lovenox The patient will need overnight hospital stay for treatment of acute infection pending ID evaluation to prevent possible decompensation in to sepsis. Quality Stroke Does the patient have a stroke diagnosis?: No VTE Prior VTE?: No VTE Risk Level:: Medical - moderate - high VTE Device Contraindication: Treatment Not Indicated VTE Drug Contraindication: N/A - Med Ordered
[2021-12-20 08:00] VITALS: BP 191/88; PULSE 73; RESP 18; TEMP 36.4; O2SAT 95
[2021-12-20 08:04] VITALS: BP 191/88; PULSE 73; RESP 18; TEMP 36.4; O2SAT 95
[2021-12-20] MEDS: Furosemide 20 MG TABLET PO (08:04)
[2021-12-20] MEDS: Gabapentin 100 MG CAPSULE 200 MG PO (08:05)
[2021-12-20] MEDS: Insulin Glargine,Hum.rec.anlog 100 UNIT/ML 10 ML VIAL 20 UNIT SUBCUT (08:05)
[2021-12-20] MEDS: lisinopriL 5 MG TABLET PO ×2 (08:05→11:31)
[2021-12-20] MEDS: 0.9 % Sodium Chloride Flush 3 ML SYRINGE IVFLUSH (08:05)
[2021-12-20] MEDS: Metoclopramide HCl 5 MG TABLET PO (08:05)
[2021-12-20] MEDS: Celecoxib 200 MG CAPSULE PO (08:05)
[2021-12-20] MEDS: Insulin Lispro 100 UNIT/ML 3 ML VIAL SUBCUT ×2 (08:05→10:56)
[2021-12-20] MEDS: FLUoxetine HCl 20 MG CAPSULE 40 MG PO (08:05)
[2021-12-20] MEDS: oxyCODONE HCl Immed Release 5 MG TABLET PO ×2 (08:07→13:24)
[2021-12-20] MEDS: Fluticasone Propionate Nasal 16 GM SPRAY 1 SPRAY NOSTRIL-B (08:11)
[2021-12-20 08:36] LABS: Glucose, Whole Blood 190 mg/dL (60-115)
--- NOTE | 2021-12-20 09:02 | MHC.CM.PN ---
Addendum entered by Evelyn Berger 12/20/21 11:34: TRANSPORT REQUESTED FOR 1200 HOURS HOWEVER [facility] HAS INDICATED THEY ARE UNABLE TO TRANSPORT PRIOR TO [id number] HOURS. [facility] Original Note: PT CLEARED TO DC TODAY UPDATES AND INTENT TO DC SENT TO [facility]. AWAITING RESPONSE TO COORDINATE DC TIME
[2021-12-20 10:53] VITALS: BP 172/93; PULSE 72; RESP 18; TEMP 36.8; O2SAT 95
[2021-12-20] MEDS: cefTRIAXone sodium 1 GM in 0.9 % Sodium Chloride 50 ML IV (10:57)
[2021-12-20 11:15] LABS: Glucose, Whole Blood 219 mg/dL (60-115)
--- NOTE | 2021-12-20 11:20 | P.DS_ITS ---
DS: Providers Provider Date of Service: 12/20/21 Date of admission: 12/17/21 16:06 Primary care physician: Unknown Physician Consults: 12/17/21 16:10 Consult to Infectious Diseases Routine Consulting Provider: Chrissy Gates Reason for consultation: history ESBL E coli previously DS: Diagnosis Discharge Diagnosis (1) Weakness: Status: Acute (2) Leukocytosis: Status: Acute (3) Acute UTI: Status: Acute (4) Hypomagnesemia: Status: Acute DS: Summary Hospital Course Hospital Course: Admission note HPI ?a 66 years old female with PMH of HTN, COPD, diabetes, asthma, ERIKA, chronic pain on fentanyl, recurrent UTIs who presents to the hospital complaining of increased weakness and sleepiness for the last week.? The patient reports that she has been feeling more tired with no energy and feeling like sleepy all the time stable most of the day for the last week or so. ? Denies any fever or chills but reported decreased oral intake in feeling and well with associated bilateral lower extremities edema and mild pain to the left leg. Denies any chest pain, palpitation, shortness of breath, nausea, vomiting, change in bowel habit but reported feeling of urine infection.? She was recently discharged from the hospital for treatment of UTI.? Has been on Macrobid suppressive therapy at home.? Last urine infection grew ESBL E coli.? Admitted for further evaluation and treatment. Hospital course The patient was admitted to the hospital for evaluation of increased weakness. Found to have evidence of urinary tract infection that was treated with IV antibiotics of meropenem given her history of ESBL E coli infection before. Her urine culture grew mixed bacteria as the patient was evaluated by infectious disease specialist who recommended discharging her on 1 week of Augmentin. The patient has already an appointment with infectious disease to follow regarding her recurrent UTIs. Her blood pressure was noted to be elevated. Lisinopril increased to 10 mg from 5. To be monitored at the facility after discharge. Her magnesium level was noted to be low at time of presentation. Corrected with replacement as repeated readings were within normal. Continue Augmentin for 1 more week To follow-up with infectious disease as scheduled Time Spent with Patient Time attestation: Total time spent providing and/or coordinating discharge services: Discharge coordination time: Greater than 30 minutes Quality: Safe Use of Opioids Does Pt have an Active Cancer Diagnosis on the Problem List?: No Quality: Stroke Does the patient have a stroke diagnosis?: No Physical Exam Vital Signs: Vital Signs: Last Vital Signs Temp 98.2 F 12/20/21 10:53 Pulse 72 12/20/21 10:53 Resp 18 12/20/21 10:53 BP 172/93 H 12/20/21 10:53 Pulse Ox 95 12/20/21 10:53 O2 Del Method 12/20/21 10:53 O2 Flow Rate 2 12/17/21 23:18 BMI result Body Mass Index 37.4 Const: Other: Constitutional : Alert , more interactive, not in distress Neck : Normal inspection, Supple Cardiovascular : RRR, no JVP, no lower extremity edema Respiratory : fair bilateral air entry, no crackles, wheezes or rhonchi Gastrointestinal: soft, lax, Normal bowel sounds, Non tender Skin : Warm, Dry Neurological : Alert & oriented to self and place, No focal deficit DS: Data Data Completed and Pending Labs on day of discharge: Laboratory Results - last 24 hr 12/19/21 12/19/21 12/19/21 11:45 16:37 18:56 Sodium Potassium Chloride Carbon Dioxide Anion Gap BUN Creatinine Estim Creat Clear Calc Estimated GFR POC Glucose 173 H 198 H 276 H Random Glucose Calcium 12/20/21 12/20/21 12/20/21 05:42 08:00 10:52 Sodium 138 Potassium 3.6 Chloride 103 Carbon Dioxide 28 Anion Gap 11 L BUN 9 Creatinine 0.80 Estim Creat Clear Calc 76.9 Estimated GFR > 60 POC Glucose 190 H 219 H Random Glucose 145 H Calcium 8.8 Preliminary micro results at discharge 12/17/21 14:08 Blood Culture - Preliminary Blood - Venous No growth after 48 hours. 12/17/21 14:08 Blood Culture - Preliminary Blood - Venous No growth after 48 hours. Discharge Plan Discharge Patient Disposition: Xfer [facility] Discharge Diagnosis: Urinary tract infection Referrals: Physician,Unknown J [Primary Care Provider] - 1 Week Discharge Medications: New amoxicillin-pot clavulanate 875-125 mg tablet 1 tab PO BID Qty: 14 0RF Continued celecoxib [Celebrex] 200 mg Capsule 200 mg PO DAILY fluoxetine [Prozac] 40 mg Capsule 40 mg PO DAILY metformin 500 mg Tablet 1,000 mg PO BIDWM metoclopramide HCl [Reglan] 5 mg Tablet 5 mg PO DAILY albuterol sulfate [Ventolin HFA] 90 mcg/actuation Hfa Aerosol Inhaler 1 puff INHALATION Q4H PRN (Reason: Shortness Of Breath) fluticasone propionate 50 mcg/actuation [place],Suspension 1 spray INTRANASAL DAILY glipizide 5 mg Tablet 10 mg PO BIDAC fluticasone furoate-vilanterol [Breo Ellipta] 100-25 mcg/dose Blister With Device 1 puff inhalation RDAILY Qty: 1 0RF baclofen 10 mg Tablet 10 mg Q8H PRN (Reason: Muscle Spasm) Humalog U-100 Insulin 100 unit/mL Cartridge See Protocol QIDACHS Protocol: Insulin Correction Scale Less than or equal to 110 ---- Give (units): 0 111 to 150 Give (units): 0 151 to 200 Give (units): 0 201 to 250 Give (units): 2 251 to 300 Give (units): 4 301 to 350 Give (units): 6 Greater than 350 Give (units): 8 Call MD if Blood Glucose > : 350 furosemide [Lasix] 20 mg Tablet 20 mg PO DAILY Levemir U-100 Insulin 100 unit/mL Solution 22 unit SUBCUT DAILY lansoprazole [Prevacid 24Hr] 15 mg Capsule,Delayed Release(Dr/Ec) 15 mg PO DAILY lisinopril 5 mg Tablet 5 mg PO DAILY oxycodone 5 mg Tablet 5 mg PO BID PRN (Reason: Pain (Scale Score 4-6)) gabapentin 400 mg Capsule 400 mg PO TID acetaminophen 325 mg Tablet 650 mg PO Q4H PRN (Reason: PAIN/FEVER) fentanyl 75 mcg/hr Patch 72 Hour 75 mcg transdermal Q72H Qty: 5 0RF trazodone 150 mg tablet 300 tab PO BEDTIME Discharge Orders: Discharge Order (Routine); Ordered 12/20/21 Ordered By: Courtney Gillespie Diet: advance to usual diet Activity on Discharge: As tolerated Stand Alone Forms: Patient Portal Discharge page Care Plan Goals: Read below Health Concerns: Read below Plan of Treatment: Continue Augmentin for 1 more week To follow-up with infectious disease as scheduled Assessment: You were admitted to the hospital for evaluation of weakness. Found urinary tract infection that was treated with IV antibiotics with good response over the course of hospital stay as you were evaluated by infectious disease specialist. Your urine culture grew mixed bacteria.
== END 2021-12-20 16:38 | disposition skilled nursing facility (03) | DRG 690 ==
LOC: HO.ED 14:34 → HO.EDOVER 16:35 → HO.S3 17:24
PROVIDERS: Admitting Provider Student in an Organized Health Care Education/Training Program; Emergency Provider Emergency Medicine; Visit Provider Student in an Organized Health Care Education/Training Program
DX: N39.0 Urinary tract infection, site not specified (principal); D72.829 Elevated white blood cell count, unspecified; E11.9 Type 2 diabetes mellitus without complications; F17.210 Nicotine dependence, cigarettes, uncomplicated; E83.42 Hypomagnesemia; G47.33 Obstructive sleep apnea (adult) (pediatric); Z20.822 Contact with and (suspected) exposure to COVID-19; Z87.440 Personal history of urinary (tract) infections; G89.29 Other chronic pain; Z99.3 Dependence on wheelchair; Z71.6 Tobacco abuse counseling; Z88.5 Allergy status to narcotic agent; Z88.6 Allergy status to analgesic agent; Z79.2 Long term (current) use of antibiotics; Z79.4 Long term (current) use of insulin; Z79.51 Long term (current) use of inhaled steroids; Z79.84 Long term (current) use of oral hypoglycemic drugs; Z79.899 Other long term (current) drug therapy
CPT/HCPCS: 36415; 71045; 80048; 80076; 81001; 82803; 82947; 83605; 83690; 83735; 83880; 84484; 85025; 85027; 85610; 85730; 87040; 87086; 87635; 93005; 93970; 94640; 94664; 96365; 96367; 97162; 99285; J0696; J1335; J1650; J2185; J3475

== ENCOUNTER 2022-06-11 10:51 | Inpatient (IN) | payer MEDICARE, MEDICAID, SELFPAY ==
[2022-06-11] VITALS (8 sets, daily range): BP systolic 125–198; BP diastolic 60–92; PULSE 77–140; RESP 16–22; TEMP 36.8–36.9; O2SAT 93–96; BMI 24.1
--- NOTE | ~2022-06-11 | XR_ITS ---
EXAMINATION: XR CHEST CLINICAL INFORMATION: Chest pain. COMPARISON: 02/17/2020 chest radiograph. TECHNIQUE: 2 views of the chest were obtained. FINDINGS: There is mild elevation of the left hemidiaphragm. The lungs are clear. There are no pleural effusions. The heart and mediastinal structures are unremarkable. XR/XR chest 2V IMPRESSION: No acute cardiopulmonary process.
--- NOTE | ~2022-06-11 | CT_ITS ---
EXAMINATION: CT ABDOMEN AND PELVIS WITH CONTRAST CLINICAL INFORMATION: Flank pain. Question pyelonephritis. COMPARISON: Previous CT July 2020 TECHNIQUE: Multidetector volumetric images were obtained from the superior aspect of the liver through the pubic symphysis following administration 85 mL of Omnipaque 350 intravenous contrast. Sagittal and coronal reformatted images were obtained on the technologist's workstation. Oral contrast: Yes This CT examination was performed using dose optimization techniques as appropriate, variously including the following: *Automated exposure control *Adjustment of mA and/or kV according to patient size (this includes techniques or standardized protocols for targeted exams where dose is matched to indication/reason for exam; i.e. extremities or head) *Use of iterative reconstruction technique DLP: 813 mGy-cm FINDINGS: LUNG BASES: There is question of increased soft tissue in the right hilum. LIVER, GALLBLADDER, AND BILIARY TREE: The liver is normal in size, shape, and attenuation. No focal hepatic lesion or biliary ductal dilatation is present. The gallbladder is unremarkable with no evidence of radiopaque gallstones, gallbladder wall thickening, or obvious pericholecystic inflammatory changes. PANCREAS: Mild atrophic changes of the pancreas. Small calcification suggestive of chronic pancreatitis. SPLEEN: Unremarkable. ADRENAL GLANDS: Unremarkable. KIDNEYS AND URETERS: Multiple right renal calcifications probably representing a combination of vascular calcifications and small stones. Largest stone measures 3 mm in the lower pole. No evidence of hilar nephritis. No hydronephrosis, ureteral dilatation or ureteral stone. BLADDER: Not optimally distended but appears unremarkable. GASTROINTESTINAL TRACT: There is gastric wall thickening. There is diverticulosis of the colon. No evidence of diverticulitis. ABDOMINAL WALL: No significant hernia is appreciated. LYMPH NODES: There is an enlarged lymph nodes adjacent to the head of the pancreas distal stomach and periportal region measuring 1.6 x 4 cm. VASCULAR: Unremarkable. PELVIC VISCERA: There is low-attenuation in the uterus suggestive of endometrial fluid or thickening. Endometrial thickness measures 1.6 cm. OSSEOUS STRUCTURES: Postsurgical changes to the lower lumbar spine with posterior fusion hardware at L3-L4. Degenerative changes. Lucency in the bilateral iliac bones probably related to bone harvest donor site CT/CT abdomen pelvis w IV con IMPRESSION: Left renal calcifications probably representing a combination of vascular calcifications and small stone. No evidence of pyelonephritis. Abnormal wall thickening of the stomach and enlarged lymph nodes. Follow-up endoscopy and biopsy should be considered. Low-attenuation in the uterus suggestive of endometrial fluid or thickening. Follow-up pelvic ultrasound recommended. Prominent soft tissue in the right inferior hilar region. Follow-up chest CT should be considered. Diverticulosis. Fleischner guidelines were followed.
--- NOTE | ~2022-06-11 | US_ITS ---
EXAMINATION: US PELVIS CLINICAL INFORMATION: Endometrial thickening. Adenopathy. COMPARISON: Previous CT of the abdomen and pelvis from yesterday TECHNIQUE: Ultrasound of the pelvis is performed using both transabdominal and transvaginal transducers along with Doppler. Transvaginal imaging is performed due to inadequate visualization transabdominally. FINDINGS: The uterus is anteverted and measures 6 x 3.9 x 4.8 cm in dimension. There is fluid in the endometrial cavity. Anterior and posterior single thickness endometrium measures 0.3 cm. No focal uterine lesion. The ovaries are normal. The right ovary measures 1.6 x 1.5 x 1.7 cm and the left ovary measures 1.9 x 1.2 x 1.3 cm. There is a small amount of fluid in the pelvis. US/US pelvic and transvaginal IMPRESSION: Fluid-filled endometrium. Double thickness endometrium measures 0.6 cm which is minimally thickened for a postmenopausal patient. DRUM SANDER consultation recommended.
--- NOTE | ~2022-06-11 | CT_ITS ---
EXAMINATION: CT CHEST WITH CONTRAST CLINICAL INFORMATION: Follow-up abnormal right hilum COMPARISON: Previous chest x-rays most recent 06/11/[address] July 2020 and lung windows from abdominal and pelvic CT 06/12/2022 TECHNIQUE: Multidetector volumetric CT imaging of the chest was obtained after the administration of 65 mL of Omnipaque 350 intravenous contrast without immediate adverse reactions. Axial MIP volume rendering provided. Sagittal and coronal reformatted images were obtained. This CT examination was performed using dose optimization techniques as appropriate, variously including the following: *Automated exposure control *Adjustment of mA and/or kV according to patient size (this includes techniques or standardized protocols for targeted exams where dose is matched to indication/reason for exam; i.e. extremities or head) *Use of iterative reconstruction technique DLP: 472 mGy-cm FINDINGS: LUNGS: There is an irregularly-shaped density seen in the anterior central right lower lobe/infrahilar region abutting the major fissure. This measures approximately 3 cm for example axial image 224 series 5. This appears unchanged from previous abdominal and pelvic CT from earlier this month. This is new from prior chest CT. There are multiple small pulmonary nodules. These are similar to July 2020 exam. Largest pulmonary nodules are a 3 mm right middle lobe nodule axial image 220 series 5 and a 5 mm peripheral or subpleural left lower lobe nodule axial image 243 series 5. There is a 1 cm cyst in the right lower lobe. MEDIASTINUM: There is diffuse mediastinal and bilateral hilar lymphadenopathy. It is uncertain whether the right central left lower lobe lesion represents enlarged hilar lymph node. Largest lymph nodes are in the right hilar region measuring 1 cm. Upper normal-size heart. Severe coronary artery calcification. No pericardial effusion. Aortic valve calcification. Normal caliber thoracic aorta. PLEURA: There is no pleural effusion. No pleural mass or thickening. AXILLA: Bilateral axillary lymph nodes and retropectoral lymph nodes. Largest lymph nodes are upper normal in size. Question low-attenuation subcutaneous right breast lesion measuring 1 cm axial image 37 series 3. This may represent a sebaceous cyst. UPPER ABDOMEN: There is again suggestion of wall thickening of. There are enlarged lymph nodes adjacent to the distal stomach and head of the pancreas and periportal region. Other stable upper abdominal findings left renal stones pancreatitis. OSSEOUS STRUCTURES: Unremarkable. CT/CT chest w IV con IMPRESSION: Stable central right lower lobe or infrahilar lesion. Differential would include an enlarged hilar lymph node, mass and infiltrate. Diffuse mediastinal and hilar lymphadenopathy. Diffuse bilateral axillary lymphadenopathy. Stable upper abdominal findings. Constellation of chest and abdominal findings makes lymphoma a consideration. Tissue sampling or PET CT scan should be considered. Fleischner guidelines were followed. Findings communicated by the [place] work flow rock wool applicator.
--- NOTE | 2022-06-11 11:12 | ED_ITS ---
HPI - General Adult General Chief complaint: Nausea/Vomiting/Diarrhea Stated complaint: n/v/d, No eating x1 week per EMS Time Seen by Provider: 06/11/22 11:11 Source: patient and EMS Mode of arrival: EMS Limitations: no limitations History of Present Illness HPI narrative: Patient is a 67 year old assigned female at with a history of multiple back surgeries presenting to the emergency department today with persistent dizziness, nausea, and vomiting. Patient states that for the last few months she has had intermittent dizziness, nausea, and vomiting. Patient states that she thought it was the chronic UTI she has been battling since last summer. Patient denies any lightheadedness, abdominal pain, fever, chills, blurry vision, double vision, loss of vision, chest pain, difficulty breathing, shortness of breath, back pain, night sweats, pain with urination, increased urinary frequency, increased urinary urgency, blood in her urine or stool, syncope or a near syncopal episode, recent trauma or falls, bowel incontinence, bladder incontinence, bowel retention, bladder retention, or any other complaints at this time. Severity: mild Severity scale (1-10): 3 Relieving factors: none Exacerbating factors: none Associated symptoms: nausea/vomiting Treatments prior to arrival: none Related Data Home Medications Medication Instructions Recorded Confirmed albuterol sulfate 90 mcg/actuation 1 puff inhalation Q4H PRN 07/26/20 06/11/22 aerosol inhaler (Ventolin HFA) Shortness Of Breath celecoxib 200 mg capsule (Celebrex) 200 mg PO DAILY 07/26/20 06/11/22 fluoxetine 40 mg capsule (Prozac) 40 mg PO DAILY 07/26/20 06/11/22 fluticasone propionate 50 1 spray intranasal DAILY 07/26/20 06/11/22 mcg/actuation nasal spray,suspension glipizide 5 mg tablet 10 mg PO BIDAC 07/26/20 06/11/22 metformin 500 mg tablet 1,000 mg PO BIDWM 07/26/20 06/11/22 metoclopramide HCl 5 mg tablet 5 mg PO DAILY 07/26/20 06/11/22 (Reglan) acetaminophen 325 mg tablet 650 mg PO Q4H PRN PAIN/FEVER 11/21/21 06/11/22 baclofen 10 mg tablet 10 mg Q8H PRN Muscle Spasm 11/21/21 06/11/22 furosemide 20 mg tablet (Lasix) 20 mg PO DAILY 11/21/21 06/11/22 gabapentin 400 mg capsule 400 mg PO TID 11/21/21 06/11/22 insulin detemir U-100 100 unit/mL 25 unit subcut DAILY 11/21/21 06/11/22 subcutaneous solution (Levemir U-100 Insulin) insulin lispro 100 unit/mL See Protocol QIDACHS 11/21/21 06/11/22 subcutaneous cartridge (Humalog U-100 Insulin) lansoprazole 15 mg capsule,delayed 15 mg PO DAILY 11/21/21 06/11/22 release (Prevacid 24Hr) lisinopril 5 mg tablet 5 mg PO DAILY 11/21/21 06/11/22 oxycodone 5 mg tablet 5 mg PO Q4H PRN Pain (Scale Score 11/21/21 06/11/22 4-6) trazodone 150 mg tablet 300 tab PO BEDTIME 12/17/21 06/11/22 cholecalciferol (vitamin D3) 25 25 mcg PO DAILY 06/11/22 06/11/22 mcg (1,000 unit) tablet hydralazine 50 mg tablet 1 tab PO TID 06/11/22 06/11/22 levofloxacin 250 mg tablet 1 tab PO DAILY 06/11/22 06/11/22 magnesium citrate 150 ml PO DAILY PRN Constipation 06/11/22 06/11/22 methenamine hippurate 1 gram tablet 1 tab PO BID 06/11/22 06/11/22 methocarbamol 500 mg tablet 1,000 tab PO TID 06/11/22 06/11/22 Previous Rx's Medication Instructions Recorded fluticasone furoate 100 1 puff inhalation RDAILY #1 ea 07/30/20 mcg-vilanterol 25 mcg/dose inhalation powder (Breo Ellipta) fentanyl 75 mcg/hr transdermal 75 mcg transdermal Q72H pain #5 ea 11/23/21 patch Allergies Allergy/AdvReac Type Severity Reaction Status Date / Time aspirin [From PERCODAN] Allergy Unknown UNKNOWN Verified 12/17/21 17:40 egg [EGG] Allergy Unknown UNKNOWN Verified 12/17/21 17:40 oxycodone AdvReac Nausea Verified 12/17/21 17:40 From PERCODAN Allergy Unknown UNKNOWN Uncoded 12/17/21 17:40 Review of Systems Constitutional: Constitutional: Reports no additional constitutional complaints, Denies chills, Denies fever(s) and Denies night sweats Eyes: Eyes: Reports no additional eye complaints, Denies blurry vision, Denies change in vision, Denies diplopia, Denies eye discharge, Denies loss of vision and Denies eye pain ENT: Reports dizziness Cardiovascular: Cardiovascular: Reports no additional cardiovascular complaints, Denies chest pain, Denies lightheadedness, Denies Loss of Conscio usness and Denies dyspnea Respiratory: Respiratory: Reports no additional respiratory complaints and Denies dyspnea Gastrointestinal: Gastrointestinal: Reports no additional gastrointestinal complaints, Denies abdominal pain, Denies melena, Denies hematochezia, Denies change in bowel habits, Denies change in stool character, Reports nausea and Reports vomiting Genitourinary: Genitourinary: Denies hematuria, Denies urinary frequency, D enies dysuria, Denies urinary incontinence, Denies urinary hesitancy and Denies urinary urgency Musculoskeletal: Musculoskeletal: Reports no additional musculoskeletal complaints, Denies numbness and Denies tingling Neurologic: Reports dizziness, Denies loss of vision, Denies numbness and Denies tingling Psychiatric: Psychiatric: Reports no additional psychiatric complaints Endocrine: Endocrine: Reports no additional endocrine complaints Hematologic/Lymphatic: Hematologic/Lymphatic: Reports no additional hematologic/lymphatic complaints Allergic/Immunologic: Allergic/Immunologic: Reports no additional allergic/immunologic complaints [facility] Past Medical History Attestation statement: The following information was validated with the patient. Source: old records reviewed Medical History Bronchitis Chronic back pain Diabetes High cholesterol HTN (hypertension) UTI (urinary tract infection) Social History Social History Household Members: None Household Members Other:: roomate Housing: Residential Do you presently have visiting nurse or other home services: No Alcohol intake: never Patient Tobacco Use Status: Current everyday Tobacco user Tobacco use type: Cigarette Cigarettes Per Day: 8 Second Hand Smoke Exposure: Yes Advance Directives: Yes Advance Directives Information Provided: No Advance Directives on File: No service: No Current occupational status: unemployed Physical Exam ED Vital Signs: Vital Signs - 24 hr 06/11/22 11:03 06/11/22 12:03 06/11/22 14:00 Temperature 98.4 F 98.2 F Pulse Rate 79 140 H 121 H Respiratory Rate 16 18 18 Blood Pressure 136/72 198/89 H 139/69 Pulse Oximetry 96 93 95 Oxygen Delivery Method Room Air Room Air Room Air 06/11/22 14:36 06/11/22 16:07 Temperature 98.5 F Pulse Rate 103 H Respiratory Rate 20 Blood Pressure 127/68 126/60 Pulse Oximetry 95 Oxygen Delivery Method Room Air BMI result Body Mass Index 24.1 Const General: cooperative, no acute distress, alert and awake Nutritional Appearance: well nourished Orientation/consciousness: patient oriented x3 Limitations: no limitations HENMT Head: Yes normal to inspection and Yes atraumatic Ears: hearing grossly normal bilaterally and external ears normal General nose exam: Normal external nose present, no nasal discharge noted and no epistaxis Face and sinus: Yes normal facial exam, No abrasion and No laceration Mouth: Normal oral and palatal mucosa present, no drooling and no muffled voice Eyes General: appearance normal, both eyes and all related structures Periorbital: periorbital findings normal Eyelids: Yes eyelids normal Conjunctivae: conjunctivae normal Pupils: Equal, round and reactive pupils present EOM: EOMs intact bilaterally Neck Neck: Yes normal visual inspection, Yes full ROM and Yes no lymphadenopathy Chest Chest palpation & inspection: normal inspection of the chest Resp Effort & Inspection: normal respiratory effort and able to speak in complete sentences Auscultation: clear to auscultation bilaterally Cardio Rate: tachycardic Rhythm: abnormal rhythm irregularly irregular GI Inspection: Yes normal to inspection Palpation (GI): Soft to palpation, not firm, nontender, no guarding and not rigid Neuro General: patient oriented x3 and moves all extremities Cranial nerves: Yes Equal, round and reactive pupils present Cognition (Neuro): normal cognition Motor exam (neuro): 5/5 motor strength present throughout Sensory Exam: Normal double simultaneous stimulation for sensation Coordination: [id number] test normal Extrem General: Yes normal to inspection, Yes full ROM and Yes capillary refill normal Psych Appearance: grossly normal Mental Status: mental status grossly normal Affect: normal affect Attitude: cooperative Thought process: Normal thought process present Thought content: Normal thought content present Insight: Good insight present (Psych) Medications Administered Discontinued Medications Generic Name Dose Route Start Last Admin Trade Name Freq PRN Reason Stop Dose Admin Diltiazem HCl 10 mg 06/11/22 13:28 06/11/22 14:03 Diltiazem Hcl 50 Mg/10 Ml Vial IVPUSH 06/11/22 13:29 10 mg STAT STA Administration Sodium Chloride 1,000 mls @ 999 mls/hr 06/11/22 12:15 06/11/22 12:29 Ns IV 06/11/22 13:15 999 mls/hr .Q1H1M SHAMIKA Administration Magnesium Sulfate 2 gm in 50 mls @ 25 mls/hr 06/11/22 12:35 06/11/22 14:56 Magnesium Sulfate/H2o IV 06/11/22 14:34 Infused ONCE ONE Infusion Magnesium Oxide 800 mg 06/11/22 12:35 06/11/22 12:46 Magnesium Oxide 400 Mg Tablet PO 06/11/22 12:36 800 mg ONCE ONE Administration Metoprolol Tartrate 5 mg 06/11/22 12:13 06/11/22 12:29 Metoprolol Tartrate 5 Mg/5 Ml Vial IVPUSH 06/11/22 12:14 5 mg ONCE ONE Administration Ondansetron HCl 4 mg 06/11/22 12:13 06/11/22 12:29 Ondansetron Hcl 4 Mg/2 Ml Vial IVPUSH 06/11/22 12:14 4 mg ONCE ONE Administration Medical Decision Making Medical Decision Making [facility] Narrative: Patient is a 67 year old assigned female at with a history of multiple back procedures presenting to the emergency department today with intermittent dizziness, nausea and vomiting. Patient's physical exam showed atrial fibrillation with a rate range of 140-150. Patient's blood work showed a significantly low magnesium of <0.6. Patient's EKG showed atrial fibrillation with RVR. Patient's chest x-ray showed no acute process. I explained my physical exam findings as well as all test results to the patient. I answered all ques tions asked by the patient. Patient was given 5mg of IV lopressor and 1 liter of fluids. Patient's rate persisted in the 140s. Patient was given 10mg of cardizem which successfully decreased her rate. Patient was given IV magnesium and PO magnesium. I spoke to the hospitalist team who agreed to admission. Patient verbalized agreement and understanding with this treatment plan and admission. Differential Diagnoses: Differential diagnosis Differential Diagnosis: atrial fib with RVR, hypomagnesium Discussion of management with other physician/healthcare provider/other source (e.g., hospitalist, sr solutions consultant, behavioral health): Discussion w/other physician/healthcare provider Management of the patient was discussed with: Hospitalist Agreed to admission. Lab Attestation: I reviewed the patient's lab results. Independent interpretation of EKG, rhythm strip, radiology study: Independent interp EKG,rhythm strip, radiology study I performed an independent interpretation of the: EKG Vent. Rate: 115 BPM ? ? Atrial Rate: 000 BPM P-R Int: 000 ms? QRS Dur: 070 ms QT Int: 334 ms ? ? ? P-R-T Axes: 000 005 054 degrees QTc Int: 462 ms ? Atrial fibrillation with rapid ventricular response Nonspecific ST and T wave abnormality Abnormal ECG When compared with ECG of 17-DEC-2021 13:51, Atrial fibrillation has replaced Sinus rhythm Vent. rate has increased BY? 39 BPM Nonspecific T wave abnormality now evident in Lateral leads DD/ 1154 Discussion of test interpretation with radiology: Discussion of test interpretation with radiology This result was not discussed with the radiologist however, this is the radiologist's impression per their written report. EXAMINATION: XR CHEST CLINICAL INFORMATION: Chest pain. COMPARISON: 02/17/2020 chest radiograph. TECHNIQUE: 2 views of the chest were obtained. FINDINGS: There is mild elevation of the left hemidiaphragm. The lungs are clear. There are no pleural effusions. The heart and mediastinal structures are unremarkable. XR/XR chest 2V IMPRESSION: No acute cardiopulmonary process. Dictated By: El Preston MD Signed By: Electronically signed by El Preston MD 06/11/22 1340 Critical Care Time Critical Care Time Critical Care Time: Yes Total Critical Care Time: 30 Attestation: I spent 30 minutes of Critical Care Time with this patient. This does not include time spent on separately reported billable procedures. Discharge Plan Discharge Clinical Impression: Atrial fibrillation with RVR, Hypomagnesemia Patient Disposition: Admitted As Inpatient Prescriptions: No Action celecoxib [Celebrex] 200 mg Capsule 200 mg PO DAILY fluoxetine [Prozac] 40 mg Capsule 40 mg PO DAILY metformin 500 mg Tablet 1,000 mg PO BIDWM metoclopramide HCl [Reglan] 5 mg Tablet 5 mg PO DAILY albuterol sulfate [Ventolin HFA] 90 mcg/actuation Hfa Aerosol Inhaler 1 puff INHALATION Q4H PRN (Reason: Shortness Of Breath) fluticasone propionate 50 mcg/actuation [place],Suspension 1 spray INTRANASAL DAILY glipizide 5 mg Tablet 10 mg PO BIDAC fluticasone furoate-vilanterol [Breo Ellipta] 100-25 mcg/dose Blister With Device 1 puff inhalation RDAILY Qty: 1 0RF baclofen 10 mg Tablet 10 mg Q8H PRN (Reason: Muscle Spasm) Humalog U-100 Insulin 100 unit/mL Cartridge See Protocol QIDACHS Protocol: Insulin Correction Scale Less than or equal to 110 ---- Give (units): 0 111 to 150 Give (units): 0 151 to 200 Give (units): 0 201 to 250 Give (units): 2 251 to 300 Give (units): 4 301 to 350 Give (units): 6 Greater than 350 Give (units): 8 Call MD if Blood Glucose > : 350 furosemide [Lasix] 20 mg Tablet 20 mg PO DAILY Levemir U-100 Insulin 100 unit/mL Solution 25 unit SUBCUT DAILY lansoprazole [Prevacid 24Hr] 15 mg Capsule,Delayed Release(Dr/Ec) 15 mg PO DAILY lisinopril 5 mg Tablet 5 mg PO DAILY oxycodone 5 mg Tablet 5 mg PO Q4H PRN (Reason: Pain (Scale Score 4-6)) gabapentin 400 mg Capsule 400 mg PO TID acetaminophen 325 mg Tablet 650 mg PO Q4H PRN (Reason: PAIN/FEVER) fentanyl 75 mcg/hr Patch 72 Hour 75 mcg transdermal Q72H Qty: 5 0RF trazodone 150 mg tablet 300 tab PO BEDTIME methocarbamol 500 mg tablet 1,000 tab PO TID methenamine hippurate 1 gram tablet 1 tab PO BID hydralazine 50 mg tablet 1 tab PO TID magnesium citrate Solution 150 ml PO DAILY PRN (Reason: Constipation) cholecalciferol (vitamin D3) 25 mcg (1,000 unit) Tablet 25 mcg PO DAILY levofloxacin 250 mg tablet 1 tab PO DAILY
--- NOTE | 2022-06-11 11:12 | ECG_ITS ---
Test Reason : abd pain Blood Pressure : / mmHG Vent. Rate : 115 BPM Atrial Rate : 000 BPM P-R Int : 000 ms QRS Dur : 070 ms QT Int : 334 ms P-R-T Axes : 000 005 054 degrees QTc Int : 462 ms Atrial fibrillation with rapid ventricular response Nonspecific ST and T wave abnormality Abnormal ECG When compared with ECG of 17-DEC-2021 13:51, Atrial fibrillation has replaced Sinus rhythm Vent. rate has increased BY 39 BPM Nonspecific T wave abnormality now evident in Lateral leads Referred By: Adrianna Nance Electronically Signed By:HÉCTOR YOUNG MD
[2022-06-11 11:52] LABS: MANUAL DIFF FLAG NO
[2022-06-11 11:53] LABS: Basophils Absolute Auto 0.1 X10*3/uL (0.0-0.2); Basophils Percent Auto 0.5 % (0-2); Hematocrit 45.2 % (37.0-47.0); Hemoglobin 14.8 g/dl (12.0-16.0); Imm Gran Pct Auto 1.4 % (0.0-0.4); Lymphocytes Absolute Auto 2.1 X10*3/uL (1.2-4.9); Lymphocytes Percent Auto 14.3 % (20-40); Mean Corpuscular HGB Conc 32.7 g/dl (31.0-35.0); Mean Corpuscular Hemoglobin 29.4 pg (27.0-33.0); Mean Corpuscular Volume 89.9 fL (80.0-98.0); Mean Platelet Volume 9.2 fL (9.4-12.3); Monocytes Absolute Auto 0.9 X10*3/uL (0.1-1.2); Monocytes Percent Auto 6.4 % (2-11); Neutrophils Absolute Auto 11.1 x10*3/uL (2.0-8.3); Neutrophils Percent Auto 77.4 % (45-73); Platelet Count 412 X10*3/uL (160-400); Red Blood Count 5.03 X10*6/uL (4.20-5.50); White Blood Count 14.4 X10*3/uL (4.8-10.8)
[2022-06-11 12:21] LABS: Alanine Aminotransferase 17 U/L (0-31); Albumin Level 4.1 g/dL (3.5-5.0); Alkaline Phosphatase 76 U/L (39-117); Anion Gap 18 (12-20); Aspartate Amino Transferase 16 U/L (5-31); Bilirubin Total 0.7 mg/dL (0.0-1.0); Blood Urea Nitrogen 23 mg/dL (9-16); Calcium 7.8 mg/dL (8.4-10.2); Carbon Dioxide 23 mmol/L (22-29); Chloride 105 mmol/L (96-108); Creatinine Clr Calc Pharmacy 37.6; Estimated Glomerular Filt Rate 42; Glucose Random 205 mg/dL (60-115); Potassium 3.6 mmol/L (3.3-5.1); Sodium 142 mmol/L (135-145); Total Protein 7.2 g/dL (6.5-8.0)
--- NOTE | 2022-06-11 12:21 | PC.NURSE ---
pt presents with new onset afib. put her on hr monitor. provider aware.
[2022-06-11 12:22] LABS: Troponin-I High Sensitivity 9.7 ng/L (<3.5-17.0)
[2022-06-11] MEDS: 0.9 % Sodium Chloride 1,000 ML 999 ML IV (12:29)
[2022-06-11] MEDS: Metoprolol Tartrate 5 MG/5 ML VIAL IVPUSH (12:29)
[2022-06-11] MEDS: ondansetron HCL 4 MG/2 ML VIAL IVPUSH (12:29)
--- NOTE | 2022-06-11 12:36 | PC.NURSE ---
Addendum entered by Maddie Valdivia RN 06/11/22 12:39: Isolated PVCs observed on HR monitor Original Note: pt alert and oriented. complains of RLQ pain. New onset afib. gave her metropolol IV, pt tolerated it well. HR in the 120s. gave her zofran for nausea.
[2022-06-11] MEDS: Magnesium Oxide 400 MG TABLET 800 MG PO (12:46)
[2022-06-11] MEDS: Magnesium Sulfate/H2O 2 GM/50 ML PIGGYBACK IV ×3 (12:47→22:40)
[2022-06-11 13:07] LABS: Influenza A PCR NEGATIVE (Negative); Influenza B PCR NEGATIVE (Negative); Resp Syncy Virus RNA Qual PCR NEGATIVE (Negative); SARS COV2 PCR INHOUSE NEGATIVE (Negative)
[2022-06-11 13:09] LABS: INTERNATIONAL NORM RATIO 1.4 (0.9-1.1); Prothrombin Time 16.2 SEC (10.0-13.1)
[2022-06-11 13:11] LABS: Partial Thromboplastin Time 27.8 SEC (26.0-36.4)
[2022-06-11] MEDS: dilTIAZem HCL 50 MG/10 ML VIAL 10 MG IVPUSH (14:03)
[2022-06-11 14:27] LABS: Appearance Urine Clear; Color Urine Yellow; Glucose Urine UA Negative (Negative); Leukocyte Esterase Urine Moderate (2+) (Negative); Nitrite Urine Negative (Negative); UMIC TRIGGER UACC YES; Urine Blood Negative (Negative); Urine Ketones Trace mg/dL (Negative); Urine Protein Trace mg/dL (Neg-Trace)
[2022-06-11 14:37] LABS: Bacteria Urine None Seen (None Seen); RBC Urine 0-2 /HPF (0-2); UACC Culture Trigger YES
--- NOTE | 2022-06-11 14:57 | PC.NURSE ---
Pt responded well to Diltiazem IVP, gtt to be held at this time per Adrianna RODRÍGUEZ at this time.
--- NOTE | 2022-06-11 15:20 | PHA.MEDREC ---
Pharmacy Consult ? Medication Reconciliation Pharmacy has completed the medication reconciliation. List from Jenny Daysi Velasquez
--- NOTE | 2022-06-11 16:19 | PC.NURSE ---
pt. requesting pain meds. explained to her pharmacy is working on med rec. since her admin is pending I checked with ER ANNE who said to message admitting doctor. I advice the pt will have to wait until admit orders are in to give her pain med. She said that was ok. gave her some diet gingerale are her request.
[2022-06-11 16:39] LABS: Glucose, Whole Blood 170 mg/dL (60-115)
--- NOTE | 2022-06-11 17:06 | P.HPHOSP_ITS ---
History of Present Illness Date of Service: 06/11/22 Chief Complaint: nausea/vomiting 67yo F long-term care resident of [facility] due to chronic pain s/p 6 back procedures and on fentanyl patch DM2, HTN, COPD/asthma, and recurrent UTIs including ESBL E. coli presenting with several months of dizziness, nausea, vomiting and about 1 week of watery diarrhea with 5 episodes/day. She states that she has had a chronic UTI for the past few months. No fever or chills. No chest pain, palpitations, dyspnea, or cough. In the ED, she was found to be in atrial fibrillation with ventricular rate in the 140s-150s. Serum magnesium was undetectable at <0.6 mg/dL. She was given 5 mg of IV metoprolol and 1 L of IV NS. She was also given 800 mg of PO magnesium oxide and 2 g of IV magnesium sulfate. She remained in AF/RVR with rate in the 140s, so she was given 10 mg of IV diltiazem. Review of Systems Review of Systems: Yes all other systems are reviewed and are negative [facility] Medical History (Updated 06/11/22 @ 17:13 by Brendan Diaz MD) Bronchitis Chronic back pain Chronic pain Diabetes High cholesterol HTN (hypertension) UTI (urinary tract infection) Surgical History (Updated 06/11/22 @ 17:13 by Brendan Diaz MD) History of back surgery Social History Household Members: None Household Members Other:: roomate Housing: Group Home Do you presently have visiting nurse or other home services: No Alcohol intake: never Patient Tobacco Use Status: Current everyday Tobacco user Tobacco use type: Cigarette Cigarettes Per Day: 8 Second Hand Smoke Exposure: Yes Advance Directives: Yes Advance Directives Information Provided: No Advance Directives on File: No service: No Current occupational status: unemployed Meds Allergies Allergy/AdvReac Type Severity Reaction Status Date / Time aspirin [From PERCODAN] Allergy Unknown UNKNOWN Verified 12/17/21 17:40 egg [EGG] Allergy Unknown UNKNOWN Verified 12/17/21 17:40 oxycodone AdvReac Nausea Verified 12/17/21 17:40 From PERCODAN Allergy Unknown UNKNOWN Uncoded 12/17/21 17:40 Active Medications: Current Medications Albuterol Sulfate (Albuterol Sulfate 90 Mcg 8 Gm Inhaler) 1 puff INHALE Q4H PRN PRN Reason: Shortness Of Breath Apixaban (Apixaban 5 Mg Tablet) 5 mg PO BID [facility] Baclofen (Baclofen 10 Mg Tablet) 10 mg PO Q8H PRN PRN Reason: Muscle Spasm Dextrose (Dextrose 50 % 25 Gm/50 Ml Syringe) 25 gm IVPUSH Q15M PRN; Protocol PRN Reason: per Hypoglycemia Standing Ord. Fentanyl (Fentanyl 75 Mcg Patch.Td72) 75 mcg TRANSDERMA Q72H [facility] Fluoxetine HCl (Fluoxetine Hcl 20 Mg Capsule) 40 mg PO DAILY [facility] Fluticasone Propionate (Fluticasone Propionate Nasal 16 Gm [place]) 1 spray NOSTRIL-B DAILY [facility] Fluticasone/Vilanterol (Fluticasone/Vilanterol 100/25 Blst.W.Dev) 1 puff INHALE RDAILY [facility] Furosemide (Furosemide 20 Mg Tablet) 20 mg PO DAILY [facility]; Protocol Gabapentin (Gabapentin 400 Mg Capsule) 400 mg PO TID [facility] Glucose (Glucose Gel 15 Gm Gel..Gram.) 15 gm PO Q15M PRN; Protocol PRN Reason: per Hypoglycemia Standing Ord. Hydralazine HCl (Hydralazine Hcl 50 Mg Tablet) 50 mg PO TID [facility]; Protocol Diltiazem HCl 125 mg/ Sodium (Chloride) 125 mls @ 0 mls/hr IVCONT .Q0M [facility]; Protocol Insulin Glargine (Insulin Glargine,Hum.Rec.Anlog 100 Unit/Ml 10 Ml Vial) 20 unit SUBCUT BEDTIME [facility] Insulin Human Lispro (Insulin Lispro 100 Unit/Ml 3 Ml Vial) 0 unit SUBCUT QIDACHS [facility]; Protocol Lisinopril (Lisinopril 5 Mg Tablet) 5 mg PO DAILY [facility]; Protocol Metoclopramide HCl (Metoclopramide Hcl 5 Mg Tablet) 5 mg PO DAILY [facility] Non-Formulary Medication (Lansoprazole [Prevacid 24hr]) 15 mg PO DAILY [facility] Non-Formulary Medication (Methocarbamol) 1,000 tab PO TID [facility] Oxycodone HCl (Oxycodone Hcl Immed Release 5 Mg Tablet) 5 mg PO Q4H PRN PRN Reason: Pain (Scale Score 4-6) Pharmacy Consult (Consult Rx Perform Med Rec) 1 each MISCELLANE ONCE PRN PRN Reason: Consult order Trazodone HCl (Trazodone Hcl 100 Mg Tablet) 45,000 mg PO BEDTIME [facility] Vitamin D (Cholecalciferol (Vitamin D3) 25 Mcg Tablet) 25 mcg PO DAILY [facility] Home Medications Medication Instructions Recorded Confirmed Last Taken Type albuterol sulfate 90 mcg/actuation 1 puff inhalation Q4H PRN 07/26/20 06/11/22 Unknown History aerosol inhaler (Ventolin HFA) Shortness Of Breath celecoxib 200 mg capsule (Celebrex) 200 mg PO DAILY 07/26/20 06/11/22 Unknown History fluoxetine 40 mg capsule (Prozac) 40 mg PO DAILY 07/26/20 06/11/22 Unknown History fluticasone propionate 50 1 spray intranasal DAILY 07/26/20 06/11/22 Unknown History mcg/actuation nasal spray,suspension glipizide 5 mg tablet 10 mg PO BIDAC 07/26/20 06/11/22 Unknown History metformin 500 mg tablet 1,000 mg PO BIDWM 07/26/20 06/11/22 Unknown History metoclopramide HCl 5 mg tablet 5 mg PO DAILY 07/26/20 06/11/22 Unknown History (Reglan) acetaminophen 325 mg tablet 650 mg PO Q4H PRN PAIN/FEVER 11/21/21 06/11/22 Unknown History baclofen 10 mg tablet 10 mg Q8H PRN Muscle Spasm 11/21/21 06/11/22 Unknown History furosemide 20 mg tablet (Lasix) 20 mg PO DAILY 11/21/21 06/11/22 Unknown History gabapentin 400 mg capsule 400 mg PO TID 11/21/21 06/11/22 Unknown History insulin detemir U-100 100 unit/mL 25 unit subcut DAILY 11/21/21 06/11/22 Unknown History subcutaneous solution (Levemir U-100 Insulin) insulin lispro 100 unit/mL See Protocol QIDACHS 11/21/21 06/11/22 Unknown History subcutaneous cartridge (Humalog U-100 Insulin) lansoprazole 15 mg capsule,delayed 15 mg PO DAILY 11/21/21 06/11/22 Unknown History release (Prevacid 24Hr) lisinopril 5 mg tablet 5 mg PO DAILY 11/21/21 06/11/22 Unknown History oxycodone 5 mg tablet 5 mg PO Q4H PRN Pain (Scale Score 11/21/21 06/11/22 Unknown History 4-6) trazodone 150 mg tablet 300 tab PO BEDTIME 12/17/21 06/11/22 Unknown History cholecalciferol (vitamin D3) 25 25 mcg PO DAILY 06/11/22 06/11/22 Unknown History mcg (1,000 unit) tablet hydralazine 50 mg tablet 1 tab PO TID 06/11/22 06/11/22 Unknown History levofloxacin 250 mg tablet 1 tab PO DAILY 06/11/22 06/11/22 Unknown History magnesium citrate 150 ml PO DAILY PRN Constipation 06/11/22 06/11/22 Unknown History methenamine hippurate 1 gram tablet 1 tab PO BID 06/11/22 06/11/22 Unknown History methocarbamol 500 mg tablet 1,000 tab PO TID 06/11/22 06/11/22 Unknown History Physical Exam Vital Signs and Narrative: Vital Signs: Last Vital Signs Temp 98.5 F 06/11/22 16:07 Pulse 103 H 06/11/22 16:07 Resp 20 06/11/22 16:07 BP 126/60 06/11/22 16:07 Pulse Ox 95 06/11/22 16:07 O2 Del Method 06/11/22 16:07 BMI result Body Mass Index 24.1 Gen: in no acute distress HEENT: sclera anicteric, moist mucus membranes Neck: supple Lungs: clear to auscultation bilaterally Heart: rapid, irregularly irregular Abd: soft, non-tender, non-distended Ext: no edema Skin: warm/well-perfused Neuro: alert and oriented x3, no focal findings Psych: appropriate affect Results Labs CBC and Chem 7: 06/11/22 11:42 06/11/22 11:42 Labs: Laboratory Results - last 24 hr 06/11/22 06/11/22 06/11/22 11:42 11:42 11:42 MCV 89.9 MCH 29.4 MCHC 32.7 RDW 14.0 Plt Count 412 H D MPV 9.2 L Immature Gran % (Auto) 1.4 H Neut % (Auto) 77.4 H Lymph % (Auto) 14.3 L Mccracken % (Auto) 6.4 Eos % (Auto) 0.0 Baso % (Auto) 0.5 Lymph # (Auto) 2.1 Mccracken # (Auto) 0.9 Eos # (Auto) 0.0 Baso # (Auto) 0.1 Abs Immat Gran (auto) 0.20 H Absolute Neuts (auto) 11.1 H Absolute Nucleated RBC 0.000 Nucleated RBC % (auto) 0.0 PT INR APTT Anion Gap 18 Estim Creat Clear Calc 37.6 Estimated GFR 42 POC Glucose Random Glucose 205 H Lactic Acid 2.0 Calcium 7.8 L D Magnesium < 0.6 L* Total Bilirubin 0.7 AST 16 ALT 17 Alkaline Phosphatase 76 Troponin I High Sens Total Protein 7.2 Albumin 4.1 Urine Color Urine Appearance Urine pH Ur Specific Counce Urine Protein Urine Glucose (UA) Urine Ketones Urine Blood Urine Nitrite Ur Leukocyte Esterase Urine RBC Urine WBC Ur Squamous Epith Cells Urine Bacteria Hyaline Casts Influenza Type A (PCR) Influenza Type B (PCR) RSV RNA Qual (PCR) SARS-CoV-2 RNA (RT-PCR) 06/11/22 06/11/22 06/11/22 11:42 11:52 12:52 MCV MCH MCHC RDW Plt Count MPV Immature Gran % (Auto) Neut % (Auto) Lymph % (Auto) Mccracken % (Auto) Eos % (Auto) Baso % (Auto) Lymph # (Auto) Mccracken # (Auto) Eos # (Auto) Baso # (Auto) Abs Immat Gran (auto) Absolute Neuts (auto) Absolute Nucleated RBC Nucleated RBC % (auto) PT 16.2 H INR 1.4 H APTT 27.8 Anion Gap Estim Creat Clear Calc Estimated GFR POC Glucose Random Glucose Lactic Acid Calcium Magnesium Total Bilirubin AST ALT Alkaline Phosphatase Troponin I High Sens 9.7 D Total Protein Albumin Urine Color Urine Appearance Urine pH Ur Specific Counce Urine Protein Urine Glucose (UA) Urine Ketones Urine Blood Urine Nitrite Ur Leukocyte Esterase Urine RBC Urine WBC Ur Squamous Epith Cells Urine Bacteria Hyaline Casts Influenza Type A (PCR) NEGATIVE Influenza Type B (PCR) NEGATIVE RSV RNA Qual (PCR) NEGATIVE SARS-CoV-2 RNA (RT-PCR) NEGATIVE 06/11/22 06/11/22 14:12 16:35 MCV MCH MCHC RDW Plt Count MPV Immature Gran % (Auto) Neut % (Auto) Lymph % (Auto) Mccracken % (Auto) Eos % (Auto) Baso % (Auto) Lymph # (Auto) Mccracken # (Auto) Eos # (Auto) Baso # (Auto) Abs Immat Gran (auto) Absolute Neuts (auto) Absolute Nucleated RBC Nucleated RBC % (auto) PT INR APTT Anion Gap Estim Creat Clear Calc Estimated GFR POC Glucose 170 H Random Glucose Lactic Acid Calcium Magnesium Total Bilirubin AST ALT Alkaline Phosphatase Troponin I High Sens Total Protein Albumin Urine Color Yellow Urine Appearance Clear Urine pH 5.0 Ur Specific Counce 1.020 Urine Protein Trace Urine Glucose (UA) Negative Urine Ketones Trace Urine Blood Negative Urine Nitrite Negative Ur Leukocyte Esterase Moderate (2+) H Urine RBC 0-2 Urine WBC 6-10 H Ur Squamous Epith Cells 6-10 Urine Bacteria None Seen Hyaline Casts 6-10 Influenza Type A (PCR) Influenza Type B (PCR) RSV RNA Qual (PCR) SARS-CoV-2 RNA (RT-PCR) Imaging Radiologist's Impressions: Impressions Chest X-Ray 06/11/22 13:01 IMPRESSION: No acute cardiopulmonary process. Assessment and Plan (1) Atrial fibrillation with RVR: Status: Acute Plan 67yo F long-term care resident of [facility] due to chronic pain s/p 6 back procedures and on fentanyl patch, DM2, HTN, COPD/asthma, and recurrent UTIs including ESBL E. coli presenting with several months of dizziness, nausea, vomiting and about 1 week of watery diarrhea with 5 episodes/day. Presented with new-onset atrial fibrillation with RVR in the 140s-150s. Found to have critical hypomagnesemia. # AF/RVR - admit to [facility]. diltiazem IV drip to control rate. [id number] 4; will anticoagulate with apixaban. replete Mg as below. check TSH. Cardiology consultation. TTE. # hypoMg - replete IV/PO and recheck levels. likely secondary to vomiting/diarrhea # HTN - continue hydralazine + lisinopril # COPD-asthma, not in acute exac - continue ICS/LABA, prn NAVJOT # chronic pain - fentanyl patch + prn oxycodone, gabapentin # mood d/o - fluoxetine # VTE prophylaxis: apixaban # code status: full code I anticipate that the patient will stay at least 2 midnights as an inpatient in the hospital due to the above reasons. It is neither reasonable nor safe to care for them in a less acute setting. Quality Stroke Does the patient have a stroke diagnosis?: No VTE Prior VTE?: No VTE Risk Level:: Medical - moderate - high VTE Device Contraindication: N/A - Device Ordered VTE Drug Contraindication: N/A - Med Ordered
[2022-06-11 17:34] LABS: Magnesium 0.8 mg/dL (1.6-2.6)
[2022-06-11] MEDS: Insulin Lispro 100 UNIT/ML 3 ML VIAL SUBCUT (17:49)
[2022-06-11] MEDS: dilTIAZem HCL 125 MG in 0.9 % Sodium Chloride 100 ML 10 MG IVCONT (17:50)
[2022-06-11 18:22] LABS: TSH reflex Free T4 0.61 uIU/mL (0.32-4.0)
[2022-06-11] MEDS: fentaNYL 75 MCG PATCH.TD72 TRANSDERMA (19:15)
[2022-06-11 21:13] LABS: Glucose, Whole Blood 119 mg/dL (60-115)
[2022-06-11] MEDS: Apixaban 5 MG TABLET PO (22:39)
[2022-06-11] MEDS: traZODone HCL 100 MG TABLET 300 MG PO (22:39)
[2022-06-11] MEDS: hydrALAZINE HCl 50 MG TABLET PO (22:39)
[2022-06-11] MEDS: Insulin Glargine,Hum.rec.anlog 100 UNIT/ML 10 ML VIAL 20 UNIT SUBCUT (22:40)
[2022-06-11] MEDS: Gabapentin 400 MG CAPSULE PO (22:40)
[2022-06-11] MEDS: oxyCODONE HCl Immed Release 5 MG TABLET PO (22:42)
[2022-06-12] VITALS (8 sets, daily range): BP systolic 97–143; BP diastolic 45–77; PULSE 76–135; RESP 17–21; TEMP 36.1–37.1; O2SAT 90–98; BMI 24.1
--- NOTE | 2022-06-12 | ECG_ITS ---
Test Reason : RHYTHM CHANGE Blood Pressure : / mmHG Vent. Rate : 092 BPM Atrial Rate : 092 BPM P-R Int : 152 ms QRS Dur : 078 ms QT Int : 384 ms P-R-T Axes : 078 -23 043 degrees QTc Int : 474 ms Sinus rhythm with Premature atrial complexes with Aberrant conduction Nonspecific ST abnormality Abnormal ECG When compared with ECG of 11-JUN-2022 11:54, Sinus rhythm has replaced Atrial fibrillation Referred By: Suman Woodall Electronically Signed By:HÉCTOR YOUNG MD
[2022-06-12 00:01] LABS: Magnesium 1.8 mg/dL (1.6-2.6)
[2022-06-12] MEDS: 0.9 % Sodium Chloride Flush 3 ML SYRINGE IVFLUSH ×3 (01:39→22:16)
[2022-06-12] MEDS: oxyCODONE HCl Immed Release 5 MG TABLET PO ×4 (03:20→22:20)
[2022-06-12] MEDS: Baclofen 10 MG TABLET PO (03:20)
[2022-06-12] MEDS: dilTIAZem HCL 125 MG in 0.9 % Sodium Chloride 100 ML 10 MG IVCONT (05:55)
--- NOTE | 2022-06-12 06:10 | PC.NURSE ---
Pt's HR fluctuating between 80-110. Diltiazem paused to replace the previous bag that was running. While med was paused, HR did not increase significantly or above 120 bpm. Pt appears to be in normal sinus rhythm on the monitor, with a rate of 85-100 bpm. Diltiazem paused and hanging at the bed side.
--- NOTE | 2022-06-12 07:00 | CA_ITS ---
Transthoracic Echocardiogram Patient (Last, First, Middle): Linh Richard A Gender: Female Date of : 1955 Age: 67 Procedure Date: 06/12/2022 Procedure Type: Transthoracic E[place]ocardi[place] [facility] [place]: 165.1 cm Weight: 65.77 kg BSA: 1.73 m2 Heart Rate: bpm BP: 114 / 45 mmHg Sign Maintenance: Referring MD: Brendan Diaz MD Stitch Bonding Machine Drawer In: Marquis Arias MD Symptoms: af/rvr Study Quality: Technically Difficult ECG Rhythm: Sinus with extra beats Conclusions: - 1. Normal LV systolic function with mild LVH with LVEF of 60 65% with impaired relaxation filling pattern 2. Mildly dilated left atrium 3. Cardiac valvular Dopplers within normal limits 4. Normal RV systolic pressure 5. No gross pericardial effusion Findings Left Ventricle The left ventricle was not well visualized. Normal left ventricular cavity size. There is mildly increased left ventricular wall thickness. The left ventricular systolic function is normal. The visually estimated ejection fraction is between 60-65%. Regional wall motion abnormalities can not be excluded due to suboptimal endocardial definition. Spectral Doppler is indicative of an impaired relaxation filling pattern. E/E prime ratio is between 8 and 15 consistent with indeterminate filling pressures. Right Ventricle Normal right ventricular cavity size and systolic function. Atria The left atrium is mildly dilated. There is lipomatous hypertrophy of the interatrial septum. Interatrial shunt cannot be excluded. The right atrium was not well visualized. Aortic Valve The aortic valve was not well visualized. There is no aortic valve stenosis. There is no aortic valve regurgitation. Mitral Valve The mitral valve was not well visualized. There is trace mitral valve regurgitation. There is no mitral valve stenosis. Pulmonic Valve The pulmonic valve was not well visualized. Tricuspid Valve Likely normal tricuspid valve structure and function. There is trace tricuspid valve regurgitation. The right ventricular systolic pressure is normal. The right ventricular systolic pressure is 24 mmHg. Normal right atrial pressure. There is no evidence of pulmonary hypertension. Great Vessels The aorta was not well visualized. The pulmonary artery was not well visualized. Venous The inferior vena cava is normal in size and collapses greater than 50% with inspiration. Pericardium/Pleural There is no evidence of pericardial effusion. Prior Study Comparison No prior study available for comparison. Measurements 2D Linear Measurements RVIDd: 3.68 RVIDd Index: 2.13 IVSd: 1.32 0.6-0.9/0.6-1.0 cm LVIDd: 4.25 3.9-5.3/4.2-5.9 cm LVIDd Index: 2.46 2.4-3.2/2.2-3.1 cm/m2 LVIDs: 3.05 2.0-3.6 cm LVPWd: 1.34 0.7-1.1 cm Ao Root: 3.30 2.1-3.5 cm LA Diam: 4.30 2.7-3.8/3.0-4.0 cm LAIDs Index: 2.49 1.5-2.3 cm/m2 LV Mass: 263.30 67-162/88-224 g LV Mass Index: 152.20 43-95/49-115 g/m2 LVOT Diam: 2.10 3.0+(-)1.3 cm Mitral Valve MV Pk E: 0.66 MV PK A: 0.81 MV Decel Time: 179.00 E/A: 0.80 E'Lateral: 6.42 E'Medial: 5.22 E/E' Med: 12.60 E/E' Lat: 10.30 PHT: 53.00 MVA PHT: 4.15 Decel Davidson: 3.68 Aortic Valve AoV Pk Sabas: 1.96 AoV Mn Sabas: 1.26 AoV VTI: 0.42 AoV Pk Grad: 15.00 Aov Mn Grad: 8.00 ANALI Cont.VTI: 1.99 LVOT LVOT Pk Sabas: 1.31 LVOT Mn Sabas: 0.76 LVOT VTI: 0.24 LVOT Pk Grad: 7.00 LVOT Mn Grad: 3.00 LVOT Diam: 2.10 LVOT Area: 3.46 Diastolic Function MV Pk E: 0.66 MV Pk A: 0.81 E/A: 0.80 E'Medial: 5.22 E/E' Med: 12.60 E' Laterial: 6.42 E/E' Lat: 10.30 Right Ventricle TAPSE (mm): 24.00 TVS' Sabas: 17.00 Tricuspid Valve TR Pk Sabas: 2.28 TR Pk Grad: 21.00 RA Press: 3.00 RVSP: 24.00 Great Vessels Aorta Ao Root-2D: 3.30 2.0-3.7 cm Pulmonary Valve PV Pk Sabas: 1.15 Peak PV Grad: 5.00 Updated in Other Vendor System with Status of Final Marquis Arias MD electronically signed on 06/12/2022 1:07:06 PM with status of Final
[2022-06-12 07:01] LABS: Hematocrit 38.4 % (37.0-47.0); Hemoglobin 12.8 g/dl (12.0-16.0); Mean Corpuscular HGB Conc 33.3 g/dl (31.0-35.0); Mean Corpuscular Hemoglobin 30.3 pg (27.0-33.0); Mean Platelet Volume 9.1 fL (9.4-12.3); Platelet Count 346 X10*3/uL (160-400); Red Blood Count 4.22 X10*6/uL (4.20-5.50); Red Cell Distribution Width 14.1 % (11.0-16.0); White Blood Count 14.2 X10*3/uL (4.8-10.8)
--- NOTE | 2022-06-12 07:10 | PC.NURSE ---
appears that the pt is in normal sinus at this time, ekg obtained
[2022-06-12 07:29] LABS: Glucose, Whole Blood 115 mg/dL (60-115)
[2022-06-12 07:41] LABS: Anion Gap 14 (12-20); Blood Urea Nitrogen 23 mg/dL (9-16); Calcium 7.5 mg/dL (8.4-10.2); Carbon Dioxide 25 mmol/L (22-29); Chloride 105 mmol/L (96-108); Creatinine Clr Calc Pharmacy 50.7; Estimated Glomerular Filt Rate 59; Glucose Random 98 mg/dL (60-115); Magnesium 1.8 mg/dL (1.6-2.6); Potassium 3.1 mmol/L (3.3-5.1); Sodium 141 mmol/L (135-145)
[2022-06-12 08:06] LABS: Magnesium < 0.6 mg/dL (1.6-2.6)
[2022-06-12] MEDS: Potassium Chloride/H20 10 MEQ/100 ML PIGGYBACK 100 MEQ IV ×4 (08:19→13:26)
[2022-06-12] MEDS: Apixaban 5 MG TABLET PO ×2 (08:20→22:16)
[2022-06-12] MEDS: Cholecalciferol (Vitamin D3) 25 MCG TABLET PO (08:20)
[2022-06-12] MEDS: FLUoxetine HCl 20 MG CAPSULE 40 MG PO (08:20)
[2022-06-12] MEDS: ondansetron HCL 4 MG/2 ML VIAL IVPUSH ×2 (08:26→22:24)
--- NOTE | 2022-06-12 08:33 | PC.NURSE ---
pt alert and oriented, skin pwd, respirations even and unlabored, pt does have a intermittent cough, pt also is reporting right sided hip/groin pain 02/11 and is having nausea ns on the monitor ranging from 80-100's pt does not want her breakfast vince at this time
[2022-06-12] MEDS: hydrALAZINE HCl 50 MG TABLET PO ×3 (09:00→22:15)
[2022-06-12] MEDS: Gabapentin 400 MG CAPSULE PO ×3 (09:01→22:15)
[2022-06-12] MEDS: Omeprazole 20 MG CAPSULE.DR PO (09:01)
[2022-06-12] MEDS: lisinopriL 5 MG TABLET PO (09:01)
[2022-06-12] MEDS: Furosemide 20 MG TABLET PO (09:01)
[2022-06-12] MEDS: Fluticasone Propionate Nasal 16 GM SPRAY 1 SPRAY NOSTRIL-B (09:51)
--- NOTE | 2022-06-12 10:07 | P.CONCA_ITS ---
History of Present Illness History of Present Illness Date of Service: 06/12/22 Requesting physician: Brendan Diaz Consult reason: atrial fibrillation Chief complaint: new onset AF/ RVR, hypoMG Narrative: I was consulted to see Linh in cardiology consultation today for atrial fibrillation which appears to be new onset. Patient 67 year female who is a [facility] for inability to walk related to weakness in the legs with chronic back pain on fentanyl patch, hypertension, diabetes with no prior cardiac history as per her. She does not recall her ever having atrial fibrillation the past. She came in yesterday because having watery diarrhea for about 5-7 days with multiple episodes. She was feeling weak and had not eaten for a week as per her. She also was having some right abdominal discomfort. She says she has chronic UTI. She came in the hospital and was noted to be in atrial fibrillation rapid ventricular response. Was treated with rate control. She is also noted to be markedly hypo magnesium ache. This has been repleted. Magnesium levels less than 0.6 and has been up to 1.8. She was given metoprolol and IV Cardizem subsequently converted to sinus rhythm. On the monitor she continues to have frequent PACs and some PVCs. Her she appears to be sinus rhythm. Hemodynamically stable. She was appropriately started on oral anticoagulation therapy with Eliquis. She also noted to have UTI. Continues to have mild abdominal discomfort. She never had any symptoms of palpitations or irregular heartbeat. Denies shortness of breath, chest pain, lightheadedness. Review of Systems Constitutional: Constitutional: Reports lethargy and Reports other (Generalized shaking) Eyes: Eyes: Reports no additional eye complaints Cardiovascular: Cardiovascular: Denies chest pain, Denies rapid heart rate, Denies leg edema, Denies lightheadedness, Denies Loss of Consciousness, Denies palpitations and Denies dyspnea Respiratory: Respiratory: Reports no additional respiratory complaints and Denies dyspnea Gastrointestinal: Gastrointestinal: Reports abdominal pain Genitourinary: Genitourinary: Reports urinary urgency Musculoskeletal: Musculoskeletal: Reports other (Back) Neurologic: Reports system reviewed and no additional complaints, except as documented Psychiatric: Psychiatric: Reports no additional psychiatric complaints Endocrine: Endocrine: Denies palpitations PMFSH Past Medical History Medical History Bronchitis Chronic back pain Chronic pain Diabetes High cholesterol HTN (hypertension) UTI (urinary tract infection) Surgical History Surgical History History of back surgery Social History Social History Household Members: None Household Members Other:: roomate Housing: Long-Term Do you presently have visiting nurse or other home services: No Alcohol intake: never Patient Tobacco Use Status: Current everyday Tobacco user Tobacco use type: Cigarette Cigarettes Per Day: 8 Smoked in Last 30 Days: Yes Second Hand Smoke Exposure: Yes Use of substances other than those prescribed or required for medical reasons: No Advance Directives: Yes Advance Directives Information Provided: No Advance Directives on File: No service: No Current occupational status: unemployed Meds Allergies Allergy/AdvReac Type Severity Reaction Status Date / Time aspirin [From PERCODAN] Allergy Unknown UNKNOWN Verified 12/17/21 17:40 egg [EGG] Allergy Unknown UNKNOWN Verified 12/17/21 17:40 oxycodone AdvReac Nausea Verified 12/17/21 17:40 From PERCODAN Allergy Unknown UNKNOWN Uncoded 12/17/21 17:40 Active Medications: Current Medications Acetaminophen (Acetaminophen 325 Mg Tablet) 650 mg PO Q6H PRN PRN Reason: Pain, Mild (Pain Scale 1-3) Albuterol Sulfate (Albuterol Sulfate 90 Mcg 8 Gm Inhaler) 1 puff INHALE Q4H PRN PRN Reason: Shortness Of Breath Apixaban (Apixaban 5 Mg Tablet) 5 mg PO BID [facility] Last Admin: 06/12/22 08:20 Dose: 5 mg Baclofen (Baclofen 10 Mg Tablet) 10 mg PO Q8H PRN PRN Reason: Muscle Spasm Last Admin: 06/12/22 03:20 Dose: 10 mg Dextrose (Dextrose 50 % 25 Gm/50 Ml Syringe) 25 gm IVPUSH Q15M PRN; Protocol PRN Reason: per Hypoglycemia Standing Ord. Fentanyl (Fentanyl 75 Mcg Patch.Td72) 75 mcg TRANSDERMA Q72H [facility] Last Admin: 06/11/22 19:15 Dose: 75 mcg Fluoxetine HCl (Fluoxetine Hcl 20 Mg Capsule) 40 mg PO DAILY [facility] Last Admin: 06/12/22 08:20 Dose: 40 mg Fluticasone Propionate (Fluticasone Propionate Nasal 16 Gm [place]) 1 spray NOSTRIL-B DAILY [facility] Last Admin: 06/12/22 09:51 Dose: 1 spray Fluticasone/Vilanterol (Fluticasone/Vilanterol 100/25 Blst.W.Dev) 1 puff INHALE RDAILY [facility] Last Admin: 06/12/22 07:31 Dose: Not Given Furosemide (Furosemide 20 Mg Tablet) 20 mg PO DAILY [facility]; Protocol Last Admin: 06/12/22 09:01 Dose: 20 mg Gabapentin (Gabapentin 400 Mg Capsule) 400 mg PO TID [facility] Last Admin: 06/12/22 09:01 Dose: 400 mg Glucose (Glucose Gel 15 Gm Gel..Gram.) 15 gm PO Q15M PRN; Protocol PRN Reason: per Hypoglycemia Standing Ord. Hydralazine HCl (Hydralazine Hcl 50 Mg Tablet) 50 mg PO TID [facility]; Protocol Last Admin: 06/12/22 09:00 Dose: 50 mg Diltiazem HCl 125 mg/ Sodium (Chloride) 125 mls @ 0 mls/hr IVCONT .Q0M [facility]; Protocol Last Titration: 06/12/22 06:06 Dose: 0 mg/hr, 0 mls/hr Potassium Chloride (Potassium Chloride/H20) 10 meq in 100 mls @ 100 mls/hr IV Q1H [facility] Stop: 06/12/22 12:14 Last Admin: 06/12/22 08:19 Dose: 100 mls/hr Insulin Glargine (Insulin Glargine,Hum.Rec.Anlog 100 Unit/Ml 10 Ml Vial) 20 unit SUBCUT BEDTIME [facility] Last Admin: 06/11/22 22:40 Dose: 20 unit Insulin Human Lispro (Insulin Lispro 100 Unit/Ml 3 Ml Vial) 0 unit SUBCUT QIDACHS [facility]; Protocol Last Admin: 06/12/22 07:10 Dose: Not Given Lisinopril (Lisinopril 5 Mg Tablet) 5 mg PO DAILY [facility]; Protocol Last Admin: 06/12/22 09:01 Dose: 5 mg Metoclopramide HCl (Metoclopramide Hcl 5 Mg Tablet) 5 mg PO DAILY [facility] Non-Formulary Medication (Methocarbamol) 2 tab PO TID [facility] Omeprazole (Omeprazole 20 Mg Capsule.Dr) 20 mg PO DAILY [facility] Last Admin: 06/12/22 09:01 Dose: 20 mg Ondansetron HCl (Ondansetron Hcl 4 Mg/2 Ml Vial) 4 mg IVPUSH Q8H PRN PRN Reason: Nausea and Vomiting Last Admin: 06/12/22 08:26 Dose: 4 mg Oxycodone HCl (Oxycodone Hcl Immed Release 5 Mg Tablet) 5 mg PO Q4H PRN PRN Reason: Pain (Scale Score 4-6) Last Admin: 06/12/22 03:20 Dose: 5 mg Pharmacy Consult (Consult Rx Perform Med Rec) 1 each MISCELLANE ONCE PRN PRN Reason: Consult order Sodium Chloride (0.9 % Sodium Chloride Flush 3 Ml Syringe) 3 ml IVFLUSH QSHIFT [facility] Last Admin: 06/12/22 08:21 Dose: 3 ml Trazodone HCl (Trazodone Hcl 100 Mg Tablet) 300 mg PO BEDTIME [facility] Last Admin: 06/11/22 22:39 Dose: 300 mg Vitamin D (Cholecalciferol (Vitamin D3) 25 Mcg Tablet) 25 mcg PO DAILY [facility] Last Admin: 06/12/22 08:20 Dose: 25 mcg Home Medications Medication Instructions Recorded Confirmed Last Taken Type albuterol sulfate 90 mcg/actuation 1 puff inhalation Q4H PRN 07/26/20 06/11/22 Unknown History aerosol inhaler (Ventolin HFA) Shortness Of Breath celecoxib 200 mg capsule (Celebrex) 200 mg PO DAILY 07/26/20 06/11/22 Unknown History fluoxetine 40 mg capsule (Prozac) 40 mg PO DAILY 07/26/20 06/11/22 Unknown History fluticasone propionate 50 1 spray intranasal DAILY 07/26/20 06/11/22 Unknown History mcg/actuation nasal spray,suspension glipizide 5 mg tablet 10 mg PO BIDAC 07/26/20 06/11/22 Unknown History metformin 500 mg tablet 1,000 mg PO BIDWM 07/26/20 06/11/22 Unknown History metoclopramide HCl 5 mg tablet 5 mg PO DAILY 07/26/20 06/11/22 Unknown History (Reglan) acetaminophen 325 mg tablet 650 mg PO Q4H PRN PAIN/FEVER 11/21/21 06/11/22 Unknown History baclofen 10 mg tablet 10 mg Q8H PRN Muscle Spasm 11/21/21 06/11/22 Unknown History furosemide 20 mg tablet (Lasix) 20 mg PO DAILY 11/21/21 06/11/22 Unknown History gabapentin 400 mg capsule 400 mg PO TID 11/21/21 06/11/22 Unknown History insulin detemir U-100 100 unit/mL 25 unit subcut DAILY 11/21/21 06/11/22 Unknown History subcutaneous solution (Levemir U-100 Insulin) insulin lispro 100 unit/mL See Protocol QIDACHS 11/21/21 06/11/22 Unknown History subcutaneous cartridge (Humalog U-100 Insulin) lansoprazole 15 mg capsule,delayed 15 mg PO DAILY 11/21/21 06/11/22 Unknown History release (Prevacid 24Hr) lisinopril 5 mg tablet 5 mg PO DAILY 11/21/21 06/11/22 Unknown History oxycodone 5 mg tablet 5 mg PO Q4H PRN Pain (Scale Score 11/21/21 06/11/22 Unknown History 4-6) trazodone 150 mg tablet 300 mg PO BEDTIME 12/17/21 06/11/22 Unknown History cholecalciferol (vitamin D3) 25 25 mcg PO DAILY 06/11/22 06/11/22 Unknown History mcg (1,000 unit) tablet hydralazine 50 mg tablet 1 tab PO TID 06/11/22 06/11/22 Unknown History levofloxacin 250 mg tablet 1 tab PO DAILY 06/11/22 06/11/22 Unknown History magnesium citrate 150 ml PO DAILY PRN Constipation 06/11/22 06/11/22 Unknown History methenamine hippurate 1 gram tablet 1 tab PO BID 06/11/22 06/11/22 Unknown History methocarbamol 500 mg tablet 1,000 mg PO TID 06/11/22 06/11/22 Unknown History Physical Exam Vital Signs: Vital Signs: Last Vital Signs Temp 98.0 F 06/12/22 07:21 Pulse 113 H 06/12/22 09:03 Resp 20 06/12/22 09:03 BP 143/77 H 06/12/22 09:03 Pulse Ox 92 06/12/22 07:21 O2 Del Method 06/12/22 07:21 BMI result Body Mass Index 24.1 Const: General: cooperative, comfortable, no acute distress, alert and awake Nutritional Appearance: overweight Orientation/consciousness: patient oriented x3 HEENT: Head: Yes normocephalic and Yes atraumatic Neck: Neck: Yes trachea midline, Yes supple and Yes no JVD Resp: Auscultation: crackles (Course) bilateral and wheezes right upper (Posterior) Cardio: Jugular venous distension: no JVD Palpation: normal PMI Rate: regular rate Rhythm: abnormal rhythm Heart sounds: S1 normal heart sound present, S2 normal heart sound present, no click, no gallops and no murmurs GI: Auscultation: normal bowel sounds Skin: General skin exam: no rashes or lesions noted and ecchymosis Neuro: General: patient oriented x3 and no focal motor deficits Extrem: General: Yes no clubbing, cyanosis or edema Objective Labs and Meds Result diagrams: 06/12/22 06:32 06/12/22 06:32 Lab results: Laboratory Results - last 24 hr 06/11/22 06/11/22 06/11/22 11:42 11:42 11:42 WBC 14.4 H RBC 5.03 D Hgb 14.8 D Hct 45.2 D MCV 89.9 MCH 29.4 MCHC 32.7 RDW 14.0 Plt Count 412 H D MPV 9.2 L Immature Gran % (Auto) 1.4 H Neut % (Auto) 77.4 H Lymph % (Auto) 14.3 L [place] % (Auto) 6.4 Eos % (Auto) 0.0 Baso % (Auto) 0.5 Lymph # (Auto) 2.1 [place] # (Auto) 0.9 Eos # (Auto) 0.0 Baso # (Auto) 0.1 Abs Immat Gran (auto) 0.20 H Absolute Neuts (auto) 11.1 H Absolute Nucleated RBC 0.000 Nucleated RBC % (auto) 0.0 PT INR APTT Sodium 142 Potassium 3.6 Chloride 105 Carbon Dioxide 23 Anion Gap 18 BUN 23 H Creatinine 1.27 Estim Creat Clear Calc 37.6 Estimated GFR 42 POC Glucose Random Glucose 205 H Lactic Acid 2.0 Calcium 7.8 L D Magnesium < 0.6 L* Total Bilirubin 0.7 AST 16 ALT 17 Alkaline Phosphatase 76 Troponin I High Sens Total Protein 7.2 Albumin 4.1 TSH 0.61 Urine Color Urine Appearance Urine pH Ur Specific [place] Urine Protein Urine Glucose (UA) Urine Ketones Urine Blood Urine Nitrite Ur Leukocyte Esterase Urine RBC Urine WBC Ur Squamous Epith Cells Urine Bacteria Hyaline Casts Influenza Type A (PCR) Influenza Type B (PCR) RSV RNA Qual (PCR) SARS-CoV-2 RNA (RT-PCR) 06/11/22 06/11/22 06/11/22 11:42 11:52 12:52 WBC RBC Hgb Hct MCV MCH MCHC RDW Plt Count MPV Immature Gran % (Auto) Neut % (Auto) Lymph % (Auto) [place] % (Auto) Eos % (Auto) Baso % (Auto) Lymph # (Auto) [place] # (Auto) Eos # (Auto) Baso # (Auto) Abs Immat Gran (auto) Absolute Neuts (auto) Absolute Nucleated RBC Nucleated RBC % (auto) PT 16.2 H INR 1.4 H APTT 27.8 Sodium Potassium Chloride Carbon Dioxide Anion Gap BUN Creatinine Estim Creat Clear Calc Estimated GFR POC Glucose Random Glucose Lactic Acid Calcium Magnesium Total Bilirubin AST ALT Alkaline Phosphatase Troponin I High Sens 9.7 D Total Protein Albumin TSH Urine Color Urine Appearance Urine pH Ur Specific [place] Urine Protein Urine Glucose (UA) Urine Ketones Urine Blood Urine Nitrite Ur Leukocyte Esterase Urine RBC Urine WBC Ur Squamous Epith Cells Urine Bacteria Hyaline Casts Influenza Type A (PCR) NEGATIVE Influenza Type B (PCR) NEGATIVE RSV RNA Qual (PCR) NEGATIVE SARS-CoV-2 RNA (RT-PCR) NEGATIVE 06/11/22 06/11/22 06/11/22 14:12 16:35 16:50 WBC RBC Hgb Hct MCV MCH MCHC RDW Plt Count MPV Immature Gran % (Auto) Neut % (Auto) Lymph % (Auto) [place] % (Auto) Eos % (Auto) Baso % (Auto) Lymph # (Auto) [place] # (Auto) Eos # (Auto) Baso # (Auto) Abs Immat Gran (auto) Absolute Neuts (auto) Absolute Nucleated RBC Nucleated RBC % (auto) PT INR APTT Sodium Potassium Chloride Carbon Dioxide Anion Gap BUN Creatinine Estim Creat Clear Calc Estimated GFR POC Glucose 170 H Random Glucose Lactic Acid Calcium Magnesium 0.8 L* Total Bilirubin AST ALT Alkaline Phosphatase Troponin I High Sens Total Protein Albumin TSH Urine Color Yellow Urine Appearance Clear Urine pH 5.0 Ur Specific [place] 1.020 Urine Protein Trace Urine Glucose (UA) Negative Urine Ketones Trace Urine Blood Negative Urine Nitrite Negative Ur Leukocyte Esterase Moderate (2+) H Urine RBC 0-2 Urine WBC 6-10 H Ur Squamous Epith Cells 6-10 Urine Bacteria None Seen Hyaline Casts 6-10 Influenza Type A (PCR) Influenza Type B (PCR) RSV RNA Qual (PCR) SARS-CoV-2 RNA (RT-PCR) 06/11/22 06/11/22 06/12/22 21:08 23:40 06:32 WBC 14.2 H RBC 4.22 Hgb 12.8 Hct 38.4 MCV 91.0 MCH 30.3 MCHC 33.3 RDW 14.1 Plt Count 346 MPV 9.1 L Immature Gran % (Auto) Neut % (Auto) Lymph % (Auto) [place] % (Auto) Eos % (Auto) Baso % (Auto) Lymph # (Auto) [place] # (Auto) Eos # (Auto) Baso # (Auto) Abs Immat Gran (auto) Absolute Neuts (auto) Absolute Nucleated RBC 0.000 Nucleated RBC % (auto) 0.0 PT INR APTT Sodium Potassium Chloride Carbon Dioxide Anion Gap BUN Creatinine Estim Creat Clear Calc Estimated GFR POC Glucose 119 H Random Glucose Lactic Acid Calcium Magnesium 1.8 Total Bilirubin AST ALT Alkaline Phosphatase Troponin I High Sens Total Protein Albumin TSH Urine Color Urine Appearance Urine pH Ur Specific [place] Urine Protein Urine Glucose (UA) Urine Ketones Urine Blood Urine Nitrite Ur Leukocyte Esterase Urine RBC Urine WBC Ur Squamous Epith Cells Urine Bacteria Hyaline Casts Influenza Type A (PCR) Influenza Type B (PCR) RSV RNA Qual (PCR) SARS-CoV-2 RNA (RT-PCR) 06/12/22 06/12/22 06:32 07:21 WBC RBC Hgb Hct MCV MCH MCHC RDW Plt Count MPV Immature Gran % (Auto) Neut % (Auto) Lymph % (Auto) [place] % (Auto) Eos % (Auto) Baso % (Auto) Lymph # (Auto) [place] # (Auto) Eos # (Auto) Baso # (Auto) Abs Immat Gran (auto) Absolute Neuts (auto) Absolute Nucleated RBC Nucleated RBC % (auto) PT INR APTT Sodium 141 Potassium 3.1 L Chloride 105 Carbon Dioxide 25 Anion Gap 14 BUN 23 H Creatinine 0.94 Estim Creat Clear Calc 50.7 Estimated GFR 59 POC Glucose 115 Random Glucose 98 Lactic Acid Calcium 7.5 L Magnesium 1.8 Total Bilirubin AST ALT Alkaline Phosphatase Troponin I High Sens Total Protein Albumin TSH Urine Color Urine Appearance Urine pH Ur Specific [place] Urine Protein Urine Glucose (UA) Urine Ketones Urine Blood Urine Nitrite Ur Leukocyte Esterase Urine RBC Urine WBC Ur Squamous Epith Cells Urine Bacteria Hyaline Casts Influenza Type A (PCR) Influenza Type B (PCR) RSV RNA Qual (PCR) SARS-CoV-2 RNA (RT-PCR) EKG 1. Shows atrial fibrillation rapid ventricular response with nonspecific ST T wave changes EKG 2. Shows sinus rhythm with PACs Imaging Radiologist's impression: Impressions Chest X-Ray 06/11/22 13:01 IMPRESSION: No acute cardiopulmonary process. Assessment and Plan (1) Paroxysmal atrial fibrillation: Status: Acute New onset paroxysmal atrial fibrillation this elderly woman with multiple risk factors to develop atrial fibrillation including hypertension, diabetes and age. Agree with echocardiogram to assess LV systolic and diastolic function and to evaluate biatrial chamber size. She continues to have significant amount of ectopy. Most likely induced by acute medical illness and acute electrolyte imbalance. Continue to replace electrolytes and maintain magnesium over 2 and potassium over 4. Most likely it for light abnormality due to her longstanding diarrhea. I would consider adding metoprolol 50 mg to her regimen. This should reduce excitability of her heart. Also agree with oral anticoagulation therapy with Eliquis 5 mg b.i.d.. Will sign of the case and follow-up as outpatient. Will review the echocardiogram once performed. Thank you for allowing me to partake in her care Procedures Date of Service Date of Service: 06/12/22
[2022-06-12] MEDS: Metoclopramide HCl 5 MG TABLET PO (11:03)
[2022-06-12 11:44] LABS: Glucose, Whole Blood 139 mg/dL (60-115)
--- NOTE | 2022-06-12 13:14 | HO.PM.IMPN ---
Subjective Subjective Date of Service: 06/12/22 Interval History: Converted to NSR this morning with frequent PACs No further diarrhea C/o longstanding L lower flank pain that she has had a UTI for the past 4 months Physical Exam Vital Signs: Vital Signs: Last Vital Signs Temp 98.0 F 06/12/22 07:21 Pulse 113 H 06/12/22 09:03 Resp 20 06/12/22 09:03 BP 143/77 H 06/12/22 09:03 Pulse Ox 92 06/12/22 07:21 O2 Del Method 06/12/22 07:21 BMI result Body Mass Index 24.1 Gen: in no acute distress HEENT: sclera anicteric, moist mucus membranes Neck: supple Lungs: clear to auscultation bilaterally Heart: regular, no murmurs Abd: soft, non-tender, non-distended : R lower flank pain Ext: no edema Skin: warm/well-perfused Neuro: alert and oriented x3, no focal findings Psych: appropriate affect Objective Data Active Medications Acetaminophen (Acetaminophen 325 Mg Tablet) 650 mg PO Q6H PRN PRN Reason: Pain, Mild (Pain Scale 1-3) Albuterol Sulfate (Albuterol Sulfate 90 Mcg 8 Gm Inhaler) 1 puff INHALE Q4H PRN PRN Reason: Shortness Of Breath Apixaban (Apixaban 5 Mg Tablet) 5 mg PO BID [facility] Last Admin: 06/12/22 08:20 Dose: 5 mg Documented By: AYAN Baclofen (Baclofen 10 Mg Tablet) 10 mg PO Q8H PRN PRN Reason: Muscle Spasm Last Admin: 06/12/22 03:20 Dose: 10 mg Documented By: CONSUELO Dextrose (Dextrose 50 % 25 Gm/50 Ml Syringe) 25 gm IVPUSH Q15M PRN; Protocol PRN Reason: per Hypoglycemia Standing Ord. Fentanyl (Fentanyl 75 Mcg Patch.Td72) 75 mcg TRANSDERMA Q72H [facility] Last Admin: 06/11/22 19:15 Dose: 75 mcg Documented By: JARED Fluoxetine HCl (Fluoxetine Hcl 20 Mg Capsule) 40 mg PO DAILY [facility] Last Admin: 06/12/22 08:20 Dose: 40 mg Documented By: AYAN Fluticasone Propionate (Fluticasone Propionate Nasal 16 Gm [place]) 1 spray NOSTRIL-B DAILY [facility] Last Admin: 06/12/22 09:51 Dose: 1 spray Documented By: AYAN Fluticasone/Vilanterol (Fluticasone/Vilanterol 100/25 Blst.W.Dev) 1 puff INHALE RDAILY [facility] Last Admin: 06/12/22 07:31 Dose: Not Given Documented By: KILO Non-Admin Reason: Med Not Available Furosemide (Furosemide 20 Mg Tablet) 20 mg PO DAILY [facility]; Protocol Last Admin: 06/12/22 09:01 Dose: 20 mg Documented By: AYAN Gabapentin (Gabapentin 400 Mg Capsule) 400 mg PO TID [facility] Last Admin: 06/12/22 09:01 Dose: 400 mg Documented By: AYAN Glucose (Glucose Gel 15 Gm Gel..Gram.) 15 gm PO Q15M PRN; Protocol PRN Reason: per Hypoglycemia Standing Ord. Hydralazine HCl (Hydralazine Hcl 50 Mg Tablet) 50 mg PO TID [facility]; Protocol Last Admin: 06/12/22 09:00 Dose: 50 mg Documented By: AYAN Diltiazem HCl 125 mg/ Sodium (Chloride) 125 mls @ 0 mls/hr IVCONT .Q0M [facility]; Protocol Last Titration: 06/12/22 06:06 Dose: 0 mg/hr, 0 mls/hr Documented By: JARED Insulin Glargine (Insulin Glargine,Hum.Rec.Anlog 100 Unit/Ml 10 Ml Vial) 20 unit SUBCUT BEDTIME [facility] Last Admin: 06/11/22 22:40 Dose: 20 unit Documented By: JARED Insulin Human Lispro (Insulin Lispro 100 Unit/Ml 3 Ml Vial) 0 unit SUBCUT QIDACHS [facility]; Protocol Last Admin: 06/12/22 07:10 Dose: Not Given Documented By: AYAN Non-Admin Reason: poc 119 Lisinopril (Lisinopril 5 Mg Tablet) 5 mg PO DAILY [facility]; Protocol Last Admin: 06/12/22 09:01 Dose: 5 mg Documented By: AYAN Metoclopramide HCl (Metoclopramide Hcl 5 Mg Tablet) 5 mg PO DAILY [facility] Last Admin: 06/12/22 11:03 Dose: 5 mg Documented By: SUPRIYA Non-Formulary Medication (Methocarbamol) 2 tab PO TID [facility] Omeprazole (Omeprazole 20 Mg Capsule.Dr) 20 mg PO DAILY [facility] Last Admin: 06/12/22 09:01 Dose: 20 mg Documented By: AYAN Ondansetron HCl (Ondansetron Hcl 4 Mg/2 Ml Vial) 4 mg IVPUSH Q8H PRN PRN Reason: Nausea and Vomiting Last Admin: 06/12/22 08:26 Dose: 4 mg Documented By: AYAN Oxycodone HCl (Oxycodone Hcl Immed Release 5 Mg Tablet) 5 mg PO Q4H PRN PRN Reason: Pain (Scale Score 4-6) Last Admin: 06/12/22 03:20 Dose: 5 mg Documented By: CONSUELO Pharmacy Consult (Consult Rx Perform Med Rec) 1 each MISCELLANE ONCE PRN PRN Reason: Consult order Sodium Chloride (0.9 % Sodium Chloride Flush 3 Ml Syringe) 3 ml IVFLUSH QSHIFT [facility] Last Admin: 06/12/22 08:21 Dose: 3 ml Documented By: AYAN Trazodone HCl (Trazodone Hcl 100 Mg Tablet) 300 mg PO BEDTIME [facility] Last Admin: 06/11/22 22:39 Dose: 300 mg Documented By: JARED Vitamin D (Cholecalciferol (Vitamin D3) 25 Mcg Tablet) 25 mcg PO DAILY [facility] Last Admin: 06/12/22 08:20 Dose: 25 mcg Documented By: AYAN Labs CBC & Chem 7: 06/12/22 06:32 06/12/22 06:32 Labs: Laboratory Results - last 24 hr 06/11/22 06/11/22 06/11/22 11:42 11:52 14:12 MCV MCH MCHC RDW Plt Count MPV Absolute Nucleated RBC Nucleated RBC % (auto) Anion Gap Estim Creat Clear Calc Estimated GFR POC Glucose Random Glucose Calcium Magnesium < 0.6 L* TSH 0.61 Urine Color Yellow Urine Appearance Clear Urine pH 5.0 Ur Specific [place] 1.020 Urine Protein Trace Urine Glucose (UA) Negative Urine Ketones Trace Urine Blood Negative Urine Nitrite Negative Ur Leukocyte Esterase Moderate (2+) H Urine RBC 0-2 Urine WBC 6-10 H Ur Squamous Epith Cells 6-10 Urine Bacteria None Seen Hyaline Casts 6-10 Influenza Type A (PCR) NEGATIVE Influenza Type B (PCR) NEGATIVE RSV RNA Qual (PCR) NEGATIVE SARS-CoV-2 RNA (RT-PCR) NEGATIVE 06/11/22 06/11/22 06/11/22 16:35 16:50 21:08 MCV MCH MCHC RDW Plt Count MPV Absolute Nucleated RBC Nucleated RBC % (auto) Anion Gap Estim Creat Clear Calc Estimated GFR POC Glucose 170 H 119 H Random Glucose Calcium Magnesium 0.8 L* TSH Urine Color Urine Appearance Urine pH Ur Specific [place] Urine Protein Urine Glucose (UA) Urine Ketones Urine Blood Urine Nitrite Ur Leukocyte Esterase Urine RBC Urine WBC Ur Squamous Epith Cells Urine Bacteria Hyaline Casts Influenza Type A (PCR) Influenza Type B (PCR) RSV RNA Qual (PCR) SARS-CoV-2 RNA (RT-PCR) 06/11/22 06/12/22 06/12/22 23:40 06:32 06:32 MCV 91.0 MCH 30.3 MCHC 33.3 RDW 14.1 Plt Count 346 MPV 9.1 L Absolute Nucleated RBC 0.000 Nucleated RBC % (auto) 0.0 Anion Gap 14 Estim Creat Clear Calc 50.7 Estimated GFR 59 POC Glucose Random Glucose 98 Calcium 7.5 L Magnesium 1.8 1.8 TSH Urine Color Urine Appearance Urine pH Ur Specific [place] Urine Protein Urine Glucose (UA) Urine Ketones Urine Blood Urine Nitrite Ur Leukocyte Esterase Urine RBC Urine WBC Ur Squamous Epith Cells Urine Bacteria Hyaline Casts Influenza Type A (PCR) Influenza Type B (PCR) RSV RNA Qual (PCR) SARS-CoV-2 RNA (RT-PCR) 06/12/22 06/12/22 07:21 11:38 MCV MCH MCHC RDW Plt Count MPV Absolute Nucleated RBC Nucleated RBC % (auto) Anion Gap Estim Creat Clear Calc Estimated GFR POC Glucose 115 139 H Random Glucose Calcium Magnesium TSH Urine Color Urine Appearance Urine pH Ur Specific [place] Urine Protein Urine Glucose (UA) Urine Ketones Urine Blood Urine Nitrite Ur Leukocyte Esterase Urine RBC Urine WBC Ur Squamous Epith Cells Urine Bacteria Hyaline Casts Influenza Type A (PCR) Influenza Type B (PCR) RSV RNA Qual (PCR) SARS-CoV-2 RNA (RT-PCR) TTE 06/12/22 1. Normal LV systolic function with mild LVH with LVEF of 60 ? 65% with impaired relaxation filling pattern ? 2. Mildly dilated left atrium? 3. Cardiac valvular Dopplers within normal limits? 4.? Normal RV systolic pressure? 5. No gross pericardial effusion ? Assessment and Plan (1) Paroxysmal atrial fibrillation: Status: Acute Plan 67yo F long-term care resident of [facility] due to chronic pain + nonambulation s/p 6 back procedures and currently on fentanyl patch, DM2, HTN, COPD/asthma, and recurrent UTIs including ESBL E. coli presenting with several months of dizziness, nausea, vomiting and about 1 week of watery diarrhea with 5 episodes/day.? Presented with new-onset atrial fibrillation with RVR in the 140s-150s. ? Found to have critical hypomagnesemia. # AF/RVR - converted to NSR. start metoprolol succinate and continue apixaban for [id number] score of 4. Mg/K repletion. Cardiology consulted. # hypoMg - repleted IV/PO; continue to monitor level; likely secondary to vomiting/diarrhea # hypoK - replete IV/PO; continue to monitor level; likely secondary to above # flank pain, hx UTI - hold off on antibiotics for now [she was on levofloxacin at the SN[facility]]; follow BCx + UCx; check CT A/P; ID consultation # diarrhea - check stool studies if recurs # HTN - continue hydralazine + lisinopril # COPD-asthma, not in acute exac - continue ICS/LABA, prn NAVJOT # chronic pain - fentanyl patch + prn oxycodone, gabapentin # mood d/o - fluoxetine # VTE prophylaxis: apixaban # dispo: eventual return to LTC In my clinical judgment, the patient requires continued inpatient hospitalization for the following reasons: IV electrlyte repletion, cardiac monitoring Quality Stroke Does the patient have a stroke diagnosis?: No VTE Prior VTE?: No VTE Risk Level:: Medical - moderate - high VTE Device Contraindication: N/A - Device Ordered VTE Drug Contraindication: N/A - Med Ordered
[2022-06-12] MEDS: Insulin Lispro 100 UNIT/ML 3 ML VIAL SUBCUT ×2 (13:35→20:28)
[2022-06-12 13:36] LABS: Glucose, Whole Blood 179 mg/dL (60-115)
[2022-06-12] MEDS: Metoprolol Succinate ER 50 MG TAB.ER.24H PO (13:36)
--- NOTE | 2022-06-12 13:39 | MHC.CM.PN ---
CM spoke with Patient's Son/Silvano @ [phone] and addressed IMM with him (original will be mailed certified letter to Silvano and a copy will be placed on the chart). Patient is a LTC Resident @ [facility] and returning there is the goal, once Patient is medically cleared for dc. CM has initiated and will follow for dc planning. Patient has received Moderna/Covid vax x1.
[2022-06-12] MEDS: Potassium Chloride ER 20 MEQ TAB.ER.PRT 40 MEQ PO (13:41)
[2022-06-12 14:08] LABS: C Reactive Protein 0.69 mg/dL (< or = 0.50)
--- NOTE | 2022-06-12 14:57 | PC.NURSE ---
assumed care of pt at 1445, pt reporting 8/10 abd pain, denies nausea at this time, bag 4/4 of K running.
[2022-06-12 17:03] LABS: Glucose, Whole Blood 146 mg/dL (60-115)
[2022-06-12] MEDS: iohexoL 350 MG/ML 100 ML INFUS..BTL IV (17:30)
[2022-06-12] MEDS: Magnesium Oxide 400 MG TABLET PO (18:04)
[2022-06-12 20:25] LABS: Glucose, Whole Blood 192 mg/dL (60-115)
[2022-06-12] MEDS: Insulin Glargine,Hum.rec.anlog 100 UNIT/ML 10 ML VIAL 20 UNIT SUBCUT (20:27)
[2022-06-12] MEDS: traZODone HCL 100 MG TABLET 300 MG PO (22:14)
[2022-06-13] VITALS (7 sets, daily range): BP systolic 100–138; BP diastolic 55–77; PULSE 75–88; RESP 17–22; TEMP 36.1–37.1; O2SAT 90–98
[2022-06-13] MEDS: Fluticasone/Vilanterol 100/25 BLST.W.DEV 1 PUFF INHALE (07:46)
[2022-06-13 07:49] LABS: Glucose, Whole Blood 159 mg/dL (60-115)
[2022-06-13 07:54] LABS: Anion Gap 13 (12-20); Blood Urea Nitrogen 30 mg/dL (9-16); Calcium 7.7 mg/dL (8.4-10.2); Carbon Dioxide 24 mmol/L (22-29); Chloride 105 mmol/L (96-108); Creatinine Clr Calc Pharmacy 34.1; Estimated Glomerular Filt Rate 37; Glucose Random 169 mg/dL (60-115); Magnesium 1.6 mg/dL (1.6-2.6); Potassium 4.4 mmol/L (3.3-5.1); Sodium 138 mmol/L (135-145)
[2022-06-13] MEDS: Insulin Lispro 100 UNIT/ML 3 ML VIAL SUBCUT ×2 (08:38→17:25)
[2022-06-13] MEDS: Metoclopramide HCl 5 MG TABLET PO (08:39)
[2022-06-13] MEDS: FLUoxetine HCl 20 MG CAPSULE 40 MG PO (08:39)
[2022-06-13] MEDS: 0.9 % Sodium Chloride Flush 3 ML SYRINGE IVFLUSH ×3 (08:39→23:13)
[2022-06-13] MEDS: Magnesium Oxide 400 MG TABLET PO ×2 (08:40→17:26)
[2022-06-13] MEDS: Metoprolol Succinate ER 50 MG TAB.ER.24H PO (08:40)
[2022-06-13] MEDS: Furosemide 20 MG TABLET PO (08:41)
[2022-06-13] MEDS: Gabapentin 400 MG CAPSULE PO ×3 (08:41→22:21)
[2022-06-13] MEDS: Omeprazole 20 MG CAPSULE.DR PO (08:41)
[2022-06-13] MEDS: Apixaban 5 MG TABLET PO (08:41)
[2022-06-13] MEDS: lisinopriL 5 MG TABLET PO (08:41)
[2022-06-13] MEDS: hydrALAZINE HCl 50 MG TABLET PO ×3 (08:41→22:22)
[2022-06-13] MEDS: Cyclobenzaprine HCl 10 MG TABLET PO ×2 (08:42→22:22)
[2022-06-13] MEDS: 0.9 % Sodium Chloride 1,000 ML 125 ML IVCONT ×2 (08:50→23:25)
[2022-06-13] MEDS: oxyCODONE HCl Immed Release 5 MG TABLET PO ×3 (08:56→23:09)
[2022-06-13] MEDS: Cholecalciferol (Vitamin D3) 25 MCG TABLET PO (08:56)
[2022-06-13 11:33] LABS: Glucose, Whole Blood 130 mg/dL (60-115)
--- NOTE | 2022-06-13 12:29 | HO.PM.IMPN ---
Subjective Subjective Date of Service: 06/13/22 Interval History: remains in NSR ongoing flank pain on R had CT yesterday Review of Systems Review of Systems: Yes all other systems are reviewed and are negative Physical Exam Vital Signs: Vital Signs: Last Vital Signs Temp 98.2 F 06/13/22 11:35 Pulse 87 06/13/22 11:35 Resp 17 06/13/22 11:35 BP 125/77 06/13/22 11:35 Pulse Ox 98 06/13/22 11:35 O2 Del Method 06/13/22 11:35 BMI result Body Mass Index 24.1 Gen: in no acute distress HEENT: sclera anicteric, moist mucus membranes Neck: supple Lungs: clear to auscultation bilaterally Heart: regular, no murmurs Abd: soft, non-tender, non-distended : R lower flank pain Ext: no edema Skin: warm/well-perfused Neuro: alert and oriented x3, no focal findings Psych: appropriate affect Objective Data Active Medications Acetaminophen (Acetaminophen 325 Mg Tablet) 650 mg PO Q6H PRN PRN Reason: Pain, Mild (Pain Scale 1-3) Albuterol Sulfate (Albuterol Sulfate 90 Mcg 8 Gm Inhaler) 1 puff INHALE Q4H PRN PRN Reason: Shortness Of Breath Apixaban (Apixaban 5 Mg Tablet) 5 mg PO BID [facility] Last Admin: 06/13/22 08:41 Dose: 5 mg Documented By: ROBIN Baclofen (Baclofen 10 Mg Tablet) 10 mg PO Q8H PRN PRN Reason: Muscle Spasm Last Admin: 06/12/22 03:20 Dose: 10 mg Documented By: CONSUELO Cyclobenzaprine HCl (Cyclobenzaprine Hcl 10 Mg Tablet) 10 mg PO BID [facility] Last Admin: 06/13/22 08:42 Dose: 10 mg Documented By: ROBIN Dextrose (Dextrose 50 % 25 Gm/50 Ml Syringe) 25 gm IVPUSH Q15M PRN; Protocol PRN Reason: per Hypoglycemia Standing Ord. Fentanyl (Fentanyl 75 Mcg Patch.Td72) 75 mcg TRANSDERMA Q72H [facility] Last Admin: 06/11/22 19:15 Dose: 75 mcg Documented By: JARED Fluoxetine HCl (Fluoxetine Hcl 20 Mg Capsule) 40 mg PO DAILY [facility] Last Admin: 06/13/22 08:39 Dose: 40 mg Documented By: ROBIN Fluticasone Propionate (Fluticasone Propionate Nasal 16 Gm [place]) 1 spray NOSTRIL-B DAILY [facility] Last Admin: 06/13/22 09:02 Dose: Not Given Documented By: ROBIN Non-Admin Reason: pt states not needed at this time Fluticasone/Vilanterol (Fluticasone/Vilanterol 100/25 Blst.W.Dev) 1 puff INHALE RDAILY [facility] Last Admin: 06/13/22 07:46 Dose: 1 puff Documented By: KILO Furosemide (Furosemide 20 Mg Tablet) 20 mg PO DAILY [facility]; Protocol Last Admin: 06/13/22 08:41 Dose: 20 mg Documented By: ROBIN Gabapentin (Gabapentin 400 Mg Capsule) 400 mg PO TID [facility] Last Admin: 06/13/22 08:41 Dose: 400 mg Documented By: ROBIN Glucose (Glucose Gel 15 Gm Gel..Gram.) 15 gm PO Q15M PRN; Protocol PRN Reason: per Hypoglycemia Standing Ord. Hydralazine HCl (Hydralazine Hcl 50 Mg Tablet) 50 mg PO TID [facility]; Protocol Last Admin: 06/13/22 08:41 Dose: 50 mg Documented By: ROBIN Sodium Chloride (Ns) 1,000 mls @ 125 mls/hr IVCONT .Q8H [facility] Stop: 06/14/22 00:14 Last Infusion: 06/13/22 10:50 Dose: 125 mls/hr Documented By: ROBIN Insulin Glargine (Insulin Glargine,Hum.Rec.Anlog 100 Unit/Ml 10 Ml Vial) 20 unit SUBCUT BEDTIME [facility] Last Admin: 06/12/22 20:27 Dose: 20 unit Documented By: BIA Insulin Human Lispro (Insulin Lispro 100 Unit/Ml 3 Ml Vial) 0 unit SUBCUT QIDACHS [facility]; Protocol Last Admin: 06/13/22 11:38 Dose: Not Given Documented By: ROBIN Non-Admin Reason: No Insulin Coverage Lisinopril (Lisinopril 5 Mg Tablet) 5 mg PO DAILY [facility]; Protocol Last Admin: 06/13/22 08:41 Dose: 5 mg Documented By: ROBIN Magnesium Oxide (Magnesium Oxide 400 Mg Tablet) 400 mg PO BIDPC [facility] Last Admin: 06/13/22 08:40 Dose: 400 mg Documented By: ROBIN Metoclopramide HCl (Metoclopramide Hcl 5 Mg Tablet) 5 mg PO DAILY [facility] Last Admin: 06/13/22 08:39 Dose: 5 mg Documented By: ROBIN Metoprolol Succinate (Metoprolol Succinate Er 50 Mg Tab.Er.24h) 50 mg PO DAILY [facility]; Protocol Last Admin: 06/13/22 08:40 Dose: 50 mg Documented By: ROBIN Omeprazole (Omeprazole 20 Mg Capsule.Dr) 20 mg PO DAILY [facility] Last Admin: 06/13/22 08:41 Dose: 20 mg Documented By: ROBIN Ondansetron HCl (Ondansetron Hcl 4 Mg/2 Ml Vial) 4 mg IVPUSH Q8H PRN PRN Reason: Nausea and Vomiting Last Admin: 06/12/22 22:24 Dose: 4 mg Documented By: BIA Oxycodone HCl (Oxycodone Hcl Immed Release 5 Mg Tablet) 5 mg PO Q4H PRN PRN Reason: Pain (Scale Score 4-6) Last Admin: 06/13/22 08:56 Dose: 5 mg Documented By: ROBIN Pharmacy Consult (Consult Rx Perform Med Rec) 1 each MISCELLANE ONCE PRN PRN Reason: Consult order Sodium Chloride (0.9 % Sodium Chloride Flush 3 Ml Syringe) 3 ml IVFLUSH QSHIFT [facility] Last Admin: 06/13/22 08:39 Dose: 3 ml Documented By: ROBIN Trazodone HCl (Trazodone Hcl 100 Mg Tablet) 300 mg PO BEDTIME [facility] Last Admin: 06/12/22 22:14 Dose: 300 mg Documented By: BIA Vitamin D (Cholecalciferol (Vitamin D3) 25 Mcg Tablet) 25 mcg PO DAILY [facility] Last Admin: 06/13/22 08:56 Dose: 25 mcg Documented By: ROBIN Labs CBC & Chem 7: 06/12/22 06:32 06/13/22 06:40 Labs: Laboratory Results - last 24 hr 06/12/22 06/12/22 06/12/22 06:32 13:28 16:56 Anion Gap Estim Creat Clear Calc Estimated GFR POC Glucose 179 H 146 H Random Glucose Calcium Magnesium C-Reactive Protein 0.69 H 06/12/22 06/13/22 06/13/22 20:17 06:40 07:45 Anion Gap 13 Estim Creat Clear Calc 34.1 Estimated GFR 37 POC Glucose 192 H 159 H Random Glucose 169 H Calcium 7.7 L Magnesium 1.6 C-Reactive Protein 06/13/22 11:29 Anion Gap Estim Creat Clear Calc Estimated GFR POC Glucose 130 H Random Glucose Calcium Magnesium C-Reactive Protein Impressions Abdomen/Pelvis CT 06/12/22 17:32 IMPRESSION: Left renal calcifications probably representing a combination of vascular calcifications and small stone. No evidence of pyelonephritis. Abnormal wall thickening of the stomach and enlarged lymph nodes. Follow-up endoscopy and biopsy should be considered. Low-attenuation in the uterus suggestive of endometrial fluid or thickening. Follow-up pelvic ultrasound recommended. Prominent soft tissue in the right inferior hilar region. Follow-up chest CT should be considered. Diverticulosis. Fleischner guidelines were followed. Pelvic/Transvag US 06/13/22 09:45 IMPRESSION: Fluid-filled endometrium. Double thickness endometrium measures 0.6 cm which is minimally thickened for a postmenopausal patient. FORE[employer]Y CONSERVATION WORKER consultation recommended. TTE 06/12/22 . Normal LV systolic function with mild LVH with LVEF of 60 ? 65% with impaired relaxation filling pattern ? 2. Mildly dilated left atrium? 3. Cardiac valvular Dopplers within normal limits? 4.? Normal RV systolic pressure? 5. No gross pericardial effusion ? Microbiology Microbiology Results: Microbiology 06/11/22 00:00 Urine Culture - Final Urine clean catch - Urine hoang top 06/11/22 11:42 Blood Culture - Preliminary Blood - Venous No growth after 24 hours. 06/11/22 11:42 Blood Culture - Preliminary Blood - Venous No growth after 24 hours. Assessment and Plan (1) Paroxysmal atrial fibrillation: Status: Acute Plan d#3 67yo F long-term care resident of [facility] due to chronic pain + nonambulation s/p 6 back procedures and currently on fentanyl patch, DM2, HTN, COPD/asthma, and recurrent UTIs including ESBL E. coli presenting with several months of dizziness, nausea, vomiting and about 1 week of watery diarrhea with 5 episodes/day.? Presented with new-onset atrial fibrillation with RVR in the 140s-150s. ? Found to have critical hypomagnesemia. Recently on levofloxacin for UTI despite prior resistance. # AF/RVR - converted to NSR 12/ am. started metoprolol succinate. started apixaban for [id number] score of 4. Mg/K repleted # hypoMg - repleted; continue PO maintenance; was likely due to diarrhea/vomiting # hypoK - repleted # BRANDON - likely prerenal; will give 2L IV NS and recheck BMP in AM # flank pain, hx UTI - hold off on antibiotics for now [she was on levofloxacin at the [facility]]; doubt has UTI currently- follow UCx. CT has revealed other abnormalities that need workup # stomach wall thickening with adenopathy - GI consultation; will need EGD # endometrial thickening - FORE[employer] CONSERVATION WORKER consultation # hilar soft tissue swelling on CT A/P - CT chest when BRANDON resolves # diarrhea - resolved; was likely due to levofloxacin # HTN - continue hydralazine + lisinopril # COPD-asthma, not in acute exac - continue ICS/LABA, prn NAVJOT # chronic pain - fentanyl patch + prn oxycodone, gabapentin # mood d/o - fluoxetine # VTE prophylaxis: apixaban # dispo: eventual return to LTC In my clinical judgment, the patient requires continued inpatient hospitalization for the following reasons: BRANDON, workup of flank pain Time Spent With Patient Time: Total time managing care of this patient today ____ minutes. Quality Stroke Does the patient have a stroke diagnosis?: No VTE Prior VTE?: No VTE Risk Level:: Medical - moderate - high VTE Device Contraindication: N/A - Device Ordered VTE Drug Contraindication: N/A - Med Ordered
--- NOTE | 2022-06-13 12:36 | P.PNCA_ITS ---
Subjective Subjective Date of Service: 06/13/22 Principal diagnosis: Paroxysmal atrial fibrillation Interval history: Patient without any recurrent atrial fibrillation. Her ectopy burden also seems to have improved. Currently taking all medications. Magnesium is 1.6. Potassium is corrected. She says she feels a lot better. Review of Systems Constitutional: Reports malaise Eyes: Reports no additional eye complaints Cardiovascular: Reports no additional cardiovascular complaints Respiratory: Reports no additional respiratory complaints Musculoskeletal: Reports no additional musculoskeletal complaints Skin/Breast: Reports system reviewed and no additional complaints, except as docu Physical Exam Vital Signs: Last Vital Signs Temp 98.2 F 06/13/22 11:35 Pulse 87 06/13/22 11:35 Resp 17 06/13/22 11:35 BP 125/77 06/13/22 11:35 Pulse Ox 98 06/13/22 11:35 O2 Del Method 06/13/22 11:35 BMI result Body Mass Index 24.1 Const General: cooperative, comfortable, no acute distress, alert and awake Nutritional Appearance: overweight Orientation/consciousness: patient oriented x3 Neck Neck: Yes trachea midline, Yes supple and Yes no JVD Resp Auscultation: crackles (Course) bilateral and wheezes right upper (Posterior) Cardio Jugular venous distension: no JVD Palpation: normal PMI Rate: regular rate Rhythm: abnormal rhythm Heart sounds: S1 normal heart sound present, S2 normal heart sound present, no click, no gallops and no murmurs GI Auscultation: normal bowel sounds Neuro General: patient oriented x3 and no focal motor deficits Extrem General: Yes no clubbing, cyanosis or edema Objective Labs and Meds Result diagrams: 06/12/22 06:32 06/13/22 06:40 Lab results: Laboratory Results - last 24 hr 06/12/22 06/12/22 06/12/22 06:32 13:28 16:56 Sodium Potassium Chloride Carbon Dioxide Anion Gap BUN Creatinine Estim Creat Clear Calc Estimated GFR POC Glucose 179 H 146 H Random Glucose Calcium Magnesium C-Reactive Protein 0.69 H 06/12/22 06/13/22 06/13/22 20:17 06:40 07:45 Sodium 138 Potassium 4.4 D Chloride 105 Carbon Dioxide 24 Anion Gap 13 BUN 30 H Creatinine 1.40 Estim Creat Clear Calc 34.1 Estimated GFR 37 POC Glucose 192 H 159 H Random Glucose 169 H Calcium 7.7 L Magnesium 1.6 C-Reactive Protein 06/13/22 11:29 Sodium Potassium Chloride Carbon Dioxide Anion Gap BUN Creatinine Estim Creat Clear Calc Estimated GFR POC Glucose 130 H Random Glucose Calcium Magnesium C-Reactive Protein Imaging Radiologist's impression: Impressions Abdomen/Pelvis CT 06/12/22 17:32 IMPRESSION: Left renal calcifications probably representing a combination of vascular calcifications and small stone. No evidence of pyelonephritis. Abnormal wall thickening of the stomach and enlarged lymph nodes. Follow-up endoscopy and biopsy should be considered. Low-attenuation in the uterus suggestive of endometrial fluid or thickening. Follow-up pelvic ultrasound recommended. Prominent soft tissue in the right inferior hilar region. Follow-up chest CT should be considered. Diverticulosis. Fleischner guidelines were followed. Pelvic/Transvag US 06/13/22 09:45 IMPRESSION: Fluid-filled endometrium. Double thickness endometrium measures 0.6 cm which is minimally thickened for a postmenopausal patient. MD SENIOR RESEARCH SCIENTIST consultation recommended. Progress Note: A&P Assessment and plan (1) Paroxysmal atrial fibrillation: Status: Acute Assessment and Plan: Paroxysmal atrial fibrillation most likely induced by acute medical condition electrolyte imbalance. Currently doing well. Clinically feeling better after treatment. Has had no significant recurrence since hospitalization. Continue metoprolol 50 mg daily. Continue full oral anticoagulation, currently on Eliquis 5 mg b.i.d.. Continue to treat underlying medical condition. Continue to replace electrolytes and maintain magnesium level above 2 and potassium above 4. Will sign of the case. Will follow-up as outpatient after workup Time Spent With Patient Time: Total time managing care of this patient today ____ minutes. Progress Note: Quality Stroke Does the patient have a stroke diagnosis?: No Procedures Date of Service Date of Service: 06/13/22
--- NOTE | 2022-06-13 16:02 | MHC.SHP ---
Pre-Procedural Eval Section A Date of Service: 06/15/22 The patient is an INPATIENT: Yes The History & Physical has been completed within 30 days and I have reviewed it.: Yes Section B Chief Complaint: new onset AF/ RVR, hypoMG Allergies: Allergies Allergy/AdvReac Type Severity Reaction Status Date / Time aspirin [From PERCODAN] Allergy Unknown UNKNOWN Verified 12/17/21 17:40 egg [EGG] Allergy Unknown UNKNOWN Verified 12/17/21 17:40 oxycodone AdvReac Nausea Verified 12/17/21 17:40 From PERCODAN Allergy Unknown UNKNOWN Uncoded 12/17/21 17:40 Plan I have reviewed the history and physical and performed a pertinent physical examination on my patient. No changes have occurred unless specified.
--- NOTE | 2022-06-13 16:02 | PM.EVENT ---
Event Note Date of Service: 06/13/22 Event Note: GI Consult-Full note dictated Imp: 67 yo female [facility] with approximately 1 week of N/V and diarrhea that has now basically resolved. There was no reported bleeding. Her w/u has included a CT scan revealing reported gastric wall thickening and some lymphadenopathy. She is on a chronic PPI for GERD. Denies dysphagia nor early satiety. She appears to be on Celebrex.She does smoke. Diff dx: Gastritis, R/O neoplasm Rec: EGD with MAC on 06/15/[address] Melton. Full consent obtained for this, including risks of bleeding and perforation. Hold Eliquis. Continue PPI. D/W patient in detail and she is comfortable with this plan. Thanks Time Spent With Patient Time: Total time managing care of this patient today ____ minutes.
[2022-06-13 16:51] LABS: Glucose, Whole Blood 158 mg/dL (60-115)
[2022-06-13 20:42] LABS: Glucose, Whole Blood 124 mg/dL (60-115)
[2022-06-13] MEDS: Insulin Glargine,Hum.rec.anlog 100 UNIT/ML 10 ML VIAL 20 UNIT SUBCUT (23:00)
[2022-06-13] MEDS: traZODone HCL 100 MG TABLET 300 MG PO (23:09)
[2022-06-14] VITALS (7 sets, daily range): BP systolic 108–144; BP diastolic 55–77; PULSE 58–78; RESP 16–19; TEMP 36.2–37.3; O2SAT 90–98
--- NOTE | 2022-06-14 00:07 | W.PM.IDCN ---
History of Present Illness Data of Consult Service Date: 06/13/22 Requesting physician: Chaim Woodall Primary Care Provider: MD ALEXANDRE Briseno Reason for consult: abdominal discomfort She presents to hospital with right abdominal pain ,01/11. She has discomfort for last week. She has no fever or chills. She has chronic pain abdomen and has said she has recurrent UTIs. She has had resistant E coli in past. Review of Systems Review of Systems: Yes all other systems are reviewed and are negative PMF Past Medical History Medical History Bronchitis Chronic back pain Chronic pain Diabetes High cholesterol HTN (hypertension) UTI (urinary tract infection) Family History Family history: reviewed and not pertinent Surgical History Surgical History History of back surgery Social History Social History Household Members: Other Household Members Other:: roomate Housing: [facility] Do you presently have visiting nurse or other home services: No Unable to assess alcohol history related to: Unknown Alcohol intake: never Patient Tobacco Use Status: Current everyday Tobacco user Tobacco use type: Cigarette Cigarettes Per Day: 8 e-Cigarette/Vaping Use: Never Used Second Hand Smoke Exposure: Yes Advance Directives Date on File: 06/12/22 service: No Current occupational status: unemployed Meds Allergies Allergy/AdvReac Type Severity Reaction Status Date / Time aspirin [From PERCODAN] Allergy Unknown UNKNOWN Verified 12/17/21 17:40 egg [EGG] Allergy Unknown UNKNOWN Verified 12/17/21 17:40 oxycodone AdvReac Nausea Verified 12/17/21 17:40 From PERCODAN Allergy Unknown UNKNOWN Uncoded 12/17/21 17:40 Active Medications: Current Medications Acetaminophen (Acetaminophen 325 Mg Tablet) 650 mg PO Q6H PRN PRN Reason: Pain, Mild (Pain Scale 1-3) Albuterol Sulfate (Albuterol Sulfate 90 Mcg 8 Gm Inhaler) 1 puff INHALE Q4H PRN PRN Reason: Shortness Of Breath Apixaban (Apixaban 5 Mg Tablet) 5 mg PO BID SHAMIKA Last Admin: 06/13/22 08:41 Dose: 5 mg Baclofen (Baclofen 10 Mg Tablet) 10 mg PO Q8H PRN PRN Reason: Muscle Spasm Last Admin: 06/12/22 03:20 Dose: 10 mg Cyclobenzaprine HCl (Cyclobenzaprine Hcl 10 Mg Tablet) 10 mg PO BID [facility] Last Admin: 06/13/22 22:22 Dose: 10 mg Dextrose (Dextrose 50 % 25 Gm/50 Ml Syringe) 25 gm IVPUSH Q15M PRN; Protocol PRN Reason: per Hypoglycemia Standing Ord. Fentanyl (Fentanyl 75 Mcg Patch.Td72) 75 mcg TRANSDERMA Q72H [facility] Last Admin: 06/11/22 19:15 Dose: 75 mcg Fluoxetine HCl (Fluoxetine Hcl 20 Mg Capsule) 40 mg PO DAILY [facility] Last Admin: 06/13/22 08:39 Dose: 40 mg Fluticasone Propionate (Fluticasone Propionate Nasal 16 Gm [place]) 1 spray NOSTRIL-B DAILY [facility] Last Admin: 06/13/22 09:02 Dose: Not Given Fluticasone/Vilanterol (Fluticasone/Vilanterol 100/25 Blst.W.Dev) 1 puff INHALE RDAILY [facility] Last Admin: 06/13/22 07:46 Dose: 1 puff Furosemide (Furosemide 20 Mg Tablet) 20 mg PO DAILY [facility]; Protocol Last Admin: 06/13/22 08:41 Dose: 20 mg Gabapentin (Gabapentin 400 Mg Capsule) 400 mg PO TID [facility] Last Admin: 06/13/22 22:21 Dose: 400 mg Glucose (Glucose Gel 15 Gm Gel..Gram.) 15 gm PO Q15M PRN; Protocol PRN Reason: per Hypoglycemia Standing Ord. Hydralazine HCl (Hydralazine Hcl 50 Mg Tablet) 50 mg PO TID [facility]; Protocol Last Admin: 06/13/22 22:22 Dose: 50 mg Sodium Chloride (Ns) 1,000 mls @ 125 mls/hr IVCONT .Q8H [facility] Stop: 06/14/22 00:14 Last Admin: 06/13/22 23:25 Dose: 125 mls/hr Insulin Glargine (Insulin Glargine,Hum.Rec.Anlog 100 Unit/Ml 10 Ml Vial) 20 unit SUBCUT BEDTIME [facility] Last Admin: 06/13/22 23:00 Dose: 20 unit Insulin Human Lispro (Insulin Lispro 100 Unit/Ml 3 Ml Vial) 0 unit SUBCUT QIDACHS [facility]; Protocol Last Admin: 06/13/22 23:01 Dose: Not Given Lisinopril (Lisinopril 5 Mg Tablet) 5 mg PO DAILY [facility]; Protocol Last Admin: 06/13/22 08:41 Dose: 5 mg Magnesium Oxide (Magnesium Oxide 400 Mg Tablet) 400 mg PO BIDPC [facility] Last Admin: 06/13/22 17:26 Dose: 400 mg Metoclopramide HCl (Metoclopramide Hcl 5 Mg Tablet) 5 mg PO DAILY [facility] Last Admin: 06/13/22 08:39 Dose: 5 mg Metoprolol Succinate (Metoprolol Succinate Er 50 Mg Tab.Er.24h) 50 mg PO DAILY [facility]; Protocol Last Admin: 06/13/22 08:40 Dose: 50 mg Omeprazole (Omeprazole 20 Mg Capsule.Dr) 20 mg PO DAILY [facility] Last Admin: 06/13/22 08:41 Dose: 20 mg Ondansetron HCl (Ondansetron Hcl 4 Mg/2 Ml Vial) 4 mg IVPUSH Q8H PRN PRN Reason: Nausea and Vomiting Last Admin: 06/12/22 22:24 Dose: 4 mg Oxycodone HCl (Oxycodone Hcl Immed Release 5 Mg Tablet) 5 mg PO Q4H PRN PRN Reason: Pain (Scale Score 4-6) Last Admin: 06/13/22 23:09 Dose: 5 mg Pharmacy Consult (Consult Rx Perform Med Rec) 1 each MISCELLANE ONCE PRN PRN Reason: Consult order Sodium Chloride (0.9 % Sodium Chloride Flush 3 Ml Syringe) 3 ml IVFLUSH QSHIFT [facility] Last Admin: 06/13/22 23:13 Dose: 3 ml Trazodone HCl (Trazodone Hcl 100 Mg Tablet) 300 mg PO BEDTIME [facility] Last Admin: 06/13/22 23:09 Dose: 300 mg Vitamin D (Cholecalciferol (Vitamin D3) 25 Mcg Tablet) 25 mcg PO DAILY [facility] Last Admin: 06/13/22 08:56 Dose: 25 mcg Home Medications Medication Instructions Recorded Confirmed Last Taken Type albuterol sulfate 90 mcg/actuation 1 puff inhalation Q4H PRN 07/26/20 06/11/22 Unknown History aerosol inhaler (Ventolin HFA) Shortness Of Breath celecoxib 200 mg capsule (Celebrex) 200 mg PO DAILY 07/26/20 06/11/22 Unknown History fluoxetine 40 mg capsule (Prozac) 40 mg PO DAILY 07/26/20 06/11/22 Unknown History fluticasone propionate 50 1 spray intranasal DAILY 07/26/20 06/11/22 Unknown History mcg/actuation nasal spray,suspension glipizide 5 mg tablet 10 mg PO BIDAC 07/26/20 06/11/22 Unknown History metformin 500 mg tablet 1,000 mg PO BIDWM 07/26/20 06/11/22 Unknown History metoclopramide HCl 5 mg tablet 5 mg PO DAILY 07/26/20 06/11/22 Unknown History (Reglan) acetaminophen 325 mg tablet 650 mg PO Q4H PRN PAIN/FEVER 11/21/21 06/11/22 Unknown History baclofen 10 mg tablet 10 mg Q8H PRN Muscle Spasm 11/21/21 06/11/22 Unknown History furosemide 20 mg tablet (Lasix) 20 mg PO DAILY 11/21/21 06/11/22 Unknown History gabapentin 400 mg capsule 400 mg PO TID 11/21/21 06/11/22 Unknown History insulin detemir U-100 100 unit/mL 25 unit subcut DAILY 11/21/21 06/11/22 Unknown History subcutaneous solution (Levemir U-100 Insulin) insulin lispro 100 unit/mL See Protocol QIDACHS 11/21/21 06/11/22 Unknown History subcutaneous cartridge (Humalog U-100 Insulin) lansoprazole 15 mg capsule,delayed 15 mg PO DAILY 11/21/21 06/11/22 Unknown History release (Prevacid 24Hr) lisinopril 5 mg tablet 5 mg PO DAILY 11/21/21 06/11/22 Unknown History oxycodone 5 mg tablet 5 mg PO Q4H PRN Pain (Scale Score 11/21/21 06/11/22 Unknown History 4-6) trazodone 150 mg tablet 300 mg PO BEDTIME 12/17/21 06/11/22 Unknown History cholecalciferol (vitamin D3) 25 25 mcg PO DAILY 06/11/22 06/11/22 Unknown History mcg (1,000 unit) tablet hydralazine 50 mg tablet 1 tab PO TID 06/11/22 06/11/22 Unknown History levofloxacin 250 mg tablet 1 tab PO DAILY 06/11/22 06/11/22 Unknown History magnesium citrate 150 ml PO DAILY PRN Constipation 06/11/22 06/11/22 Unknown History methenamine hippurate 1 gram tablet 1 tab PO BID 06/11/22 06/11/22 Unknown History methocarbamol 500 mg tablet 1,000 mg PO TID 06/11/22 06/11/22 Unknown History Physical Exam Vital Signs: Vital Signs: Last Vital Signs Temp 96.9 F 06/13/22 23:33 Pulse 77 06/13/22 23:33 Resp 18 06/13/22 23:33 BP 119/58 L 06/13/22 23:33 Pulse Ox 90 L 06/13/22 23:33 O2 Del Method 06/13/22 23:33 BMI result Body Mass Index 24.1 Const: General: cooperative HEENT: Head: Yes normal to inspection Face and sinus: Yes normal facial exam Mouth: Normal oral and palatal mucosa present Teeth and gingiva: dentition normal Eyes: General: appearance normal, both eyes and all related structures Pupils: Equal, round and reactive pupils present Resp: Effort & Inspection: normal respiratory effort Cardio: Rate: regular rate Rhythm: regular rhythm GI: Palpation (GI): Soft to palpation and nontender : General: Yes no CVA tenderness Back/Spine/Pelvis: Back: no CVA tenderness Skin: General skin exam: no rashes or lesions noted Neuro: General: moves all extremities Cranial nerves: Yes Equal, round and reactive pupils present Extrem: General: Yes normal to inspection Psych: Appearance: grossly normal Results Labs CBC & Chem 7: 06/12/22 06:32 06/13/22 06:40 Labs: BMP 06/13/22 06:40 Sodium 138 Potassium 4.4 D Chloride 105 Carbon Dioxide 24 BUN 30 H Creatinine 1.40 Calcium 7.7 L Microbiology Microbiology Results: Microbiology 06/11/22 11:42 Blood - Venous Blood Culture - Preliminary No growth after 48 hours. 06/11/22 11:42 Blood - Venous Blood Culture - Preliminary No growth after 48 hours. 06/11/22 00:00 Urine clean catch - Urine hoang top Urine Culture - Final Assessment and Plan (1) Leukocytosis: Qualifiers: Leukocytosis type: unspecified Qualified Code(s): D72.829 - Elevated white blood cell count, unspecified Status: Acute She has no bacteria in urine. She may have chronic pelvic pain She has some leukocytosis but has no definite UTI seen now and has been on Levaquin. Plan Hold antibiotics for now. Even if bacteriuria may not need antibiotics unless septic as may be colonized. Time Spent With Patient Time: Total time managing care of this patient today ____ minutes.
--- NOTE | 2022-06-14 01:52 | CONS_ITS ---
DATE OF SERVICE: 06/13/2022 REASON FOR CONSULTATION: Abdominal pain, vomiting, and abnormal CT scan of stomach. HISTORY OF PRESENT ILLNESS: This has been obtained from the patient and the medical record. The patient is a 67-year-old female, admitted to the hospital on June 11 for evaluation of some abdominal pain, primarily in the right lower quadrant, radiating into the groin. She describes that over the past week or so at the half-way she has been having persistent vomiting, anorexia, and diarrhea. There was no associated hematemesis, coffee-ground emesis, hematochezia, nor melena. Prior to that, she denies any chronic GI complaints. She does take a PPI at the half-way on a daily basis for reflux, which she reports works fairly well for her. She denies any dysphagia, early satiety, nor any chronic GI complaints prior to the past week. She does describe a distant history of ulcer disease with perhaps some bleeding about 15 years ago that resolved. She cannot recall if she has ever had an upper endoscopy. She thinks she had a colonoscopy in the past. She does report that her vomiting and diarrhea have basically subsided here in the hospital and she has been tolerating a diet. At the half-way, she was on daily Celebrex as well as a PPI. She also smokes, but does not use any alcohol. On admission to the hospital, she did have atrial fibrillation with a rapid rate, which has improved. As far as she knows, there were no recent problems with outbreak of GI problems at the half-way, such as diarrhea or vomiting. MEDICATIONS: Her current medications include acetaminophen, albuterol inhaler p.r.n., Eliquis, baclofen, vitamin D, Flexeril, Duragesic patch, fluoxetine, Lasix, Neurontin, hydralazine, insulin, lisinopril, magnesium, metoclopramide, metoprolol, omeprazole, Zofran p.r.n., oxycodone p.r.n., trazodone. PAST MEDICAL HISTORY: She describes 6 back surgeries and nasal surgery. She has multiple medical problems including diabetes mellitus, atrial fibrillation, chronic back pain, hypertension, hyperlipidemia, UTIs, and history of bronchitis. SOCIAL HISTORY: She lives in the half-way for the past 2 years. She does smoke. She denies any alcohol use. She is a . FAMILY HISTORY: Noncontributory. REVIEW OF SYSTEMS: CONSTITUTIONAL: Prior to the past week or so, she was feeling fairly well at the half-way, although does have some chronic back pain. CARDIAC: No chest pain. PULMONARY: No coughing. No hemoptysis. GI: As above. URINARY: No dysuria. No hematuria. PHYSICAL EXAMINATION: GENERAL: The patient is a pleasant, alert, comfortable-appearing female, in no distress. SKIN: Warm and dry. HEENT: Anicteric sclerae. NECK: Supple. CHEST: Reveals bilateral wheezing. CARDIAC: Normal S1 and S2. ABDOMEN: Soft, nondistended with normal bowel sounds. She does have some mild diffuse tenderness without mass, rebound, or guarding. IMAGING AND LABORATORY DATA: Her CT scan describes some gastric wall thickening with some enlarged lymph nodes adjacent to the head of the pancreas, distal stomach, and the periportal area. There was no sign of any liver lesions nor pancreatic disease. She did have a pelvic transvaginal ultrasound today, that describes some thickening of the endometrium, but no other abnormalities. White blood cell count 14.2, hemoglobin 12.8, platelets 346,000. PT 16.2 with INR 1.4. Normal electrolytes. BUN 30, creatinine 1.4. She had a normal liver profile on June 11. IMPRESSION: Given the patient's clinical history and CT scan findings, this may represent changes consistent with a diffuse gastritis, given that she had been having vomiting for about a week now and does have a history of smoking and chronic use of Celebrex. Aside from gastritis, other more worrisome things to consider would be that of a neoplasm. As such, I would recommend upper endoscopy prior to discharge by myself or Dr. Melton. Full consent has been obtained from her for this, including risks of bleeding and perforation. Her Eliquis will be placed on hold until after the procedure. Based on her clinical history I suspect malignancy is unlikely, but nonetheless given the CT findings and the associated lymphadenopathy, I would recommend upper endoscopy prior to discharge. At this point, she otherwise appears stable and appears to be improved from the GI standpoint as compared to over the past week when she was having vomiting and diarrhea. This has all been discussed in detail with the patient and she is comfortable with this plan. MD ARNIE Pink/BOBO / [phone] DENICE
[2022-06-14 07:12] LABS: Hematocrit 36.4 % (37.0-47.0); Hemoglobin 11.6 g/dl (12.0-16.0); Mean Corpuscular HGB Conc 31.9 g/dl (31.0-35.0); Mean Corpuscular Hemoglobin 29.2 pg (27.0-33.0); Mean Corpuscular Volume 91.7 fL (80.0-98.0); Mean Platelet Volume 9.2 fL (9.4-12.3); Platelet Count 300 X10*3/uL (160-400); Red Blood Count 3.97 X10*6/uL (4.20-5.50); Red Cell Distribution Width 13.8 % (11.0-16.0); White Blood Count 10.7 X10*3/uL (4.8-10.8)
[2022-06-14 07:34] LABS: Anion Gap 12 (12-20); Blood Urea Nitrogen 32 mg/dL (9-16); C Reactive Protein 0.69 mg/dL (< or = 0.50); Carbon Dioxide 24 mmol/L (22-29); Chloride 106 mmol/L (96-108); Creatinine Clr Calc Pharmacy 41.1; Estimated Glomerular Filt Rate 46; Glucose Random 144 mg/dL (60-115); Magnesium 1.9 mg/dL (1.6-2.6); Potassium 4.3 mmol/L (3.3-5.1); Sodium 138 mmol/L (135-145)
[2022-06-14 07:44] LABS: Calcium 8.3 mg/dL (8.4-10.2)
[2022-06-14] MEDS: Fluticasone/Vilanterol 100/25 BLST.W.DEV 1 PUFF INHALE (07:47)
[2022-06-14 07:49] LABS: Glucose, Whole Blood 162 mg/dL (60-115)
[2022-06-14] MEDS: hydrALAZINE HCl 50 MG TABLET PO ×3 (08:29→21:48)
[2022-06-14] MEDS: Insulin Lispro 100 UNIT/ML 3 ML VIAL SUBCUT ×4 (08:29→21:48)
[2022-06-14] MEDS: Cyclobenzaprine HCl 10 MG TABLET PO ×2 (08:29→21:47)
[2022-06-14] MEDS: Metoprolol Succinate ER 50 MG TAB.ER.24H PO (08:30)
[2022-06-14] MEDS: Omeprazole 20 MG CAPSULE.DR PO (08:30)
[2022-06-14] MEDS: Metoclopramide HCl 5 MG TABLET PO (08:30)
[2022-06-14] MEDS: Furosemide 20 MG TABLET PO (08:30)
[2022-06-14] MEDS: FLUoxetine HCl 20 MG CAPSULE 40 MG PO (08:30)
[2022-06-14] MEDS: Cholecalciferol (Vitamin D3) 25 MCG TABLET PO (08:30)
[2022-06-14] MEDS: Magnesium Oxide 400 MG TABLET PO ×2 (08:30→17:50)
[2022-06-14] MEDS: Gabapentin 400 MG CAPSULE PO ×3 (08:31→21:48)
[2022-06-14] MEDS: lisinopriL 5 MG TABLET PO (08:31)
[2022-06-14] MEDS: oxyCODONE HCl Immed Release 5 MG TABLET PO ×3 (08:38→22:41)
--- NOTE | 2022-06-14 11:44 | PC.NURSE ---
pt with unsteady gait, high fall risk. A+O X 4, forgetful at times -refused red non-slip socks, bed alarm. pt educated on safety and is aware of the risks of refusing. call auguste within reach, camera in room, commode at bedside.
[2022-06-14 11:51] LABS: Glucose, Whole Blood 169 mg/dL (60-115)
--- NOTE | 2022-06-14 14:11 | P.PNIM_ITS ---
Subjective Subjective Date of Service: 06/14/22 Interval History: Offers no acute complaints, complaining of persistent right flank pain not worsening, no shortness of breath, no chest pain, no other acute issues tolerating diet Review of Systems Review of Systems: Yes all other systems are reviewed and are negative Physical Exam Vital Signs: Vital Signs: Last Vital Signs Temp 98.0 F 06/14/22 11:52 Pulse 78 06/14/22 11:52 Resp 17 06/14/22 11:52 BP 125/77 06/14/22 11:52 Pulse Ox 98 06/14/22 11:52 O2 Del Method 06/14/22 11:52 BMI result Body Mass Index 24.1 Const: Other: Gen: Awake alert x3, in no acute distress HEENT: sclera anicteric, moist mucus membranes Neck: supple, no JVD Lungs: clear to auscultation bilaterally Heart: regular, no murmurs Abd: soft, non-tender, non-distended Ext: no edema Skin: warm/well-perfused Neuro: alert and oriented x3, no focal findings Psych: appropriate affect Objective Data Active Medications Acetaminophen (Acetaminophen 325 Mg Tablet) 650 mg PO Q6H PRN PRN Reason: Pain, Mild (Pain Scale 1-3) Albuterol Sulfate (Albuterol Sulfate 90 Mcg 8 Gm Inhaler) 1 puff INHALE Q4H PRN PRN Reason: Shortness Of Breath Apixaban (Apixaban 5 Mg Tablet) 5 mg PO BID [facility] Last Admin: 06/13/22 08:41 Dose: 5 mg Documented By: ROBIN Baclofen (Baclofen 10 Mg Tablet) 10 mg PO Q8H PRN PRN Reason: Muscle Spasm Last Admin: 06/12/22 03:20 Dose: 10 mg Documented By: CONSUELO Cyclobenzaprine HCl (Cyclobenzaprine Hcl 10 Mg Tablet) 10 mg PO BID [facility] Last Admin: 06/14/22 08:29 Dose: 10 mg Documented By: ROBIN Dextrose (Dextrose 50 % 25 Gm/50 Ml Syringe) 25 gm IVPUSH Q15M PRN; Protocol PRN Reason: per Hypoglycemia Standing Ord. Fentanyl (Fentanyl 75 Mcg Patch.Td72) 75 mcg TRANSDERMA Q72H [facility] Last Admin: 06/11/22 19:15 Dose: 75 mcg Documented By: JARED Fluoxetine HCl (Fluoxetine Hcl 20 Mg Capsule) 40 mg PO DAILY [facility] Last Admin: 06/14/22 08:30 Dose: 40 mg Documented By: ROBIN Fluticasone Propionate (Fluticasone Propionate Nasal 16 Gm Silver) 1 spray NOSTRIL-B DAILY [facility] Last Admin: 06/14/22 08:44 Dose: Not Given Documented By: ROBIN Non-Admin Reason: Patient Refused Fluticasone/Vilanterol (Fluticasone/Vilanterol 100/25 Blst.W.Dev) 1 puff INHALE RDAILY [facility] Last Admin: 06/14/22 07:47 Dose: 1 puff Documented By: KILO Furosemide (Furosemide 20 Mg Tablet) 20 mg PO DAILY [facility]; Protocol Last Admin: 06/14/22 08:30 Dose: 20 mg Documented By: ROBIN Gabapentin (Gabapentin 400 Mg Capsule) 400 mg PO TID [facility] Last Admin: 06/14/22 08:31 Dose: 400 mg Documented By: ROBIN Glucose (Glucose Gel 15 Gm Gel..Gram.) 15 gm PO Q15M PRN; Protocol PRN Reason: per Hypoglycemia Standing Ord. Hydralazine HCl (Hydralazine Hcl 50 Mg Tablet) 50 mg PO TID [facility]; Protocol Last Admin: 06/14/22 08:29 Dose: 50 mg Documented By: ROBIN Insulin Glargine (Insulin Glargine,Hum.Rec.Anlog 100 Unit/Ml 10 Ml Vial) 20 unit SUBCUT BEDTIME [facility] Last Admin: 06/13/22 23:00 Dose: 20 unit Documented By: BIA Insulin Human Lispro (Insulin Lispro 100 Unit/Ml 3 Ml Vial) 0 unit SUBCUT QIDACHS [facility]; Protocol Last Admin: 06/14/22 13:05 Dose: 2 unit Documented By: ROBIN Lisinopril (Lisinopril 5 Mg Tablet) 5 mg PO DAILY [facility]; Protocol Last Admin: 06/14/22 08:31 Dose: 5 mg Documented By: ROBIN Magnesium Oxide (Magnesium Oxide 400 Mg Tablet) 400 mg PO BIDPC [facility] Last Admin: 06/14/22 08:30 Dose: 400 mg Documented By: ROBIN Metoclopramide HCl (Metoclopramide Hcl 5 Mg Tablet) 5 mg PO DAILY [facility] Last Admin: 06/14/22 08:30 Dose: 5 mg Documented By: ROBIN Metoprolol Succinate (Metoprolol Succinate Er 50 Mg Tab.Er.24h) 50 mg PO DAILY [facility]; Protocol Last Admin: 06/14/22 08:30 Dose: 50 mg Documented By: ROBIN Omeprazole (Omeprazole 20 Mg Capsule.Dr) 20 mg PO DAILY [facility] Last Admin: 06/14/22 08:30 Dose: 20 mg Documented By: ROBIN Ondansetron HCl (Ondansetron Hcl 4 Mg/2 Ml Vial) 4 mg IVPUSH Q8H PRN PRN Reason: Nausea and Vomiting Last Admin: 06/12/22 22:24 Dose: 4 mg Documented By: BIA Oxycodone HCl (Oxycodone Hcl Immed Release 5 Mg Tablet) 5 mg PO Q4H PRN PRN Reason: Pain (Scale Score 4-6) Last Admin: 06/14/22 08:38 Dose: 5 mg Documented By: ROBIN Pharmacy Consult (Consult Rx Perform Med Rec) 1 each MISCELLANE ONCE PRN PRN Reason: Consult order Sodium Chloride (0.9 % Sodium Chloride Flush 3 Ml Syringe) 3 ml IVFLUSH QSHIFT [facility] Last Admin: 06/14/22 08:18 Dose: Not Given Documented By: ROBIN Non-Admin Reason: IV Running Trazodone HCl (Trazodone Hcl 100 Mg Tablet) 300 mg PO BEDTIME [facility] Last Admin: 06/13/22 23:09 Dose: 300 mg Documented By: BIA Vitamin D (Cholecalciferol (Vitamin D3) 25 Mcg Tablet) 25 mcg PO DAILY [facility] Last Admin: 06/14/22 08:30 Dose: 25 mcg Documented By: ROBIN Labs CBC & Chem 7: 06/14/22 06:34 06/14/22 06:34 Labs: Laboratory Results - last 24 hr 06/13/22 06/13/22 06/14/22 15:34 20:38 06:34 MCV 91.7 MCH 29.2 MCHC 31.9 RDW 13.8 Plt Count 300 MPV 9.2 L Absolute Nucleated RBC 0.000 Nucleated RBC % (auto) 0.0 Anion Gap Estim Creat Clear Calc Estimated GFR POC Glucose 158 H 124 H Random Glucose Calcium Magnesium C-Reactive Protein 06/14/22 06/14/22 06/14/22 06:34 07:22 11:38 MCV MCH MCHC RDW Plt Count MPV Absolute Nucleated RBC Nucleated RBC % (auto) Anion Gap 12 Estim Creat Clear Calc 41.1 Estimated GFR 46 POC Glucose 162 H 169 H Random Glucose 144 H Calcium 8.3 L D Magnesium 1.9 C-Reactive Protein 0.69 H Microbiology Microbiology Results: Microbiology 06/11/22 11:42 Blood Culture - Preliminary Blood - Venous No growth after 48 hours. 06/11/22 11:42 Blood Culture - Preliminary Blood - Venous No growth after 48 hours. Assessment and Plan (1) Paroxysmal atrial fibrillation: Status: Acute Plan 67yo F long-term care resident of [facility] due to chronic pain + nonambulation s/p 6 back procedures and currently on fentanyl patch, DM2, HTN, COPD/asthma, and recurrent UTIs including ESBL E. coli presenting with several months of dizziness, nausea, vomiting and about 1 week of watery diarrhea with 5 episodes/day.? Presented with new-onset atrial fibrillation with RVR in the 140s-150s. ? Found to have critical hypomagnesemia. Recently on levofloxacin for UTI despite prior resistance. # AF/RVR - converted to NSR 12 am. cont.metoprolol succinate.and apixaban for [id number]- VASc score of 4. Mg/K repleted # hypoMg - repleted; continue PO maintenance; was likely due to diarrhea/vomiting # hypoK - repleted # BRANDON - likely prerenal, improved status post 2 L of IV fluids creatinine 1.1 this morning, still not at baseline, will hold lisinopril and Lasix # flank pain, hx UTI - hold off on antibiotics for now [she was on levofloxacin at the [facility]]; urine culture grew mixed bacterial yves [id number], CT has revealed other abnormalities that need workup # stomach wall thickening with adenopathy - seen by Gastroenterology will undergo upper endoscopy tomorrow morning. # endometrial thickening - outpatient OBGYN follow-up # hilar soft tissue swelling on CT - CT chest when BRANDON resolves # diarrhea - resolved; was likely due to levofloxacin # HTN - on hydralazine + lisinopril and Lasix, will hold lisinopril and Lasix due to soft blood pressure and BRANDON # COPD-asthma, not in acute exac - continue ICS/LABA, prn NAVJOT # chronic pain - fentanyl patch + prn oxycodone, gabapentin # mood d/o - fluoxetine # VTE prophylaxis: apixaban # dispo: eventual return to LTC In my clinical judgment, the patient requires continued inpatient hospitalization for the following reasons: BRANDON, upper endoscopy at a.m. Time Spent With Patient Time: Total time managing care of this patient today ____ minutes. Quality Stroke Does the patient have a stroke diagnosis?: No VTE Prior VTE?: No VTE Risk Level:: Medical - moderate - high VTE Device Contraindication: N/A - Device Ordered VTE Drug Contraindication: N/A - Med Ordered
[2022-06-14 15:58] LABS: Glucose, Whole Blood 166 mg/dL (60-115)
[2022-06-14] MEDS: polyethylene glycoL 3350 17 GM POWD.PACK PO (16:11)
[2022-06-14] MEDS: 0.9 % Sodium Chloride Flush 3 ML SYRINGE IVFLUSH ×2 (16:11→22:42)
[2022-06-14] MEDS: fentaNYL 75 MCG PATCH.TD72 TRANSDERMA (17:56)
[2022-06-14 20:36] LABS: Glucose, Whole Blood 176 mg/dL (60-115)
[2022-06-14] MEDS: traZODone HCL 100 MG TABLET 300 MG PO (21:47)
[2022-06-14] MEDS: Insulin Glargine,Hum.rec.anlog 100 UNIT/ML 10 ML VIAL 20 UNIT SUBCUT (21:48)
[2022-06-15] VITALS (10 sets, daily range): BP systolic 130–156; BP diastolic 57–75; PULSE 56–81; RESP 16–20; TEMP 36.1–36.9; O2SAT 91–100
[2022-06-15 07:27] LABS: Glucose, Whole Blood 160 mg/dL (60-115)
[2022-06-15 07:31] LABS: Anion Gap 10 (12-20); Blood Urea Nitrogen 20 mg/dL (9-16); Carbon Dioxide 26 mmol/L (22-29); Chloride 106 mmol/L (96-108); Creatinine Clr Calc Pharmacy 54.9; Estimated Glomerular Filt Rate > 60; Glucose Random 152 mg/dL (60-115); Potassium 4.6 mmol/L (3.3-5.1); Sodium 137 mmol/L (135-145)
[2022-06-15] MEDS: Fluticasone/Vilanterol 100/25 BLST.W.DEV 1 PUFF INHALE (07:51)
[2022-06-15] MEDS: polyethylene glycoL 3350 17 GM POWD.PACK PO (07:52)
[2022-06-15] MEDS: Metoclopramide HCl 5 MG TABLET PO (07:52)
[2022-06-15] MEDS: FLUoxetine HCl 20 MG CAPSULE 40 MG PO (07:52)
[2022-06-15] MEDS: Cyclobenzaprine HCl 10 MG TABLET PO ×2 (07:53→20:31)
[2022-06-15] MEDS: Cholecalciferol (Vitamin D3) 25 MCG TABLET PO (07:53)
[2022-06-15] MEDS: Omeprazole 20 MG CAPSULE.DR PO (07:53)
[2022-06-15] MEDS: Gabapentin 400 MG CAPSULE PO ×3 (07:53→20:30)
[2022-06-15] MEDS: Magnesium Oxide 400 MG TABLET PO ×2 (07:53→18:34)
[2022-06-15] MEDS: hydrALAZINE HCl 50 MG TABLET PO ×3 (07:55→20:30)
[2022-06-15] MEDS: Metoprolol Succinate ER 50 MG TAB.ER.24H PO (07:55)
[2022-06-15] MEDS: oxyCODONE HCl Immed Release 5 MG TABLET PO ×3 (07:59→22:29)
[2022-06-15] MEDS: 0.9 % Sodium Chloride Flush 3 ML SYRINGE IVFLUSH ×2 (08:00→20:33)
[2022-06-15 10:58] LABS: Glucose, Whole Blood 173 mg/dL (60-115)
--- NOTE | 2022-06-15 12:44 | MHC.CM.PN ---
Per ROUNDS discussion, Patient is having an EGD and is not yet medically cleared for dc.Returning to LTC @ [place] [facility] is the goal and CM will continue to follow.
[2022-06-15 14:58] LABS: Glucose, Whole Blood 152 mg/dL (60-115)
--- NOTE | 2022-06-15 16:15 | HO.ANESPROP2 ---
[facility] Active Problems Active Problems: All Active Problems (Updated 06/12/22 @ 10:13 by Marquis Arias MD) Paroxysmal atrial fibrillation (Acute) Chronic pain (Acute) History of back surgery (Acute) Atrial fibrillation with RVR (Acute) Hypomagnesemia (Acute) Fracture of rib (Acute) Bronchitis (Acute) Leukocytosis (Acute) Community acquired pneumonia (Acute) Past Medical History Medical History Bronchitis Chronic back pain Chronic pain Diabetes High cholesterol HTN (hypertension) UTI (urinary tract infection) Functional capacity: wheelchair bound (Ambulates while holding onto things for stability) Family History Family history of problems with anesthesia: No Surgical History Surgical History History of back surgery History of Problems with Anesthesia: Yes (PONV) Social History Social History Household Members: Other Household Members Other:: roomate Housing: Halfway Do you presently have visiting nurse or other home services: No Unable to assess alcohol history related to: Unknown Alcohol intake: never Patient Tobacco Use Status: Current everyday Tobacco user Tobacco use type: Cigarette Cigarette Packs Per Day: 0.5 Cigarettes Per Day: 10.0 Years Smoked: 55 e-Cigarette/Vaping Use: Never Used Second Hand Smoke Exposure: Yes Advance Directives Date on File: 06/12/22 service: No Current occupational status: unemployed Travel History History of recent travel: No Recent Travel in [facility] Within the Last 8 Weeks: No Recent Out of Country Travel Within the Last 8 Weeks: No History of Being in a Healthcare Facility as a Patient, Worker, or Visitor during Travel: Yes (Has been living in the retirement for 2+ years) Medical Treatment Received for Symptoms/Illness Related to Travel: No Meds Allergies Allergy/AdvReac Type Severity Reaction Status Date / Time aspirin [From PERCODAN] Allergy Unknown UNKNOWN Verified 12/17/21 17:40 egg [EGG] Allergy Unknown UNKNOWN Verified 12/17/21 17:40 oxycodone AdvReac Nausea Verified 06/15/22 14:57 From PERCODAN Allergy Unknown Unknown Uncoded 06/15/22 14:57 Active Medications: Current Medications Acetaminophen (Acetaminophen 325 Mg Tablet) 650 mg PO Q6H PRN PRN Reason: Pain, Mild (Pain Scale 1-3) Albuterol Sulfate (Albuterol Sulfate 90 Mcg 8 Gm Inhaler) 1 puff INHALE Q4H PRN PRN Reason: Shortness Of Breath Apixaban (Apixaban 5 Mg Tablet) 5 mg PO BID [facility] Last Admin: 06/13/22 08:41 Dose: 5 mg Baclofen (Baclofen 10 Mg Tablet) 10 mg PO Q8H PRN PRN Reason: Muscle Spasm Last Admin: 06/12/22 03:20 Dose: 10 mg Cyclobenzaprine HCl (Cyclobenzaprine Hcl 10 Mg Tablet) 10 mg PO BID [facility] Last Admin: 06/15/22 07:53 Dose: 10 mg Dextrose (Dextrose 50 % 25 Gm/50 Ml Syringe) 25 gm IVPUSH Q15M PRN; Protocol PRN Reason: per Hypoglycemia Standing Ord. Fentanyl (Fentanyl 75 Mcg Patch.Td72) 75 mcg TRANSDERMA Q72H [facility] Last Admin: 06/14/22 17:56 Dose: 75 mcg Fluoxetine HCl (Fluoxetine Hcl 20 Mg Capsule) 40 mg PO DAILY [facility] Last Admin: 06/15/22 07:52 Dose: 40 mg Fluticasone Propionate (Fluticasone Propionate Nasal 16 Gm [place]) 1 spray NOSTRIL-B DAILY [facility] Last Admin: 06/15/22 11:47 Dose: Not Given Fluticasone/Vilanterol (Fluticasone/Vilanterol 100/25 Blst.W.Dev) 1 puff INHALE RDAILY [facility] Last Admin: 06/15/22 07:51 Dose: 1 puff Gabapentin (Gabapentin 400 Mg Capsule) 400 mg PO TID [facility] Last Admin: 06/15/22 13:52 Dose: 400 mg Glucose (Glucose Gel 15 Gm Gel..Gram.) 15 gm PO Q15M PRN; Protocol PRN Reason: per Hypoglycemia Standing Ord. Hydralazine HCl (Hydralazine Hcl 50 Mg Tablet) 50 mg PO TID [facility]; Protocol Last Admin: 06/15/22 13:52 Dose: 50 mg Insulin Glargine (Insulin Glargine,Hum.Rec.Anlog 100 Unit/Ml 10 Ml Vial) 20 unit SUBCUT BEDTIME [facility] Last Admin: 06/14/22 21:48 Dose: 20 unit Insulin Human Lispro (Insulin Lispro 100 Unit/Ml 3 Ml Vial) 0 unit SUBCUT QIDACHS [facility]; Protocol Last Admin: 06/15/22 11:47 Dose: Not Given Magnesium Oxide (Magnesium Oxide 400 Mg Tablet) 400 mg PO BIDPC [facility] Last Admin: 06/15/22 07:53 Dose: 400 mg Metoclopramide HCl (Metoclopramide Hcl 5 Mg Tablet) 5 mg PO DAILY [facility] Last Admin: 06/15/22 07:52 Dose: 5 mg Metoprolol Succinate (Metoprolol Succinate Er 50 Mg Tab.Er.24h) 50 mg PO DAILY [facility]; Protocol Last Admin: 06/15/22 07:55 Dose: 50 mg Omeprazole (Omeprazole 20 Mg Capsule.Dr) 20 mg PO DAILY [facility] Last Admin: 06/15/22 07:53 Dose: 20 mg Ondansetron HCl (Ondansetron Hcl 4 Mg/2 Ml Vial) 4 mg IVPUSH Q8H PRN PRN Reason: Nausea and Vomiting Last Admin: 06/12/22 22:24 Dose: 4 mg Oxycodone HCl (Oxycodone Hcl Immed Release 5 Mg Tablet) 5 mg PO Q4H PRN PRN Reason: Pain (Scale Score 4-6) Last Admin: 06/15/22 13:52 Dose: 5 mg Pharmacy Consult (Consult Rx Perform Med Rec) 1 each MISCELLANE ONCE PRN PRN Reason: Consult order Polyethylene Glycol (Polyethylene Glycol 3350 17 Gm Powd.Pack) 17 gm PO DAILY [facility] Last Admin: 06/15/22 07:52 Dose: 17 gm Sodium Chloride (0.9 % Sodium Chloride Flush 3 Ml Syringe) [facility] Admin: 06/15/22 15:48 Dose: Not Given Trazodone HCl (Trazodone Hcl 100 Mg Tablet) 300 mg PO BEDTIME [facility] Last Admin: 06/14/22 21:47 Dose: 300 mg Vitamin D (Cholecalciferol (Vitamin D3) 25 Mcg Tablet) 25 mcg PO DAILY [facility] Last Admin: 06/15/22 07:53 Dose: 25 mcg Home Medications Medication Instructions Recorded Confirmed Last Taken Type albuterol sulfate 90 mcg/actuation 1 puff inhalation Q4H PRN 07/26/20 06/11/22 Unknown History aerosol inhaler (Ventolin HFA) Shortness Of Breath celecoxib 200 mg capsule (Celebrex) 200 mg PO DAILY 07/26/20 06/11/22 Unknown History fluoxetine 40 mg capsule (Prozac) 40 mg PO DAILY 07/26/20 06/11/22 Unknown History fluticasone propionate 50 1 spray intranasal DAILY 07/26/20 06/11/22 Unknown History mcg/actuation nasal spray,suspension glipizide 5 mg tablet 10 mg PO BIDAC 07/26/20 06/11/22 Unknown History metformin 500 mg tablet 1,000 mg PO BIDWM 07/26/20 06/11/22 Unknown History metoclopramide HCl 5 mg tablet 5 mg PO DAILY 07/26/20 06/11/22 Unknown History (Reglan) acetaminophen 325 mg tablet 650 mg PO Q4H PRN PAIN/FEVER 11/21/21 06/11/22 Unknown History baclofen 10 mg tablet 10 mg Q8H PRN Muscle Spasm 11/21/21 06/11/22 Unknown History furosemide 20 mg tablet (Lasix) 20 mg PO DAILY 11/21/21 06/11/22 Unknown History gabapentin 400 mg capsule 400 mg PO TID 11/21/21 06/11/22 Unknown History insulin detemir U-100 100 unit/mL 25 unit subcut DAILY 11/21/21 06/11/22 Unknown History subcutaneous solution (Levemir U-100 Insulin) insulin lispro 100 unit/mL See Protocol QIDACHS 11/21/21 06/11/22 Unknown History subcutaneous cartridge (Humalog U-100 Insulin) lansoprazole 15 mg capsule,delayed 15 mg PO DAILY 11/21/21 06/11/22 Unknown History release (Prevacid 24Hr) lisinopril 5 mg tablet 5 mg PO DAILY 11/21/21 06/11/22 Unknown History oxycodone 5 mg tablet 5 mg PO Q4H PRN Pain (Scale Score 11/21/21 06/11/22 Unknown History 4-6) trazodone 150 mg tablet 300 mg PO BEDTIME 12/17/21 06/11/22 Unknown History cholecalciferol (vitamin D3) 25 25 mcg PO DAILY 06/11/22 06/11/22 Unknown History mcg (1,000 unit) tablet hydralazine 50 mg tablet 1 tab PO TID 06/11/22 06/11/22 Unknown History levofloxacin 250 mg tablet 1 tab PO DAILY 06/11/22 06/11/22 Unknown History magnesium citrate 150 ml PO DAILY PRN Constipation 06/11/22 06/11/22 Unknown History methenamine hippurate 1 gram tablet 1 tab PO BID 06/11/22 06/11/22 Unknown History methocarbamol 500 mg tablet 1,000 mg PO TID 06/11/22 06/11/22 Unknown History Exam Exam Date and Time: June 15, 2022 1615 Height,Weight and Vital Signs: Height 5 ft 5 in Weight 65.77 kg Last Vital Signs Temp 98.4 F 06/15/22 15:02 Pulse 62 06/15/22 15:02 Resp 20 06/15/22 15:02 BP 144/61 H 06/15/22 15:02 Pulse Ox 94 06/15/22 15:02 O2 Del Method 06/15/22 15:02 Pertinent Lab Results Pertinent Lab Results: Laboratory Tests 06/11/22 06/11/22 06/11/22 11:42 11:42 11:42 WBC 14.4 H RBC 5.03 D Hgb 14.8 D Hct 45.2 D MCV 89.9 MCH 29.4 MCHC 32.7 RDW 14.0 Plt Count 412 H D MPV 9.2 L Immature Gran % (Auto) 1.4 H Neut % (Auto) 77.4 H Lymph % (Auto) 14.3 L [place] % (Auto) 6.4 Eos % (Auto) 0.0 Baso % (Auto) 0.5 Lymph # (Auto) 2.1 [place] # (Auto) 0.9 Eos # (Auto) 0.0 Baso # (Auto) 0.1 Abs Immat Gran (auto) 0.20 H Absolute Neuts (auto) 11.1 H Absolute Nucleated RBC 0.000 Nucleated RBC % (auto) 0.0 PT INR APTT Sodium 142 Potassium 3.6 Chloride 105 Carbon Dioxide 23 Anion Gap 18 BUN 23 H Creatinine 1.27 Estim Creat Clear Calc 37.6 Estimated GFR 42 POC Glucose Random Glucose 205 H Lactic Acid 2.0 Calcium 7.8 L D Magnesium < 0.6 L* Total Bilirubin 0.7 AST 16 ALT 17 Alkaline Phosphatase 76 Troponin I High Sens C-Reactive Protein Total Protein 7.2 Albumin 4.1 TSH 0.61 Urine Color Urine Appearance Urine pH Ur Specific [place] Urine Protein Urine Glucose (UA) Urine Ketones Urine Blood Urine Nitrite Ur Leukocyte Esterase Urine RBC Urine WBC Ur Squamous Epith Cells Urine Bacteria Hyaline Casts Influenza Type A (PCR) Influenza Type B (PCR) RSV RNA Qual (PCR) SARS-CoV-2 RNA (RT-PCR) 06/11/22 06/11/22 06/11/22 11:42 11:52 12:52 WBC RBC Hgb Hct MCV MCH MCHC RDW Plt Count MPV Immature Gran % (Auto) Neut % (Auto) Lymph % (Auto) [place] % (Auto) Eos % (Auto) Baso % (Auto) Lymph # (Auto) [place] # (Auto) Eos # (Auto) Baso # (Auto) Abs Immat Gran (auto) Absolute Neuts (auto) Absolute Nucleated RBC Nucleated RBC % (auto) PT 16.2 H INR 1.4 H APTT 27.8 Sodium Potassium Chloride Carbon Dioxide Anion Gap BUN Creatinine Estim Creat Clear Calc Estimated GFR POC Glucose Random Glucose Lactic Acid Calcium Magnesium Total Bilirubin AST ALT Alkaline Phosphatase Troponin I High Sens 9.7 D C-Reactive Protein Total Protein Albumin TSH Urine Color Urine Appearance Urine pH Ur Specific [place] Urine Protein Urine Glucose (UA) Urine Ketones Urine Blood Urine Nitrite Ur Leukocyte Esterase Urine RBC Urine WBC Ur Squamous Epith Cells Urine Bacteria Hyaline Casts Influenza Type A (PCR) NEGATIVE Influenza Type B (PCR) NEGATIVE RSV RNA Qual (PCR) NEGATIVE SARS-CoV-2 RNA (RT-PCR) NEGATIVE 06/11/22 06/11/22 06/11/22 14:12 16:35 16:50 WBC RBC Hgb Hct MCV MCH MCHC RDW Plt Count MPV Immature Gran % (Auto) Neut % (Auto) Lymph % (Auto) [place] % (Auto) Eos % (Auto) Baso % (Auto) Lymph # (Auto) [place] # (Auto) Eos # (Auto) Baso # (Auto) Abs Immat Gran (auto) Absolute Neuts (auto) Absolute Nucleated RBC Nucleated RBC % (auto) PT INR APTT Sodium Potassium Chloride Carbon Dioxide Anion Gap BUN Creatinine Estim Creat Clear Calc Estimated GFR POC Glucose 170 H Random Glucose Lactic Acid Calcium Magnesium 0.8 L* Total Bilirubin AST ALT Alkaline Phosphatase Troponin I High Sens C-Reactive Protein Total Protein Albumin TSH Urine Color Yellow Urine Appearance Clear Urine pH 5.0 Ur Specific [place] 1.020 Urine Protein Trace Urine Glucose (UA) Negative Urine Ketones Trace Urine Blood Negative Urine Nitrite Negative Ur Leukocyte Esterase Moderate (2+) H Urine RBC 0-2 Urine WBC 6-10 H Ur Squamous Epith Cells 6-10 Urine Bacteria None Seen Hyaline Casts 6-10 Influenza Type A (PCR) Influenza Type B (PCR) RSV RNA Qual (PCR) SARS-CoV-2 RNA (RT-PCR) 06/11/22 06/11/22 06/12/22 21:08 23:40 06:32 WBC 14.2 H RBC 4.22 Hgb 12.8 Hct 38.4 MCV 91.0 MCH 30.3 MCHC 33.3 RDW 14.1 Plt Count 346 MPV 9.1 L Immature Gran % (Auto) Neut % (Auto) Lymph % (Auto) [place] % (Auto) Eos % (Auto) Baso % (Auto) Lymph # (Auto) [place] # (Auto) Eos # (Auto) Baso # (Auto) Abs Immat Gran (auto) Absolute Neuts (auto) Absolute Nucleated RBC 0.000 Nucleated RBC % (auto) 0.0 PT INR APTT Sodium Potassium Chloride Carbon Dioxide Anion Gap BUN Creatinine Estim Creat Clear Calc Estimated GFR POC Glucose 119 H Random Glucose Lactic Acid Calcium Magnesium 1.8 Total Bilirubin AST ALT Alkaline Phosphatase Troponin I High Sens C-Reactive Protein Total Protein Albumin TSH Urine Color Urine Appearance Urine pH Ur Specific [place] Urine Protein Urine Glucose (UA) Urine Ketones Urine Blood Urine Nitrite Ur Leukocyte Esterase Urine RBC Urine WBC Ur Squamous Epith Cells Urine Bacteria Hyaline Casts Influenza Type A (PCR) Influenza Type B (PCR) RSV RNA Qual (PCR) SARS-CoV-2 RNA (RT-PCR) 06/12/22 06/12/22 06/12/22 06:32 07:21 11:38 WBC RBC Hgb Hct MCV MCH MCHC RDW Plt Count MPV Immature Gran % (Auto) Neut % (Auto) Lymph % (Auto) [place] % (Auto) Eos % (Auto) Baso % (Auto) Lymph # (Auto) [place] # (Auto) Eos # (Auto) Baso # (Auto) Abs Immat Gran (auto) Absolute Neuts (auto) Absolute Nucleated RBC Nucleated RBC % (auto) PT INR APTT Sodium 141 Potassium 3.1 L Chloride 105 Carbon Dioxide 25 Anion Gap 14 BUN 23 H Creatinine 0.94 Estim Creat Clear Calc 50.7 Estimated GFR 59 POC Glucose 115 139 H Random Glucose 98 Lactic Acid Calcium 7.5 L Magnesium 1.8 Total Bilirubin AST ALT Alkaline Phosphatase Troponin I High Sens C-Reactive Protein 0.69 H Total Protein Albumin TSH Urine Color Urine Appearance Urine pH Ur Specific [place] Urine Protein Urine Glucose (UA) Urine Ketones Urine Blood Urine Nitrite Ur Leukocyte Esterase Urine RBC Urine WBC Ur Squamous Epith Cells Urine Bacteria Hyaline Casts Influenza Type A (PCR) Influenza Type B (PCR) RSV RNA Qual (PCR) SARS-CoV-2 RNA (RT-PCR) 06/12/22 06/12/22 06/12/22 13:28 16:56 20:17 WBC RBC Hgb Hct MCV MCH MCHC RDW Plt Count MPV Immature Gran % (Auto) Neut % (Auto) Lymph % (Auto) [place] % (Auto) Eos % (Auto) Baso % (Auto) Lymph # (Auto) [place] # (Auto) Eos # (Auto) Baso # (Auto) Abs Immat Gran (auto) Absolute Neuts (auto) Absolute Nucleated RBC Nucleated RBC % (auto) PT INR APTT Sodium Potassium Chloride Carbon Dioxide Anion Gap BUN Creatinine Estim Creat Clear Calc Estimated GFR POC Glucose 179 H 146 H 192 H Random Glucose Lactic Acid Calcium Magnesium Total Bilirubin AST ALT Alkaline Phosphatase Troponin I High Sens C-Reactive Protein Total Protein Albumin TSH Urine Color Urine Appearance Urine pH Ur Specific [place] Urine Protein Urine Glucose (UA) Urine Ketones Urine Blood Urine Nitrite Ur Leukocyte Esterase Urine RBC Urine WBC Ur Squamous Epith Cells Urine Bacteria Hyaline Casts Influenza Type A (PCR) Influenza Type B (PCR) RSV RNA Qual (PCR) SARS-CoV-2 RNA (RT-PCR) 06/13/22 06/13/22 06/13/22 06:40 07:45 11:29 WBC RBC Hgb Hct MCV MCH MCHC RDW Plt Count MPV Immature Gran % (Auto) Neut % (Auto) Lymph % (Auto) [place] % (Auto) Eos % (Auto) Baso % (Auto) Lymph # (Auto) [place] # (Auto) Eos # (Auto) Baso # (Auto) Abs Immat Gran (auto) Absolute Neuts (auto) Absolute Nucleated RBC Nucleated RBC % (auto) PT INR APTT Sodium 138 Potassium 4.4 D Chloride 105 Carbon Dioxide 24 Anion Gap 13 BUN 30 H Creatinine 1.40 Estim Creat Clear Calc 34.1 Estimated GFR 37 POC Glucose 159 H 130 H Random Glucose 169 H Lactic Acid Calcium 7.7 L Magnesium 1.6 Total Bilirubin AST ALT Alkaline Phosphatase Troponin I High Sens C-Reactive Protein Total Protein Albumin TSH Urine Color Urine Appearance Urine pH Ur Specific [place] Urine Protein Urine Glucose (UA) Urine Ketones Urine Blood Urine Nitrite Ur Leukocyte Esterase Urine RBC Urine WBC Ur Squamous Epith Cells Urine Bacteria Hyaline Casts Influenza Type A (PCR) Influenza Type B (PCR) RSV RNA Qual (PCR) SARS-CoV-2 RNA (RT-PCR) 06/13/22 06/13/22 06/14/22 15:34 20:38 06:34 WBC 10.7 RBC 3.97 L Hgb 11.6 L Hct 36.4 L MCV 91.7 MCH 29.2 MCHC 31.9 RDW 13.8 Plt Count 300 MPV 9.2 L Immature Gran % (Auto) Neut % (Auto) Lymph % (Auto) [place] % (Auto) Eos % (Auto) Baso % (Auto) Lymph # (Auto) [place] # (Auto) Eos # (Auto) Baso # (Auto) Abs Immat Gran (auto) Absolute Neuts (auto) Absolute Nucleated RBC 0.000 Nucleated RBC % (auto) 0.0 PT INR APTT Sodium Potassium Chloride Carbon Dioxide Anion Gap BUN Creatinine Estim Creat Clear Calc Estimated GFR POC Glucose 158 H 124 H Random Glucose Lactic Acid Calcium Magnesium Total Bilirubin AST ALT Alkaline Phosphatase Troponin I High Sens C-Reactive Protein Total Protein Albumin TSH Urine Color Urine Appearance Urine pH Ur Specific [place] Urine Protein Urine Glucose (UA) Urine Ketones Urine Blood Urine Nitrite Ur Leukocyte Esterase Urine RBC Urine WBC Ur Squamous Epith Cells Urine Bacteria Hyaline Casts Influenza Type A (PCR) Influenza Type B (PCR) RSV RNA Qual (PCR) SARS-CoV-2 RNA (RT-PCR) 06/14/22 06/14/22 06/14/22 06:34 07:22 11:38 WBC RBC Hgb Hct MCV MCH MCHC RDW Plt Count MPV Immature Gran % (Auto) Neut % (Auto) Lymph % (Auto) [place] % (Auto) Eos % (Auto) Baso % (Auto) Lymph # (Auto) [place] # (Auto) Eos # (Auto) Baso # (Auto) Abs Immat Gran (auto) Absolute Neuts (auto) Absolute Nucleated RBC Nucleated RBC % (auto) PT INR APTT Sodium 138 Potassium 4.3 Chloride 106 Carbon Dioxide 24 Anion Gap 12 BUN 32 H D Creatinine 1.16 Estim Creat Clear Calc 41.1 Estimated GFR 46 POC Glucose 162 H 169 H Random Glucose 144 H Lactic Acid Calcium 8.3 L D Magnesium 1.9 Total Bilirubin AST ALT Alkaline Phosphatase Troponin I High Sens C-Reactive Protein 0.69 H Total Protein Albumin TSH Urine Color Urine Appearance Urine pH Ur Specific [place] Urine Protein Urine Glucose (UA) Urine Ketones Urine Blood Urine Nitrite Ur Leukocyte Esterase Urine RBC Urine WBC Ur Squamous Epith Cells Urine Bacteria Hyaline Casts Influenza Type A (PCR) Influenza Type B (PCR) RSV RNA Qual (PCR) SARS-CoV-2 RNA (RT-PCR) 06/14/22 06/14/22 06/15/22 15:29 20:29 06:18 WBC RBC Hgb Hct MCV MCH MCHC RDW Plt Count MPV Immature Gran % (Auto) Neut % (Auto) Lymph % (Auto) [place] % (Auto) Eos % (Auto) Baso % (Auto) Lymph # (Auto) [place] # (Auto) Eos # (Auto) Baso # (Auto) Abs Immat Gran (auto) Absolute Neuts (auto) Absolute Nucleated RBC Nucleated RBC % (auto) PT INR APTT Sodium 137 Potassium 4.6 Chloride 106 Carbon Dioxide 26 Anion Gap 10 L BUN 20 H Creatinine 0.87 Estim Creat Clear Calc 54.9 Estimated GFR > 60 POC Glucose 166 H 176 H Random Glucose 152 H Lactic Acid Calcium 9.0 D Magnesium Total Bilirubin AST ALT Alkaline Phosphatase Troponin I High Sens C-Reactive Protein Total Protein Albumin TSH Urine Color Urine Appearance Urine pH Ur Specific [place] Urine Protein Urine Glucose (UA) Urine Ketones Urine Blood Urine Nitrite Ur Leukocyte Esterase Urine RBC Urine WBC Ur Squamous Epith Cells Urine Bacteria Hyaline Casts Influenza Type A (PCR) Influenza Type B (PCR) RSV RNA Qual (PCR) SARS-CoV-2 RNA (RT-PCR) 06/15/22 06/15/22 06/15/22 07:20 10:55 14:54 WBC RBC Hgb Hct MCV MCH MCHC RDW Plt Count MPV Immature Gran % (Auto) Neut % (Auto) Lymph % (Auto) [place] % (Auto) Eos % (Auto) Baso % (Auto) Lymph # (Auto) [place] # (Auto) Eos # (Auto) Baso # (Auto) Abs Immat Gran (auto) Absolute Neuts (auto) Absolute Nucleated RBC Nucleated RBC % (auto) PT INR APTT Sodium Potassium Chloride Carbon Dioxide Anion Gap BUN Creatinine Estim Creat Clear Calc Estimated GFR POC Glucose 160 H 173 H 152 H Random Glucose Lactic Acid Calcium Magnesium Total Bilirubin AST ALT Alkaline Phosphatase Troponin I High Sens C-Reactive Protein Total Protein Albumin TSH Urine Color Urine Appearance Urine pH Ur Specific [place] Urine Protein Urine Glucose (UA) Urine Ketones Urine Blood Urine Nitrite Ur Leukocyte Esterase Urine RBC Urine WBC Ur Squamous Epith Cells Urine Bacteria Hyaline Casts Influenza Type A (PCR) Influenza Type B (PCR) RSV RNA Qual (PCR) SARS-CoV-2 RNA (RT-PCR) Assessment and Plan Assessment Anesthesia Assessment: Anesthesia Plan Discussed and Chart Reviewed Final Anesthetic Review Family History of Problems with Anesthesia: No History of Problems with Anesthesia: Yes (PONV) ASA Class: III Final Preanesthetic Review: No Changes in Pt Med Stat, Meds/Allgs Chart Reviewed, Consent Obtained/Reviewed and Anes Risks/Benef Reviewed Anesthetic Plan Anesthetic Plan: MAC: Disposition: Standard PACU
--- NOTE | 2022-06-15 16:20 | P.PNIM_ITS ---
Subjective Subjective Date of Service: 06/16/22 Interval History: Complaining of persistent right buttock discomfort with radiation towards left leg up to the knee, denies abdominal pain, no nausea no vomiting is NPO for upper endoscopy, no acute issues overnight. Denies fever, no chills, no shortness of breath, no chest pain. Review of Systems Review of Systems: Yes all other systems are reviewed and are negative Physical Exam Vital Signs: Vital Signs: Last Vital Signs Temp 98.4 F 06/15/22 15:02 Pulse 62 06/15/22 15:02 Resp 20 06/15/22 15:02 BP 144/61 H 06/15/22 15:02 Pulse Ox 94 06/15/22 15:02 O2 Del Method 06/15/22 15:02 BMI result Body Mass Index 24.1 Const: Other: Gen:? Awake alert x3, in no acute di stress HEENT: scle ra anicteric, mois t mucus membranes Neck: supple, no J VD Lungs: clear to auscultation bila terally Heart: reg ular, no murmurs A bd: soft, non-tend er, non-distended Ext: no edema Skin : warm/well-perfus ed Back mild tende rness lower lumbar spine seems chron ic Musculoskeletal pain right buttoc k , good range of motion right hip, radiation of pain to right leg Neur o: alert and orien olena x3, no focal f indings, no lower extremity numbness tingling Psych: a ppropriate affect Objective Data Active Medications Acetaminophen (Acetaminophen 325 Mg Tablet) 650 mg PO Q6H PRN PRN Reason: Pain, Mild (Pain Scale 1-3) Albuterol Sulfate (Albuterol Sulfate 90 Mcg 8 Gm Inhaler) 1 puff INHALE Q4H PRN PRN Reason: Shortness Of Breath Apixaban (Apixaban 5 Mg Tablet) 5 mg PO BID [facility] Last Admin: 06/13/22 08:41 Dose: 5 mg Documented By: ROBIN Baclofen (Baclofen 10 Mg Tablet) 10 mg PO Q8H PRN PRN Reason: Muscle Spasm Last Admin: 06/12/22 03:20 Dose: 10 mg Documented By: CONSUELO Cyclobenzaprine HCl (Cyclobenzaprine Hcl 10 Mg Tablet) 10 mg PO BID [facility] Last Admin: 06/15/22 07:53 Dose: 10 mg Documented By: JOSE MANUEL Dextrose (Dextrose 50 % 25 Gm/50 Ml Syringe) 25 gm IVPUSH Q15M PRN; Protocol PRN Reason: per Hypoglycemia Standing Ord. Fentanyl (Fentanyl 75 Mcg Patch.Td72) 75 mcg TRANSDERMA Q72H [facility] Last Admin: 06/14/22 17:56 Dose: 75 mcg Documented By: ROBIN Fluoxetine HCl (Fluoxetine Hcl 20 Mg Capsule) 40 mg PO DAILY [facility] Last Admin: 06/15/22 07:52 Dose: 40 mg Documented By: JOSE MANUEL Fluticasone Propionate (Fluticasone Propionate Nasal 16 Gm [place]) 1 spray NOS TRIL-B DAILY [facility] Last Admin: 06/15/22 11:47 Dose: Not Given Documented By: JOSE MANUEL Non-Admin Reason: Med Not Available Fluticasone/Vilanterol (Fluticasone/Vilanterol 100/25 Blst.W.Dev) 1 puff INHALE RDAILY [facility] Last Admin: 06/15/22 07:51 Dose: 1 puff Documented By: DENISSE Gabapentin (Gabapentin 400 Mg Capsule) 400 mg PO TID [facility] Last Admin: 06/15/22 13:52 Dose: 400 mg Documented By: JOSE MANUEL Glucose (Glucose Gel 15 Gm Gel..Gram.) 15 gm PO Q15M PRN; Protocol PRN Reason: per Hypoglycemia Standing Ord. Hydralazine HCl (Hydralazine Hcl 50 Mg Tablet) 50 mg PO TID [facility]; Protocol Last Admin: 06/15/22 13:52 Dose: 50 mg Documented By: JOSE MANUEL Insulin Glargine (Insulin Glargine,Hum.Rec.Anlog 100 Unit/Ml 10 Ml Vial) 20 uni t SUBCUT BEDTIME [facility] Last Admin: 06/14/22 21:48 Dose: 20 unit Documented By: N-SHAMIKALM Insulin Human Lispro (Insulin Lispro 100 Unit/Ml 3 Ml Vial) 0 unit SUBCUT QIDACHS [facility]; Protocol Last Admin: 06/15/22 11:47 Dose: Not Given Documented By: JOSE MANUEL Non-Admin Reason: NPO Magnesium Oxide (Magnesium Oxide 400 Mg Tablet) 400 mg PO BIDPC [facility] Last Admin: 06/15/22 07:53 Dose: 400 mg Documented By: JOSE MANUEL Metoclopramide HCl (Metoclopramide Hcl 5 Mg Tablet) 5 mg PO DAILY [facility] Last Admin: 06/15/22 07:52 Dose: 5 mg Documented By: JOSE MANUEL Metoprolol Succinate (Metoprolol Succinate Er 50 Mg Tab.Er.24h) 50 mg PO DAILY [facility]; Protocol Last Admin: 06/15/22 07:55 Dose: 50 mg Documented By: JOSE MANUEL Omeprazole (Omeprazole 20 Mg Capsule.Dr) 20 mg PO DAILY [facility] Last Admin: 06/15/22 07:53 Dose: 20 mg Documented By: JOSE MANUEL Ondansetron HCl (Ondansetron Hcl 4 Mg/2 Ml Vial) 4 mg IVPUSH Q8H PRN PRN Reason: Nausea and Vomiting Last Admin: 06/12/22 22:24 Dose: 4 mg Documented By: BIA Oxycodone HCl (Oxycodone Hcl Immed Release 5 Mg Tablet) 5 mg PO Q4H PRN PRN Reason: Pain (Scale Score 4-6) Last Admin: 06/15/22 13:52 Dose: 5 mg Documented By: JOSE MANUEL Pharmacy Consult (Consult Rx Perform Med Rec) 1 each MISCELLANE ONCE PRN PRN Reason: Consult order Polyethylene Glycol (Polyethylene Glycol 3350 17 Gm Powd.Pack) 17 gm PO DAILY [facility] Last Admin: 06/15/22 07:52 Dose: 17 gm Documented By: JOSE MANUEL Sodium Chloride (0.9 % Sodium Chloride Flush 3 Ml Syringe) 3 ml IVFLUSH QSHIFT [facility] Last Admin: 06/15/22 15:48 Dose: Not Given Documented By: JOSE MANUEL Non-Admin Reason: Off Unit: Surgery Trazodone HCl (Trazodone Hcl 100 Mg Tablet) 300 mg PO BEDTIME [facility] Last Admin: 06/14/22 21:47 Dose: 300 mg Documented By: BASIL Vitamin D (Cholecalciferol (Vitamin D3) 25 Mcg Tablet) 25 mcg PO DAILY [facility] Last Admin: 06/15/22 07:53 Dose: 25 mcg Documented By: JOSE MANUEL Labs CBC & Chem 7: 06/16/22 06:46 06/15/22 06:18 Labs: Laboratory Results - last 24 hr 06/14/22 06/15/22 06/15/22 20:29 06:18 07:20 Anion Gap 10 L Estim Creat Clear Calc 54.9 Estimated GFR > 60 POC Glucose 176 H 160 H Random Glucose 152 H Calcium 9.0 D 06/15/22 06/15/22 10:55 14:54 Anion Gap Estim Creat Clear Calc Estimated GFR POC Glucose 173 H 152 H Random Glucose Calcium Assessment and Plan (1) Paroxysmal atrial fibrillation: Status: Acute Plan 67yo F long-term care resident of [facility] due to chronic pain + nonambulation s/p 6 back procedures and currently on fentanyl patch, DM2, HTN, COPD/asthma, and recurrent UTIs including ESBL E. coli presenting with several months of dizziness, nausea, vomiting and about 1 week of watery diarrhea with 5 episodes/day.? Presented with new-onset atrial fibrillation with RVR in the 140s-150s. ? Found to have critical hypomagnesemia. Recently on levofloxacin for UTI despite prior resistance. # AF/RVR - no chest pain, no palpitations, remain in sinus rhythm, converted to NSR 12/ am. cont.metoprolol succinate.and apixaban for [id number] score of 4. Mg/K repleted # hypoMg - repleted; continue PO maintenance; was likely due to diarrhea/vomiting # hypoK potassium normalized # BRANDON - likely prerenal, status post 2 L of IV fluids, will continue to hold lisinopril and Lasix , creatinine back to normal today #RT flank pain, hx UTI - hold off on antibiotics for now [she was on levofloxacin at the [facility]]; urine culture grew mixed bacterial yves [id number], CT has revealed other abnormalities that need workup pain is in right buttock with radiation to right leg consistent with lumbar radiculopathy, CT abdomen and pelvis showed L3-L4 fusion and no other acute abnormality. # stomach wall thickening with adenopathy - seen by Gastroenterology undergoing upper endoscopy this afternoon # endometrial thickening - outpatient OBGYN follow-up # hilar soft tissue swelling on CT - CT chest will schedule for tomorrow morning # diarrhea - resolved; was likely due to levofloxacin # HTN - on hydralazine + lisinopril and Lasix, will hold lisinopril and Lasix due to soft blood pressure and BRANDON # COPD-asthma, not in acute exac - continue ICS/LABA, prn NAVJOT # acute on chronic pain/likely lumbar radiculopathy - patient has right buttock pain with radiation to leg no numbness, no tingling, no loss of function, will hold NSAIDs due to BRANDON, continue fentanyl patch + prn oxycodone, gabapentin will add scheduled Tylenol t.i.d. # mood d/o - fluoxetine # VTE prophylaxis: apixaban # dispo: eventual return to LTC In my clinical judgment, the patient requires continued inpatient hospitalization for the following reasons undergoing upper endoscopy and pain management Time Spent With Patient Time: Total time managing care of this patient today ____ minutes. Quality Stroke Does the patient have a stroke diagnosis?: No VTE Prior VTE?: No VTE Risk Level:: Medical - moderate - high VTE Device Contraindication: N/A - Device Ordered VTE Drug Contraindication: N/A - Med Ordered
--- NOTE | 2022-06-15 16:40 | HO.ANESPROP2 ---
[facility] Active Problems Active Problems: All Active Problems (Updated 06/12/22 @ 10:13 by Marquis Arias MD) Paroxysmal atrial fibrillation (Acute) Chronic pain (Acute) History of back surgery (Acute) Atrial fibrillation with RVR (Acute) Hypomagnesemia (Acute) Fracture of rib (Acute) Bronchitis (Acute) Leukocytosis (Acute) Community acquired pneumonia (Acute) Past Medical History Medical History Bronchitis Chronic back pain Chronic pain Diabetes High cholesterol HTN (hypertension) UTI (urinary tract infection) Functional capacity: wheelchair bound (Ambulates while holding onto things for stability) Family History Family history of problems with anesthesia: No Surgical History Surgical History History of back surgery History of Problems with Anesthesia: No (PONV) Social History Social History Household Members: Other Household Members Other:: roomate Housing: Residential Do you presently have visiting nurse or other home services: No Unable to assess alcohol history related to: Unknown Alcohol intake: never Patient Tobacco Use Status: Current everyday Tobacco user Tobacco use type: Cigarette Cigarette Packs Per Day: 0.5 Cigarettes Per Day: 10.0 Years Smoked: 55 e-Cigarette/Vaping Use: Never Used Second Hand Smoke Exposure: Yes Advance Directives Date on File: 06/12/22 service: No Current occupational status: unemployed Meds Allergies Allergy/AdvReac Type Severity Reaction Status Date / Time aspirin [From PERCODAN] Allergy Unknown UNKNOWN Verified 12/17/21 17:40 egg [EGG] Allergy Unknown UNKNOWN Verified 12/17/21 17:40 oxycodone AdvReac Nausea Verified 06/15/22 14:57 From PERCODAN Allergy Unknown Unknown Uncoded 06/15/22 14:57 Active Medications: Current Medications Acetaminophen (Acetaminophen 325 Mg Tablet) 650 mg PO Q6H PRN PRN Reason: Pain, Mild (Pain Scale 1-3) Acetaminophen (Acetaminophen 325 Mg Tablet) 650 mg PO TID SHAM[facility]A Albuterol Sulfate (Albuterol Sulfate 90 Mcg 8 Gm Inhaler) 1 puff INHALE Q4H PRN PRN Reason: Shortness Of Breath Apixaban (Apixaban 5 Mg Tablet) 5 mg PO BID [facility] Last Admin: 06/13/22 08:41 Dose: 5 mg Baclofen (Baclofen 10 Mg Tablet) 10 mg PO Q8H PRN PRN Reason: Muscle Spasm Last Admin: 06/12/22 03:20 Dose: 10 mg Cyclobenzaprine HCl (Cyclobenzaprine Hcl 10 Mg Tablet) 10 mg PO BID [facility] Last Admin: 06/15/22 07:53 Dose: 10 mg Dextrose (Dextrose 50 % 25 Gm/50 Ml Syringe) 25 gm IVPUSH Q15M PRN; Protocol PRN Reason: per Hypoglycemia Standing Ord. Fentanyl (Fentanyl 75 Mcg Patch.Td72) 75 mcg TRANSDERMA Q72H [facility] Last Admin: 06/14/22 17:56 Dose: 75 mcg Fluoxetine HCl (Fluoxetine Hcl 20 Mg Capsule) 40 mg PO DAILY [facility] Last Admin: 06/15/22 07:52 Dose: 40 mg Fluticasone Propionate (Fluticasone Propionate Nasal 16 Gm [place]) 1 spray NOSTRIL-B DAILY [facility] Last Admin: 06/15/22 11:47 Dose: Not Given Fluticasone/Vilanterol (Fluticasone/Vilanterol 100/25 Blst.W.Dev) 1 puff INHALE RDAILY [facility] Last Admin: 06/15/22 07:51 Dose: 1 puff Gabapentin (Gabapentin 400 Mg Capsule) 400 mg PO TID [facility] Last Admin: 06/15/22 13:52 Dose: 400 mg Glucose (Glucose Gel 15 Gm Gel..Gram.) 15 gm PO Q15M PRN; Protocol PRN Reason: per Hypoglycemia Standing Ord. Hydralazine HCl (Hydralazine Hcl 50 Mg Tablet) 50 mg PO TID [facility]; Protocol Last Admin: 06/15/22 13:52 Dose: 50 mg Insulin Glargine (Insulin Glargine,Hum.Rec.Anlog 100 Unit/Ml 10 Ml Vial) 20 unit SUBCUT BEDTIME [facility] Last Admin: 06/14/22 21:48 Dose: 20 unit Insulin Human Lispro (Insulin Lispro 100 Unit/Ml 3 Ml Vial) 0 unit SUBCUT QIDACHS [facility]; Protocol Last Admin: 06/15/22 11:47 Dose: Not Given Magnesium Oxide (Magnesium Oxide 400 Mg Tablet) 400 mg PO BID[facility] Last Admin: 06/15/22 07:53 Dose: 400 mg Metoclopramide HCl (Metoclopramide Hcl 5 Mg Tablet) 5 mg PO DAILY [facility] Last Admin: 06/15/22 07:52 Dose: 5 mg Metoprolol Succinate (Metoprolol Succinate Er 50 Mg Tab.Er.24h) 50 mg PO DAILY [facility]; Protocol Last Admin: 06/15/22 07:55 Dose: 50 mg Omeprazole (Omeprazole 20 Mg Capsule.Dr) 20 mg PO DAILY [facility] Last Admin: 06/15/22 07:53 Dose: 20 mg Ondansetron HCl (Ondansetron Hcl 4 Mg/2 Ml Vial) 4 mg IVPUSH Q8H PRN PRN Reason: Nausea and Vomiting Last Admin: 06/12/22 22:24 Dose: 4 mg Oxycodone HCl (Oxycodone Hcl Immed Release 5 Mg Tablet) 5 mg PO Q4H PRN PRN Reason: Pain (Scale Score 4-6) Last Admin: 06/15/22 13:52 Dose: 5 mg Pharmacy Consult (Consult Rx Perform Med Rec) 1 each MISCELLANE ONCE PRN PRN Reason: Consult order Polyethylene Glycol (Polyethylene Glycol 3350 17 Gm Powd.Pack) 17 gm PO DAILY [facility] Last Admin: 06/15/22 07:52 Dose: 17 gm Sodium Chloride (0.9 % Sodium Chloride Flush 3 Ml Syringe) [facility] Last Admin: 06/15/22 15:48 Dose: Not Given Trazodone HCl (Trazodone Hcl 100 Mg Tablet) 300 mg PO BEDTIME [facility] Last Admin: 06/14/22 21:47 Dose: 300 mg Vitamin D (Cholecalciferol (Vitamin D3) 25 Mcg Tablet) 25 mcg PO DAILY [facility] Last Admin: 06/15/22 07:53 Dose: 25 mcg Home Medications Medication Instructions Recorded Confirmed Last Taken Type albuterol sulfate 90 mcg/actuation 1 puff inhalation Q4H PRN 07/26/20 06/11/22 Unknown History aerosol inhaler (Ventolin HFA) Shortness Of Breath celecoxib 200 mg capsule (Celebrex) 200 mg PO DAILY 07/26/20 06/11/22 Unknown History fluoxetine 40 mg capsule (Prozac) 40 mg PO DAILY 07/26/20 06/11/22 Unknown History fluticasone propionate 50 1 spray intranasal DAILY 07/26/20 06/11/22 Unknown History mcg/actuation nasal spray,suspension glipizide 5 mg tablet 10 mg PO BIDAC 07/26/20 06/11/22 Unknown History metformin 500 mg tablet 1,000 mg PO BIDWM 07/26/20 06/11/22 Unknown History metoclopramide HCl 5 mg tablet 5 mg PO DAILY 07/26/20 06/11/22 Unknown History (Reglan) acetaminophen 325 mg tablet 650 mg PO Q4H PRN PAIN/FEVER 11/21/21 06/11/22 Unknown History baclofen 10 mg tablet 10 mg Q8H PRN Muscle Spasm 11/21/21 06/11/22 Unknown History furosemide 20 mg tablet (Lasix) 20 mg PO DAILY 11/21/21 06/11/22 Unknown History gabapentin 400 mg capsule 400 mg PO TID 11/21/21 06/11/22 Unknown History insulin detemir U-100 100 unit/mL 25 unit subcut DAILY 11/21/21 06/11/22 Unknown History subcutaneous solution (Levemir U-100 Insulin) insulin lispro 100 unit/mL See Protocol QIDACHS 11/21/21 06/11/22 Unknown History subcutaneous cartridge (Humalog U-100 Insulin) lansoprazole 15 mg capsule,delayed 15 mg PO DAILY 11/21/21 06/11/22 Unknown History release (Prevacid 24Hr) lisinopril 5 mg tablet 5 mg PO DAILY 11/21/21 06/11/22 Unknown History oxycodone 5 mg tablet 5 mg PO Q4H PRN Pain (Scale Score 11/21/21 06/11/22 Unknown History 4-6) trazodone 150 mg tablet 300 mg PO BEDTIME 12/17/21 06/11/22 Unknown History cholecalciferol (vitamin D3) 25 25 mcg PO DAILY 06/11/22 06/11/22 Unknown History mcg (1,000 unit) tablet hydralazine 50 mg tablet 1 tab PO TID 06/11/22 06/11/22 Unknown History levofloxacin 250 mg tablet 1 tab PO DAILY 06/11/22 06/11/22 Unknown History magnesium citrate 150 ml PO DAILY PRN Constipation 06/11/22 06/11/22 Unknown History methenamine hippurate 1 gram tablet 1 tab PO BID 06/11/22 06/11/22 Unknown History methocarbamol 500 mg tablet 1,000 mg PO TID 06/11/22 06/11/22 Unknown History Exam Exam Date and Time: June 15, 2022 1640 Height,Weight and Vital Signs: Height 5 ft 5 in Weight 65.77 kg Last Vital Signs Temp 98.4 F 06/15/22 15:02 Pulse 62 06/15/22 15:02 Resp 20 06/15/22 15:02 BP 144/61 H 06/15/22 15:02 Pulse Ox 94 06/15/22 15:02 O2 Del Method 06/15/22 15:02 Pertinent Lab Results Pertinent Lab Results: Laboratory Tests 06/11/22 06/11/22 06/11/22 11:42 11:42 11:42 WBC 14.4 H RBC 5.03 D Hgb 14.8 D Hct 45.2 D MCV 89.9 MCH 29.4 MCHC 32.7 RDW 14.0 Plt Count 412 H D MPV 9.2 L Immature Gran % (Auto) 1.4 H Neut % (Auto) 77.4 H Lymph % (Auto) 14.3 L [place] % (Auto) 6.4 Eos % (Auto) 0.0 Baso % (Auto) 0.5 Lymph # (Auto) 2.1 [place] # (Auto) 0.9 Eos # (Auto) 0.0 Baso # (Auto) 0.1 Abs Immat Gran (auto) 0.20 H Absolute Neuts (auto) 11.1 H Absolute Nucleated RBC 0.000 Nucleated RBC % (auto) 0.0 PT INR APTT Sodium 142 Potassium 3.6 Chloride 105 Carbon Dioxide 23 Anion Gap 18 BUN 23 H Creatinine 1.27 Estim Creat Clear Calc 37.6 Estimated GFR 42 POC Glucose Random Glucose 205 H Lactic Acid 2.0 Calcium 7.8 L D Magnesium < 0.6 L* Total Bilirubin 0.7 AST 16 ALT 17 Alkaline Phosphatase 76 Troponin I High Sens C-Reactive Protein Total Protein 7.2 Albumin 4.1 TSH 0.61 Urine Color Urine Appearance Urine pH Ur Specific [place] Urine Protein Urine Glucose (UA) Urine Ketones Urine Blood Urine Nitrite Ur Leukocyte Esterase Urine RBC Urine WBC Ur Squamous Epith Cells Urine Bacteria Hyaline Casts Influenza Type A (PCR) Influenza Type B (PCR) RSV RNA Qual (PCR) SARS-CoV-2 RNA (RT-PCR) 06/11/22 06/11/22 06/11/22 11:42 11:52 12:52 WBC RBC Hgb Hct MCV MCH MCHC RDW Plt Count MPV Immature Gran % (Auto) Neut % (Auto) Lymph % (Auto) [place] % (Auto) Eos % (Auto) Baso % (Auto) Lymph # (Auto) [place] # (Auto) Eos # (Auto) Baso # (Auto) Abs Immat Gran (auto) Absolute Neuts (auto) Absolute Nucleated RBC Nucleated RBC % (auto) PT 16.2 H INR 1.4 H APTT 27.8 Sodium Potassium Chloride Carbon Dioxide Anion Gap BUN Creatinine Estim Creat Clear Calc Estimated GFR POC Glucose Random Glucose Lactic Acid Calcium Magnesium Total Bilirubin AST ALT Alkaline Phosphatase Troponin I High Sens 9.7 D C-Reactive Protein Total Protein Albumin TSH Urine Color Urine Appearance Urine pH Ur Specific [place] Urine Protein Urine Glucose (UA) Urine Ketones Urine Blood Urine Nitrite Ur Leukocyte Esterase Urine RBC Urine WBC Ur Squamous Epith Cells Urine Bacteria Hyaline Casts Influenza Type A (PCR) NEGATIVE Influenza Type B (PCR) NEGATIVE RSV RNA Qual (PCR) NEGATIVE SARS-CoV-2 RNA (RT-PCR) NEGATIVE 06/11/22 06/11/22 06/11/22 14:12 16:35 16:50 WBC RBC Hgb Hct MCV MCH MCHC RDW Plt Count MPV Immature Gran % (Auto) Neut % (Auto) Lymph % (Auto) [place] % (Auto) Eos % (Auto) Baso % (Auto) Lymph # (Auto) [place] # (Auto) Eos # (Auto) Baso # (Auto) Abs Immat Gran (auto) Absolute Neuts (auto) Absolute Nucleated RBC Nucleated RBC % (auto) PT INR APTT Sodium Potassium Chloride Carbon Dioxide Anion Gap BUN Creatinine Estim Creat Clear Calc Estimated GFR POC Glucose 170 H Random Glucose Lactic Acid Calcium Magnesium 0.8 L* Total Bilirubin AST ALT Alkaline Phosphatase Troponin I High Sens C-Reactive Protein Total Protein Albumin TSH Urine Color Yellow Urine Appearance Clear Urine pH 5.0 Ur Specific [place] 1.020 Urine Protein Trace Urine Glucose (UA) Negative Urine Ketones Trace Urine Blood Negative Urine Nitrite Negative Ur Leukocyte Esterase Moderate (2+) H Urine RBC 0-2 Urine WBC 6-10 H Ur Squamous Epith Cells 6-10 Urine Bacteria None Seen Hyaline Casts 6-10 Influenza Type A (PCR) Influenza Type B (PCR) RSV RNA Qual (PCR) SARS-CoV-2 RNA (RT-PCR) 06/11/22 06/11/22 06/12/22 21:08 23:40 06:32 WBC 14.2 H RBC 4.22 Hgb 12.8 Hct 38.4 MCV 91.0 MCH 30.3 MCHC 33.3 RDW 14.1 Plt Count 346 MPV 9.1 L Immature Gran % (Auto) Neut % (Auto) Lymph % (Auto) [place] % (Auto) Eos % (Auto) Baso % (Auto) Lymph # (Auto) [place] # (Auto) Eos # (Auto) Baso # (Auto) Abs Immat Gran (auto) Absolute Neuts (auto) Absolute Nucleated RBC 0.000 Nucleated RBC % (auto) 0.0 PT INR APTT Sodium Potassium Chloride Carbon Dioxide Anion Gap BUN Creatinine Estim Creat Clear Calc Estimated GFR POC Glucose 119 H Random Glucose Lactic Acid Calcium Magnesium 1.8 Total Bilirubin AST ALT Alkaline Phosphatase Troponin I High Sens C-Reactive Protein Total Protein Albumin TSH Urine Color Urine Appearance Urine pH Ur Specific [place] Urine Protein Urine Glucose (UA) Urine Ketones Urine Blood Urine Nitrite Ur Leukocyte Esterase Urine RBC Urine WBC Ur Squamous Epith Cells Urine Bacteria Hyaline Casts Influenza Type A (PCR) Influenza Type B (PCR) RSV RNA Qual (PCR) SARS-CoV-2 RNA (RT-PCR) 06/12/22 06/12/22 06/12/22 06:32 07:21 11:38 WBC RBC Hgb Hct MCV MCH MCHC RDW Plt Count MPV Immature Gran % (Auto) Neut % (Auto) Lymph % (Auto) [place] % (Auto) Eos % (Auto) Baso % (Auto) Lymph # (Auto) [place] # (Auto) Eos # (Auto) Baso # (Auto) Abs Immat Gran (auto) Absolute Neuts (auto) Absolute Nucleated RBC Nucleated RBC % (auto) PT INR APTT Sodium 141 Potassium 3.1 L Chloride 105 Carbon Dioxide 25 Anion Gap 14 BUN 23 H Creatinine 0.94 Estim Creat Clear Calc 50.7 Estimated GFR 59 POC Glucose 115 139 H Random Glucose 98 Lactic Acid Calcium 7.5 L Magnesium 1.8 Total Bilirubin AST ALT Alkaline Phosphatase Troponin I High Sens C-Reactive Protein 0.69 H Total Protein Albumin TSH Urine Color Urine Appearance Urine pH Ur Specific [place] Urine Protein Urine Glucose (UA) Urine Ketones Urine Blood Urine Nitrite Ur Leukocyte Esterase Urine RBC Urine WBC Ur Squamous Epith Cells Urine Bacteria Hyaline Casts Influenza Type A (PCR) Influenza Type B (PCR) RSV RNA Qual (PCR) SARS-CoV-2 RNA (RT-PCR) 06/12/22 06/12/22 06/12/22 13:28 16:56 20:17 WBC RBC Hgb Hct MCV MCH MCHC RDW Plt Count MPV Immature Gran % (Auto) Neut % (Auto) Lymph % (Auto) [place] % (Auto) Eos % (Auto) Baso % (Auto) Lymph # (Auto) [place] # (Auto) Eos # (Auto) Baso # (Auto) Abs Immat Gran (auto) Absolute Neuts (auto) Absolute Nucleated RBC Nucleated RBC % (auto) PT INR APTT Sodium Potassium Chloride Carbon Dioxide Anion Gap BUN Creatinine Estim Creat Clear Calc Estimated GFR POC Glucose 179 H 146 H 192 H Random Glucose Lactic Acid Calcium Magnesium Total Bilirubin AST ALT Alkaline Phosphatase Troponin I High Sens C-Reactive Protein Total Protein Albumin TSH Urine Color Urine Appearance Urine pH Ur Specific [place] Urine Protein Urine Glucose (UA) Urine Ketones Urine Blood Urine Nitrite Ur Leukocyte Esterase Urine RBC Urine WBC Ur Squamous Epith Cells Urine Bacteria Hyaline Casts Influenza Type A (PCR) Influenza Type B (PCR) RSV RNA Qual (PCR) SARS-CoV-2 RNA (RT-PCR) 06/13/22 06/13/22 06/13/22 06:40 07:45 11:29 WBC RBC Hgb Hct MCV MCH MCHC RDW Plt Count MPV Immature Gran % (Auto) Neut % (Auto) Lymph % (Auto) [place] % (Auto) Eos % (Auto) Baso % (Auto) Lymph # (Auto) [place] # (Auto) Eos # (Auto) Baso # (Auto) Abs Immat Gran (auto) Absolute Neuts (auto) Absolute Nucleated RBC Nucleated RBC % (auto) PT INR APTT Sodium 138 Potassium 4.4 D Chloride 105 Carbon Dioxide 24 Anion Gap 13 BUN 30 H Creatinine 1.40 Estim Creat Clear Calc 34.1 Estimated GFR 37 POC Glucose 159 H 130 H Random Glucose 169 H Lactic Acid Calcium 7.7 L Magnesium 1.6 Total Bilirubin AST ALT Alkaline Phosphatase Troponin I High Sens C-Reactive Protein Total Protein Albumin TSH Urine Color Urine Appearance Urine pH Ur Specific [place] Urine Protein Urine Glucose (UA) Urine Ketones Urine Blood Urine Nitrite Ur Leukocyte Esterase Urine RBC Urine WBC Ur Squamous Epith Cells Urine Bacteria Hyaline Casts Influenza Type A (PCR) Influenza Type B (PCR) RSV RNA Qual (PCR) SARS-CoV-2 RNA (RT-PCR) 06/13/22 06/13/22 06/14/22 15:34 20:38 06:34 WBC 10.7 RBC 3.97 L Hgb 11.6 L Hct 36.4 L MCV 91.7 MCH 29.2 MCHC 31.9 RDW 13.8 Plt Count 300 MPV 9.2 L Immature Gran % (Auto) Neut % (Auto) Lymph % (Auto) [place] % (Auto) Eos % (Auto) Baso % (Auto) Lymph # (Auto) [place] # (Auto) Eos # (Auto) Baso # (Auto) Abs Immat Gran (auto) Absolute Neuts (auto) Absolute Nucleated RBC 0.000 Nucleated RBC % (auto) 0.0 PT INR APTT Sodium Potassium Chloride Carbon Dioxide Anion Gap BUN Creatinine Estim Creat Clear Calc Estimated GFR POC Glucose 158 H 124 H Random Glucose Lactic Acid Calcium Magnesium Total Bilirubin AST ALT Alkaline Phosphatase Troponin I High Sens C-Reactive Protein Total Protein Albumin TSH Urine Color Urine Appearance Urine pH Ur Specific [place] Urine Protein Urine Glucose (UA) Urine Ketones Urine Blood Urine Nitrite Ur Leukocyte Esterase Urine RBC Urine WBC Ur Squamous Epith Cells Urine Bacteria Hyaline Casts Influenza Type A (PCR) Influenza Type B (PCR) RSV RNA Qual (PCR) SARS-CoV-2 RNA (RT-PCR) 06/14/22 06/14/22 06/14/22 06:34 07:22 11:38 WBC RBC Hgb Hct MCV MCH MCHC RDW Plt Count MPV Immature Gran % (Auto) Neut % (Auto) Lymph % (Auto) [place] % (Auto) Eos % (Auto) Baso % (Auto) Lymph # (Auto) [place] # (Auto) Eos # (Auto) Baso # (Auto) Abs Immat Gran (auto) Absolute Neuts (auto) Absolute Nucleated RBC Nucleated RBC % (auto) PT INR APTT Sodium 138 Potassium 4.3 Chloride 106 Carbon Dioxide 24 Anion Gap 12 BUN 32 H D Creatinine 1.16 Estim Creat Clear Calc 41.1 Estimated GFR 46 POC Glucose 162 H 169 H Random Glucose 144 H Lactic Acid Calcium 8.3 L D Magnesium 1.9 Total Bilirubin AST ALT Alkaline Phosphatase Troponin I High Sens C-Reactive Protein 0.69 H Total Protein Albumin TSH Urine Color Urine Appearance Urine pH Ur Specific [place] Urine Protein Urine Glucose (UA) Urine Ketones Urine Blood Urine Nitrite Ur Leukocyte Esterase Urine RBC Urine WBC Ur Squamous Epith Cells Urine Bacteria Hyaline Casts Influenza Type A (PCR) Influenza Type B (PCR) RSV RNA Qual (PCR) SARS-CoV-2 RNA (RT-PCR) 06/14/22 06/14/22 06/15/22 15:29 20:29 06:18 WBC RBC Hgb Hct MCV MCH MCHC RDW Plt Count MPV Immature Gran % (Auto) Neut % (Auto) Lymph % (Auto) [place] % (Auto) Eos % (Auto) Baso % (Auto) Lymph # (Auto) [place] # (Auto) Eos # (Auto) Baso # (Auto) Abs Immat Gran (auto) Absolute Neuts (auto) Absolute Nucleated RBC Nucleated RBC % (auto) PT INR APTT Sodium 137 Potassium 4.6 Chloride 106 Carbon Dioxide 26 Anion Gap 10 L BUN 20 H Creatinine 0.87 Estim Creat Clear Calc 54.9 Estimated GFR > 60 POC Glucose 166 H 176 H Random Glucose 152 H Lactic Acid Calcium 9.0 D Magnesium Total Bilirubin AST ALT Alkaline Phosphatase Troponin I High Sens C-Reactive Protein Total Protein Albumin TSH Urine Color Urine Appearance Urine pH Ur Specific [place] Urine Protein Urine Glucose (UA) Urine Ketones Urine Blood Urine Nitrite Ur Leukocyte Esterase Urine RBC Urine WBC Ur Squamous Epith Cells Urine Bacteria Hyaline Casts Influenza Type A (PCR) Influenza Type B (PCR) RSV RNA Qual (PCR) SARS-CoV-2 RNA (RT-PCR) 06/15/22 06/15/22 06/15/22 07:20 10:55 14:54 WBC RBC Hgb Hct MCV MCH MCHC RDW Plt Count MPV Immature Gran % (Auto) Neut % (Auto) Lymph % (Auto) [place] % (Auto) Eos % (Auto) Baso % (Auto) Lymph # (Auto) [place] # (Auto) Eos # (Auto) Baso # (Auto) Abs Immat Gran (auto) Absolute Neuts (auto) Absolute Nucleated RBC Nucleated RBC % (auto) PT INR APTT Sodium Potassium Chloride Carbon Dioxide Anion Gap BUN Creatinine Estim Creat Clear Calc Estimated GFR POC Glucose 160 H 173 H 152 H Random Glucose Lactic Acid Calcium Magnesium Total Bilirubin AST ALT Alkaline Phosphatase Troponin I High Sens C-Reactive Protein Total Protein Albumin TSH Urine Color Urine Appearance Urine pH Ur Specific [place] Urine Protein Urine Glucose (UA) Urine Ketones Urine Blood Urine Nitrite Ur Leukocyte Esterase Urine RBC Urine WBC Ur Squamous Epith Cells Urine Bacteria Hyaline Casts Influenza Type A (PCR) Influenza Type B (PCR) RSV RNA Qual (PCR) SARS-CoV-2 RNA (RT-PCR) Airway Mallampati Class: IV TM Dist: >3cm Neck ROM: Full Assessment and Plan Final Anesthetic Review Family History of Problems with Anesthesia: No History of Problems with Anesthesia: No (PONV) NPO: Yes ASA Class: III and Emergency Final Preanesthetic Review: No Changes in Pt Med Stat, Meds/Allgs Chart Reviewed, Consent Obtained/Reviewed and Anes Risks/Benef Reviewed Patient Risk: Intermediate Procedure Risk: Intermediate Anesthetic Plan Anesthetic Plan: MAC: Disposition: Standard PACU
--- NOTE | 2022-06-15 17:21 | PM.OP ---
Brief Operative Note Date of Service: 06/15/22 Pre-op diagnosis: Abnormal CT of stomach Post-op diagnosis: other (Gastritis, Enlarged proximal gastric folds) Procedure: EGd with biopsies Surgeon: Kleber Ga Anesthesia: MAC Was an [employer] used for this Procedure?: No Estimated blood loss (mL): 2.0 Pathology: other (A. Gastric antrum B. Enlarged proximal gastric folds) Condition: stable Disposition: PACU
--- NOTE | 2022-06-15 17:23 | PM.EVENT ---
Event Note Date of Service: 06/15/22 Event Note: GI-EGD-Full note dictated Findings: 1. Antral gastritis-biopsied x 3 2. Large proximal gastric folds but with normal mucosa--multiple biopsies taken 3. Minimal hiatal hernia Rec: Check path. Continue PPI. Advance diet. Observe. Endoscopic U/S of large gastric folds if any suspicion of neoplasm persists. Thanks Time Spent With Patient Time: Total time managing care of this patient today ____ minutes.
[2022-06-15 18:20] LABS: Glucose, Whole Blood 245 mg/dL (60-115)
[2022-06-15] MEDS: Insulin Lispro 100 UNIT/ML 3 ML VIAL SUBCUT ×2 (18:34→20:32)
[2022-06-15 19:35] LABS: Glucose, Whole Blood 233 mg/dL (60-115)
[2022-06-15] MEDS: Insulin Glargine,Hum.rec.anlog 100 UNIT/ML 10 ML VIAL 20 UNIT SUBCUT (20:32)
[2022-06-15] MEDS: traZODone HCL 100 MG TABLET 300 MG PO (22:29)
[2022-06-15] MEDS: Acetaminophen 325 MG TABLET 650 MG PO (22:30)
[2022-06-16] VITALS (10 sets, daily range): BP systolic 140–182; BP diastolic 58–84; PULSE 55–74; RESP 16–22; TEMP 36.3–36.8; O2SAT 94–96
--- NOTE | 2022-06-16 04:19 | OP_ITS ---
SURGEON: Kleber Ga MD INDICATIONS: The patient presents for evaluation of recent vomiting and abdominal pain as well as abnormal CT scan of stomach. Full consent was obtained from her for this, including risks of bleeding and perforation. PREOPERATIVE DIAGNOSIS: POSTOPERATIVE DIAGNOSIS: PROCEDURE PERFORMED: ESTIMATED BLOOD LOSS: COMPLICATIONS: ANESTHESIA: Monitored anesthesia care. ASSISTANTS: SPECIMENS: PROCEDURE: Esophagogastroduodenoscopy with biopsies. PREOPERATIVE DIAGNOSES: Vomiting, abdominal pain, and abnormal CT scan of stomach. POSTOPERATIVE DIAGNOSES: Vomiting, abdominal pain, and abnormal CT scan of stomach, gastritis, enlarged proximal gastric folds, minimal hiatal hernia, duodenitis. DESCRIPTION OF PROCEDURE: The patient was placed in the left lateral decubitus position. The Olympus video gastroscope was passed in the posterior oropharynx and upper esophagus under direct vision. The scope was passed slowly to the distal esophagus. The gastroesophageal junction appeared normal at 38 cm. There was no sign of any esophagitis nor Poe's esophagus. The scope entered the stomach. There was a minimal hiatal hernia. The scope was advanced to pylorus and the duodenum was cannulated to the descending portion. The duodenal bulb was carefully inspected. There was some duodenitis in the duodenal bulb, but no erosions or ulceration. The 2nd and 3rd portions of duodenum appeared normal. The scope was withdrawn back into the stomach. The gastric antrum and body had some changes of chronic appearing gastritis with some erythema and edema, but no erosions or ulceration. There was good peristalsis. Biopsies were obtained from the gastric antrum. In both the forward view and retroflexed positions, the proximal stomach was carefully inspected. There were definitely enlarged and somewhat thickened gastric folds, which really did not disappear with insufflation of air. However, the overlying mucosa appeared to be normal. There was no ulceration or mass. Multiple biopsies were obtained. The scope was withdrawn back to the esophagus. The esophageal mucosa appeared normal. The scope was withdrawn from the patient. She tolerated the procedure well and was returned to the recovery area in stable condition. IMPRESSION: 1. Large proximal gastric folds, status post biopsy. 2. Antral gastritis, status post biopsy. 3. Minimal hiatal hernia. PLAN: The results of the biopsies will be checked. At this point, she does report that she is symptomatically improved. I would continue her PPI and advance her diet. If the biopsies are nonrevealing, then I would hold off on any further treatment. However, if problems persist and suspicion of any neoplastic process persists, we could then consider an endoscopic ultrasound of the proximal stomach. If H pylori is present in the gastric biopsies, we could consider treating that as well. She should not use any aspirin or NSAIDs while on Eliquis. MD ARNIE Pink/BOBO / [id number] MTDD
[2022-06-16 07:06] LABS: MANUAL DIFF FLAG NO
[2022-06-16 07:12] LABS: Basophils Absolute Auto 0.1 X10*3/uL (0.0-0.2); Basophils Percent Auto 0.7 % (0-2); Eosinophils Absolute Auto 0.2 X10*3/uL (0.0-0.4); Eosinophils Percent Auto 1.6 % (0-4); Hematocrit 37.4 % (37.0-47.0); Hemoglobin 12.1 g/dl (12.0-16.0); Imm Gran Abs Auto 0.09 X10*3/uL (0.00-0.03); Imm Gran Pct Auto 0.9 % (0.0-0.4); Lymphocytes Absolute Auto 3.5 X10*3/uL (1.2-4.9); Lymphocytes Percent Auto 35.9 % (20-40); Mean Corpuscular HGB Conc 32.4 g/dl (31.0-35.0); Mean Corpuscular Hemoglobin 29.5 pg (27.0-33.0); Mean Corpuscular Volume 91.2 fL (80.0-98.0); Mean Platelet Volume 9.2 fL (9.4-12.3); Monocytes Absolute Auto 1.2 X10*3/uL (0.1-1.2); Monocytes Percent Auto 12.4 % (2-11); Neutrophils Absolute Auto 4.7 x10*3/uL (2.0-8.3); Neutrophils Percent Auto 48.5 % (45-73); Platelet Count 322 X10*3/uL (160-400); Red Cell Distribution Width 13.6 % (11.0-16.0); White Blood Count 9.6 X10*3/uL (4.8-10.8)
[2022-06-16] MEDS: Fluticasone/Vilanterol 100/25 BLST.W.DEV 1 PUFF INHALE (07:49)
[2022-06-16] MEDS: Acetaminophen 325 MG TABLET 650 MG PO ×3 (08:00→22:02)
[2022-06-16] MEDS: FLUoxetine HCl 20 MG CAPSULE 40 MG PO (08:01)
[2022-06-16] MEDS: Metoprolol Succinate ER 50 MG TAB.ER.24H PO (08:01)
[2022-06-16] MEDS: Omeprazole 20 MG CAPSULE.DR PO (08:02)
[2022-06-16] MEDS: Cyclobenzaprine HCl 10 MG TABLET PO ×2 (08:02→22:01)
[2022-06-16] MEDS: Cholecalciferol (Vitamin D3) 25 MCG TABLET PO (08:02)
[2022-06-16] MEDS: hydrALAZINE HCl 50 MG TABLET PO ×3 (08:02→22:03)
[2022-06-16] MEDS: Metoclopramide HCl 5 MG TABLET PO (08:02)
[2022-06-16] MEDS: Magnesium Oxide 400 MG TABLET PO ×2 (08:02→16:57)
[2022-06-16] MEDS: Gabapentin 400 MG CAPSULE PO ×3 (08:02→22:01)
[2022-06-16] MEDS: 0.9 % Sodium Chloride Flush 3 ML SYRINGE IVFLUSH ×3 (08:03→22:32)
[2022-06-16] MEDS: polyethylene glycoL 3350 17 GM POWD.PACK PO (08:04)
[2022-06-16] MEDS: Apixaban 5 MG TABLET PO ×2 (08:16→22:00)
[2022-06-16 08:34] LABS: Glucose, Whole Blood 148 mg/dL (60-115)
--- NOTE | 2022-06-16 10:24 | HO.POSTANES ---
Post Anesthesia Evaluation Post Anesthesia Evaluation Vital Signs: Vital Signs Temp Pulse Resp BP Pulse Ox O2 Del Method 06/16/22 08:00 146/62 H 06/16/22 07:51 74 16 06/16/22 07:23 97.9 F 55 20 175/81 H 96 Room Air 06/16/22 04:00 97.4 F 60 17 165/71 H 94 Room Air 06/15/22 23:13 98.2 F 62 16 143/63 H 95 Room Air Anesthesia: Monitored Mental Status: Awake Pain Control: Satisfactory Nausea/Vomiting: None Hydration: Adequate Anesthesia-Related Issues: No Anes. Related Issues
[2022-06-16] MEDS: oxyCODONE HCl Immed Release 5 MG TABLET PO ×3 (10:44→22:31)
[2022-06-16] MEDS: Fluticasone Propionate Nasal 16 GM SPRAY 1 SPRAY NOSTRIL-B (10:45)
[2022-06-16 11:18] LABS: Glucose, Whole Blood 228 mg/dL (60-115)
[2022-06-16] MEDS: iohexoL 350 MG/ML 100 ML INFUS..BTL IV (14:45)
--- NOTE | 2022-06-16 15:41 | P.PNIM_ITS ---
Subjective Subjective Date of Service: 06/17/22 Interval History: Complaining of persistent right buttock pain slightly better, no other acute issues no nausea no vomiting no abdominal pain tolerating diet, no chest pain, small needed being of no shortness of breath, wants to know what is happening with her. Review of Systems Review of Systems: Yes all other systems are reviewed and are negative Physical Exam Vital Signs: Vital Signs: Last Vital Signs Temp 98.1 F 06/16/22 11:24 Pulse 60 06/16/22 11:24 Resp 22 H 06/16/22 11:24 BP 155/72 H 06/16/22 11:24 Pulse Ox 96 06/16/22 11:24 O2 Del Method 06/16/22 11:24 O2 Flow Rate 7 06/15/22 17:32 BMI result Body Mass Index 24.1 Const: Other: Gen:? Awake alert x3, in no acute di stress HEENT: scle ra anicteric, mois t mucus membranes Neck: supple, no J VD Lungs: clear to auscultation bila terally Heart: reg ular, no murmurs A bd: soft, non-tend er, non-distended Ext: no edema Skin : warm/well-perfus ed Neuro: alert an d oriented x3, no focal findings Unc hanged back examin ation Psych: appro priate affect Objective Data Active Medications Acetaminophen (Acetaminophen 325 Mg Tablet) 650 mg PO Q6H PRN PRN Reason: Pain, Mild (Pain Scale 1-3) Acetaminophen (Acetaminophen 325 Mg Tablet) 650 mg PO TID [facility] Last Admin: 06/16/22 08:00 Dose: 650 mg Documented By: MARI Albuterol Sulfate (Albuterol Sulfate 90 Mcg 8 Gm Inhaler) 1 puff INHALE Q4H PRN PRN Reason: Shortness Of Breath Apixaban (Apixaban 5 Mg Tablet) 5 mg PO BID [facility] Last Admin: 06/16/22 08:16 Dose: 5 mg Documented By: MARI Baclofen (Baclofen 10 Mg Tablet) 10 mg PO Q8H PRN PRN Reason: Muscle Spasm Last Admin: 06/12/22 03:20 Dose: 10 mg Documented By: CONSUELO Cyclobenzaprine HCl (Cyclobenzaprine Hcl 10 Mg Tablet) 10 mg PO BID [facility] Last Admin: 06/16/22 08:02 Dose: 10 mg Documented By: MARI Dextrose (Dextrose 50 % 25 Gm/50 Ml Syringe) 25 gm IVPUSH Q15M PRN; Protocol PRN Reason: per Hypoglycemia Standing Ord. Fentanyl (Fentanyl 75 Mcg Patch.Td72) 75 mcg TRANSDERMA Q72H [facility] Last Admin: 06/14/22 17:56 Dose: 75 mcg Documented By: ROBIN Fluoxetine HCl (Fluoxetine Hcl 20 Mg Capsule) 40 mg PO DAILY [facility] Last Admin: 06/16/22 08:01 Dose: 40 mg Documented By: MARI Fluticasone Propionate (Fluticasone Propionate Nasal 16 Gm [place]) 1 spray NOSTRIL-B DAILY [facility] Last Admin: 06/16/22 10:45 Dose: 1 spray Documented By: MARI Fluticasone/Vilanterol (Fluticasone/Vilanterol 100/25 Blst.W.Dev) 1 puff INHALE RDAILY [facility] Last Admin: 06/16/22 07:49 Dose: 1 puff Documented By: PATRICIA Gabapentin (Gabapentin 400 Mg Capsule) 400 mg PO TID [facility] Last Admin: 06/16/22 08:02 Dose: 400 mg Documented By: MARI Glucose (Glucose Gel 15 Gm Gel..Gram.) 15 gm PO Q15M PRN; Protocol PRN Reason: per Hypoglycemia Standing Ord. Hydralazine HCl (Hydralazine Hcl 50 Mg Tablet) 50 mg PO TID [facility]; Protocol Last Admin: 06/16/22 08:02 Dose: 50 mg Documented By: MARI Insulin Glargine (Insulin Glargine,Hum.Rec.Anlog 100 Unit/Ml 10 Ml Vial) 20 unit SUBCUT BEDTIME [facility] Last Admin: 06/15/22 20:32 Dose: 20 unit Documented By: CHARLA Insulin Human Lispro (Insulin Lispro 100 Unit/Ml 3 Ml Vial) 0 unit SUBCUT QIDACHS [facility]; Protocol Last Admin: 06/16/22 12:12 Dose: Not Given Documented By: MARI Non-Admin Reason: NPO Lisinopril (Lisinopril 5 Mg Tablet) 5 mg PO DAILY [facility]; Protocol Magnesium Oxide (Magnesium Oxide 400 Mg Tablet) 400 mg PO BIDPC [facility] Last Admin: 06/16/22 08:02 Dose: 400 mg Documented By: MARI Metoclopramide HCl (Metoclopramide Hcl 5 Mg Tablet) 5 mg PO DAILY [facility] Last Admin: 06/16/22 08:02 Dose: 5 mg Documented By: MARI Metoprolol Succinate (Metoprolol Succinate Er 50 Mg Tab.Er.24h) 50 mg PO DAILY [facility]; Protocol Last Admin: 06/16/22 08:01 Dose: 50 mg Documented By: MARI Omeprazole (Omeprazole 20 Mg Capsule.Dr) 20 mg PO DAILY [facility] Last Admin: 06/16/22 08:02 Dose: 20 mg Documented By: MARI Ondansetron HCl (Ondansetron Hcl 4 Mg/2 Ml Vial) 4 mg IVPUSH Q8H PRN PRN Reason: Nausea and Vomiting Last Admin: 06/12/22 22:24 Dose: 4 mg Documented By: BIA Oxycodone HCl (Oxycodone Hcl Immed Release 5 Mg Tablet) 5 mg PO Q4H PRN PRN Reason: Pain (Scale Score 4-6) Last Admin: 06/16/22 10:44 Dose: 5 mg Documented By: MARI Pharmacy Consult (Consult Rx Perform Med Rec) 1 each MISCELLANE ONCE PRN PRN Reason: Consult order Polyethylene Glycol (Polyethylene Glycol 3350 17 Gm Powd.Pack) 17 gm PO DAILY [facility] Last Admin: 06/16/22 08:04 Dose: 17 gm Documented By: MARI Sodium Chloride (0.9 % Sodium Chloride Flush 3 Ml Syringe) [facility] Last Admin: 06/16/22 08:03 Dose: 3 ml Documented By: MARI Trazodone HCl (Trazodone Hcl 100 Mg Tablet) 300 mg PO BEDTIME [facility] Last Admin: 06/15/22 22:29 Dose: 300 mg Documented By: CHARLA Vitamin D (Cholecalciferol (Vitamin D3) 25 Mcg Tablet) 25 mcg PO DAILY [facility] Last Admin: 06/16/22 08:02 Dose: 25 mcg Documented By: MARI Labs CBC & Chem 7: 06/16/22 06:46 06/15/22 06:18 Labs: Laboratory Results - last 24 hr 06/15/22 06/15/22 06/16/22 18:17 19:31 06:46 MCV 91.2 MCH 29.5 MCHC 32.4 RDW 13.6 Plt Count 322 MPV 9.2 L Immature Gran % (Auto) 0.9 H Neut % (Auto) 48.5 Lymph % (Auto) 35.9 [place] % (Auto) 12.4 H Eos % (Auto) 1.6 Baso % (Auto) 0.7 Lymph # (Auto) 3.5 [place] # (Auto) 1.2 Eos # (Auto) 0.2 Baso # (Auto) 0.1 Abs Immat Gran (auto) 0.09 H Absolute Neuts (auto) 4.7 Absolute Nucleated RBC 0.000 Nucleated RBC % (auto) 0.0 POC Glucose 245 H 233 H 06/16/22 06/16/22 07:22 10:40 MCV MCH MCHC RDW Plt Count MPV Immature Gran % (Auto) Neut % (Auto) Lymph % (Auto) [place] % (Auto) Eos % (Auto) Baso % (Auto) Lymph # (Auto) [place] # (Auto) Eos # (Auto) Baso # (Auto) Abs Immat Gran (auto) Absolute Neuts (auto) Absolute Nucleated RBC Nucleated RBC % (auto) POC Glucose 148 H 228 H Microbiology Microbiology Results: Microbiology 06/11/22 11:42 Blood Culture - Final Blood - Venous No growth after 5 days. 06/11/22 11:42 Blood Culture - Final Blood - Venous No growth after 5 days. Assessment and Plan (1) Paroxysmal atrial fibrillation: Status: Acute Plan 67yo F long-term care resident of [facility] due to chronic pain + nonambulation s/p 6 back procedures and currently on fentanyl patch, DM2, HTN, COPD/asthma, and recurrent UTIs including ESBL E. coli presenting with several months of dizziness, nausea, vomiting and about 1 week of watery diarrhea with 5 episodes/day.? Presented with new-onset atrial fibrillation with RVR in the 1 40s-150s. ? Found to have critical hypomagnesemia. Recently on levofloxacin for UTI despite prior resistance. # AF/RVR - no chest pain, no palpitations, remain in sinus rhythm, converted to NSR 12/9 am. cont.metoprolol succinate.and apixaban for [id number] score of 4. Mg/K repleted # hypoMg - repleted; continue PO maintenance; was likely due to diarrhea/vomiting # hypoK potassium normalized # BRANDON - likely prerenal, status post 2 L of IV fluids, will continue to hold lisinopril and Lasix , creatinine back to normal today #RT flank pain, hx UTI - hold off on antibiotics for now [she was on levofloxacin at the [facility]]; urine culture grew mixed bacterial yves [id number], CT has revealed other abnormalities that need workup pain is in right buttock with radiation to right leg consistent with lumbar radiculopathy, CT abdomen and pelvis showed L3-L4 fusion and no other acute abnormality. # stomach wall thickening with adenopathy - seen by Gastroenterology undergoing upper endoscopy this afternoon # endometrial thickening - outpatient OBGYN follow-up # hilar soft tissue swelling on CT - CT chest done report pending # diarrhea - resolved; was likely due to levofloxacin # HTN - on hydralazine + lisinopril and Lasix, will resume lisinopril, and cont to hold Lasix. # COPD-asthma, not in acute exac - continue ICS/LABA, prn NAVJOT # acute on chronic pain/likely lumbar radiculopathy - patient has right buttock pain with radiation to leg no numbness, no tingling, no loss of function, will hold NSAIDs due to BRANDON, continue fentanyl patch + prn oxycodone, gabapentin will add scheduled Tylenol t.i.d. # mood d/o - fluoxetine # VTE prophylaxis: apixaban # dispo: eventual return to LTC In my clinical judgment, the patient requires continued inpatient hospitalization for the following reasons undergoing upper endoscopy and pain management Time Spent With Patient Time: Total time managing care of this patient today ____ minutes. Quality Stroke Does the patient have a stroke diagnosis?: No VTE Prior VTE?: No VTE Risk Level:: Medical - moderate - high VTE Device Contraindication: N/A - Device Ordered VTE Drug Contraindication: N/A - Med Ordered
[2022-06-16 16:31] LABS: Glucose, Whole Blood 165 mg/dL (60-115)
[2022-06-16] MEDS: Celecoxib 200 MG CAPSULE PO (16:56)
[2022-06-16] MEDS: Insulin Lispro 100 UNIT/ML 3 ML VIAL SUBCUT ×2 (16:57→22:00)
[2022-06-16] MEDS: lisinopriL 5 MG TABLET PO (16:57)
[2022-06-16 21:28] LABS: Glucose, Whole Blood 183 mg/dL (60-115)
[2022-06-16] MEDS: Insulin Glargine,Hum.rec.anlog 100 UNIT/ML 10 ML VIAL 20 UNIT SUBCUT (21:59)
[2022-06-16] MEDS: traZODone HCL 100 MG TABLET 300 MG PO (22:31)
[2022-06-17 03:38] VITALS: BP 144/63; PULSE 52; RESP 16; TEMP 37.1; O2SAT 96
[2022-06-17 07:25] LABS: Glucose, Whole Blood 131 mg/dL (60-115)
[2022-06-17] MEDS: Metoprolol Succinate ER 50 MG TAB.ER.24H PO (07:54)
[2022-06-17] MEDS: 0.9 % Sodium Chloride Flush 3 ML SYRINGE IVFLUSH (07:54)
[2022-06-17] MEDS: Metoclopramide HCl 5 MG TABLET PO (07:54)
[2022-06-17] MEDS: Celecoxib 200 MG CAPSULE PO (07:54)
[2022-06-17] MEDS: FLUoxetine HCl 20 MG CAPSULE 40 MG PO (07:54)
[2022-06-17] MEDS: Cyclobenzaprine HCl 10 MG TABLET PO (07:55)
[2022-06-17] MEDS: Omeprazole 20 MG CAPSULE.DR PO (07:55)
[2022-06-17] MEDS: lisinopriL 5 MG TABLET PO (07:55)
[2022-06-17] MEDS: hydrALAZINE HCl 50 MG TABLET PO ×2 (07:55→14:58)
[2022-06-17] MEDS: Cholecalciferol (Vitamin D3) 25 MCG TABLET PO (07:55)
[2022-06-17] MEDS: Magnesium Oxide 400 MG TABLET PO (07:55)
[2022-06-17] MEDS: Gabapentin 400 MG CAPSULE PO ×2 (07:55→14:58)
[2022-06-17] MEDS: Apixaban 5 MG TABLET PO (07:56)
[2022-06-17] MEDS: Acetaminophen 325 MG TABLET 650 MG PO ×2 (07:56→14:58)
[2022-06-17] MEDS: Fluticasone/Vilanterol 100/25 BLST.W.DEV 1 PUFF INHALE (07:58)
[2022-06-17 08:00] VITALS: BP 168/77; PULSE 54; RESP 19; TEMP 36.4; O2SAT 93
[2022-06-17 08:01] VITALS: PULSE 84; RESP 18; O2SAT 95
--- NOTE | 2022-06-17 09:54 | PM.CNPUL ---
History of Present Illness History of Present Illness Consult date: 06/17/22 Chief complaint: new onset AF/ RVR, hypoMG Narrative: This is an inpatient pulmonary consultation. The patient is a 67 y/o woman, long-term care resident of [facility] due to chronic pain s/p 6 back procedures and on fentanyl patch? DM2, HTN, COPD/asthma, and recurrent UTIs including ESBL E. coli presenting with several months of dizziness, nausea, vomiting and about 1 week of watery diarrhea with 5 episodes/day.? She states that she has had a chronic UTI for the past few months.? No fever or chills.? No chest pain, palpitations, dyspnea, or cough. In the ED, she was found to be in atrial fibrillation with ventricular rate in the 140s-150s.? Serum magnesium was undetectable at <0.6 mg/dL.? She was given 5 mg of IV metoprolol and 1 L of IV NS.? She was also given 800 mg of PO magnesium oxide and 2 g of IV magnesium sulfate.? She remained in AF/RVR with rate in the 140s, so she was given 10 mg of IV diltiazem. The patient has a CT abdomen with some underlying changes on the lung windows. The patient had a CT scan of the chest demonstrating some shotty lymphadenopathy throughout the mediastinum and the hilum in addition to an airspace disease in the right lower lobe. I did look at the images myself. This may be in at local area of infection or a soft tissue growth. At this time would rather treat the patient for potential infection and then repeat images before undergoing any invasive or semi-invasive interventions. Review of Systems Constitutional: Constitutional: Reports malaise Eyes: Eyes: Reports no additional eye complaints Cardiovascular: Cardiovascular: Reports no additional cardiovascular complaints Respiratory: Respiratory: Reports no additional respiratory complaints Musculoskeletal: Musculoskeletal: Reports no additional musculoskeletal complaints Integumentary/Breasts: Skin/Breast: Reports system reviewed and no additional complaints, except as docu [facility] Past Medical History Medical History (Updated 06/17/22 @ 09:59 by Christiano Singh MD) Bronchitis Chronic back pain Chronic pain Diabetes High cholesterol HTN (hypertension) Lymphadenopathy UTI (urinary tract infection) Functional capacity: wheelchair bound (Ambulates while holding onto things for stability) Family History Family history: reviewed and not pertinent Surgical History Surgical History History of back surgery Social History Social History Household Members: Other Household Members Other:: roomate Housing: Retirement Do you presently have visiting nurse or other home services: No Unable to assess alcohol history related to: Unknown Alcohol intake: never Patient Tobacco Use Status: Current everyday Tobacco user Tobacco use type: Cigarette Cigarette Packs Per Day: 0.5 Cigarettes Per Day: 10.0 Years Smoked: 55 e-Cigarette/Vaping Use: Never Used Second Hand Smoke Exposure: Yes Advance Directives Date on File: 06/12/22 service: No Current occupational status: unemployed Meds Allergies Allergy/AdvReac Type Severity Reaction Status Date / Time aspirin [From PERCODAN] Allergy Unknown UNKNOWN Verified 12/17/21 17:40 egg [EGG] Allergy Unknown UNKNOWN Verified 12/17/21 17:40 oxycodone AdvReac Nausea Verified 06/15/22 14:57 From PERCODAN Allergy Unknown Unknown Uncoded 06/15/22 14:57 Active Medications: Current Medications Acetaminophen (Acetaminophen 325 Mg Tablet) 650 mg PO Q6H PRN PRN Reason: Pain, Mild (Pain Scale 1-3) Acetaminophen (Acetaminophen 325 Mg Tablet) 650 mg PO TID [facility] Last Admin: 06/17/22 07:56 Dose: 650 mg Albuterol Sulfate (Albuterol Sulfate 90 Mcg 8 Gm Inhaler) 1 puff INHALE Q4H PRN PRN Reason: Shortness Of Breath Apixaban (Apixaban 5 Mg Tablet) 5 mg PO BID [facility] Last Admin: 06/17/22 07:56 Dose: 5 mg Baclofen (Baclofen 10 Mg Tablet) 10 mg PO Q8H PRN PRN Reason: Muscle Spasm Last Admin: 06/12/22 03:20 Dose: 10 mg Celecoxib (Celecoxib 200 Mg Capsule) 200 mg PO DAILY [facility] Last Admin: 06/17/22 07:54 Dose: 200 mg Cyclobenzaprine HCl (Cyclobenzaprine Hcl 10 Mg Tablet) 10 mg PO BID [facility] Last Admin: 06/17/22 07:55 Dose: 10 mg Dextrose (Dextrose 50 % 25 Gm/50 Ml Syringe) 25 gm IVPUSH Q15M PRN; Protocol PRN Reason: per Hypoglycemia Standing Ord. Fentanyl (Fentanyl 75 Mcg Patch.Td72) 75 mcg TRANSDERMA Q72H [facility] Last Admin: 06/14/22 17:56 Dose: 75 mcg Fluoxetine HCl (Fluoxetine Hcl 20 Mg Capsule) 40 mg PO DAILY [facility] Last Admin: 06/17/22 07:54 Dose: 40 mg Fluticasone Propionate (Fluticasone Propionate Nasal 16 Gm [place]) 1 spray NOSTRIL-B DAILY [facility] Last Admin: 06/17/22 07:59 Dose: Not Given Fluticasone/Vilanterol (Fluticasone/Vilanterol 100/25 Blst.W.Dev) 1 puff INHALE RDAILY [facility] Last Admin: 06/17/22 07:58 Dose: 1 puff Gabapentin (Gabapentin 400 Mg Capsule) 400 mg PO TID [facility] Last Admin: 06/17/22 07:55 Dose: 400 mg Glucose (Glucose Gel 15 Gm Gel..Gram.) 15 gm PO Q15M PRN; Protocol PRN Reason: per Hypoglycemia Standing Ord. Hydralazine HCl (Hydralazine Hcl 50 Mg Tablet) 50 mg PO TID [facility]; Protocol Last Admin: 06/17/22 07:55 Dose: 50 mg Insulin Glargine (Insulin Glargine,Hum.Rec.Anlog 100 Unit/Ml 10 Ml Vial) 20 unit SUBCUT BEDTIME [facility] Last Admin: 06/16/22 21:59 Dose: 20 unit Insulin Human Lispro (Insulin Lispro 100 Unit/Ml 3 Ml Vial) 0 unit SUBCUT QIDACHS [facility]; Protocol Last Admin: 06/17/22 07:38 Dose: Not Given Lisinopril (Lisinopril 5 Mg Tablet) 5 mg PO DAILY [facility]; Protocol Last Admin: 06/17/22 07:55 Dose: 5 mg Magnesium Oxide (Magnesium Oxide 400 Mg Tablet) 400 mg PO BIDPC [facility] Last Admin: 06/17/22 07:55 Dose: 400 mg Metoclopramide HCl (Metoclopramide Hcl 5 Mg Tablet) 5 mg PO DAILY [facility] Last Admin: 06/17/22 07:54 Dose: 5 mg Metoprolol Succinate (Metoprolol Succinate Er 50 Mg Tab.Er.24h) 50 mg PO DAILY [facility]; Protocol Last Admin: 06/17/22 07:54 Dose: 50 mg Omeprazole (Omeprazole 20 Mg Capsule.Dr) 20 mg PO DAILY [facility] Last Admin: 06/17/22 07:55 Dose: 20 mg Ondansetron HCl (Ondansetron Hcl 4 Mg/2 Ml Vial) 4 mg IVPUSH Q8H PRN PRN Reason: Nausea and Vomiting Last Admin: 06/12/22 22:24 Dose: 4 mg Oxycodone HCl (Oxycodone Hcl Immed Release 5 Mg Tablet) 5 mg PO Q4H PRN PRN Reason: Pain (Scale Score 4-6) Last Admin: 06/16/22 22:31 Dose: 5 mg Pharmacy Consult (Consult Rx Perform Med Rec) 1 each MISCELLANE ONCE PRN PRN Reason: Consult order Polyethylene Glycol (Polyethylene Glycol 3350 17 Gm Powd.Pack) 17 gm PO DAILY [facility] Last Admin: 06/17/22 07:59 Dose: Not Given Sodium Chloride (0.9 % Sodium Chloride Flush 3 Ml Syringe) 3 ml IVFLUSH QSHIFT [facility] Last Admin: 06/17/22 07:54 Dose: 3 ml Trazodone HCl (Trazodone Hcl 100 Mg Tablet) 300 mg PO BEDTIME [facility] Last Admin: 06/16/22 22:31 Dose: 300 mg Vitamin D (Cholecalciferol (Vitamin D3) 25 Mcg Tablet) 25 mcg PO DAILY [facility] Last Admin: 06/17/22 07:55 Dose: 25 mcg Home Medications Medication Instructions Recorded Confirmed Last Taken Type albuterol sulfate 90 mcg/actuation 1 puff inhalation Q4H PRN 07/26/20 06/11/22 Unknown History aerosol inhaler (Ventolin HFA) Shortness Of Breath celecoxib 200 mg capsule (Celebrex) 200 mg PO DAILY 07/26/20 06/11/22 Unknown History fluoxetine 40 mg capsule (Prozac) 40 mg PO DAILY 07/26/20 06/11/22 Unknown History fluticasone propionate 50 1 spray intranasal DAILY 07/26/20 06/11/22 Unknown History mcg/actuation nasal spray,suspension glipizide 5 mg tablet 10 mg PO BIDAC 07/26/20 06/11/22 Unknown History metformin 500 mg tablet 1,000 mg PO BIDWM 07/26/20 06/11/22 Unknown History metoclopramide HCl 5 mg tablet 5 mg PO DAILY 07/26/20 06/11/22 Unknown History (Reglan) acetaminophen 325 mg tablet 650 mg PO Q4H PRN PAIN/FEVER 11/21/21 06/11/22 Unknown History baclofen 10 mg tablet 10 mg Q8H PRN Muscle Spasm 11/21/21 06/11/22 Unknown History furosemide 20 mg tablet (Lasix) 20 mg PO DAILY 11/21/21 06/11/22 Unknown History gabapentin 400 mg capsule 400 mg PO TID 11/21/21 06/11/22 Unknown History insulin detemir U-100 100 unit/mL 25 unit subcut DAILY 11/21/21 06/11/22 Unknown History subcutaneous solution (Levemir U-100 Insulin) insulin lispro 100 unit/mL See Protocol QIDACHS 11/21/21 06/11/22 Unknown History subcutaneous cartridge (Humalog U-100 Insulin) lansoprazole 15 mg capsule,delayed 15 mg PO DAILY 11/21/21 06/11/22 Unknown History release (Prevacid 24Hr) lisinopril 5 mg tablet 5 mg PO DAILY 11/21/21 06/11/22 Unknown History oxycodone 5 mg tablet 5 mg PO Q4H PRN Pain (Scale Score 11/21/21 06/11/22 Unknown History 4-6) trazodone 150 mg tablet 300 mg PO BEDTIME 12/17/21 06/11/22 Unknown History cholecalciferol (vitamin D3) 25 25 mcg PO DAILY 06/11/22 06/11/22 Unknown History mcg (1,000 unit) tablet hydralazine 50 mg tablet 1 tab PO TID 06/11/22 06/11/22 Unknown History levofloxacin 250 mg tablet 1 tab PO DAILY 06/11/22 06/11/22 Unknown History magnesium citrate 150 ml PO DAILY PRN Constipation 06/11/22 06/11/22 Unknown History methenamine hippurate 1 gram tablet 1 tab PO BID 06/11/22 06/11/22 Unknown History methocarbamol 500 mg tablet 1,000 mg PO TID 06/11/22 06/11/22 Unknown History Physical Exam Vital Signs: Vital Signs: Last Vital Signs Temp 97.5 F 06/17/22 08:00 Pulse 84 06/17/22 08:01 Resp 18 06/17/22 08:01 BP 168/77 H 06/17/22 08:00 Pulse Ox 93 06/17/22 08:00 O2 Del Method 06/17/22 08:00 O2 Flow Rate 7 06/15/22 17:32 BMI result Body Mass Index 24.1 Const: Other: Gen:? Awake alert x3, in no acute di stress HEENT: scle ra anicteric, mois t mucus membranes Neck: supple, no J VD Lungs: clear to auscultation bila terally Heart: reg ular, no murmurs A bd: soft, non-tend er, non-distended Ext: no edema Skin : warm/well-perfus ed Neuro: alert an d oriented x3, no focal findings Psy ch: appropriate af fect Results Laboratory Findings CBC and BMP: 06/16/22 06:46 06/15/22 06:18 ABG, PT/INR, D-dimer: PT/INR, D-dimer PT 16.2 SEC (10.0-13.1) H 06/11/22 12:52 INR 1.4 (0.9-1.1) H 06/11/22 12:52 Abnormal lab findings: Abnormal Labs 06/11/22 06/11/22 06/11/22 11:42 11:42 12:52 WBC 14.4 H RBC Hgb Hct Plt Count 412 H D MPV 9.2 L Immature Gran % (Auto) 1.4 H Neut % (Auto) 77.4 H Lymph % (Auto) 14.3 L [place] % (Auto) Abs Immat Gran (auto) 0.20 H Absolute Neuts (auto) 11.1 H PT 16.2 H INR 1.4 H Potassium Anion Gap BUN 23 H POC Glucose Random Glucose 205 H Calcium 7.8 L D Magnesium < 0.6 L* C-Reactive Protein Ur Leukocyte Esterase Urine WBC 06/11/22 06/11/22 06/11/22 14:12 16:35 16:50 WBC RBC Hgb Hct Plt Count MPV Immature Gran % (Auto) Neut % (Auto) Lymph % (Auto) [place] % (Auto) Abs Immat Gran (auto) Absolute Neuts (auto) PT INR Potassium Anion Gap BUN POC Glucose 170 H Random Glucose Calcium Magnesium 0.8 L* C-Reactive Protein Ur Leukocyte Esterase Moderate (2+) H Urine WBC 6-10 H 06/11/22 06/12/22 06/12/22 21:08 06:32 06:32 WBC 14.2 H RBC Hgb Hct Plt Count MPV 9.1 L Immature Gran % (Auto) Neut % (Auto) Lymph % (Auto) [place] % (Auto) Abs Immat Gran (auto) Absolute Neuts (auto) PT INR Potassium 3.1 L Anion Gap BUN 23 H POC Glucose 119 H Random Glucose Calcium 7.5 L Magnesium C-Reactive Protein 0.69 H Ur Leukocyte Esterase Urine WBC 06/12/22 06/12/22 06/12/22 11:38 13:28 16:56 WBC RBC Hgb Hct Plt Count MPV Immature Gran % (Auto) Neut % (Auto) Lymph % (Auto) [place] % (Auto) Abs Immat Gran (auto) Absolute Neuts (auto) PT INR Potassium Anion Gap BUN POC Glucose 139 H 179 H 146 H Random Glucose Calcium Magnesium C-Reactive Protein Ur Leukocyte Esterase Urine WBC 06/12/22 06/13/22 06/13/22 20:17 06:40 07:45 WBC RBC Hgb Hct Plt Count MPV Immature Gran % (Auto) Neut % (Auto) Lymph % (Auto) [place] % (Auto) Abs Immat Gran (auto) Absolute Neuts (auto) PT INR Potassium Anion Gap BUN 30 H POC Glucose 192 H 159 H Random Glucose 169 H Calcium 7.7 L Magnesium C-Reactive Protein Ur Leukocyte Esterase Urine WBC 06/13/22 06/13/22 06/13/22 11:29 15:34 20:38 WBC RBC Hgb Hct Plt Count MPV Immature Gran % (Auto) Neut % (Auto) Lymph % (Auto) [place] % (Auto) Abs Immat Gran (auto) Absolute Neuts (auto) PT INR Potassium Anion Gap BUN POC Glucose 130 H 158 H 124 H Random Glucose Calcium Magnesium C-Reactive Protein Ur Leukocyte Esterase Urine WBC 06/14/22 06/14/22 06/14/22 06:34 06:34 07:22 WBC RBC 3.97 L Hgb 11.6 L Hct 36.4 L Plt Count MPV 9.2 L Immature Gran % (Auto) Neut % (Auto) Lymph % (Auto) [place] % (Auto) Abs Immat Gran (auto) Absolute Neuts (auto) PT INR Potassium Anion Gap BUN 32 H D POC Glucose 162 H Random Glucose 144 H Calcium 8.3 L D Magnesium C-Reactive Protein 0.69 H Ur Leukocyte Esterase Urine WBC 06/14/22 06/14/22 06/14/22 11:38 15:29 20:29 WBC RBC Hgb Hct Plt Count MPV Immature Gran % (Auto) Neut % (Auto) Lymph % (Auto) [place] % (Auto) Abs Immat Gran (auto) Absolute Neuts (auto) PT INR Potassium Anion Gap BUN POC Glucose 169 H 166 H 176 H Random Glucose Calcium Magnesium C-Reactive Protein Ur Leukocyte Esterase Urine WBC 06/15/22 06/15/22 06/15/22 06:18 07:20 10:55 WBC RBC Hgb Hct Plt Count MPV Immature Gran % (Auto) Neut % (Auto) Lymph % (Auto) [place] % (Auto) Abs Immat Gran (auto) Absolute Neuts (auto) PT INR Potassium Anion Gap 10 L BUN 20 H POC Glucose 160 H 173 H Random Glucose 152 H Calcium Magnesium C-Reactive Protein Ur Leukocyte Esterase Urine WBC 06/15/22 06/15/22 06/15/22 14:54 18:17 19:31 WBC RBC Hgb Hct Plt Count MPV Immature Gran % (Auto) Neut % (Auto) Lymph % (Auto) [place] % (Auto) Abs Immat Gran (auto) Absolute Neuts (auto) PT INR Potassium Anion Gap BUN POC Glucose 152 H 245 H 233 H Random Glucose Calcium Magnesium C-Reactive Protein Ur Leukocyte Esterase Urine WBC 06/16/22 06/16/22 06/16/22 06:46 07:22 10:40 WBC RBC 4.10 L Hgb Hct Plt Count MPV 9.2 L Immature Gran % (Auto) 0.9 H Neut % (Auto) Lymph % (Auto) [place] % (Auto) 12.4 H Abs Immat Gran (auto) 0.09 H Absolute Neuts (auto) PT INR Potassium Anion Gap BUN POC Glucose 148 H 228 H Random Glucose Calcium Magnesium C-Reactive Protein Ur Leukocyte Esterase Urine WBC 06/16/22 06/16/22 06/17/22 16:25 21:16 07:21 WBC RBC Hgb Hct Plt Count MPV Immature Gran % (Auto) Neut % (Auto) Lymph % (Auto) [place] % (Auto) Abs Immat Gran (auto) Absolute Neuts (auto) PT INR Potassium Anion Gap BUN POC Glucose 165 H 183 H 131 H Random Glucose Calcium Magnesium C-Reactive Protein Ur Leukocyte Esterase Urine WBC Microbiology: Microbiology 06/11/22 11:42 Blood - Venous Blood Culture - Final No growth after 5 days. 06/11/22 11:42 Blood - Venous Blood Culture - Final No growth after 5 days. 06/11/22 00:00 Urine clean catch - Urine hoang top Urine Culture - Final Diagnostic Findings Additional studies: Assessment and Plan (1) Lymphadenopathy: Status: Acute (2) Lung density on x-ray: Status: Acute Plan Clinically the patient is doing well from a respiratory status. I do not see any urgency with this matter. The patient should be treated for local lower respiratory infection and then reassess with a repeat CT scan to assess if this area still present in the next 8 weeks. If the area still abnormal then a diagnostic bronchoscopy with biopsy will be warranted. Recommendations: Start Levaquin or Augmentin to complete a 8 day course Will have the patient follow up with Pulmonary in the next 3-4 weeks with plans of repeating the CT scan to address any persistent changes. Consider bronchoscopy if the changes are still present. Time Spent With Patient Time: Total time managing care of this patient today ____ minutes. Procedures Date of Service Date of Service: 06/17/22
[2022-06-17 11:27] LABS: Glucose, Whole Blood 251 mg/dL (60-115)
[2022-06-17] MEDS: Insulin Lispro 100 UNIT/ML 3 ML VIAL SUBCUT (11:33)
[2022-06-17] MEDS: oxyCODONE HCl Immed Release 5 MG TABLET PO (11:34)
[2022-06-17 11:57] VITALS: BP 193/89; PULSE 52; RESP 16; TEMP 36.4; O2SAT 95
--- NOTE | 2022-06-17 12:45 | MHC.CM.PN ---
Patient has been medically cleared for dc to return to LTC @ [facility] today at 3 PM via [facility]. CM met with Patient at bedside and addressed IMM with her, providing her with the original and a copy has been placed on the chart. ALEJANDRA also spoke with Son/Moose @ [phone] and informed him of the dc plan.
--- NOTE | 2022-06-17 12:46 | PM.DS ---
DS: Providers Provider Date of Service: 06/17/22 Date of admission: 06/11/22 17:03 Primary care physician: Vaishali Mora MD Consults: 06/11/22 16:25 Consult to Cardiology Routine Consulting Provider: Marquis Arias Reason for consultation: new af/rvr 06/12/22 13:24 Consult to Infectious Diseases Routine Consulting Provider: Chrissy Gates Reason for consultation: recurrent UTIs, hx ESBL 06/13/22 08:05 Consult to Gastroenterology Routine Consulting Provider: Kleber Ga Reason for consultation: abnormal gastric wall thickening + adenopathy 06/17/22 09:06 Consult to Pulmonology Routine Consulting Provider: Christiano Singh Reason for consultation: abnormal ct chest Has provider been notified: Yes DS: Diagnosis Discharge Diagnosis (1) Paroxysmal atrial fibrillation: Status: Acute DS: Summary Hospital Course Hospital Course: Chief Complaint: nausea/vomiting 67yo F long-term care resident of [facility] due to chronic pain s/p 6 back procedures and on fentanyl patch? DM2, HTN, COPD/asthma, and recurrent UTIs including ESBL E. coli presenting with several months of dizziness, nausea, vomiting and about 1 week of watery diarrhea with 5 episodes/day.? She states that she has had a chronic UTI for the past few months.? No fever or chills.? No chest pain, palpitations, dyspnea, or cough. In the ED, she was found to be in atrial fibrillation with ventricular rate in the 140s-150s.? Serum magnesium was undetectable at <0.6 mg/dL.? She was given 5 mg of IV metoprolol and 1 L of IV NS.? She was also given 800 mg of PO magnesium oxide and 2 g of IV magnesium sulfate.? She remained in AF/RVR with rate in the 140s, so she was given 10 mg of IV diltiazem. Hospital course: 67yo F long-term care resident of [facility] due to chronic pain + nonambulation s/p 6 back procedures and currently on fentanyl patch, DM2, HTN, COPD/asthma, and recurrent UTIs including ESBL E. coli presenting with several months of dizziness, nausea, vomiting and about 1 week of watery diarrhea with 5 episodes/day.? Presented with new-onset atrial fibrillation with RVR in the 140s-150s. ? Found to have critical hypomagnesemia.? Recently on levofloxacin for UTI despite prior resistance. # admitted with atrial fibrillation with RVR patient denied chest pain, no palpitations, converted to normal sinus rhythm on 06/12 was treated with IV metoprolol and placed on apixaban for [id number] score of 4.? Mg/K repleted, patient is asymptomatic therefore being discharged to rehab facility. Echocardiogram showed EF 60-65% impaired relaxation filling pattern, no aortic valve stenosis or regurg, no valvular disease. # hypoMg- repleted was likely due to diarrhea/vomiting # hypoK potassium normalized # BRANDON likely prerenal, status post 2 L of IV fluids, Lasix and lisinopril were held renal function returned to baseline, all home medications resumed. #RT flank pain likely representing chronic back pain and right lumbar radiculopathy , no acute due to TI noted urine culture grew mixed bacterial yves, CT abdomen and pelvis showed L3-L4 fusion ,stomach wall thickening with adenopathy, and right hilar soft tissue swelling Patient seen by Gastroenterology underwent upper endoscopy that showed antral gastritis biopsies taken, large proximal gastric folds with normal mucosa multiple biopsies taken and minimal hiatal hernia recommend outpatient follow-up with Gastroenterology in PCP to obtain report of biopsy, In regard to endometrial thickening recommend outpatient OBGYN follow-up, patient denies bleeding, no abnormal drainage In regard to hilar soft tissue swelling CT chest was ordered but showed stable right lower lobe or infrahilar region lesion with diffuse bilateral axillary lymph adenopathy and diffuse mediastinal and hilar lymphadenopathy patient seen by product marketing intern Dr. Singh he recommend patient to be treated with course of by mouth antibiotic and to have repeat CT scan in 8 weeks if the area still abnormal then patient will undergo diagnostic bronchoscopy with biopsy, patient will have follow-up with pulmonology next 3-4 weeks. # diarrhea- resolved; was likely due to levofloxacin # HTN continue all home medication # COPD-asthma, not in acute exac continue ICS/LABA, prn NAVJOT # acute on chronic pain/likely lumbar radiculopathy patient has right buttock pain with radiation to leg no numbness, no tingling, no loss of function, continue fentanyl patch + prn oxycodone, gabapentin?and Celebrex # mood d/o on fluoxetine Time Spent with Patient Time attestation: Total time managing care of this patient today ____ minutes. Discharge coordination time: Greater than 30 minutes Quality: Safe Use of Opioids Does Pt have an Active Cancer Diagnosis on the Problem List?: No Quality: Stroke Does the patient have a stroke diagnosis?: No Physical Exam Vital Signs: Vital Signs: Last Vital Signs Temp 97.6 F 06/17/22 11:57 Pulse 52 06/17/22 11:57 Resp 16 06/17/22 11:57 BP 193/89 H 06/17/22 11:57 Pulse Ox 95 06/17/22 11:57 O2 Del Method 06/17/22 11:57 O2 Flow Rate 7 06/15/22 17:32 BMI result Body Mass Index 24.1 Const: Other: Gen:? Awake alert x3, in no acute distress HEENT: sclera anicteric, moist mucus membranes Neck: supple, no JVD Lungs: clear to auscultation bilaterally Heart: regular, no murmurs Abd: soft, non-tender, non-distended Ext: no edema Skin: warm/well-perfused Lower back positive tenderness lumbar spine and right buttock, no numbness tingling right lower extremity. Neuro: alert and oriented x3, no focal findings Psych: appropriate affect DS: Data Data Completed and Pending Pending studies at discharge: Pending at discharge 06/15/22 17:05 Surgical [PTH] Routine Labs on day of discharge: Laboratory Results - last 24 hr 06/16/22 06/16/22 06/17/22 16:25 21:16 07:21 POC Glucose 165 H 183 H 131 H 06/17/22 11:19 POC Glucose 251 H Discharge Plan Discharge Patient Disposition: Xfer LT Discharge Diagnosis: Atrial fibrillation with RVR Abnormal CT abdomen with endometrial thickening, stomach wall thickening and right hilar Referrals: [facility] [Outside] - 1 Week Vaishali Mora MD [Primary Care Provider] - 1 Week Discharge Medications: New Eliquis 5 mg Tablet 5 mg PO BID Qty: 60 0RF amoxicillin-pot clavulanate 875-125 mg Tablet 875 mg PO Q12H Qty: 14 0RF Continued celecoxib [Celebrex] 200 mg Capsule 200 mg PO DAILY fluoxetine [Prozac] 40 mg Capsule 40 mg PO DAILY metformin 500 mg Tablet 1,000 mg PO BIDWM metoclopramide HCl [Reglan] 5 mg Tablet 5 mg PO DAILY albuterol sulfate [Ventolin HFA] 90 mcg/actuation Hfa Aerosol Inhaler 1 puff INHALATION Q4H PRN (Reason: Shortness Of Breath) fluticasone propionate 50 mcg/actuation [place],Suspension 1 spray INTRANASAL DAILY glipizide 5 mg Tablet 10 mg PO BIDAC fluticasone furoate-vilanterol [Breo Ellipta] 100-25 mcg/dose Blister With Device 1 puff inhalation RDAILY Qty: 1 0RF baclofen 10 mg Tablet 10 mg Q8H PRN (Reason: Muscle Spasm) Humalog U-100 Insulin 100 unit/mL Cartridge See Protocol QIDACHS Protocol: Insulin Correction Scale Less than or equal to 110 ---- Give (units): 0 111 to 150 Give (units): 0 151 to 200 Give (units): 0 201 to 250 Give (units): 2 251 to 300 Give (units): 4 301 to 350 Give (units): 6 Greater than 350 Give (units): 8 Call MD if Blood Glucose > : 350 furosemide [Lasix] 20 mg Tablet 20 mg PO DAILY Levemir U-100 Insulin 100 unit/mL Solution 25 unit SUBCUT DAILY lansoprazole [Prevacid 24Hr] 15 mg Capsule,Delayed Release(Dr/Ec) 15 mg PO DAILY lisinopril 5 mg Tablet 5 mg PO DAILY oxycodone 5 mg Tablet 5 mg PO Q4H PRN (Reason: Pain (Scale Score 4-6)) gabapentin 400 mg Capsule 400 mg PO TID acetaminophen 325 mg Tablet 650 mg PO Q4H PRN (Reason: PAIN/FEVER) fentanyl 75 mcg/hr Patch 72 Hour 75 mcg transdermal Q72H Qty: 5 0RF trazodone 150 mg tablet 300 mg PO BEDTIME methocarbamol 500 mg tablet 1,000 mg PO TID methenamine hippurate 1 gram tablet 1 tab PO BID hydralazine 50 mg tablet 1 tab PO TID magnesium citrate Solution 150 ml PO DAILY PRN (Reason: Constipation) cholecalciferol (vitamin D3) 25 mcg (1,000 unit) Tablet 25 mcg PO DAILY Discontinued levofloxacin 250 mg tablet 1 tab PO DAILY Discharge Orders: Discharge Order (Routine); Ordered 06/17/22 Ordered By: Mihaela Beal Diet: Diabetic diet Activity on Discharge: As tolerated Stand Alone Forms: Patient Portal Discharge page Care Plan Goals: Take Eliquis 5 mg twice daily Take by mouth antibiotic as prescribed Health Concerns: Resume all home Plan of Treatment: Outpatient follow-up with Dr. Christiano Singh from pulmonology in 2-3 weeks Outpatient follow-up with OBGYN for endometrial thickening Outpatient follow-up with primary care physician and Gastroenterology to obtain report of gastric biopsy Assessment: As above
[2022-06-17] MEDS: Amoxicillin/Potassium Clav 875 MG TABLET PO (13:20)
[2022-06-17 13:27] LABS: COVID-19 Test Negative (Negative); IDNOW Serial# 16C4AD1C
--- NOTE | 2022-06-17 15:24 | PC.NURSE ---
Pt d/c'd to [place] via ambulance, report given to EMS, belongings packed and sent w/pt, IVs and environmental monitoring specialist removed, no further questions at this time
== END 2022-06-17 15:30 | DRG 309 ==
LOC: HO.ED 16:24 → HO.EDOVER 17:16 → HO.IMC 06-12 17:38
PROVIDERS: Internal Medicine; Physician Assistant Medical; Admitting Provider Family Medicine; Emergency Provider Emergency Medicine; PCP Internal Medicine; Visit Provider Hospitalist
PROC: 0DJ08ZZ Inspection of Upper Intestinal Tract, Via Natural or Artificial Opening Endoscopic (ICD-10-PCS; CPT 43235; principal; 2022-06-15 15:50)
DX: I48.0 Paroxysmal atrial fibrillation (principal); K52.1 Toxic gastroenteritis and colitis; N17.9 Acute kidney failure, unspecified; E87.6 Hypokalemia; M54.9 Dorsalgia, unspecified; E11.9 Type 2 diabetes mellitus without complications; E83.42 Hypomagnesemia; J44.9 Chronic obstructive pulmonary disease, unspecified; E78.00 Pure hypercholesterolemia, unspecified; F39 Unspecified mood [affective] disorder; G89.29 Other chronic pain; D72.829 Elevated white blood cell count, unspecified; K44.9 Diaphragmatic hernia without obstruction or gangrene; R93.5 Abnormal findings on diagnostic imaging of other abdominal regions, including retroperitoneum; F17.210 Nicotine dependence, cigarettes, uncomplicated; R59.0 Localized enlarged lymph nodes; Z20.822 Contact with and (suspected) exposure to COVID-19; T36.8X5A Adverse effect of other systemic antibiotics, initial encounter; Z71.6 Tobacco abuse counseling; M54.16 Radiculopathy, lumbar region; Z87.440 Personal history of urinary (tract) infections; Z98.1 Arthrodesis status; Z99.3 Dependence on wheelchair; Z88.5 Allergy status to narcotic agent; Z88.6 Allergy status to analgesic agent; Z79.4 Long term (current) use of insulin; Z79.01 Long term (current) use of anticoagulants; Z79.51 Long term (current) use of inhaled steroids; Z79.84 Long term (current) use of oral hypoglycemic drugs; Z79.899 Other long term (current) drug therapy
CPT/HCPCS: 0241U; 36415; 71046; 71260; 74177; 76830; 76856; 80048; 80053; 81001; 82947; 83605; 83735; 84443; 84484; 85025; 85027; 85610; 85730; 86140; 87040; 87086; 87635; 88305; 88342; 93005; 93306; 94640; 99285; J2405; J3475; Q9967

== ENCOUNTER 2022-06-23 09:27 | Emergency (ER) | payer MEDICARE, MEDICAID, SELFPAY ==
--- NOTE | ~2022-06-23 | CT_ITS ---
EXAMINATION: CT BRAIN, CT CERVICAL SPINE AND CT FACIAL BONES. CLINICAL INFORMATION: Mechanical fall with skin tear right cheek COMPARISON: CT brain 11/21/2021 TECHNIQUE: 5 mm thin axial and reformatted 2 mm thin sagittal and coronal images of brain were obtained. Axial 3 mm thin and reformatted 2 mm thin images of cervical spine were obtained. Lastly axial 3 mm thin and reformatted 1.5 mm thin coronal and sagittal images of facial bones were obtained. DLP [id number]. This CT examination was performed using dose optimization technique as appropriate, variously including the following: Automated exposure control Adjustment of MA and/or KV according to patient size(this includes techniques or standardized protocols for targeted exams where dose is matched to indication/reason for exam; extremities or head. Use of iterative reconstruction techniques. FINDINGS: Brain: There is no acute intra-axial, extra-axial bleed, masses or midline shift. There is no acute infarction evolution. There is no edema. The lateral ventricles are symmetrical in size but slightly prominent. The hoang to white matter difference is maintained normal. Bone windows reveal no calvarial abnormality. There is no scalp soft tissue abnormality. Paranasal sinuses and mastoid air cells are well-aerated. Cervical spine: There is mild straightening of cervical lordosis. There is loss of cc 5 C6, C6-C7 disc heights with mild ventral spondylosis. The craniovertebral junction and the C1-C2 alignment is normal. No visible acute fracture, dislocation or subluxation seen the lung apices are clear. The prevertebral soft tissues are normal. Bilateral the airway is widely patent. Facial bones: There is normal aeration of bilateral paranasal sinuses. The bony sinus dillard, lamina papyracea and the cribriform plate is intact. The bony orbits and the intraorbital soft tissues are normal. Bilateral TM joints and the mandible is normal. There is nondisplaced fracture left nasal bone with mild depression. There is minimal soft tissue swelling. Rest the maxillofacial soft tissues are normal. CT/CT cervical spine wo IV con IMPRESSION: Subtle depressed fracture left nasal bone at the suture line with minimal soft tissue swelling. No additional maxillofacial fractures seen. Degenerative disc changes cervical spine. No visible acute fracture or dislocation seen. No acute intracranial process seen.
--- NOTE | ~2022-06-23 | XR_ITS ---
EXAMINATION: XR SHOULDER, RIGHT CLINICAL INFORMATION: Right shoulder pain, fall. COMPARISON: None TECHNIQUE: AP external rotation, Grashey, scapular Y, and axillary views of the right shoulder. FINDINGS: The glenohumeral and AC joint space is reduced. There is a moderate enthesophyte along the inferior articular surface of the acromion likely impinging on the rotator cuff. There is no visible acute fracture, dislocation or subluxation seen XR/XR shoulder RT min 2V IMPRESSION: 1. Moderate enthesophyte along the inferior surface of the acromion likely impinging on the rotator cuff. 2. Mild degenerative changes glenohumeral and A.C. joint.
[2022-06-23 09:35] VITALS: BP 133/67; BP 148/81; PULSE 103; PULSE 104; RESP 18; TEMP 36.6; O2SAT 92; O2SAT 93; BMI 36.6
[2022-06-23 11:56] VITALS: BP 137/72; PULSE 89; RESP 17; TEMP 37; O2SAT 95
--- NOTE | 2022-06-23 12:20 | PC.NURSE ---
patient wash and clean, complete bed change and reposition patient.
[2022-06-23] MEDS: Diphth,Pertus(ACell),Tet Adult 0.5 ML SYRINGE IM (13:21)
--- NOTE | 2022-06-23 14:34 | ED.GENADULT ---
HPI - General Adult General Chief complaint: Fall Stated complaint: SLIP/FALL W/ R CHEEK LAC PER EMS Time Seen by Provider: 06/23/22 10:11 Source: patient Mode of arrival: ambulatory Limitations: no limitations History of Present Illness HPI narrative: 67-year-old female presents to ED for mechanical fall. Patient is from [facility] and she fell off the right side of her face. Patient states while walking from the bed her lower part of her pants got over her feet and she tripped over fell on her face. Patient denies having headache, dizziness, chest pain, shortness of breath, or abdominal pain before falling and hitting right side of face. Patient states no complaint. Patient's only complaint right shoulder pain. And right cheek skin tear Related Data Home Medications Medication Instructions Recorded Confirmed albuterol sulfate 90 mcg/actuation 1 puff inhalation Q4H PRN 07/26/20 06/11/22 aerosol inhaler (Ventolin HFA) Shortness Of Breath celecoxib 200 mg capsule (Celebrex) 200 mg PO DAILY 07/26/20 06/11/22 fluoxetine 40 mg capsule (Prozac) 40 mg PO DAILY 07/26/20 06/11/22 fluticasone propionate 50 1 spray intranasal DAILY 07/26/20 06/11/22 mcg/actuation nasal spray,suspension glipizide 5 mg tablet 10 mg PO BIDAC 07/26/20 06/11/22 metformin 500 mg tablet 1,000 mg PO BIDWM 07/26/20 06/11/22 metoclopramide HCl 5 mg tablet 5 mg PO DAILY 07/26/20 06/11/22 (Reglan) acetaminophen 325 mg tablet 650 mg PO Q4H PRN PAIN/FEVER 11/21/21 06/11/22 baclofen 10 mg tablet 10 mg Q8H PRN Muscle Spasm 11/21/21 06/11/22 furosemide 20 mg tablet (Lasix) 20 mg PO DAILY 11/21/21 06/11/22 gabapentin 400 mg capsule 400 mg PO TID 11/21/21 06/11/22 insulin detemir U-100 100 unit/mL 25 unit subcut DAILY 11/21/21 06/11/22 subcutaneous solution (Levemir U-100 Insulin) insulin lispro 100 unit/mL See Protocol QIDACHS 11/21/21 06/11/22 subcutaneous cartridge (Humalog U-100 Insulin) lansoprazole 15 mg capsule,delayed 15 mg PO DAILY 11/21/21 06/11/22 release (Prevacid 24Hr) lisinopril 5 mg tablet 5 mg PO DAILY 11/21/21 06/11/22 oxycodone 5 mg tablet 5 mg PO Q4H PRN Pain (Scale Score 11/21/21 06/11/22 4-6) trazodone 150 mg tablet 300 mg PO BEDTIME 12/17/21 06/11/22 cholecalciferol (vitamin D3) 25 25 mcg PO DAILY 06/11/22 06/11/22 mcg (1,000 unit) tablet hydralazine 50 mg tablet 1 tab PO TID 06/11/22 06/11/22 magnesium citrate 150 ml PO DAILY PRN Constipation 06/11/22 06/11/22 methenamine hippurate 1 gram tablet 1 tab PO BID 06/11/22 06/11/22 methocarbamol 500 mg tablet 1,000 mg PO TID 06/11/22 06/11/22 Previous Rx's Medication Instructions Recorded fluticasone furoate 100 1 puff inhalation RDAILY #1 ea 07/30/20 mcg-vilanterol 25 mcg/dose inhalation powder (Breo Ellipta) fentanyl 75 mcg/hr transdermal 75 mcg transdermal Q72H pain #5 ea 11/23/21 patch amoxicillin 875 mg-potassium 875 mg PO Q12H #14 tabs 06/17/22 clavulanate 125 mg tablet apixaban 5 mg tablet (Eliquis) 5 mg PO BID #60 tabs 06/17/22 Allergies Allergy/AdvReac Type Severity Reaction Status Date / Time aspirin [From PERCODAN] Allergy Unknown UNKNOWN Verified 12/17/21 17:40 egg [EGG] Allergy Unknown UNKNOWN Verified 12/17/21 17:40 oxycodone AdvReac Nausea Verified 06/15/22 14:57 From PERCODAN Allergy Unknown Unknown Uncoded 06/15/22 14:57 Review of Systems Review of Systems: Mechanical fall. Right shoulder pain right skin tear Yes all other systems are reviewed and are negative PMF Past Medical History Medical History (Updated 06/23/22 @ 15:32 by ANNE Cleveland) Bronchitis Chronic back pain Chronic pain Diabetes High cholesterol HTN (hypertension) Lymphadenopathy UTI (urinary tract infection) Surgical History History of back surgery Social History Social History Household Members: Other Household Members Other:: roomate Housing: [facility] Do you presently have visiting nurse or other home services: No Unable to assess alcohol history related to: Unknown Alcohol intake: former Patient Tobacco Use Status: Current everyday Tobacco user Tobacco use type: Cigarette Cigarette Packs Per Day: 0.5 Cigarettes Per Day: 10.0 Years Smoked: 55 e-Cigarette/Vaping Use: Never Used Second Hand Smoke Exposure: Yes Advance Directives Date on File: 06/12/22 service: No Current occupational status: unemployed Physical Exam ED Vital Signs: Vital Signs - 24 hr 06/23/22 09:35 06/23/22 11:56 06/23/22 15:45 Temperature 97.8 F 98.6 F Pulse Rate 104 H 89 78 Respiratory Rate 18 17 17 Blood Pressure 133/67 137/72 123/65 Pulse Oximetry 92 95 95 Oxygen Delivery Method Room Air Room Air Room Air BMI result Body Mass Index 36.6 Const General: cooperative, healthy appearing, comfortable, no acute distress, well developed, alert and awake Orientation/consciousness: oriented to person, oriented to place, oriented to time and patient oriented x3 HENMT Head: Yes normal to inspection, Yes No palpable skull fracture present and Yes normocephalic Head images: 1. Patient has skin tear. Negative for active bleeding. Negative for tenderness. No laceration repair indicated Neck Neck: Yes normal visual inspection, Yes full ROM, Yes no lymphadenopathy, Yes no meningeal signs, Yes trachea midline, Yes supple, No anterior neck swelling and No tender Chest Chest palpation & inspection: normal inspection of the chest and normal palpation of entire chest wall Resp Effort & Inspection: normal respiratory effort, able to speak in complete sentences and abnormal respiratory pattern Auscultation: clear to auscultation bilaterally Cardio Jugular venous distension: no JVD Heart sounds: S1 normal heart sound present and S2 normal heart sound present GI Inspection: Yes normal to inspection and No abdominal wall ecchymosis Palpation (GI): Soft to palpation, not firm, nontender, no guarding and not rigid General: No CVA tenderness and Yes no CVA tenderness Back/Spine/Pelvis Back: no CVA tenderness, No CVA tenderness and No back tenderness Skin General skin exam: no rashes or lesions noted and elasticity normal Neuro General: oriented to person, oriented to place, oriented to time, patient oriented x3, gait normal, tone normal, moves all extremities, Normal light touch and pain sensation, no meningeal signs, no focal motor deficits and CN's II-XI intact bilaterally Extrem General: Yes normal to inspection and Yes full ROM Shoulder/upper arm images: 1. Positive for tenderness on palpation. Negative for crepitus, deformity, ecchymosis. Psych Appearance: grossly normal, well kempt and not disheveled Course Course Course Narrative: This is mechanical fall. No medical evaluation needed. Will send patient for imaging Reevaluation(s) Reevaluation #1: Images positive for nasal fracture. Head CT cervical spine CT normal. Patient discharged. Patient will be discharged with pain medication. Time: 15:28 Medications Administered Discontinued Medications Generic Name Dose Route Start Last Admin Trade Name Freq PRN Reason Stop Dose Admin Diphtheria/Tetanus/Acell Pertussis 0.5 ml 06/23/22 12:46 06/23/22 13:21 Diphth,Pertus(Acell),Tet Adult 0.5 Ml Syringe IM 06/23/22 12:47 0.5 ml .ONCE ONE Administration Medical Decision Making Medical Decision Making [facility] Narrative: 67 year female with mechanical fall with nasal fracture no septal hematoma. Tdap given. No need for laceration repair Discharge Plan Discharge Clinical Impression: Fracture, nasal Patient Disposition: Xfer Other Transfer Details: [place] Instructions: Nasal Fracture (ED) Additional Instructions: [facility] to prescribed Augmentin 875 mg b.i.d. for 10 days. Also they should prescribe tylenol and oxycodone for pain relief. Please follow-up with ENT. Return to the ED for any headache, dizziness, nausea, vomiting, chest pain, shortness of breath, or any other concerning symptoms. Prescriptions: No Action celecoxib [Celebrex] 200 mg Capsule 200 mg PO DAILY fluoxetine [Prozac] 40 mg Capsule 40 mg PO DAILY metformin 500 mg Tablet 1,000 mg PO BIDWM metoclopramide HCl [Reglan] 5 mg Tablet 5 mg PO DAILY albuterol sulfate [Ventolin HFA] 90 mcg/actuation Hfa Aerosol Inhaler 1 puff INHALATION Q4H PRN (Reason: Shortness Of Breath) fluticasone propionate 50 mcg/actuation [place],Suspension 1 spray INTRANASAL DAILY glipizide 5 mg Tablet 10 mg PO BIDAC fluticasone furoate-vilanterol [Breo Ellipta] 100-25 mcg/dose Blister With Device 1 puff inhalation RDAILY Qty: 1 0RF baclofen 10 mg Tablet 10 mg Q8H PRN (Reason: Muscle Spasm) Humalog U-100 Insulin 100 unit/mL Cartridge See Protocol QIDACHS Protocol: Insulin Correction Scale Less than or equal to 110 ---- Give (units): 0 111 to 150 Give (units): 0 151 to 200 Give (units): 0 201 to 250 Give (units): 2 251 to 300 Give (units): 4 301 to 350 Give (units): 6 Greater than 350 Give (units): 8 Call MD if Blood Glucose > : 350 furosemide [Lasix] 20 mg Tablet 20 mg PO DAILY Levemir U-100 Insulin 100 unit/mL Solution 25 unit SUBCUT DAILY lansoprazole [Prevacid 24Hr] 15 mg Capsule,Delayed Release(Dr/Ec) 15 mg PO DAILY lisinopril 5 mg Tablet 5 mg PO DAILY oxycodone 5 mg Tablet 5 mg PO Q4H PRN (Reason: Pain (Scale Score 4-6)) gabapentin 400 mg Capsule 400 mg PO TID acetaminophen 325 mg Tablet 650 mg PO Q4H PRN (Reason: PAIN/FEVER) fentanyl 75 mcg/hr Patch 72 Hour 75 mcg transdermal Q72H Qty: 5 0RF trazodone 150 mg tablet 300 mg PO BEDTIME methocarbamol 500 mg tablet 1,000 mg PO TID methenamine hippurate 1 gram tablet 1 tab PO BID hydralazine 50 mg tablet 1 tab PO TID magnesium citrate Solution 150 ml PO DAILY PRN (Reason: Constipation) cholecalciferol (vitamin D3) 25 mcg (1,000 unit) Tablet 25 mcg PO DAILY amoxicillin-pot clavulanate 875-125 mg Tablet 875 mg PO Q12H Qty: 14 0RF Eliquis 5 mg Tablet 5 mg PO BID Qty: 60 0RF Referrals: Renzo Parker [Physician] - (Nasal fracture.) Interventions: ED Discharge Assessment Last Done: 06/23/22 15:45 Discharge Date/Time: 06/23/22 15:46 Print Language: Montenegrin
[2022-06-23 15:45] VITALS: BP 123/65; PULSE 78; RESP 17; O2SAT 95
== END 2022-06-23 15:46 | disposition other institution (70) ==
PROVIDERS: Emergency Provider Emergency Medicine Emergency Medical Services; PCP Internal Medicine
DX: S02.2XXA Fracture of nasal bones, initial encounter for closed fracture (principal); S01.411A Laceration without foreign body of right cheek and temporomandibular area, initial encounter; W17.89XA Other fall from one level to another, initial encounter; M25.511 Pain in right shoulder; E11.9 Type 2 diabetes mellitus without complications; I10 Essential (primary) hypertension; E78.5 Hyperlipidemia, unspecified; F17.210 Nicotine dependence, cigarettes, uncomplicated; Y93.89 Activity, other specified; Y92.122 Bedroom in nursing home as the place of occurrence of the external cause; Y99.9 Unspecified external cause status; Z79.4 Long term (current) use of insulin; Z79.899 Other long term (current) drug therapy
CPT/HCPCS: 70450; 70486; 72125; 73030; 90471; 90715; 99284

== ENCOUNTER → 2022-06-23 15:54 | Outpatient (REF) | payer MEDICARE, MEDICAID, SELFPAY ==
--- NOTE | 2022-06-23 14:51 | HM_ITS ---
Conclusion: 1. Patient was monitored for total period of 3 days 2. Baseline was normal sinus rhythm with average heart of 83 beats per minute 3. No significant pauses or bradycardia noted 4. Total of 16,673 PACs accounting for 4.7% of total beats account for frequent PACs 5. Multiple SVT events with fastest SVT at 185 beats per minute the longest at 25 beats 6. One patient reported symptom correlated with sinus rhythm MTDD
== END ==
LOC: HO.CARD 15:54
PROVIDERS: PCP Internal Medicine; Visit Provider Internal Medicine Cardiovascular Disease
DX: I48.0 Paroxysmal atrial fibrillation (principal)
CPT/HCPCS: 93242

== ENCOUNTER 2022-07-21 20:56 | Emergency (ER) | payer MEDICARE, MEDICAID, SELFPAY ==
--- NOTE | ~2022-07-21 | CT_ITS ---
EXAMINATION: CT ABDOMEN AND PELVIS WITH CONTRAST CLINICAL INFORMATION: Lower abdominal pain. Question etiology. COMPARISON: 06/12/2022 and 07/26/2020 TECHNIQUE: Multidetector volumetric images were obtained from the superior aspect of the liver through the pubic symphysis following administration 85 mL of Omnipaque 350 intravenous contrast. Sagittal and coronal reformatted images were obtained on the technologist's workstation. Oral contrast: No This CT examination was performed using dose optimization techniques as appropriate, variously including the following: *Automated exposure control *Adjustment of mA and/or kV according to patient size (this includes techniques or standardized protocols for targeted exams where dose is matched to indication/reason for exam; i.e. extremities or head) *Use of iterative reconstruction technique DLP: 805 mGy-cm FINDINGS: LUNG BASES: Left basilar atelectasis. Unchanged subpleural left lower lobe 0.5 cm nodule. Coronary artery calcifications noted. LIVER, GALLBLADDER, AND BILIARY TREE: The liver is normal in size, shape, and attenuation. No focal hepatic lesion or biliary ductal dilatation is present. The gallbladder is unremarkable with no evidence of radiopaque gallstones, gallbladder wall thickening, or obvious pericholecystic inflammatory changes. PANCREAS: Mild atrophy with no focal abnormality. SPLEEN: Unremarkable. ADRENAL GLANDS: Unremarkable. KIDNEYS AND URETERS: The kidneys are normal in size, shape, and attenuation. No hydronephrosis or hydroureter. Prominent vascular calcifications are seen bilaterally. Separately suspect a left lower pole 0.5 cm calculus which is 8 cm from the posterior axillary line. This is unchanged. BLADDER: Unremarkable. GASTROINTESTINAL TRACT: The stomach is unremarkable. Normal caliber small bowel. No obstruction. Normal appendix. No colonic wall thickening or inflammation. No free air or free fluid. Scattered colonic diverticulosis without diverticulitis. ABDOMINAL WALL: No significant hernia is appreciated. Diffuse rectus diastases. LYMPH NODES: Normal. VASCULAR: Normal caliber aorta with moderate atherosclerotic calcification. PELVIC VISCERA: Anteverted uterus. Endometrial thickening measuring 1.2 cm. No adnexal mass. OSSEOUS STRUCTURES: No acute or suspicious osseous abnormality. Degenerative changes throughout the spine. Posterior fusion hardware at L3-L4. CT/CT abdomen pelvis w IV con IMPRESSION: 1. No acute findings in the abdomen or pelvis. No inflammatory changes. 2. Nonobstructing left lower pole renal calculus. 3. Endometrial thickening measuring 1.2 cm. Similar appearance to prior. This is abnormal in a postmenopausal patient. Consider nonemergent pelvic ultrasound evaluation. 4. 0.5 cm left lower lobe pulmonary nodule. Unchanged from prior suggesting benign etiology. Fleischner guidelines were followed.
[2022-07-21 21:09] VITALS: BP 127/83; BP 150/60; PULSE 101; PULSE 110; RESP 19; TEMP 36.9; O2SAT 95; O2SAT 97; BMI 33.1
--- NOTE | 2022-07-21 21:51 | ED.PEDGIA ---
HPI - Pediatric GI General Chief Complaint: Abdominal Pain Stated Complaint: sepsis? Time Seen by Provider: 07/21/22 21:49 Related Data Home Medications Medication Instructions Recorded Confirmed albuterol sulfate 90 mcg/actuation 1 puff inhalation Q4H PRN 07/26/20 06/11/22 aerosol inhaler (Ventolin HFA) Shortness Of Breath celecoxib 200 mg capsule (Celebrex) 200 mg PO DAILY 07/26/20 06/11/22 fluoxetine 40 mg capsule (Prozac) 40 mg PO DAILY 07/26/20 06/11/22 fluticasone propionate 50 1 spray intranasal DAILY 07/26/20 06/11/22 mcg/actuation nasal spray,suspension glipizide 5 mg tablet 10 mg PO BIDAC 07/26/20 06/11/22 metformin 500 mg tablet 1,000 mg PO BIDWM 07/26/20 06/11/22 metoclopramide HCl 5 mg tablet 5 mg PO DAILY 07/26/20 06/11/22 (Reglan) acetaminophen 325 mg tablet 650 mg PO Q4H PRN PAIN/FEVER 11/21/21 06/11/22 baclofen 10 mg tablet 10 mg Q8H PRN Muscle Spasm 11/21/21 06/11/22 furosemide 20 mg tablet (Lasix) 20 mg PO DAILY 11/21/21 06/11/22 gabapentin 400 mg capsule 400 mg PO TID 11/21/21 06/11/22 insulin detemir U-100 100 unit/mL 25 unit subcut DAILY 11/21/21 06/11/22 subcutaneous solution (Levemir U-100 Insulin) insulin lispro 100 unit/mL See Protocol QIDACHS 11/21/21 06/11/22 subcutaneous cartridge (Humalog U-100 Insulin) lansoprazole 15 mg capsule,delayed 15 mg PO DAILY 11/21/21 06/11/22 release (Prevacid 24Hr) lisinopril 5 mg tablet 5 mg PO DAILY 11/21/21 06/11/22 oxycodone 5 mg tablet 5 mg PO Q4H PRN Pain (Scale Score 11/21/21 06/11/22 4-6) trazodone 150 mg tablet 300 mg PO BEDTIME 12/17/21 06/11/22 cholecalciferol (vitamin D3) 25 25 mcg PO DAILY 06/11/22 06/11/22 mcg (1,000 unit) tablet hydralazine 50 mg tablet 1 tab PO TID 06/11/22 06/11/22 magnesium citrate 150 ml PO DAILY PRN Constipation 06/11/22 06/11/22 methenamine hippurate 1 gram tablet 1 tab PO BID 06/11/22 06/11/22 methocarbamol 500 mg tablet 1,000 mg PO TID 06/11/22 06/11/22 Previous Rx's Medication Instructions Recorded fluticasone furoate 100 1 puff inhalation RDAILY #1 ea 07/30/20 mcg-vilanterol 25 mcg/dose inhalation powder (Breo Ellipta) fentanyl 75 mcg/hr transdermal 75 mcg transdermal Q72H pain #5 ea 11/23/21 patch amoxicillin 875 mg-potassium 875 mg PO Q12H #14 tabs 06/17/22 clavulanate 125 mg tablet apixaban 5 mg tablet (Eliquis) 5 mg PO BID #60 tabs 06/17/22 Allergies Allergy/AdvReac Type Severity Reaction Status Date / Time aspirin [From PERCODAN] Allergy Unknown UNKNOWN Verified 07/21/22 21:29 egg [EGG] Allergy Unknown UNKNOWN Verified 07/21/22 21:29 oxycodone AdvReac Nausea Verified 07/21/22 21:29 From PERCODAN Allergy Unknown Unknown Uncoded 07/21/22 21:29 [facility] Past Medical History Medical History (Updated 06/25/22 @ 00:03 by Leonarda Tesfaye) Bronchitis Chronic back pain Chronic pain Diabetes High cholesterol HTN (hypertension) Lymphadenopathy Paroxysmal atrial fibrillation UTI (urinary tract infection) Surgical History History of back surgery Social History Social History Household Members: Other Household Members Other:: roomate Housing: [facility] Do you presently have visiting nurse or other home services: No Unable to assess alcohol history related to: Unknown Alcohol intake: former Patient Tobacco Use Status: Current everyday Tobacco user Tobacco use type: Cigarette Cigarette Packs Per Day: 0.5 Cigarettes Per Day: 10.0 Years Smoked: 55 e-Cigarette/Vaping Use: Never Used Second Hand Smoke Exposure: Yes Advance Directives: Yes Advance Directives on File: Yes Advance Directives Date on File: 06/12/22 service: No Current occupational status: unemployed Discharge Plan Discharge Prescriptions: No Action celecoxib [Celebrex] 200 mg Capsule 200 mg PO DAILY fluoxetine [Prozac] 40 mg Capsule 40 mg PO DAILY metformin 500 mg Tablet 1,000 mg PO BIDWM metoclopramide HCl [Reglan] 5 mg Tablet 5 mg PO DAILY albuterol sulfate [Ventolin HFA] 90 mcg/actuation Hfa Aerosol Inhaler 1 puff INHALATION Q4H PRN (Reason: Shortness Of Breath) fluticasone propionate 50 mcg/actuation [place],Suspension 1 spray INTRANASAL DAILY glipizide 5 mg Tablet 10 mg PO BIDAC fluticasone furoate-vilanterol [Breo Ellipta] 100-25 mcg/dose Blister With Device 1 puff inhalation RDAILY Qty: 1 0RF baclofen 10 mg Tablet 10 mg Q8H PRN (Reason: Muscle Spasm) Humalog U-100 Insulin 100 unit/mL Cartridge See Protocol QIDACHS Protocol: Insulin Correction Scale Less than or equal to 110 ---- Give (units): 0 111 to 150 Give (units): 0 151 to 200 Give (units): 0 201 to 250 Give (units): 2 251 to 300 Give (units): 4 301 to 350 Give (units): 6 Greater than 350 Give (units): 8 Call MD if Blood Glucose > : 350 furosemide [Lasix] 20 mg Tablet 20 mg PO DAILY Levemir U-100 Insulin 100 unit/mL Solution 25 unit SUBCUT DAILY lansoprazole [Prevacid 24Hr] 15 mg Capsule,Delayed Release(Dr/Ec) 15 mg PO DAILY lisinopril 5 mg Tablet 5 mg PO DAILY oxycodone 5 mg Tablet 5 mg PO Q4H PRN (Reason: Pain (Scale Score 4-6)) gabapentin 400 mg Capsule 400 mg PO TID acetaminophen 325 mg Tablet 650 mg PO Q4H PRN (Reason: PAIN/FEVER) fentanyl 75 mcg/hr Patch 72 Hour 75 mcg transdermal Q72H Qty: 5 0RF trazodone 150 mg tablet 300 mg PO BEDTIME methocarbamol 500 mg tablet 1,000 mg PO TID methenamine hippurate 1 gram tablet 1 tab PO BID hydralazine 50 mg tablet 1 tab PO TID magnesium citrate Solution 150 ml PO DAILY PRN (Reason: Constipation) cholecalciferol (vitamin D3) 25 mcg (1,000 unit) Tablet 25 mcg PO DAILY amoxicillin-pot clavulanate 875-125 mg Tablet 875 mg PO Q12H Qty: 14 0RF Eliquis 5 mg Tablet 5 mg PO BID Qty: 60 0RF
[2022-07-21] MEDS: 0.9 % Sodium Chloride 1,000 ML 999 ML IV (22:48)
[2022-07-21 22:56] VITALS: BP 147/101; PULSE 95; RESP 17; O2SAT 97
[2022-07-21 23:18] LABS: Hematocrit 41.7 % (37.0-47.0); Hemoglobin 14.1 g/dl (12.0-16.0); Mean Corpuscular HGB Conc 33.8 g/dl (31.0-35.0); Mean Corpuscular Hemoglobin 29.6 pg (27.0-33.0); Mean Corpuscular Volume 87.4 fL (80.0-98.0); Mean Platelet Volume 9.1 fL (9.4-12.3); Platelet Count 317 X10*3/uL (160-400); Red Blood Count 4.77 X10*6/uL (4.20-5.50); Red Cell Distribution Width 13.4 % (11.0-16.0); WBC ABN SCTR FOR CBC 1; White Blood Count 12.4 X10*3/uL (4.8-10.8)
[2022-07-21 23:24] LABS: Lactic Acid 1.5 mmol/L (0.5-2.0)
[2022-07-21 23:25] LABS: COVID-19 Test Negative (Negative); IDNOW Serial# 16C4AD1C
[2022-07-21 23:38] VITALS: BP 154/57; PULSE 109; RESP 18; TEMP 36.7; O2SAT 96
[2022-07-21 23:38] LABS: Alanine Aminotransferase 10 U/L (0-31); Alkaline Phosphatase 83 U/L (39-117); Anion Gap 18 (12-20); Aspartate Amino Transferase 16 U/L (5-31); Bilirubin Total 0.6 mg/dL (0.0-1.0); Blood Urea Nitrogen 14 mg/dL (9-16); Calcium 7.2 mg/dL (8.4-10.2); Carbon Dioxide 23 mmol/L (22-29); Chloride 105 mmol/L (96-108); Creatinine Clr Calc Pharmacy 63.2; Estimated Glomerular Filt Rate > 60; Glucose Random 191 mg/dL (60-115); Lipase 10 U/L (8-78); Potassium 3.2 mmol/L (3.3-5.1); Sodium 143 mmol/L (135-145)
[2022-07-21 23:40] LABS: Magnesium < 0.6 mg/dL (1.6-2.6)
[2022-07-21 23:48] LABS: Band Neutrophils Percent 1 % (3-5); Lymphocytes Absolute Manual 1.5 X10*3/uL (1.2-4.9); Lymphocytes Percent Manual 12 % (20-40); Macrocytosis 1+ (5-14) /OIF; Monocytes Absolute Manual 0.1 X10*3/uL (0.1-1.2); Monocytes Percent Manual 1 % (2-11); Neutrophils Absolute Manual 10.8 X10*3/uL (2.0-8.3); Neutrophils Percent Manual 86 % (45-73); Platelet Estimate NORMAL (NORMAL); Platelet Morphology Comment NORMAL; RBC Morphology NORMAL
[2022-07-21 23:49] LABS: Smudge Cells PRESENT; Toxic Vacuolation PRESENT
[2022-07-22] MEDS: Morphine Sulfate 4 MG/ML CARTRIDGE IVPUSH ×2 (00:09→02:36)
[2022-07-22] MEDS: Potassium Chloride/H20 10 MEQ/100 ML PIGGYBACK 100 MEQ IV (00:09)
[2022-07-22] MEDS: ondansetron HCL 4 MG/2 ML VIAL IVPUSH ×2 (00:09→02:36)
[2022-07-22] MEDS: Magnesium Sulfate/H2O 2 GM/50 ML PIGGYBACK IV ×2 (00:09→02:41)
[2022-07-22] MEDS: iohexoL 350 MG/ML 100 ML INFUS..BTL 85 ML IV (01:04)
--- NOTE | 2022-07-22 01:55 | ED.ABDPAIN ---
HPI - Abdominal Pain General Chief Complaint: Abdominal Pain Stated Complaint: sepsis? Time Seen by Provider: 07/21/22 21:49 Source: patient Mode of arrival: EMS Limitations: no limitations History of Present Illness HPI narrative: Patient home detention with history of chronic back pain , diabetic, hypertension, recurrent UTI, COPD history of paroxysmal AFib on Eliquis comes here for vomiting and diarrhea for last 3 days patient has been vomiting 10-15 times a day unable to eat or drink anything solid or liquid also having diarrhea 3 4 times a day with diffuse abdominal pain. Also complaining of headache. Patient has been treated for UTI with Ceftin since 07/21 patient has chills no fever no urine symptoms at this time no blood in the stool Related Data Home Medications Medication Instructions Recorded Confirmed albuterol sulfate 90 mcg/actuation 1 puff inhalation Q4H PRN 07/26/20 06/11/22 aerosol inhaler (Ventolin HFA) Shortness Of Breath celecoxib 200 mg capsule (Celebrex) 200 mg PO DAILY 07/26/20 06/11/22 fluoxetine 40 mg capsule (Prozac) 40 mg PO DAILY 07/26/20 06/11/22 fluticasone propionate 50 1 spray intranasal DAILY 07/26/20 06/11/22 mcg/actuation nasal spray,suspension glipizide 5 mg tablet 10 mg PO BIDAC 07/26/20 06/11/22 metformin 500 mg tablet 1,000 mg PO BIDWM 07/26/20 06/11/22 metoclopramide HCl 5 mg tablet 5 mg PO DAILY 07/26/20 06/11/22 (Reglan) acetaminophen 325 mg tablet 650 mg PO Q4H PRN PAIN/FEVER 11/21/21 06/11/22 baclofen 10 mg tablet 10 mg Q8H PRN Muscle Spasm 11/21/21 06/11/22 furosemide 20 mg tablet (Lasix) 20 mg PO DAILY 11/21/21 06/11/22 gabapentin 400 mg capsule 400 mg PO TID 11/21/21 06/11/22 insulin detemir U-100 100 unit/mL 25 unit subcut DAILY 11/21/21 06/11/22 subcutaneous solution (Levemir U-100 Insulin) insulin lispro 100 unit/mL See Protocol QIDACHS 11/21/21 06/11/22 subcutaneous cartridge (Humalog U-100 Insulin) lansoprazole 15 mg capsule,delayed 15 mg PO DAILY 11/21/21 06/11/22 release (Prevacid 24Hr) lisinopril 5 mg tablet 5 mg PO DAILY 11/21/21 06/11/22 oxycodone 5 mg tablet 5 mg PO Q4H PRN Pain (Scale Score 11/21/21 06/11/22 4-6) trazodone 150 mg tablet 300 mg PO BEDTIME 12/17/21 06/11/22 cholecalciferol (vitamin D3) 25 25 mcg PO DAILY 06/11/22 06/11/22 mcg (1,000 unit) tablet hydralazine 50 mg tablet 1 tab PO TID 06/11/22 06/11/22 magnesium citrate 150 ml PO DAILY PRN Constipation 06/11/22 06/11/22 methenamine hippurate 1 gram tablet 1 tab PO BID 06/11/22 06/11/22 methocarbamol 500 mg tablet 1,000 mg PO TID 06/11/22 06/11/22 Previous Rx's Medication Instructions Recorded fluticasone furoate 100 1 puff inhalation RDAILY #1 ea 07/30/20 mcg-vilanterol 25 mcg/dose inhalation powder (Breo Ellipta) fentanyl 75 mcg/hr transdermal 75 mcg transdermal Q72H pain #5 ea 11/23/21 patch amoxicillin 875 mg-potassium 875 mg PO Q12H #14 tabs 06/17/22 clavulanate 125 mg tablet apixaban 5 mg tablet (Eliquis) 5 mg PO BID #60 tabs 06/17/22 magnesium oxide 400 mg PO BID #60 caps 07/22/22 ondansetron 4 mg disintegrating 4 mg PO Q6-8H PRN nausea and 07/22/22 tablet vomiting #14 tabs Allergies Allergy/AdvReac Type Severity Reaction Status Date / Time aspirin [From PERCODAN] Allergy Unknown UNKNOWN Verified 07/21/22 21:29 egg [EGG] Allergy Unknown UNKNOWN Verified 07/21/22 21:29 oxycodone AdvReac Nausea Verified 07/21/22 21:29 From PERCODAN Allergy Unknown Unknown Uncoded 07/21/22 21:29 Review of Systems Review of Systems Yes all other systems are reviewed and are negative PMFSH Past Medical History Medical History Bronchitis Chronic back pain Chronic pain Diabetes High cholesterol HTN (hypertension) Lymphadenopathy Paroxysmal atrial fibrillation UTI (urinary tract infection) Surgical History History of back surgery Social History Social History Household Members: Other Household Members Other:: roomate Housing: Jail Do you presently have visiting nurse or other home services: No Unable to assess alcohol history related to: Unknown Alcohol intake: former Patient Tobacco Use Status: Current everyday Tobacco user Tobacco use type: Cigarette Cigarette Packs Per Day: 0.5 Cigarettes Per Day: 10.0 Years Smoked: 55 e-Cigarette/Vaping Use: Never Used Second Hand Smoke Exposure: Yes Advance Directives: Yes Advance Directives on File: Yes Advance Directives Date on File: 06/12/22 service: No Current occupational status: unemployed Physical Exam ED Vital Signs: Vital Signs - 24 hr 07/21/22 21:09 07/21/22 22:56 07/21/22 23:38 Temperature 98.5 F 98.0 F Pulse Rate 101 H 95 109 H Respiratory Rate 19 17 18 Blood Pressure 127/83 147/101 H 154/57 H Pulse Oximetry 95 97 96 Oxygen Delivery Method Room Air Room Air Room Air BMI result Body Mass Index 33.1 Appearance: Alert. Oriented X3. No acute distress. Eyes: PERRLA, No Nystagmus ENT: Pharynx normal. Oral Mucosa moist Neck: Normal inspection. Neck supple. CVS: Normal heart rate and rhythm. Pulses normal. Respiratory: No respiratory distress. Equal air entry bilateral, no wheezing/rales/rhonchi Abdomen: Soft diffuse tenderness on the left upper abdomen Bowel sounds are present, no mass palpable, no CVA tenderness Skin: Skin warm and dry. Normal skin color. Normal skin turgor. Extremities: No lower extremity edema. No calf tenderness Neuro: Oriented X 3. No motor deficit. No sensory deficit.No cerebellar signs , cranial nerves II-XII intact Medical Decision Making Medical Decision Making MDM Narrative: Patient with nonspecific diffuse abdominal pain more on the left side CT scan negative for acute pathology lab workup showed hypomagnesemia and slightly mild hypokalemia which was replaced , lactic acid normal, patient is feeling much better now will discharge patient back to nursing Lab Data [facility] Lab Attestation statement: I reviewed the patient's lab results. 07/21/22 22:59 07/21/22 23:00 Labs: Lab Results 07/21/22 07/21/22 07/21/22 Range/Units 22:59 23:00 23:00 WBC 12.4 H (4.8-10.8) X10*3/uL RBC 4.77 (4.20-5.50) X10*6/uL Hgb 14.1 (12.0-16.0) g/dl Hct 41.7 (37.0-47.0) % MCV 87.4 (80.0-98.0) fL MCH 29.6 (27.0-33.0) pg MCHC 33.8 (31.0-35.0) g/dl RDW 13.4 (11.0-16.0) % Plt Count 317 (160-400) X10*3/uL MPV 9.1 L (9.4-12.3) fL Immature Gran % (Auto) Cancelled Neut % (Auto) Cancelled Lymph % (Auto) Cancelled [place] % (Auto) Cancelled Eos % (Auto) Cancelled Baso % (Auto) Cancelled Lymph # (Auto) Cancelled [place] # (Auto) Cancelled Eos # (Auto) Cancelled Baso # (Auto) Cancelled Abs Immat Gran (auto) Cancelled Absolute Neuts (auto) Cancelled Absolute Nucleated RBC 0.000 (0.0-0.012) X10*3/uL Nucleated RBC % (auto) 0.0 (0.0-0.2) /100WBC Neutrophils % (Manual) 86 H (45-73) % Band Neutrophils % 1 L (3-5) % Lymphocytes % (Manual) 12 L (20-40) % Monocytes % (Manual) 1 L (2-11) % Abs Neuts (Manual) 10.8 H (2.0-8.3) X10*3/uL Lymphocytes # (Manual) 1.5 (1.2-4.9) X10*3/uL Monocytes # (Manual) 0.1 (0.1-1.2) X10*3/uL Smudge Cells PRESENT Toxic Vacuolation PRESENT Platelet Estimate NORMAL (NORMAL) Plt Morphology Comment NORMAL RBC Morphology NORMAL Macrocytosis 1+ (5-14) /OIF Sodium 143 (135-145) mmol/L Potassium 3.2 L D (3.3-5.1) mmol/L Chloride 105 (96-108) mmol/L Carbon Dioxide 23 (22-29) mmol/L Anion Gap 18 (12-20) BUN 14 (9-16) mg/dL Creatinine 0.90 (0.5-1.4) mg/dL Estim Creat Clear Calc 63.2 Estimated GFR > 60 Random Glucose 191 H (60-115) mg/dL Lactic Acid 1.5 (0.5-2.0) mmol/L Calcium 7.2 L D (8.4-10.2) mg/dL Magnesium < 0.6 L* (1.6-2.6) mg/dL Total Bilirubin 0.6 (0.0-1.0) mg/dL AST 16 (5-31) U/L ALT 10 (0-31) U/L Alkaline Phosphatase 83 (39-117) U/L Total Protein 7.0 (6.5-8.0) g/dL Albumin 4.0 (3.5-5.0) g/dL Lipase 10 (8-78) U/L Urine Color Urine Appearance Urine pH (5.0-9.0) Ur Specific [place] (1.005-1.025) Urine Protein (Neg-Trace) mg/dL Urine Glucose (UA) (Negative) mg/dL Urine Ketones (Negative) mg/dL Urine Blood (Negative) Urine Nitrite (Negative) Ur Leukocyte Esterase (Negative) COVID-19 (ADAMA) (Negative) COVID-19 Clin Com 07/21/22 07/22/22 Range/Units 23:04 02:08 WBC (4.8-10.8) X10*3/uL RBC (4.20-5.50) X10*6/uL Hgb (12.0-16.0) g/dl Hct (37.0-47.0) % MCV (80.0-98.0) fL MCH (27.0-33.0) pg MCHC (31.0-35.0) g/dl RDW (11.0-16.0) % Plt Count (160-400) X10*3/uL MPV (9.4-12.3) fL Immature Gran % (Auto) Neut % (Auto) Lymph % (Auto) [place] % (Auto) Eos % (Auto) Baso % (Auto) Lymph # (Auto) [place] # (Auto) Eos # (Auto) Baso # (Auto) Abs Immat Gran (auto) Absolute Neuts (auto) Absolute Nucleated RBC (0.0-0.012) X10*3/uL Nucleated RBC % (auto) (0.0-0.2) /100WBC Neutrophils % (Manual) (45-73) % Band Neutrophils % (3-5) % Lymphocytes % (Manual) (20-40) % Monocytes % (Manual) (2-11) % Abs Neuts (Manual) (2.0-8.3) X10*3/uL Lymphocytes # (Manual) (1.2-4.9) X10*3/uL Monocytes # (Manual) (0.1-1.2) X10*3/uL [place] Cells Toxic Vacuolation Platelet Estimate (NORMAL) Plt Morphology Comment RBC Morphology Macrocytosis /OIF Sodium (135-145) mmol/L Potassium (3.3-5.1) mmol/L Chloride (96-108) mmol/L Carbon Dioxide (22-29) mmol/L Anion Gap (12-20) BUN (9-16) mg/dL Creatinine (0.5-1.4) mg/dL Estim Creat Clear Calc Estimated GFR Random Glucose (60-115) mg/dL Lactic Acid (0.5-2.0) mmol/L Calcium (8.4-10.2) mg/dL Magnesium (1.6-2.6) mg/dL Total Bilirubin (0.0-1.0) mg/dL AST (5-31) U/L ALT (0-31) U/L Alkaline Phosphatase (39-117) U/L Total Protein (6.5-8.0) g/dL Albumin (3.5-5.0) g/dL Lipase (8-78) U/L Urine Color Yellow Urine Appearance Clear Urine pH 6.0 (5.0-9.0) Ur Specific [place] >= 1.030 H (1.005-1.025) Urine Protein Trace (Neg-Trace) mg/dL Urine Glucose (UA) Negative (Negative) mg/dL Urine Ketones Trace (Negative) mg/dL Urine Blood Negative (Negative) Urine Nitrite Negative (Negative) Ur Leukocyte Esterase Trace H (Negative) COVID-19 (ADAMA) Negative (Negative) COVID-19 Clin Com See Note Radiology Impression Discussion of test interpretation with radiology: I have reviewed the radiologist's reading. Radiologist Impression: CT/CT abdomen pelvis w IV con IMPRESSION: 1.? No acute findings in the abdomen or pelvis. No inflammatory changes. 2.? Nonobstructing left lower pole renal calculus. 3.? Endometrial thickening measuring 1.2 cm. Similar appearance to prior. This is abnormal in a postmenopausal patient. Consider nonemergent pelvic ultrasound evaluation. 4.? 0.5 cm left lower lobe pulmonary nodule. Unchanged from prior suggesting benign etiology. Medications Administered Discontinued Medications Generic Name Dose Route Start Last Admin Trade Name Freq PRN Reason Stop Dose Admin Sodium Chloride 1,000 mls @ 999 mls/hr 07/21/22 22:34 07/22/22 01:25 Ns IV 07/21/22 23:34 Infused .Q1H1M ONE Infusion Magnesium Sulfate 2 gm in 50 mls @ 100 mls/hr 07/21/22 23:55 07/22/22 01:25 Magnesium Sulfate/H2o IV 07/22/22 00:24 Infused ONCE ONE Infusion Potassium Chloride 10 meq in 100 mls @ 100 mls/hr 07/21/22 23:55 07/22/22 01:25 Potassium Chloride/H20 IV 07/22/22 00:54 Infused ONCE ONE Infusion Iohexol 85 ml 07/22/22 01:03 07/22/22 01:04 Iohexol 350 Mg/Ml 100 Ml Infus..Btl IV 07/22/22 01:04 85 ml ONCE ONE Administration Morphine Sulfate 4 mg 07/21/22 23:57 07/22/22 00:09 Morphine Sulfate 4 Mg/Ml Cartridge IVPUSH 07/21/22 23:58 4 mg ONCE ONE Administration Protocol Ondansetron HCl 4 mg 07/21/22 23:57 07/22/22 00:09 Ondansetron Hcl 4 Mg/2 Ml Vial IVPUSH 07/21/22 23:58 4 mg ONCE ONE Administration Discharge Plan Discharge Clinical Impression: Gastroenteritis, Hypomagnesemia Patient Disposition: Xfer SNF Transfer Details: CT scan of the abdomen is negative for acute pathology Lab workup showed low magnesium and low potassium level Instructions: Hypokalemia (ED), Gastroenteritis (ED), Hypomagnesemia (ED) Additional Instructions: Patient received 4 g of magnesium in the ER and 10 mEq of potassium IV Recheck magnesium and potassium in 2 days Start taking magnesium tablets daily Follow-up with PCP Prescriptions: New magnesium oxide 400 mg magnesium capsule 400 mg PO BID Qty: 60 0RF ondansetron 4 mg tablet,disintegrating 4 mg PO Q6-8H PRN (Reason: nausea and vomiting) Qty: 14 0RF No Action celecoxib [Celebrex] 200 mg Capsule 200 mg PO DAILY fluoxetine [Prozac] 40 mg Capsule 40 mg PO DAILY metformin 500 mg Tablet 1,000 mg PO BIDWM metoclopramide HCl [Reglan] 5 mg Tablet 5 mg PO DAILY albuterol sulfate [Ventolin HFA] 90 mcg/actuation Hfa Aerosol Inhaler 1 puff INHALATION Q4H PRN (Reason: Shortness Of Breath) fluticasone propionate 50 mcg/actuation [place],Suspension 1 spray INTRANASAL DAILY glipizide 5 mg Tablet 10 mg PO BIDAC fluticasone furoate-vilanterol [Breo Ellipta] 100-25 mcg/dose Blister With Device 1 puff inhalation RDAILY Qty: 1 0RF baclofen 10 mg Tablet 10 mg Q8H PRN (Reason: Muscle Spasm) Humalog U-100 Insulin 100 unit/mL Cartridge See Protocol QIDACHS Protocol: Insulin Correction Scale Less than or equal to 110 ---- Give (units): 0 111 to 150 Give (units): 0 151 to 200 Give (units): 0 201 to 250 Give (units): 2 251 to 300 Give (units): 4 301 to 350 Give (units): 6 Greater than 350 Give (units): 8 Call MD if Blood Glucose > : 350 furosemide [Lasix] 20 mg Tablet 20 mg PO DAILY Levemir U-100 Insulin 100 unit/mL Solution 25 unit SUBCUT DAILY lansoprazole [Prevacid 24Hr] 15 mg Capsule,Delayed Release(Dr/Ec) 15 mg PO DAILY lisinopril 5 mg Tablet 5 mg PO DAILY oxycodone 5 mg Tablet 5 mg PO Q4H PRN (Reason: Pain (Scale Score 4-6)) gabapentin 400 mg Capsule 400 mg PO TID acetaminophen 325 mg Tablet 650 mg PO Q4H PRN (Reason: PAIN/FEVER) fentanyl 75 mcg/hr Patch 72 Hour 75 mcg transdermal Q72H Qty: 5 0RF trazodone 150 mg tablet 300 mg PO BEDTIME methocarbamol 500 mg tablet 1,000 mg PO TID methenamine hippurate 1 gram tablet 1 tab PO BID hydralazine 50 mg tablet 1 tab PO TID magnesium citrate Solution 150 ml PO DAILY PRN (Reason: Constipation) cholecalciferol (vitamin D3) 25 mcg (1,000 unit) Tablet 25 mcg PO DAILY amoxicillin-pot clavulanate 875-125 mg Tablet 875 mg PO Q12H Qty: 14 0RF Eliquis 5 mg Tablet 5 mg PO BID Qty: 60 0RF
[2022-07-22 02:14] LABS: Appearance Urine Clear; Color Urine Yellow; Glucose Urine UA Negative (Negative); Leukocyte Esterase Urine Trace (Negative); Nitrite Urine Negative (Negative); Specific Gravity - Urine >= 1.030 (1.005-1.025); UMIC TRIGGER UACC YES; Urine Blood Negative (Negative); Urine Ketones Trace mg/dL (Negative); Urine Protein Trace mg/dL (Neg-Trace)
[2022-07-22 02:19] LABS: Bacteria Urine None Seen (None Seen); Hyaline Casts Urine 0-2 /LPF (0-2); RBC Urine 0-2 /HPF (0-2); UACC Culture Trigger YES
[2022-07-22 02:42] VITALS: BP 156/66; PULSE 86; RESP 19; O2SAT 94
== END 2022-07-22 03:48 | disposition skilled nursing facility (03) ==
PROVIDERS: Emergency Provider Internal Medicine; PCP Internal Medicine
DX: K52.9 Noninfective gastroenteritis and colitis, unspecified (principal); E83.42 Hypomagnesemia; I48.91 Unspecified atrial fibrillation; I10 Essential (primary) hypertension; F17.210 Nicotine dependence, cigarettes, uncomplicated; Z20.822 Contact with and (suspected) exposure to COVID-19; Z20.828 Contact with and (suspected) exposure to other viral communicable diseases; Z79.899 Other long term (current) drug therapy; Z71.6 Tobacco abuse counseling; Z79.01 Long term (current) use of anticoagulants
CPT/HCPCS: 74177; 80053; 81001; 83605; 83690; 83735; 85007; 85027; 87040; 87086; 87088; 87186; 87635; 96361; 96374; 96375; 96376; 99283; 99284; J2270; J2405; J3475; Q9967

== ENCOUNTER 2022-07-22 15:07 | Outpatient (REF) | payer MEDICARE, MEDICAID, SELFPAY ==
[2022-07-22 18:27] LABS: Magnesium 0.8 mg/dL (1.6-2.6)
== END 2022-07-22 15:08 | disposition home or self-care (01) ==
LOC: HO.LAB 15:07
PROVIDERS: PCP Internal Medicine; Referring Provider Internal Medicine; Visit Provider Nurse Practitioner Family
DX: E83.42 Hypomagnesemia (principal); I48.0 Paroxysmal atrial fibrillation; I49.1 Atrial premature depolarization
CPT/HCPCS: 36415; 83735; 93005; 99212

== ENCOUNTER 2022-07-23 14:04 | Emergency (ER) | payer MEDICARE, MEDICAID, SELFPAY ==
[2022-07-23 14:16] VITALS: BP 134/71; PULSE 91; RESP 16; TEMP 36.6; O2SAT 98; BMI 32.1
--- NOTE | 2022-07-23 14:40 | ECG_ITS ---
Test Reason : Low Magnesium Level Blood Pressure : / mmHG Vent. Rate : 095 BPM Atrial Rate : 095 BPM P-R Int : 168 ms QRS Dur : 076 ms QT Int : 358 ms P-R-T Axes : 043 -15 004 degrees QTc Int : 449 ms Sinus rhythm with Premature supraventricular complexes Nonspecific ST abnormality Abnormal ECG When compared with ECG of 12-JUN-2022 07:09, No significant changes seen Referred By: Leonila Lott Electronically Signed By:HÉCTOR YOUNG MD
[2022-07-23] MEDS: Magnesium Sulfate/H2O 2 GM/50 ML PIGGYBACK IV ×2 (14:45→17:01)
[2022-07-23 15:54] LABS: Basophils Absolute Auto 0.1 X10*3/uL (0.0-0.2); Basophils Percent Auto 0.6 % (0-2); Eosinophils Absolute Auto 0.1 X10*3/uL (0.0-0.4); Eosinophils Percent Auto 0.6 % (0-4); Hematocrit 38.3 % (37.0-47.0); Hemoglobin 12.5 g/dl (12.0-16.0); Imm Gran Abs Auto 0.12 X10*3/uL (0.00-0.03); Imm Gran Pct Auto 0.8 % (0.0-0.4); Lymphocytes Absolute Auto 4.8 X10*3/uL (1.2-4.9); Lymphocytes Percent Auto 33.6 % (20-40); MANUAL DIFF FLAG SCAN; Mean Corpuscular HGB Conc 32.6 g/dl (31.0-35.0); Mean Corpuscular Hemoglobin 29.9 pg (27.0-33.0); Mean Corpuscular Volume 91.6 fL (80.0-98.0); Monocytes Absolute Auto 1.6 X10*3/uL (0.1-1.2); Monocytes Percent Auto 11.4 % (2-11); Neutrophils Absolute Auto 7.5 x10*3/uL (2.0-8.3); Platelet Count 305 X10*3/uL (160-400); Red Blood Count 4.18 X10*6/uL (4.20-5.50); Red Cell Distribution Width 13.6 % (11.0-16.0); SCAN SMEAR FLAG 1; White Blood Count 14.2 X10*3/uL (4.8-10.8)
[2022-07-23 16:14] LABS: SLIDE REVIEW VERIFIED
--- NOTE | 2022-07-23 16:17 | ED_ITS ---
HPI - Recheck/Abnormal Lab/Rx General Chief Complaint: Recheck/Abnormal Lab/Rx Stated Complaint: ABN LABS Time Seen by Provider: 07/23/22 16:02 Source: patient Mode of arrival: ambulatory History of Present Illness HPI narrative: 67-year-old female with past medical history of bronchitis, diabetes, HLD, HTN, proximal AFib on Eliquis, UTI, presenting to ED sent in from Cardiology office for hypomagnesemia noted on outpatient labs to 0.8 yesterday. Reports nausea, vomiting diarrhea over the past 3 days with improvement today with just residual nausea. Denies other complaints at present including chest pain, shortness of breath, abdominal pain, pedal edema, lightheadedness/ dizziness, numbness/ tingling or weakness. Initial visit (ago): day(s) Related Data Home Medications Medication Instructions Recorded Confirmed albuterol sulfate 90 mcg/actuation 1 puff inhalation Q4H PRN 07/26/20 07/22/22 aerosol inhaler (Ventolin HFA) Shortness Of Breath celecoxib 200 mg capsule (Celebrex) 200 mg PO DAILY 07/26/20 07/22/22 fluoxetine 40 mg capsule (Prozac) 40 mg PO DAILY 07/26/20 07/22/22 fluticasone propionate 50 1 spray intranasal DAILY 07/26/20 07/22/22 mcg/actuation nasal spray,suspension glipizide 5 mg tablet 10 mg PO BIDAC 07/26/20 07/22/22 metformin 500 mg tablet 1,000 mg PO BIDWM 07/26/20 07/22/22 metoclopramide HCl 5 mg tablet 5 mg PO DAILY 07/26/20 07/22/22 (Reglan) acetaminophen 325 mg tablet 650 mg PO Q4H PRN PAIN/FEVER 11/21/21 07/22/22 baclofen 10 mg tablet 10 mg Q8H PRN Muscle Spasm 11/21/21 07/22/22 furosemide 20 mg tablet (Lasix) 20 mg PO DAILY 11/21/21 07/22/22 gabapentin 400 mg capsule 400 mg PO TID 11/21/21 07/22/22 insulin detemir U-100 100 unit/mL 25 unit subcut DAILY 11/21/21 07/22/22 subcutaneous solution (Levemir U-100 Insulin) insulin lispro 100 unit/mL See Protocol QIDACHS 11/21/21 07/22/22 subcutaneous cartridge (Humalog U-100 Insulin) lansoprazole 15 mg capsule,delayed 15 mg PO DAILY 11/21/21 07/22/22 release (Prevacid 24Hr) lisinopril 5 mg tablet 5 mg PO DAILY 11/21/21 07/22/22 oxycodone 5 mg tablet 5 mg PO Q4H PRN Pain (Scale Score 11/21/21 07/22/22 4-6) trazodone 150 mg tablet 300 mg PO BEDTIME 12/17/21 07/22/22 cholecalciferol (vitamin D3) 25 25 mcg PO DAILY 06/11/22 07/22/22 mcg (1,000 unit) tablet hydralazine 50 mg tablet 1 tab PO TID 06/11/22 07/22/22 magnesium citrate 150 ml PO DAILY PRN Constipation 06/11/22 07/22/22 methenamine hippurate 1 gram tablet 1 tab PO BID 06/11/22 07/22/22 methocarbamol 500 mg tablet 1,000 mg PO TID 06/11/22 07/22/22 cefuroxime axetil 250 mg tablet 250 mg PO BID 07/22/22 07/22/22 ondansetron HCl 4 mg tablet 4 mg PO Q4H PRN 07/22/22 07/22/22 Previous Rx's Medication Instructions Recorded fluticasone furoate 100 1 puff inhalation RDAILY #1 ea 07/30/20 mcg-vilanterol 25 mcg/dose inhalation powder (Breo Ellipta) fentanyl 75 mcg/hr transdermal 75 mcg transdermal Q72H pain #5 ea 11/23/21 patch amoxicillin 875 mg-potassium 875 mg PO Q12H #14 tabs 06/17/22 clavulanate 125 mg tablet apixaban 5 mg tablet (Eliquis) 5 mg PO BID #60 tabs 06/17/22 magnesium oxide 400 mg PO BID #60 caps 07/22/22 ondansetron 4 mg disintegrating 4 mg PO Q6-8H PRN nausea and 07/22/22 tablet vomiting #14 tabs Allergies Allergy/AdvReac Type Severity Reaction Status Date / Time aspirin [From PERCODAN] Allergy Unknown UNKNOWN Verified 07/22/22 15:28 egg [EGG] Allergy Unknown UNKNOWN Verified 07/22/22 15:28 oxycodone AdvReac Nausea Verified 07/22/22 15:28 From PERCODAN Allergy Unknown Unknown Uncoded 07/22/22 15:28 Review of Systems Review of Systems: Constitutional: No Fever, No Chills, No Fatigue, No Malaise ENT/Mouth: No Ear Pain, No Nasal Congestion, No sore throat, No Rhinorrhea, No Swallowing Difficulty Eyes: No Eye Pain, No Swelling, No Redness, No Vision Changes Cardiovascular: No Chest Pain, No SOB, No Edema, No Palpitations Respiratory: No Cough, No Sputum, No Dyspnea Gastrointestinal: + Nausea, + Vomiting (resolved), + Diarrhea (resolved), No Constipation, No Abdominal pain Genitourinary: No Dysuria, No Urinary Frequency, No Hematuria, No Urinary Incontinence/retention, No Flank Pain Musculoskeletal: No joint pain, No Myalgias, No Joint Swelling Skin: No Skin Lesions, No rash Neuro: No Weakness, No Numbness, No Paresthesias, No Loss of Consciousness, No Dizziness, No Headache Yes all other systems are reviewed and are negative Constitutional: Constitutional: Reports as per [facility] Past Medical History Attestation statement: The following information was validated with the patient. Medical History Bronchitis Chronic back pain Chronic pain Diabetes High cholesterol HTN (hypertension) Lymphadenopathy Paroxysmal atrial fibrillation UTI (urinary tract infection) Surgical History History of back surgery Social History Social History Household Members: Other Household Members Other:: roomate Housing: Correction Do you presently have visiting nurse or other home services: No Unable to assess alcohol history related to: Unknown Alcohol intake: former Patient Tobacco Use Status: Current everyday Tobacco user Tobacco use type: Cigarette Cigarettes Per Day: 6 Years Smoked: 55 e-Cigarette/Vaping Use: Never Used Second Hand Smoke Exposure: Yes Advance Directives: Yes Advance Directives on File: Yes Advance Directives Date on File: 06/12/22 service: No Current occupational status: unemployed Physical Exam Vital Signs: Vital Signs: Last Vital Signs Temp 97.9 F 07/23/22 14:16 Pulse 83 07/23/22 17:47 Resp 20 07/23/22 17:47 BP 135/82 07/23/22 17:47 Pulse Ox 96 07/23/22 17:47 O2 Del Method 07/23/22 17:47 BMI result Body Mass Index 32.1 Const: General: cooperative, no acute distress, well developed, alert and awake Orientation/consciousness: patient oriented x3 Limitations: no limitations HEENT: Head: Yes normal to inspection and Yes atraumatic Ears: hearing grossly normal bilaterally General nose exam: Normal external nose present Face and sinus: Yes normal facial exam Eyes: General: appearance normal, both eyes and all related structures EOM: EOMs intact bilaterally Neck: Neck: Yes normal visual inspection and Yes no meningeal signs Resp: Effort & Inspection: normal respiratory effort and no respiratory distress Auscultation: clear to auscultation bilaterally, no crackles, no rales, no rhonchi and no wheezes Cardio: Rate: regular rate Heart sounds: S1 normal heart sound present and S2 normal heart sound present GI: Inspection: Yes normal to inspection Palpation (GI): Soft to palpation, nontender, no guarding and not rigid Skin: Rashes: no rashes Wounds: no wounds Neuro: General: patient oriented x3, tone normal, moves all extremities, no meningeal signs and no focal motor deficits Gait exam (Neuro): Normal gait present Extrem: General: Yes normal to inspection and Yes no pedal edema Course Course Course Narrative: -1706-- mild leukocytosis of 14.2. H&H stable. Potassium mildly low to 3.1 > 10 mEq IV and 60 mEq p.o. repletion ordered. Magnesium low at 1.3 > 4 g IV repletion ordered >> will repeat labs after repletion - labs otherwise reassuring -2013-- repeat labs normalized > potassium 3.7, magnesium 1.6 >> will give patient additional dose of 20 mEq of p.o. potassium and 400 mg of magnesium prior to discharge. Results discussed, recommended repeat outpatient labs in 2 days Results discussed with patient including worrisome signs and symptoms and strict return precautions, and when to return to the emergency department. They verbalized understanding and feel safe for discharge at this time. Medications Administered Discontinued Medications Generic Name Dose Route Start Last Admin Trade Name Freq PRN Reason Stop Dose Admin Magnesium Sulfate 2 gm in 50 mls @ 25 mls/hr 07/23/22 14:39 07/23/22 15:16 Magnesium Sulfate/H2o IV 07/23/22 16:38 Infused ONCE ONE Infusion Magnesium Sulfate 2 gm in 50 mls @ 25 mls/hr 07/23/22 16:55 07/23/22 18:56 Magnesium Sulfate/H2o IV 07/23/22 18:54 Infused ONCE ONE Infusion Magnesium Oxide 400 mg 07/23/22 20:15 07/23/22 20:45 Magnesium Oxide 400 Mg Tablet PO 07/23/22 20:16 400 mg ONCE ONE Administration Potassium Chloride 60 meq 07/23/22 17:07 07/23/22 17:44 Potassium Chloride Packet 20 Meq Packet PO 07/23/22 17:08 60 meq ONCE ONE Administration Potassium Chloride 40 meq 07/23/22 20:15 07/23/22 20:45 Potassium Chloride Packet 20 Meq Packet PO 07/23/22 20:16 40 meq ONCE ONE Administration Medical Decision Making Medical Decision Making MDM Narrative: 67-year-old female with past medical history of bronchitis, diabetes, HLD, HTN, proximal AFib on Eliquis, UTI, presenting to ED sent in from Cardiology office for hypomagnesemia noted on outpatient labs to 0.8 yesterday. On exam vital signs stable, NAD, toxic appearing, CTA, soft/nontender, no pedal edema. concern for electrolyte abnormalities vs dehydration and volume losses. Low suspicion for ACS/ PE or other infectious etiology plan: EKG, labs, IV magnesium replacement, IV potassium replacement Please refer to course for remaining clinical decision making, interpretation of labs/imaging results, and discussions with consultants and/or family members. Differential Diagnosis Differential Diagnoses: The differential diagnosis associated with the presentation includes as above Admission/Observation Consideration of admission/observation: Escalation of care including admission/observation considered Lab Data [facility] Lab Attestation statement: I reviewed the patient's lab results. 07/23/22 15:33 07/23/22 15:33 Labs: Lab Results 07/23/22 07/23/22 07/23/22 Range/Units 15:33 15:33 19:37 WBC 14.2 H (4.8-10.8) X10*3/uL RBC 4.18 L (4.20-5.50) X10*6/uL Hgb 12.5 (12.0-16.0) g/dl Hct 38.3 (37.0-47.0) % MCV 91.6 (80.0-98.0) fL MCH 29.9 (27.0-33.0) pg MCHC 32.6 (31.0-35.0) g/dl RDW 13.6 (11.0-16.0) % Plt Count 305 (160-400) X10*3/uL MPV 9.0 L (9.4-12.3) fL Immature Gran % (Auto) 0.8 H (0.0-0.4) % Neut % (Auto) 53.0 (45-73) % Lymph % (Auto) 33.6 (20-40) % [place] % (Auto) 11.4 H (2-11) % Eos % (Auto) 0.6 (0-4) % Baso % (Auto) 0.6 (0-2) % Lymph # (Auto) 4.8 (1.2-4.9) X10*3/uL [place] # (Auto) 1.6 H (0.1-1.2) X10*3/uL Eos # (Auto) 0.1 (0.0-0.4) X10*3/uL Baso # (Auto) 0.1 (0.0-0.2) X10*3/uL Abs Immat Gran (auto) 0.12 H (0.00-0.03) X10*3/uL Absolute Neuts (auto) 7.5 (2.0-8.3) x10*3/uL Absolute Nucleated RBC 0.000 (0.0-0.012) X10*3/uL Nucleated RBC % (auto) 0.0 (0.0-0.2) /100WBC Smear Tech's Comments VERIFIED Sodium 141 139 (135-145) mmol/L Potassium 3.1 L 3.7 (3.3-5.1) mmol/L Chloride 105 104 (96-108) mmol/L Carbon Dioxide 24 27 (22-29) mmol/L Anion Gap 15 12 (12-20) BUN 14 13 (9-16) mg/dL Creatinine 0.98 0.89 (0.5-1.4) mg/dL Estim Creat Clear Calc 57.0 62.8 Estimated GFR 56 > 60 Random Glucose 80 121 H (60-115) mg/dL Calcium 7.2 L 7.1 L (8.4-10.2) mg/dL Phosphorus 2.8 (2.7-4.5) mg/dL Magnesium 1.3 L* 1.6 (1.6-2.6) mg/dL Total Bilirubin 0.4 (0.0-1.0) mg/dL AST 30 (5-31) U/L ALT 28 (0-31) U/L Alkaline Phosphatase 74 (39-117) U/L Total Protein 6.2 L (6.5-8.0) g/dL Albumin 3.6 (3.5-5.0) g/dL Independent Interpretation I performed an independent interpretation of an: EKG ( my interpretation sinus rhythm with PACs at a rate of 95. QTC 449. No STEMI. UT interval 168) External Record Review External record reviewed: Office record, Outpatient record and Prior outpatient labs Critical Care Time Critical Care Time Critical Care Time: Yes Total Critical Care Time: 40 Attestation: I have personally provided critical care time exclusive of time spent on separately billable procedures. Time includes review of lab data, radiology results, discussion with consultants, and monitoring for potential decompensation. Intervention performed as documented. Discharge Plan Discharge Clinical Impression: Hypomagnesemia, Acute hypokalemia Patient Disposition: er [facility] Instructions: Hypokalemia (ED), Hypomagnesemia (ED) Additional Instructions: your magnesium and potassium were low today in the emergency department. We repleted both of them and now your numbers have normalized. We recommend repeat labs within 2 days. Continue home prescribed medications, continue oral magnesium pills at home if you develop chest pain, shortness of breath, numbness/tingling, weakness, headaches return to the emergency department Prescriptions: No Action celecoxib [Celebrex] 200 mg Capsule 200 mg PO DAILY fluoxetine [Prozac] 40 mg Capsule 40 mg PO DAILY metformin 500 mg Tablet 1,000 mg PO BIDWM metoclopramide HCl [Reglan] 5 mg Tablet 5 mg PO DAILY albuterol sulfate [Ventolin HFA] 90 mcg/actuation Hfa Aerosol Inhaler 1 puff INHALATION Q4H PRN (Reason: Shortness Of Breath) fluticasone propionate 50 mcg/actuation [place],Suspension 1 spray INTRANASAL DAILY glipizide 5 mg Tablet 10 mg PO BIDAC fluticasone furoate-vilanterol [Breo Ellipta] 100-25 mcg/dose Blister With Device 1 puff inhalation RDAILY Qty: 1 0RF baclofen 10 mg Tablet 10 mg Q8H PRN (Reason: Muscle Spasm) Humalog U-100 Insulin 100 unit/mL Cartridge See Protocol QIDACHS Protocol: Insulin Correction Scale Less than or equal to 110 ---- Give (units): 0 111 to 150 Give (units): 0 151 to 200 Give (units): 0 201 to 250 Give (units): 2 251 to 300 Give (units): 4 301 to 350 Give (units): 6 Greater than 350 Give (units): 8 Call MD if Blood Glucose > : 350 furosemide [Lasix] 20 mg Tablet 20 mg PO DAILY Levemir U-100 Insulin 100 unit/mL Solution 25 unit SUBCUT DAILY lansoprazole [Prevacid 24Hr] 15 mg Capsule,Delayed Release(Dr/Ec) 15 mg PO DAILY lisinopril 5 mg Tablet 5 mg PO DAILY oxycodone 5 mg Tablet 5 mg PO Q4H PRN (Reason: Pain (Scale Score 4-6)) gabapentin 400 mg Capsule 400 mg PO TID acetaminophen 325 mg Tablet 650 mg PO Q4H PRN (Reason: PAIN/FEVER) fentanyl 75 mcg/hr Patch 72 Hour 75 mcg transdermal Q72H Qty: 5 0RF trazodone 150 mg tablet 300 mg PO BEDTIME methocarbamol 500 mg tablet 1,000 mg PO TID methenamine hippurate 1 gram tablet 1 tab PO BID hydralazine 50 mg tablet 1 tab PO TID magnesium citrate Solution 150 ml PO DAILY PRN (Reason: Constipation) cholecalciferol (vitamin D3) 25 mcg (1,000 unit) Tablet 25 mcg PO DAILY amoxicillin-pot clavulanate 875-125 mg Tablet 875 mg PO Q12H Qty: 14 0RF Eliquis 5 mg Tablet 5 mg PO BID Qty: 60 0RF magnesium oxide 400 mg magnesium capsule 400 mg PO BID Qty: 60 0RF ondansetron 4 mg tablet,disintegrating 4 mg PO Q6-8H PRN (Reason: nausea and vomiting) Qty: 14 0RF ondansetron HCl 4 mg tablet 4 mg PO Q4H PRN cefuroxime axetil 250 mg tablet 250 mg PO BID Referrals: Vaishali Mora MD [Primary Care Provider] - 1 day Interventions: ED Discharge Assessment Last Done: 07/23/22 21:06 Discharge Date/Time: 07/23/22 21:07
[2022-07-23 16:28] LABS: Alanine Aminotransferase 28 U/L (0-31); Albumin Level 3.6 g/dL (3.5-5.0); Alkaline Phosphatase 74 U/L (39-117); Anion Gap 15 (12-20); Aspartate Amino Transferase 30 U/L (5-31); Bilirubin Total 0.4 mg/dL (0.0-1.0); Blood Urea Nitrogen 14 mg/dL (9-16); Calcium 7.2 mg/dL (8.4-10.2); Carbon Dioxide 24 mmol/L (22-29); Chloride 105 mmol/L (96-108); Estimated Glomerular Filt Rate 56; Glucose Random 80 mg/dL (60-115); Magnesium 1.3 mg/dL (1.6-2.6); Potassium 3.1 mmol/L (3.3-5.1); Sodium 141 mmol/L (135-145); Total Protein 6.2 g/dL (6.5-8.0)
[2022-07-23 16:57] LABS: Phosphorus 2.8 mg/dL (2.7-4.5)
[2022-07-23] MEDS: Potassium Chloride Packet 20 MEQ PACKET 60 MEQ PO (17:44)
[2022-07-23 17:47] VITALS: BP 135/82; PULSE 83; RESP 20; O2SAT 96
[2022-07-23 20:05] LABS: Anion Gap 12 (12-20); Blood Urea Nitrogen 13 mg/dL (9-16); Calcium 7.1 mg/dL (8.4-10.2); Carbon Dioxide 27 mmol/L (22-29); Chloride 104 mmol/L (96-108); Creatinine Clr Calc Pharmacy 62.8; Estimated Glomerular Filt Rate > 60; Glucose Random 121 mg/dL (60-115); Magnesium 1.6 mg/dL (1.6-2.6); Potassium 3.7 mmol/L (3.3-5.1); Sodium 139 mmol/L (135-145)
[2022-07-23] MEDS: Potassium Chloride Packet 20 MEQ PACKET 40 MEQ PO (20:45)
[2022-07-23] MEDS: Magnesium Oxide 400 MG TABLET PO (20:45)
== END 2022-07-23 21:07 | disposition skilled nursing facility (03) ==
PROVIDERS: Physician Assistant; Physician Assistant Medical; Emergency Provider Emergency Medicine; PCP Internal Medicine
DX: E83.42 Hypomagnesemia (principal); E87.6 Hypokalemia; R79.89 Other specified abnormal findings of blood chemistry; I10 Essential (primary) hypertension; I48.91 Unspecified atrial fibrillation; F17.210 Nicotine dependence, cigarettes, uncomplicated; Z79.01 Long term (current) use of anticoagulants; Z79.899 Other long term (current) drug therapy; Z71.6 Tobacco abuse counseling
CPT/HCPCS: 36415; 80048; 80053; 83735; 84100; 85025; 93005; 96365; 96366; 99284; J3475

== ENCOUNTER 2022-07-31 12:35 | Emergency (ER) | payer MEDICARE, MEDICAID, SELFPAY ==
--- NOTE | ~2022-07-31 | CT_ITS ---
EXAMINATION: CT HEAD W/O IV CONTRAST CT CERVICAL SPINE W/O IV CONTRAST CLINICAL INFORMATION: History of fall on blood thinners. Patient on Eliquis. COMPARISON: 06/23/2022. TECHNIQUE: Head - Contiguous axial imaging of the head was performed from the skull base to the vertex without the administration of intravenous contrast, and axial images are reconstructed at 0.6 mm , 2 mm and 5 mm slice thickness. Cervical spine - A volumetric, helical CT acquisition of the cervical spine was obtained without contrast; in addition to the standard set of axial images, multiplanar reformatted images were provided in the coronal and sagittal imaging planes. This CT examination was performed using dose optimization techniques as appropriate, variously including the following: *Automated exposure control *Adjustment of mA and/or kV according to patient size (this includes techniques or standardized protocols for targeted exams where dose is matched to indication/reason for exam; i.e. extremities or head) *Use of iterative reconstruction technique DLP: 1246 mGy-cm (total) FINDINGS: HEAD: Chronic mild patchy hypoattenuation within supratentorial white matter is compatible with sequela of mild microangiopathy. [place] to white matter differentiation is preserved. No evidence of intracranial hemorrhage, major vascular territory infarction, focal mass effect or midline shift. The ventricles have normal size and configuration. No evidence of hydrocephalus or extra-axial fluid collections. No evidence of scalp hematoma. The calvarium is intact and the visualized paranasal sinuses and mastoid air cells are well aerated with exception of chronic opacification of a few right mastoid air cells. The temporomandibular joints are normal. The orbits and globes are unremarkable. Periodontal disease with observation of periapical bone resorption around roots of maxillary central incisors, and there is dental caries of the right maxillary canine. CERVICAL SPINE: No acute finding compared to 06/23/2022. The craniocervical junction is normal. The occipital condyles, dens and atlantodental articulation are intact. There is calcium deposition (likely calcium pyrophosphate dihydrate crystal deposition) along the transverse ligament posterior to the dens. There is chronic mild depression of the T1 superior endplate. No acute fractures in the anterior or posterior elements. No vertebral subluxation or prevertebral soft tissue swelling. The evaluation of the spine is partially limited by mild patient motion. Degenerative disc space narrowing is mild at C5-C6 and C7-T1, and moderate at C6-C7. No significant stenosis of the central spinal canal. No hematoma within the neck. Chronic borderline enlargement of level 2 lymph nodes which measure up to 0.9 cm short axis dimension and are not significantly changed in size compared to 07/26/2020. Small 0.3 cm subpleural nodule at the lateral right lung apex is stable compared to 07/26/2020, consistent with a benign nodule. Based on Fleischner Society guidelines, chest CT follow-up is generally not recommended for nodules of this size. A stable 2 cm hypodense nodule is noted at the posterior right thyroid lobe. If not already performed elsewhere, recommend thyroid ultrasound follow-up for further characterization. CT/CT cervical spine wo IV con IMPRESSION: * No intracranial hemorrhage or other acute intracranial pathology. * No fracture or malalignment in the degenerated cervical spine. * 2 cm nodule of the posterior right thyroid lobe is unchanged. If not already performed elsewhere, recommend thyroid ultrasound follow-up for further characterization.
--- NOTE | ~2022-07-31 | XR_ITS ---
EXAMINATION: XR CHEST CLINICAL INFORMATION: Cough COMPARISON: 04/11/2022 TECHNIQUE: Frontal view of the chest was obtained. FINDINGS: Cardiac leads overlie the chest. The lungs are well expanded. There is no focal consolidation, edema, or effusion. Bronchial wall thickening noted. No pneumothorax. The cardiomediastinal silhouette is within normal limits. No acute osseous abnormality. XR/XR chest 1V IMPRESSION: No dense consolidation. Bronchial wall thickening can be seen with a small airways process such as asthma or atypical/viral infection.
[2022-07-31 12:43] VITALS: BP 157/83; PULSE 70; O2SAT 99
[2022-07-31 12:46] VITALS: BP 142/69; PULSE 78; RESP 18; TEMP 36.9; O2SAT 93; BMI 32.1
[2022-07-31 13:55] LABS: MANUAL DIFF FLAG NO
[2022-07-31 13:58] LABS: Venous Blood Gas Refer to POC result
[2022-07-31 13:59] LABS: VBG Base Excess 7.5 mmol/L; VBG HCO3 34 mmol/L (22-26); VBG pCO2 59 mmHg; VBG pH 7.37 (7.32-7.43); VBG pO2 45 mmHg
[2022-07-31 13:59] LABS: Basophils Percent Auto 0.3 % (0-2); Eosinophils Absolute Auto 0.1 X10*3/uL (0.0-0.4); Eosinophils Percent Auto 0.5 % (0-4); Hemoglobin 13.5 g/dl (12.0-16.0); Imm Gran Abs Auto 0.11 X10*3/uL (0.00-0.03); Imm Gran Pct Auto 0.9 % (0.0-0.4); Lymphocytes Percent Auto 16.7 % (20-40); Mean Corpuscular HGB Conc 32.1 g/dl (31.0-35.0); Mean Corpuscular Hemoglobin 29.8 pg (27.0-33.0); Mean Corpuscular Volume 92.7 fL (80.0-98.0); Mean Platelet Volume 8.8 fL (9.4-12.3); Monocytes Absolute Auto 1.2 X10*3/uL (0.1-1.2); Monocytes Percent Auto 9.7 % (2-11); Neutrophils Absolute Auto 8.6 x10*3/uL (2.0-8.3); Neutrophils Percent Auto 71.9 % (45-73); Platelet Count 318 X10*3/uL (160-400); Red Blood Count 4.53 X10*6/uL (4.20-5.50); Red Cell Distribution Width 13.4 % (11.0-16.0); White Blood Count 11.9 X10*3/uL (4.8-10.8)
[2022-07-31 14:07] LABS: INTERNATIONAL NORM RATIO 1.3 (0.9-1.1); Prothrombin Time 14.9 SEC (10.0-13.1)
[2022-07-31 14:14] LABS: Alanine Aminotransferase 19 U/L (0-31); Albumin Level 3.6 g/dL (3.5-5.0); Alkaline Phosphatase 98 U/L (39-117); Anion Gap 14 (12-20); Aspartate Amino Transferase 16 U/L (5-31); Bilirubin Total 0.4 mg/dL (0.0-1.0); Blood Urea Nitrogen 13 mg/dL (9-16); Calcium 9.2 mg/dL (8.4-10.2); Carbon Dioxide 29 mmol/L (22-29); Chloride 100 mmol/L (96-108); Estimated Glomerular Filt Rate 56; Glucose Random 249 mg/dL (60-115); Potassium 4.2 mmol/L (3.3-5.1); Sodium 139 mmol/L (135-145); Total Protein 6.4 g/dL (6.5-8.0)
[2022-07-31 14:16] LABS: COVID-19 Test Negative (Negative); IDNOW Serial# 55D5AD1C
--- NOTE | 2022-07-31 14:17 | ED_ITS ---
HPI - Fall General Chief Complaint: Fall Stated Complaint: From SNF, Fall (hit head) per EMS Time Seen by Provider: 07/31/22 12:47 Source: patient Mode of arrival: EMS History of Present Illness HPI Narrative: 67-year-old female who is an everyday smoker with known COPD is brought in by EMS when she when out to smoke a cigarette loss she was sitting in her chair and leaned forward to machine pecan picker her cigarettes off of the ground falling forward and striking her right side of her head along the ground but she denies any loss of consciousness but states that she is taking blood thinners. Currently she denies any shortness of breath, headaches, chest pain. Related Data Home Medications Medication Instructions Recorded Confirmed albuterol sulfate 90 mcg/actuation 1 puff inhalation Q4H PRN 07/26/20 07/22/22 aerosol inhaler (Ventolin HFA) Shortness Of Breath celecoxib 200 mg capsule (Celebrex) 200 mg PO DAILY 07/26/20 07/22/22 fluoxetine 40 mg capsule (Prozac) 40 mg PO DAILY 07/26/20 07/22/22 fluticasone propionate 50 1 spray intranasal DAILY 07/26/20 07/22/22 mcg/actuation nasal spray,suspension glipizide 5 mg tablet 10 mg PO BIDAC 07/26/20 07/22/22 metformin 500 mg tablet 1,000 mg PO BIDWM 07/26/20 07/22/22 metoclopramide HCl 5 mg tablet 5 mg PO DAILY 07/26/20 07/22/22 (Reglan) acetaminophen 325 mg tablet 650 mg PO Q4H PRN PAIN/FEVER 11/21/21 07/22/22 baclofen 10 mg tablet 10 mg Q8H PRN Muscle Spasm 11/21/21 07/22/22 furosemide 20 mg tablet (Lasix) 20 mg PO DAILY 11/21/21 07/22/22 gabapentin 400 mg capsule 400 mg PO TID 11/21/21 07/22/22 insulin detemir U-100 100 unit/mL 25 unit subcut DAILY 11/21/21 07/22/22 subcutaneous solution (Levemir U-100 Insulin) insulin lispro 100 unit/mL See Protocol QIDACHS 11/21/21 07/22/22 subcutaneous cartridge (Humalog U-100 Insulin) lansoprazole 15 mg capsule,delayed 15 mg PO DAILY 11/21/21 07/22/22 release (Prevacid 24Hr) lisinopril 5 mg tablet 5 mg PO DAILY 11/21/21 07/22/22 oxycodone 5 mg tablet 5 mg PO Q4H PRN Pain (Scale Score 11/21/21 07/22/22 4-6) trazodone 150 mg tablet 300 mg PO BEDTIME 12/17/21 07/22/22 cholecalciferol (vitamin D3) 25 25 mcg PO DAILY 06/11/22 07/22/22 mcg (1,000 unit) tablet hydralazine 50 mg tablet 1 tab PO TID 06/11/22 07/22/22 magnesium citrate 150 ml PO DAILY PRN Constipation 06/11/22 07/22/22 methenamine hippurate 1 gram tablet 1 tab PO BID 06/11/22 07/22/22 methocarbamol 500 mg tablet 1,000 mg PO TID 06/11/22 07/22/22 cefuroxime axetil 250 mg tablet 250 mg PO BID 07/22/22 07/22/22 ondansetron HCl 4 mg tablet 4 mg PO Q4H PRN 07/22/22 07/22/22 Previous Rx's Medication Instructions Recorded fluticasone furoate 100 1 puff inhalation RDAILY #1 ea 07/30/20 mcg-vilanterol 25 mcg/dose inhalation powder (Breo Ellipta) fentanyl 75 mcg/hr transdermal 75 mcg transdermal Q72H pain #5 ea 11/23/21 patch amoxicillin 875 mg-potassium 875 mg PO Q12H #14 tabs 06/17/22 clavulanate 125 mg tablet apixaban 5 mg tablet (Eliquis) 5 mg PO BID #60 tabs 06/17/22 magnesium oxide 400 mg PO BID #60 caps 07/22/22 ondansetron 4 mg disintegrating 4 mg PO Q6-8H PRN nausea and 07/22/22 tablet vomiting #14 tabs nitrofurantoin macrocrystal 100 mg 100 mg PO BID 5 days #10 caps 07/26/22 capsule prednisone 50 mg tablet 50 mg PO DAILY 4 days #4 tabs 07/31/22 Allergies Allergy/AdvReac Type Severity Reaction Status Date / Time aspirin [From PERCODAN] Allergy Unknown UNKNOWN Verified 07/22/22 15:28 egg [EGG] Allergy Unknown UNKNOWN Verified 07/22/22 15:28 oxycodone AdvReac Nausea Verified 07/22/22 15:28 From PERCODAN Allergy Unknown Unknown Uncoded 07/22/22 15:28 Review of Systems Review of Systems: Pertinent positives and negatives as stated in [facility] Past Medical History Source: nursing notes reviewed Medical History Bronchitis Chronic back pain Chronic pain Diabetes High cholesterol HTN (hypertension) Lymphadenopathy Paroxysmal atrial fibrillation UTI (urinary tract infection) Surgical History History of back surgery Social History Social History Household Members: Other Household Members Other:: roomate Housing: Group Home Do you presently have visiting nurse or other home services: No Unable to assess alcohol history related to: Unknown Alcohol intake: former Patient Tobacco Use Status: Current everyday Tobacco user Tobacco use type: Cigarette Cigarettes Per Day: 6 Years Smoked: 55 Smoked in Last 30 Days: Yes e-Cigarette/Vaping Use: Never Used Second Hand Smoke Exposure: Yes Use of substances other than those prescribed or required for medical reasons: No Advance Directives: Yes Advance Directives on File: Yes Advance Directives Date on File: 06/12/22 service: No Current occupational status: unemployed Physical Exam Vital Signs: Vital Signs: Last Vital Signs Temp 98.2 F 07/31/22 15:10 Pulse 72 07/31/22 17:15 Resp 16 07/31/22 17:15 BP 131/63 07/31/22 15:10 Pulse Ox 92 07/31/22 15:10 O2 Del Method 07/31/22 15:10 BMI result Body Mass Index 32.1 VITAL SIGNS: Reviewed. GENERAL: Well developed, well nourished, in no acute distress. HEAD: Normocephalic/abrasion noted to the right forehead extending down across the right maxilla EYES: PERRLA, EOMI without pain no gaze palsies EARS: Ext canals without abnormality OROPHARYNX: no oral lesions noted, posterior pharynx clear and non-erythematous without noted tonsillar enlargement/erythema/exudates NECK: Supple, no adenopathy LUNGS: Normal breath sounds. No adventitious sounds or accessory muscle use. SpO2<93> CARDIOVASCULAR: Regular rate and rhythm without noted murmurs, no JVD or lower extremity edema. ABDOMEN: Soft, non-tender, non-distended with bowel sounds. MUSCULOSKELETAL: No tenderness, deformities, or effusions noted on gross inspection. EXTREMITIES: No cyanosis, clubbing or edema. SKIN: Inspection of the skin reveals no rashes, abrasion as indicated above NEUROLOGIC: Alert and oriented x 3. Strength and sensation to light touch were grossly intact x 4, no facial asymmetry, no pronator drift. Medications Administered Discontinued Medications Generic Name Dose Route Start Last Admin Trade Name Freq PRN Reason Stop Dose Admin Albuterol Sulfate 2.5 mg/ 0 mg 07/31/22 14:17 07/31/22 14:35 Albuterol/Ipratropium 3 ml INHALE 07/31/22 14:18 5 each ONCE ONE Administration Albuterol Sulfate 2.5 mg/ 0 mg 07/31/22 16:55 07/31/22 17:15 Albuterol/Ipratropium 3 ml INHALE 07/31/22 16:56 2.5 each ONCE ONE Administration Prednisone 50 mg 07/31/22 16:55 07/31/22 17:08 Prednisone 10 Mg Tablet PO 07/31/22 16:56 50 mg ONCE ONE Administration Medical Decision Making Medical Decision Making [facility] Narrative: 67-year-old female with a mild fall without loss of consciousness. On review of all investigations my interpretation is that patient has had a abrasions/contusion to the right forehead but negative intracranial pathology and no evidence of C-spine abnormality. Patient received 2 DuoNebs as well as oral steroids but is oxygenating well. She is otherwise stable for discharge to home. Differential Diagnosis Differential Diagnoses: The differential diagnosis associated with the presentation includes Please see discussion above Lab Data [facility] Lab Attestation statement: I reviewed the patient's lab results. Please see the discussion above 07/31/22 13:50 07/31/22 13:50 Labs: Lab Results 07/31/22 07/31/22 07/31/22 Range/Units 13:50 13:50 13:50 WBC 11.9 H (4.8-10.8) X10*3/uL RBC 4.53 (4.20-5.50) X10*6/uL Hgb 13.5 (12.0-16.0) g/dl Hct 42.0 (37.0-47.0) % MCV 92.7 (80.0-98.0) fL MCH 29.8 (27.0-33.0) pg MCHC 32.1 (31.0-35.0) g/dl RDW 13.4 (11.0-16.0) % Plt Count 318 (160-400) X10*3/uL MPV 8.8 L (9.4-12.3) fL Immature Gran % (Auto) 0.9 H (0.0-0.4) % Neut % (Auto) 71.9 (45-73) % Lymph % (Auto) 16.7 L (20-40) % [place] % (Auto) 9.7 (2-11) % Eos % (Auto) 0.5 (0-4) % Baso % (Auto) 0.3 (0-2) % Lymph # (Auto) 2.0 (1.2-4.9) X10*3/uL [place] # (Auto) 1.2 (0.1-1.2) X10*3/uL Eos # (Auto) 0.1 (0.0-0.4) X10*3/uL Baso # (Auto) 0.0 (0.0-0.2) X10*3/uL Abs Immat Gran (auto) 0.11 H (0.00-0.03) X10*3/uL Absolute Neuts (auto) 8.6 H (2.0-8.3) x10*3/uL Absolute Nucleated RBC 0.000 (0.0-0.012) X10*3/uL Nucleated RBC % (auto) 0.0 (0.0-0.2) /100WBC PT (10.0-13.1) SEC INR (0.9-1.1) VBG pH (7.32-7.43) VBG pCO2 mmHg VBG pO2 mmHg VBG HCO3 (22-26) mmol/L VBG O2 Saturation % VBG Base Excess mmol/L Sodium 139 (135-145) mmol/L Potassium 4.2 (3.3-5.1) mmol/L Chloride 100 (96-108) mmol/L Carbon Dioxide 29 (22-29) mmol/L Anion Gap 14 (12-20) BUN 13 (9-16) mg/dL Creatinine 0.98 (0.5-1.4) mg/dL Estim Creat Clear Calc 57.0 Estimated GFR 56 Random Glucose 249 H (60-115) mg/dL Calcium 9.2 D (8.4-10.2) mg/dL Total Bilirubin 0.4 (0.0-1.0) mg/dL AST 16 (5-31) U/L ALT 19 (0-31) U/L Alkaline Phosphatase 98 (39-117) U/L Total Protein 6.4 L (6.5-8.0) g/dL Albumin 3.6 (3.5-5.0) g/dL COVID-19 ([facility]) Negative (Negative) COVID-19 Clin Com See Note 07/31/22 07/31/22 Range/Units 13:50 13:53 WBC (4.8-10.8) X10*3/uL RBC (4.20-5.50) X10*6/uL Hgb (12.0-16.0) g/dl Hct (37.0-47.0) % MCV (80.0-98.0) fL MCH (27.0-33.0) pg MCHC (31.0-35.0) g/dl RDW (11.0-16.0) % Plt Count (160-400) X10*3/uL MPV (9.4-12.3) fL Immature Gran % (Auto) (0.0-0.4) % Neut % (Auto) (45-73) % Lymph % (Auto) (20-40) % [place] % (Auto) (2-11) % Eos % (Auto) (0-4) % Baso % (Auto) (0-2) % Lymph # (Auto) (1.2-4.9) X10*3/uL [place] # (Auto) (0.1-1.2) X10*3/uL Eos # (Auto) (0.0-0.4) X10*3/uL Baso # (Auto) (0.0-0.2) X10*3/uL Abs Immat Gran (auto) (0.00-0.03) X10*3/uL Absolute Neuts (auto) (2.0-8.3) x10*3/uL Absolute Nucleated RBC (0.0-0.012) X10*3/uL Nucleated RBC % (auto) (0.0-0.2) /100WBC PT 14.9 H (10.0-13.1) SEC INR 1.3 H (0.9-1.1) VBG pH 7.37 (7.32-7.43) VBG pCO2 59 mmHg VBG pO2 45 mmHg VBG HCO3 34 H (22-26) mmol/L VBG O2 Saturation 71.0 % VBG Base Excess 7.5 mmol/L Sodium (135-145) mmol/L Potassium (3.3-5.1) mmol/L Chloride (96-108) mmol/L Carbon Dioxide (22-29) mmol/L Anion Gap (12-20) BUN (9-16) mg/dL Creatinine (0.5-1.4) mg/dL Estim Creat Clear Calc Estimated GFR Random Glucose (60-115) mg/dL Calcium (8.4-10.2) mg/dL Total Bilirubin (0.0-1.0) mg/dL AST (5-31) U/L ALT (0-31) U/L Alkaline Phosphatase (39-117) U/L Total Protein (6.5-8.0) g/dL Albumin (3.5-5.0) g/dL COVID-19 ([facility]) (Negative) COVID-19 Clin Com Radiology Impression Radiologist Impression: My interpretation is in agreement with radiology's impression of the imaging study. Chronic Conditions Patient?s care impacted by: Hypertension Discharge Plan Discharge Clinical Impression: Fall, COPD (chronic obstructive pulmonary disease) Patient Disposition: Xfer Other Instructions: Fall Prevention for Older Adults (ED), COPD (Chronic Obstructive Pulmonary Disease) (ED) Additional Instructions: 1. Resume all home medications. 2. Complete the short course of steroids that are prescribed. 3. Follow-up with your primary care provider in the next 2-3 days. Return to the ER for any worsening symptoms. Prescriptions: New prednisone 50 mg tablet 50 mg PO DAILY 4 Days Qty: 4 0RF No Action celecoxib [Celebrex] 200 mg Capsule 200 mg PO DAILY fluoxetine [Prozac] 40 mg Capsule 40 mg PO DAILY metformin 500 mg Tablet 1,000 mg PO BIDWM metoclopramide HCl [Reglan] 5 mg Tablet 5 mg PO DAILY albuterol sulfate [Ventolin HFA] 90 mcg/actuation Hfa Aerosol Inhaler 1 puff INHALATION Q4H PRN (Reason: Shortness Of Breath) fluticasone propionate 50 mcg/actuation [place],Suspension 1 spray INTRANASAL DAILY glipizide 5 mg Tablet 10 mg PO BIDAC fluticasone furoate-vilanterol [Breo Ellipta] 100-25 mcg/dose Blister With Device 1 puff inhalation RDAILY Qty: 1 0RF baclofen 10 mg Tablet 10 mg Q8H PRN (Reason: Muscle Spasm) Humalog U-100 Insulin 100 unit/mL Cartridge See Protocol QIDACHS Protocol: Insulin Correction Scale Less than or equal to 110 ---- Give (units): 0 111 to 150 Give (units): 0 151 to 200 Give (units): 0 201 to 250 Give (units): 2 251 to 300 Give (units): 4 301 to 350 Give (units): 6 Greater than 350 Give (units): 8 Call MD if Blood Glucose > : 350 furosemide [Lasix] 20 mg Tablet 20 mg PO DAILY Levemir U-100 Insulin 100 unit/mL Solution 25 unit SUBCUT DAILY lansoprazole [Prevacid 24Hr] 15 mg Capsule,Delayed Release(Dr/Ec) 15 mg PO DAILY lisinopril 5 mg Tablet 5 mg PO DAILY oxycodone 5 mg Tablet 5 mg PO Q4H PRN (Reason: Pain (Scale Score 4-6)) gabapentin 400 mg Capsule 400 mg PO TID acetaminophen 325 mg Tablet 650 mg PO Q4H PRN (Reason: PAIN/FEVER) fentanyl 75 mcg/hr Patch 72 Hour 75 mcg transdermal Q72H Qty: 5 0RF trazodone 150 mg tablet 300 mg PO BEDTIME methocarbamol 500 mg tablet 1,000 mg PO TID methenamine hippurate 1 gram tablet 1 tab PO BID hydralazine 50 mg tablet 1 tab PO TID magnesium citrate Solution 150 ml PO DAILY PRN (Reason: Constipation) cholecalciferol (vitamin D3) 25 mcg (1,000 unit) Tablet 25 mcg PO DAILY amoxicillin-pot clavulanate 875-125 mg Tablet 875 mg PO Q12H Qty: 14 0RF Eliquis 5 mg Tablet 5 mg PO BID Qty: 60 0RF magnesium oxide 400 mg magnesium capsule 400 mg PO BID Qty: 60 0RF ondansetron 4 mg tablet,disintegrating 4 mg PO Q6-8H PRN (Reason: nausea and vomiting) Qty: 14 0RF nitrofurantoin macrocrystal 100 mg capsule 100 mg PO BID 5 Days Qty: 10 0RF Rx Instructions: must administer with a meal/food ondansetron HCl 4 mg tablet 4 mg PO Q4H PRN cefuroxime axetil 250 mg tablet 250 mg PO BID Referrals: Vaishali Mora MD [Primary Care Provider] -
[2022-07-31 14:35] VITALS: PULSE 68; RESP 14; O2SAT 93
[2022-07-31 15:10] VITALS: BP 131/63; PULSE 68; RESP 16; TEMP 36.8; O2SAT 92
[2022-07-31] MEDS: predniSONE 10 MG TABLET 50 MG PO (17:08)
[2022-07-31 17:15] VITALS: PULSE 72; RESP 16; O2SAT 97
[2022-07-31 19:22] VITALS: BP 138/70; PULSE 72; RESP 16; TEMP 36.3; O2SAT 94
--- NOTE | 2022-07-31 19:23 | MHC.EDTECH ---
patient was given dinner ,ate 100 % of meal ,drank 360 ml fluids .
== END 2022-07-31 19:51 | disposition other institution (70) ==
PROVIDERS: Emergency Provider Student in an Organized Health Care Education/Training Program; PCP Internal Medicine
DX: S00.81XA Abrasion of other part of head, initial encounter (principal); W07.XXXA Fall from chair, initial encounter; J44.9 Chronic obstructive pulmonary disease, unspecified; E11.9 Type 2 diabetes mellitus without complications; I10 Essential (primary) hypertension; E78.5 Hyperlipidemia, unspecified; I48.0 Paroxysmal atrial fibrillation; G89.29 Other chronic pain; F17.210 Nicotine dependence, cigarettes, uncomplicated; Y93.89 Activity, other specified; Y92.126 Garden or yard of nursing home as the place of occurrence of the external cause; Y99.9 Unspecified external cause status; Z20.822 Contact with and (suspected) exposure to COVID-19; Z79.01 Long term (current) use of anticoagulants; Z79.899 Other long term (current) drug therapy; Z79.02 Long term (current) use of antithrombotics/antiplatelets; Z79.4 Long term (current) use of insulin
CPT/HCPCS: 36415; 70450; 71045; 72125; 80053; 82803; 85025; 85610; 87635; 94640; 99284

== ENCOUNTER → 2022-08-12 14:02 | Outpatient (BNVA) | payer MEDICARE, MEDICAID, SELFPAY | PROVIDERS: PCP Internal Medicine; Visit Provider Internal Medicine | DX: J44.9 Chronic obstructive pulmonary disease, unspecified (principal); J98.4 Other disorders of lung; F17.210 Nicotine dependence, cigarettes, uncomplicated | CPT/HCPCS: 99212 ==

== ENCOUNTER 2022-08-26 08:42 | Outpatient (REF) | payer MEDICARE, MEDICAID, SELFPAY ==
--- NOTE | ~2022-08-26 | CT_ITS ---
EXAMINATION: CT CHEST WITHOUT CONTRAST CLINICAL INFORMATION: Pulmonary nodule. COMPARISON: Previous chest CT, most recent June 2022 and chest x-ray, most recent July 2022. TECHNIQUE: Multidetector volumetric CT imaging of the chest was done. Axial MIP volume rendering provided. Sagittal and coronal reformatted images were obtained. This CT examination was performed using dose optimization techniques as appropriate, variously including the following: *Automated exposure control *Adjustment of mA and/or kV according to patient size (this includes techniques or standardized protocols for targeted exams where dose is matched to indication/reason for exam; i.e. extremities or head) *Use of iterative reconstruction technique DLP: 217 mGy-cm. FINDINGS: LUNGS: The abnormal density in the right inferior hilar region that was new on June 2022 exam appears decreased. There is a new 3 mm right lower lobe nodule axial image 341 series 5. Bilateral pulmonary nodules otherwise appear stable. Largest nodule is a 6 mm peripheral or subpleural left lower lobe nodule axial image 332 series 5. There are several small cysts seen in the right middle and right lower lobes. No endobronchial or endotracheal lesion. MEDIASTINUM: There are small mediastinal lymph nodes that are stable. Evaluation for hilar adenopathy is limited without contrast. The pulmonary arteries are prominent, main pulmonary artery measuring 3.7 cm. Appearance is questionable for pulmonary artery hypertension. 2 x 1.5 cm right thyroid nodule appears stable. CORONARY ARTERY CALCIFICATION: Severe. Upper normal-size heart. No pericardial effusion. Upper normal-size thoracic aorta. PLEURA: There is no pleural effusion. No pleural mass or thickening. AXILLA: Prominent bilateral axillary lymph nodes. These appear increased in size from previous exam. No chest wall mass. UPPER ABDOMEN: Question old thickening of the abdomen. OSSEOUS STRUCTURES: Degenerative changes of the spine. CT/CT chest wo IV con IMPRESSION: Improved abnormal right infrahilar density in the right lower lobe that was new on June 2022 exam. This probably represents resolving pneumonia. New 3 mm right lower lobe nodule. Otherwise, pulmonary nodules are stable. Fleischner guidelines were followed.
== END 2022-08-26 08:43 | disposition home or self-care (01) ==
LOC: HO.CT 08:42
PROVIDERS: Visit Provider Internal Medicine
DX: R91.1 Solitary pulmonary nodule (principal); J98.4 Other disorders of lung; C85.23 Mediastinal (thymic) large B-cell lymphoma, intra-abdominal lymph nodes
CPT/HCPCS: 71250

== ENCOUNTER → 2022-11-11 10:41 | Outpatient (BNVA) | payer MEDICARE, MEDICAID, SELFPAY | PROVIDERS: PCP Internal Medicine; Visit Provider Internal Medicine | DX: J44.9 Chronic obstructive pulmonary disease, unspecified (principal); J98.4 Other disorders of lung; F17.210 Nicotine dependence, cigarettes, uncomplicated | CPT/HCPCS: 99212 ==

== ENCOUNTER → 2022-11-24 13:11 | Outpatient (BNVA) | payer MEDICARE, MEDICAID, SELFPAY | PROVIDERS: PCP Internal Medicine; Referring Provider Internal Medicine; Visit Provider Internal Medicine Cardiovascular Disease | DX: I48.0 Paroxysmal atrial fibrillation (principal); I10 Essential (primary) hypertension; E11.9 Type 2 diabetes mellitus without complications; Z79.4 Long term (current) use of insulin; Z79.891 Long term (current) use of opiate analgesic; Z79.899 Other long term (current) drug therapy | CPT/HCPCS: 99212 ==

== ENCOUNTER 2023-11-30 12:35 | Outpatient (AMB) | payer MEDICARE, MEDICAID, SELFPAY ==
[2023-11-30 12:57] VITALS: BP 132/60; PULSE 87; BMI 34.4
--- NOTE | 2023-11-30 12:57 | MHC.OFFVIS ---
Vital Signs 11/30/23 12:57 Height 5 ft 4 in Weight 200 lb 2.876 oz BMI 34.4 BP 132/60 Blood Pressure Location Lt brachial Position Sitting Pulse 87 Pulse Source Monitor Intake Visit Reasons: 1 yr f/u per NS Circle Edger Required: No Allergies aspirin [From PERCODAN] Allergy (Unknown, Verified 11/30/23 13:01) UNKNOWN egg [EGG] Allergy (Unknown, Verified 11/30/23 13:01) UNKNOWN oxycodone Adverse Reaction (Verified 11/30/23 13:01) Nausea From PERCODAN Allergy (Unknown, Uncoded 11/30/23 13:01) Unknown Medication List - Last Reconciled 11/30/23 by SHABBIR Bonilla acetaminophen 650 mg PO Q4H PRN albuterol sulfate 90 mcg/actuation (Ventolin HFA) 1 puff inhalation Q4H PRN celecoxib (Celebrex) 200 mg PO DAILY cholecalciferol (vitamin D3) 25 mcg PO DAILY fentanyl 75 mcg/hr 75 mcg transdermal Q72H fluoxetine (Prozac) 40 mg PO DAILY fluticasone furoate-vilanterol 100-25 mcg/dose (Breo Ellipta) 1 puff inhalation RDAILY fluticasone propionate 50 mcg/actuation 1 spray intranasal DAILY furosemide (Lasix) 10 mg PO DAILY gabapentin 400 mg PO TID glipizide 10 mg PO BIDAC guaifenesin ER (Mucinex) 600 mg PO BID hydralazine 50 mg PO TID PRN insulin detemir U-100 (Levemir U-100 Insulin) 25 units subcut DAILY insulin lispro (Humalog U-100 Insulin) See Protocol sliding scale doses QIDACHS ipratropium-albuterol 0.5 mg-3 mg(2.5 mg base)/3 mL 3 mL inhalation Q4H PRN lansoprazole (Prevacid 24Hr) 15 mg PO DAILY magnesium citrate 150 mL PO DAILY PRN magnesium oxide 400 mg PO BID metformin 1,000 mg PO BIDWM methenamine hippurate 1 tab PO BID methocarbamol 1,000 mg PO TID metoclopramide HCl (Reglan) 5 mg PO DAILY ondansetron 4 mg PO Q6-8H PRN oxycodone 5 mg PO Q4H PRN trazodone 300 mg PO BEDTIME HPI HPI 1 yr f/u per NS: Details: Linh is a 68 yo female with PMH of HTN, HLD, DM, smoking, PAF who presents for follow up. Her last prior visit was 11/24/22. Today she states she has been doing well over the last year. She resides in a assisted living facility and has chronic issues with back pain which limits her physical mobility. She denies any chest discomfort at rest or with activity. No concerning sob, PND, orthopnea or edema. No lightheadedness, presyncope, syncope. Smoking 6 cigaretts per day. No bleeding issues. Takes meds as directed. [facility] Medical History COPD (chronic obstructive pulmonary disease) Smoker Lymphadenopathy Paroxysmal atrial fibrillation Chronic pain High cholesterol HTN (hypertension) Bronchitis Diabetes Chronic back pain UTI (urinary tract infection) Surgical History History of back surgery Social History Household Members: Other Household Members Other:: roomate Housing: [facility] Do you presently have visiting nurse or other home services: No Unable to assess alcohol history related to: Unknown Alcohol intake: former Comment: refuses socks and bed alarm Patient Tobacco Use Status: Current everyday Tobacco user Tobacco use type: Cigarette Cigarettes Per Day: 6 Years Smoked: 55 e-Cigarette/Vaping Use: Never Used Second Hand Smoke Exposure: Yes Advance Directives Date on File: 06/12/22 service: No Current occupational status: unemployed Review of Systems Const All systems reviewed & are unremarkable except as noted in HPI and below ENT Denies dizziness Card Denies chest pain, Denies chest pain at rest, Denies chest pain with activity, Denies rapid heart rate, Denies pedal edema, Denies edema, Denies leg edema, Denies lightheadedness, Denies palpitations, Denies dyspnea, Denies dyspnea on exertion and Denies orthopnea Resp Denies cough, Denies dyspnea and Denies dyspnea on exertion GI Denies hematochezia and Denies change in stool character Musc Details: chronic back pain Reports abnormal gait, Reports limited range of motion, Denies muscle cramps, Denies muscle weakness, Denies numbness, Denies radiating pain into limb, Denies stiffness and Denies tingling Neuro Reports abnormal gait, Denies dizziness, Denies numbness and Denies tingling Endo Denies palpitations Physical Exam Vital Signs: Last Vital Signs Pulse 87 11/30/23 12:57 BP 132/60 11/30/23 12:57 BMI result Body Mass Index 34.4 Const Other: sitting in wheelchair General: cooperative, comfortable and no acute distress Orientation/consciousness: patient oriented x3 Neck Neck: Yes normal visual inspection and Yes no JVD Resp Effort & Inspection: normal respiratory effort Auscultation: clear to auscultation bilaterally, no crackles, no rales, no rhonchi and no wheezes Cardio Jugular venous distension: no JVD Rate: regular rate Rhythm: regular rhythm Heart sounds: S1 normal heart sound present, S2 normal heart sound present, no murmurs and no rubs Neuro General: patient oriented x3 Extrem General: Yes normal to inspection, No no pedal edema and No calf tenderness Psych Appearance: grossly normal Mental Status: mental status grossly normal Speech and movement: Normal speech and movement present Office Procedures EKG Details: Today, read by me, sinus rhythm with PAC, rate 87, QTC 428 milliseconds [id number], Complete Assessment & Plan Assessment & Plan (1) Paroxysmal atrial fibrillation: Code(s): I48.0 - Paroxysmal atrial fibrillation Category: Medical Plan: History of Paroxysmal atrial fibrillation which has been clinically suppressed. Last echo 06/12/22 showed EF 60-65% impaired filling, LA mildly dilated. She had been on Metoptolol for rate control however it is not on her med list today. EKG today shows SR, PAC rate 89. Will restart Metoprolol xl at 25 mg daily. Written on her paperwork for living facility and sent to her pharmacy. She has not been noticing any recent heart palpitations. She is on Eliquis for anticoagulation. It is on her med list. No bleeing issues reported . Last labs in our system 07/31/22 showed Cr 0.98. Will try to get copy of updated labs for our system. Should have BMP, CBC biannual. She does drink tea daily. Instructed on keeping caffiene intake at a minimum. Call if having issues with heart palpitations. ED care if needed for sustained palpitations. Cardiology follow up in 1 yr, sooner if needed (2) PAC (premature atrial contraction): Code(s): I49.1 - Atrial premature depolarization Category: Medical Plan: Noted on EKG today, asymptomatic. Plan Time spent on chart review, document, interview, assessment Medications: New metoprolol succinate ER 25 mg PO DAILY Coding Level of Care Code Est Pt Level 3 (75155) Diagnoses Paroxysmal atrial fibrillation I48.0 PAC (premature atrial contraction) I49.1 CPT Codes EKG - CPT: 81338-[id number], Complete ([id number]) Time Spent (min) 24
== END 2023-11-30 13:32 | disposition home or self-care (01) ==
PROVIDERS: Visit Provider Nurse Practitioner Family
DX: I10 Essential (primary) hypertension (principal); I48.0 Paroxysmal atrial fibrillation
CPT/HCPCS: 93010; 99213

== ENCOUNTER → 2023-11-30 12:35 | Outpatient (BNVA) | payer MEDICARE, MEDICAID, SELFPAY | PROVIDERS: Visit Provider Nurse Practitioner Family | DX: I48.0 Paroxysmal atrial fibrillation (principal); I49.1 Atrial premature depolarization | CPT/HCPCS: 93005; 99212 ==

== ENCOUNTER 2024-01-21 11:45 | Emergency (ER) | payer MEDICARE, MEDICAID, SELFPAY ==
--- NOTE | ~2024-01-21 | CT_ITS ---
EXAMINATION: CT ABDOMEN AND PELVIS WITH CONTRAST CLINICAL INFORMATION: Right-sided abdominal pain. COMPARISON: July 22, 2022 TECHNIQUE: Multidetector volumetric images were obtained from the superior aspect of the liver through the pubic symphysis following administration 85 mL of Omnipaque 350 intravenous contrast. Sagittal and coronal reformatted images were obtained on the technologist's workstation. Oral contrast: No This CT examination was performed using dose optimization techniques as appropriate, variously including the following: *Automated exposure control *Adjustment of mA and/or kV according to patient size (this includes techniques or standardized protocols for targeted exams where dose is matched to indication/reason for exam; i.e. extremities or head) *Use of iterative reconstruction technique DLP: 799 mGy-cm FINDINGS: LUNG BASES: Irregular soft tissue nodule within the right lower lobe measures 3.8 x 3.5 cm and is incompletely evaluated on the current study. Severe coronary artery calcifications. Medial right breast nodule measures 10 mm. LIVER, GALLBLADDER, AND BILIARY TREE: The liver surface appears slightly nodular. The liver is mildly decreased in attenuation. No biliary ductal dilatation is present. The gallbladder is unremarkable with no evidence of radiopaque gallstones, gallbladder wall thickening, or obvious pericholecystic inflammatory changes. PANCREAS: Atrophic. SPLEEN: Not enlarged. ADRENAL GLANDS: No adrenal mass. KIDNEYS AND URETERS: Kidneys are symmetric in size and enhancement. There are several bilateral nonobstructing renal calculi. No hydronephrosis or perinephric fluid collection. BLADDER: Unremarkable. GASTROINTESTINAL TRACT: Marked gastric wall thickening. Possible rectal wall thickening. No small bowel obstruction. ABDOMINAL WALL: No significant hernia is appreciated. LYMPH NODES: Enlarged portacaval and esequiel hepatis lymph nodes measure 2.4 x 3.7 cm and 1.6 x 3.9 cm. Several subcentimeter retroperitoneal lymph nodes. VASCULAR: Normal caliber abdominal aorta. Marked atherosclerotic vascular calcification of the abdominal aorta and major branch vessels. There is calcification of the origin of the left renal artery. PELVIC VISCERA: Air-fluid level in the endometrial cavity. Possible endometrial thickening. OSSEOUS STRUCTURES: No destructive bone lesions. CT/CT abdomen pelvis w IV con IMPRESSION: Irregular soft tissue nodule in the right lower lobe measuring 3.8 x 3.5 cm. Dedicated contrast enhanced chest CT is recommended. Marked gastric wall thickening. Advise correlation with direct visualization. Enlarged portacaval and esequiel hepatis lymph nodes. Prominent retroperitoneal lymph nodes. Air-fluid level in the endometrial cavity with possible endometrial thickening. Advise correlation with pelvic ultrasound. Possible rectal wall thickening. Bilateral nonobstructing renal calculi. No hydronephrosis. 10 mm medial right breast nodule. Advise correlation with recent mammogram. Electronically signed by: Carlos Enrique Mitchell MD 03/10/2024 09:49 AM EDT
[2024-01-21 11:47] VITALS: BP 173/85; BP 192/90; PULSE 100; PULSE 96; RESP 16; TEMP 37.5; O2SAT 96; BMI 33.6
[2024-01-21 12:09] VITALS: BP 173/85; PULSE 96; RESP 16; TEMP 37.5; O2SAT 96
[2024-01-21 12:09] LABS: MANUAL DIFF FLAG NO
[2024-01-21 12:11] LABS: Basophils Absolute Auto 0.1 X10*3/uL (0.0-0.2); Basophils Percent Auto 0.6 % (0-2); Eosinophils Percent Auto 0.3 % (0-4); Hematocrit 38.6 % (37.0-47.0); Hemoglobin 12.9 g/dl (12.0-16.0); Imm Gran Abs Auto 0.24 X10*3/uL (0.00-0.03); Imm Gran Pct Auto 1.8 % (0.0-0.4); Lymphocytes Absolute Auto 1.8 X10*3/uL (1.2-4.9); Lymphocytes Percent Auto 13.9 % (20-40); Mean Corpuscular HGB Conc 33.4 g/dl (31.0-35.0); Mean Corpuscular Hemoglobin 31.4 pg (27.0-33.0); Mean Corpuscular Volume 93.9 fL (80.0-98.0); Mean Platelet Volume 8.9 fL (9.4-12.3); Monocytes Percent Auto 7.7 % (2-11); Neutrophils Absolute Auto 9.9 x10*3/uL (2.0-8.3); Neutrophils Percent Auto 75.7 % (45-73); Platelet Count 304 X10*3/uL (160-400); Red Blood Count 4.11 X10*6/uL (4.20-5.50); Red Cell Distribution Width 13.7 % (11.0-16.0); White Blood Count 13.1 X10*3/uL (4.8-10.8)
--- NOTE | 2024-01-21 12:11 | PC.NURSE ---
francisco arrives from [facility] with complaints of nausea and vomiting and one episode of diarrhea this morning, patient states she has had 3 episodes of vomiting and is complaining of sharp RUQ abdominal pain, worse with palpation. patient states she also thinks she may have a UTI. states she is having some pain and difficulty urinating. patient able to ambulate to bathroom with walker to provide urine sample upon arrival. patient denies any other symptoms, denies fevers or chills, denies chest pain or shortness of breath, wheezes appreciated upon respiratory exam, patient states she has COPD and is always wheezy . patient speaking in clear and complete sentences. patient denies any sick contacts. v. patient states she tried to take her medications this morning and threw them up. patient Hypertensive on monitor SBP at 173. PIV placed by this RN, blood work drawn and sent to lab, urine sample also obtained and sent to lab. awaiting ED provider at this time, patient provided with pillow. offering no further complaints at this time
[2024-01-21 12:13] LABS: Appearance Urine Clear; Color Urine Yellow; Glucose Urine UA Negative (Negative); Leukocyte Esterase Urine Moderate (2+) (Negative); Nitrite Urine Negative (Negative); PH 5.5 (5.0-9.0); Specific Gravity - Urine <= 1.005 (1.005-1.025); UMIC TRIGGER UACC YES; Urine Blood Negative (Negative); Urine Ketones Negative (Negative); Urine Protein Negative (Neg-Trace)
[2024-01-21 12:17] LABS: Bacteria Urine 2+ (None Seen); Hyaline Casts Urine 0-2 /LPF (0-2); RBC Urine 0-2 /HPF (0-2); Squamous Epithelial Cell Urine 0-2 /HPF (0-2); UACC Culture Trigger YES
[2024-01-21 12:19] LABS: Glucose, Whole Blood 215 mg/dL (60-115)
--- NOTE | 2024-01-21 12:25 | ED.GENADULT ---
HPI - General Adult General Chief complaint: Nausea/Vomiting/Diarrhea Stated complaint: ABD PAIN NAUSEA VOMITING Time Seen by Provider: 01/21/24 12:25 History of Present Illness ED Provider: Kevin SCHROEDER narrative: Patient is a 68-year-old female who lives at a local alf because of chronic issues related to back problems and back pain. She has lived there for 3 years. The patient says that she was fine yesterday. This morning she had some oatmeal for breakfast. Sometime after eating the oatmeal she developed right upper quadrant pain and she also had vomiting and she was brought to the emergency room. She also reports that she has urinary discomfort today that started today. No definite fever. She has had some loose stools. The patient says that she believes she still has a gallbladder and appendix. She says that she feels the pain is mostly in the right upper abdomen. She says she feels the pain more in the abdomen rather than the back. She says she has a history of UTIs. Related Data Home Medications ?Medication ?Instructions ?Recorded ?Confirmed albuterol sulfate 90 mcg/actuation 2 puff inhalation Q4H PRN 07/26/20 01/21/24 aerosol inhaler (Ventolin HFA) Shortness Of Breath celecoxib 200 mg capsule (Celebrex) 200 mg PO DAILY 07/26/20 01/21/24 fluticasone propionate 50 1 spray intranasal DAILY 07/26/20 01/21/24 mcg/actuation nasal spray,suspension glipizide 5 mg tablet 10 mg PO BIDAC 07/26/20 01/21/24 metformin 500 mg tablet 1,000 mg PO BID 07/26/20 01/21/24 metoclopramide HCl 5 mg tablet 5 mg PO DAILY 07/26/20 01/21/24 (Reglan) acetaminophen 325 mg tablet 650 mg PO Q4H PRN PAIN/FEVER 11/21/21 01/21/24 gabapentin 400 mg capsule 400 mg PO TID 11/21/21 01/21/24 insulin detemir U-100 100 unit/mL 25 unit subcut DAILY 11/21/21 01/21/24 subcutaneous solution (Levemir U-100 Insulin) lansoprazole 15 mg capsule,delayed 15 mg PO DAILY 11/21/21 01/21/24 release (Prevacid 24Hr) oxycodone 5 mg tablet 5 mg PO Q4H PRN Pain (Scale Score 11/21/21 01/21/24 4-6) cholecalciferol (vitamin D3) 25 25 mcg PO DAILY 06/11/22 01/21/24 mcg (1,000 unit) tablet magnesium citrate 150 ml PO DAILY PRN Constipation 06/11/22 01/21/24 methenamine hippurate 1 gram tablet 1 tab PO BID 06/11/22 01/21/24 methocarbamol 500 mg tablet 1,000 mg PO TID 06/11/22 01/21/24 guaifenesin 600 mg tablet, 600 mg PO BID 11/11/22 01/21/24 extended release 12 hr (Mucinex) furosemide 20 mg tablet (Lasix) 10 mg PO DAILY 11/24/22 01/21/24 hydralazine 50 mg tablet 50 mg PO Q8H PRN Hypertension 11/24/22 01/21/24 apixaban 5 mg tablet (Eliquis) 5 mg PO BID 01/21/24 01/21/24 ascorbic acid (vitamin C) 500 mg 500 mg PO BID 01/21/24 01/21/24 tablet (Vitamin C) baclofen 10 mg tablet 10 mg PO BID 01/21/24 01/21/24 bisacodyl 10 mg rectal suppository 10 mg NH Q8H PRN Constipation 01/21/24 01/21/24 bisacodyl 5 mg tablet 10 mg PO BID PRN Constipation 01/21/24 01/21/24 cranberry extract 425 mg capsule 425 mg PO DAILY 01/21/24 01/21/24 dextrose 40 % oral gel (Glutose-45) 10 g PO Q15M PRN Hypocalcemia 01/21/24 01/21/24 fentanyl 100 mcg/hr transdermal 1 patch topical Q72H 01/21/24 01/21/24 patch fluticasone furoate 100 1 puff inhalation DAILY MRX1 01/21/24 01/21/24 mcg-vilanterol 25 mcg/dose inhalation powder (Breo Ellipta) glucagon 1 mg solution for 1 mg subcut Q20M PRN Hypoglycemia 01/21/24 01/21/24 injection (GlucaGen HypoKit) insulin aspart U-100 100 unit/mL 2 - 10 unit TID 01/21/24 01/21/24 subcutaneous solution lisinopril 10 mg tablet 5 mg PO DAILY 01/21/24 01/21/24 magnesium hydroxide 400 mg/5 mL 30 ml PO DAILY PRN Constipation 01/21/24 01/21/24 oral suspension (Milk of Magnesia) melatonin 5 mg tablet 5 mg PO BEDTIME PRN Sleep 01/21/24 01/21/24 metoprolol succinate 50 mg capsule 25 mg PO DAILY 01/21/24 01/21/24 sprinkle, ext. release 24 hr omeprazole 40 mg capsule,delayed 40 mg PO DAILY@0630 01/21/24 01/21/24 release ondansetron HCl 4 mg tablet 4 mg PO Q8H PRN Nausea And Vomiting 01/21/24 01/21/24 sennosides 8.6 mg tablet (senna) 8.6 mg PO DAILY 01/21/24 01/21/24 sodium phosphates 19 gram-7 118 ml NH DAILY PRN Constipation 01/21/24 01/21/24 gram/118 mL enema (Fleet Enema) trazodone 50 mg tablet 37.5 mg PO BEDTIME 01/21/24 01/21/24 Previous Rx's ?Medication ?Instructions ?Recorded magnesium oxide 400 mg PO BID #60 caps 07/22/22 cefuroxime axetil 500 mg tablet 500 mg PO BID #14 tabs 01/21/24 Allergies Allergy/AdvReac Type Severity Reaction Status Date / Time aspirin [From PERCODAN] Allergy Unknown UNKNOWN Verified 01/21/24 11:51 egg [EGG] Allergy Unknown UNKNOWN Verified 01/21/24 11:51 oxycodone AdvReac Nausea Verified 01/21/24 11:51 From PERCODAN Allergy Unknown Unknown Uncoded 01/21/24 11:51 Review of Systems Review of Systems: Yes all other systems are reviewed and are negative PMFSH Past Medical History Medical History COPD (chronic obstructive pulmonary disease) Smoker Lymphadenopathy Paroxysmal atrial fibrillation Chronic pain High cholesterol HTN (hypertension) Bronchitis Diabetes Chronic back pain UTI (urinary tract infection) Surgical History History of back surgery Social History Social History Household Members: Other Household Members Other:: roomate Housing: Halfway Do you presently have visiting nurse or other home services: No Unable to assess alcohol history related to: Unknown Alcohol intake: former Comment: refuses socks and bed alarm Patient Tobacco Use Status: Current everyday Tobacco user Tobacco use type: Cigarette Cigarettes Per Day: 6 Years Smoked: 55 Smoked in Last 30 Days: Yes e-Cigarette/Vaping Use: Never Used Second Hand Smoke Exposure: Yes Use of substances other than those prescribed or required for medical reasons: No Advance Directives: Yes Advance Directives on File: Yes Advance Directives Date on File: 06/12/22 Do you have a plan to hurt others: No Plan service: No Current occupational status: unemployed Physical Exam ED Vital Signs: Vital Signs - 24 hr 01/21/24 11:47 01/21/24 12:09 01/21/24 20:08 Temperature 99.5 F 99.5 F 97.9 F Pulse Rate 96 96 91 Respiratory Rate 16 16 18 Blood Pressure 173/85 H 173/85 H 163/81 H Pulse Oximetry 96 96 93 Oxygen Delivery Method Room Air Room Air Room Air 01/21/24 20:12 Temperature 97.9 F Pulse Rate 91 Respiratory Rate 18 Blood Pressure 163/81 H Pulse Oximetry 93 Oxygen Delivery Method Room Air BMI result Body Mass Index 33.6 Const Other: The patient is a chronically ill-appearing 68-year-old woman who was awake and alert and very pleasant. She does not seem in obvious distress or obviously acutely ill. No respiratory difficulty. HENMT Other: Face is symmetrical. Mucous membranes moist. Eyes Other: Pupils are round equal, conjunctivae are clear Neck Other: Moving her neck easily Resp Other: No increased work of breathing. There is mild inspiratory and expiratory wheezes bilaterally. Cardio Rate: regular rate Rhythm: regular rhythm Heart sounds: S1 normal heart sound present and S2 normal heart sound present GI Other: The patient's abdomen is soft. She is tender in the right upper quadrant. Skin Other: Skin is dry and unremarkable Neuro Other: The patient is awake, alert, pleasant, cooperative. Cranial nerves are grossly intact. She moves her extremities symmetrically. She seems grossly neurologically intact. Extrem Other: No peripheral edema, no calf swelling or tenderness, no asymmetry Medications Administered Discontinued Medications Generic Name Dose Route Start Last Admin Trade Name Freq PRN Reason Stop Dose Admin Sodium Chloride 1,000 mls @ 999 mls/hr 01/21/24 12:45 01/21/24 14:29 Ns IV 01/21/24 13:45 Infused .Q1H1M SHAMIKA Infusion Ceftriaxone Sodium 1 gm/ 50 mls @ 100 mls/hr 01/21/24 15:29 01/21/24 17:43 Sodium Chloride IV 01/21/24 15:58 Infused ONCE ONE Infusion Iohexol 100 ml 01/21/24 13:12 01/21/24 13:13 Iohexol 350 Mg/Ml 100 Ml Infus..Btl IV 01/21/24 13:13 85 ml ONCE ONE Administration Ondansetron HCl 4 mg 01/21/24 19:55 01/21/24 20:02 Ondansetron Hcl 4 Mg/2 Ml Vial IVPUSH 01/21/24 19:56 4 mg ONCE ONE Administration Medical Decision Making Medical Decision Making [facility] Narrative: The patient is a 68-year-old woman who lives chronically at a alf. She is here because of right-sided pain that started this morning and was associated with nausea and vomiting and possibly also diarrhea. Additionally the patient complained of urinary discomfort similar to previous urinary tract infections. The patient was afebrile but had a white count of 13.1. The patient was tender in the right upper quadrant. I did not really think she had any right-sided CVA tenderness. She says that she still has her gallbladder and her appendix. A CT of the abdomen and pelvis was done to evaluate for possible biliary disease, appendicitis, a right-sided pyelonephritis. Because of technical problems with Radiology (there was a [id number] problem today) I was not able to read the body of the CT report but the impression indicated following: Right lower lobe irregular nodule 3.8 x 3.5 cm, marked gastric wall thickening, enlarged esequiel hepatis lymph nodes, rectal wall thickening, fluid and gas in the endometrial cavity/endometrial thickening, bilateral renal calculi, no hydronephrosis. I reviewed the CT images. I did not see anything that suggested any problems with the gallbladder. I explained to the patient that although the CT did not indicate a gallbladder problem that it would be prudent to get an ultrasound of the gallbladder as well to ensure that her pain was not coming from a biliary source. The patient did not want to have an ultrasound done. She wished to be treated for a possible UTI but she otherwise did not want any additional testing and wanted to be discharged. There was a delay in having an ambulance arrived to bring the patient back to her alf. The patient continued to indicate she did not want to have any additional testing. She was discharged with a prescription for cefuroxime. She should return if worse. Lab Data 01/21/24 12:04 01/21/24 12:04 Labs: Lab Results 01/21/24 01/21/24 01/21/24 Range/Units 12:00 12:04 12:05 WBC 13.1 H (4.8-10.8) X10*3/uL RBC 4.11 L (4.20-5.50) X10*6/uL Hgb 12.9 (12.0-16.0) g/dl Hct 38.6 (37.0-47.0) % MCV 93.9 (80.0-98.0) fL MCH 31.4 (27.0-33.0) pg MCHC 33.4 (31.0-35.0) g/dl RDW 13.7 (11.0-16.0) % Plt Count 304 (160-400) X10*3/uL MPV 8.9 L (9.4-12.3) fL Immature Gran % (Auto) 1.8 H (0.0-0.4) % Neut % (Auto) 75.7 H (45-73) % Lymph % (Auto) 13.9 L (20-40) % [place] % (Auto) 7.7 (2-11) % Eos % (Auto) 0.3 (0-4) % Baso % (Auto) 0.6 (0-2) % Lymph # (Auto) 1.8 (1.2-4.9) X10*3/uL [place] # (Auto) 1.0 (0.1-1.2) X10*3/uL Eos # (Auto) 0.0 (0.0-0.4) X10*3/uL Baso # (Auto) 0.1 (0.0-0.2) X10*3/uL Abs Immat Gran (auto) 0.24 H (0.00-0.03) X10*3/uL Absolute Neuts (auto) 9.9 H (2.0-8.3) x10*3/uL Absolute Nucleated RBC 0.000 (0.0-0.012) X10*3/uL Nucleated RBC % (auto) 0.0 (0.0-0.2) /100WBC Sodium 140 (135-145) mmol/L Potassium 4.3 (3.3-5.1) mmol/L Chloride 104 (96-108) mmol/L Carbon Dioxide 22 (22-29) mmol/L Anion Gap 18 (12-20) BUN 11 (9-16) mg/dL Creatinine 1.05 (0.5-1.4) mg/dL Estim Creat Clear Calc 55.8 Estimated GFR 52 POC Glucose (60-115) mg/dL Random Glucose 218 H (60-115) mg/dL Calcium 8.6 D (8.4-10.2) mg/dL Total Bilirubin 0.3 (0.0-1.0) mg/dL AST 17 (5-31) U/L ALT 12 (0-31) U/L Alkaline Phosphatase 98 D (39-117) U/L C-Reactive Protein 1.17 H (< or = 0.50) mg/dL Total Protein 7.3 (6.5-8.0) g/dL Albumin 3.7 (3.5-5.0) g/dL Lipase 17 (8-78) U/L Urine Color Yellow Urine Appearance Clear Urine pH 5.5 (5.0-9.0) Ur Specific [place] <= 1.005 (1.005-1.025) Urine Protein Negative (Neg-Trace) mg/dL Urine Glucose (UA) Negative (Negative) mg/dL Urine Ketones Negative (Negative) mg/dL Urine Blood Negative (Negative) Urine Nitrite Negative (Negative) Ur Leukocyte Esterase Moderate (2+) H (Negative) Urine RBC 0-2 (0-2) /HPF Urine WBC 11-20 H (0-5) /HPF Ur Squamous Epith Cells 0-2 (0-2) /HPF Urine Bacteria 2+ (None Seen) Hyaline Casts 0-2 (0-2) /LPF 01/21/24 Range/Units 12:14 WBC (4.8-10.8) X10*3/uL RBC (4.20-5.50) X10*6/uL Hgb (12.0-16.0) g/dl Hct (37.0-47.0) % MCV (80.0-98.0) fL MCH (27.0-33.0) pg MCHC (31.0-35.0) g/dl RDW (11.0-16.0) % Plt Count (160-400) X10*3/uL MPV (9.4-12.3) fL Immature Gran % (Auto) (0.0-0.4) % Neut % (Auto) (45-73) % Lymph % (Auto) (20-40) % [place] % (Auto) (2-11) % Eos % (Auto) (0-4) % Baso % (Auto) (0-2) % Lymph # (Auto) (1.2-4.9) X10*3/uL [place] # (Auto) (0.1-1.2) X10*3/uL Eos # (Auto) (0.0-0.4) X10*3/uL Baso # (Auto) (0.0-0.2) X10*3/uL Abs Immat Gran (auto) (0.00-0.03) X10*3/uL Absolute Neuts (auto) (2.0-8.3) x10*3/uL Absolute Nucleated RBC (0.0-0.012) X10*3/uL Nucleated RBC % (auto) (0.0-0.2) /100WBC Sodium (135-145) mmol/L Potassium (3.3-5.1) mmol/L Chloride (96-108) mmol/L Carbon Dioxide (22-29) mmol/L Anion Gap (12-20) BUN (9-16) mg/dL Creatinine (0.5-1.4) mg/dL Estim Creat Clear Calc Estimated GFR POC Glucose 215 H (60-115) mg/dL Random Glucose (60-115) mg/dL Calcium (8.4-10.2) mg/dL Total Bilirubin (0.0-1.0) mg/dL AST (5-31) U/L ALT (0-31) U/L Alkaline Phosphatase (39-117) U/L C-Reactive Protein (< or = 0.50) mg/dL Total Protein (6.5-8.0) g/dL Albumin (3.5-5.0) g/dL Lipase (8-78) U/L Urine Color Urine Appearance Urine pH (5.0-9.0) Ur Specific [place] (1.005-1.025) Urine Protein (Neg-Trace) mg/dL Urine Glucose (UA) (Negative) mg/dL Urine Ketones (Negative) mg/dL Urine Blood (Negative) Urine Nitrite (Negative) Ur Leukocyte Esterase (Negative) Urine RBC (0-2) /HPF Urine WBC (0-5) /HPF Ur Squamous Epith Cells (0-2) /HPF Urine Bacteria (None Seen) Hyaline Casts (0-2) /LPF Discharge Plan Discharge Clinical Impression: Urinary tract infection, Right upper quadrant abdominal pain, Incidental lung nodule Patient Disposition: Home, Self-Care Additional Instructions: You seemed to have a urinary tract infection. You received a dose of an antibiotic here, 1 g of ceftriaxone IV. You will not need another dose of antibiotic till tomorrow morning. Please start the new antibiotic tomorrow morning, cefuroxime 500 mg 2 times a day. Your CT scan has some incidental findings that should probably be followed up by your regular doctor. The regular findings include a right lower lobe lung nodule, gastric wall thickening, lymph nodes in the region of the esequiel hepatis, rectal wall thickening, and fluid and gas in the endometrial cavity with endometrial thickening. There are also bilateral renal calculi. Unfortunately because of technical problems at the hospital today we are unable to provide the full report of the CT scan. Please follow up with your regular doctors. Return to the emergency room if worse Prescriptions: New cefuroxime axetil 500 mg tablet 500 mg PO BID Qty: 14 0RF No Action celecoxib [Celebrex] 200 mg Capsule 200 mg PO DAILY metformin 500 mg Tablet 1,000 mg PO BID metoclopramide HCl [Reglan] 5 mg Tablet 5 mg PO DAILY albuterol sulfate [Ventolin HFA] 90 mcg/actuation Hfa Aerosol Inhaler 2 puff INHALATION Q4H PRN (Reason: Shortness Of Breath) fluticasone propionate 50 mcg/actuation [place],Suspension 1 spray INTRANASAL DAILY Rx Instructions: Both nostrils glipizide 5 mg Tablet 10 mg PO BIDAC Levemir U-100 Insulin 100 unit/mL Solution 25 unit SUBCUT DAILY lansoprazole [Prevacid 24Hr] 15 mg Capsule,Delayed Release(Dr/Ec) 15 mg PO DAILY oxycodone 5 mg Tablet 5 mg PO Q4H PRN (Reason: Pain (Scale Score 4-6)) gabapentin 400 mg Capsule 400 mg PO TID acetaminophen 325 mg Tablet 650 mg PO Q4H MDD 4 gm/24H PRN (Reason: PAIN/FEVER) furosemide [Lasix] 20 mg tablet 10 mg PO DAILY methocarbamol 500 mg tablet 1,000 mg PO TID methenamine hippurate 1 gram tablet 1 tab PO BID magnesium citrate Solution 150 ml PO DAILY PRN (Reason: Constipation) cholecalciferol (vitamin D3) 25 mcg (1,000 unit) Tablet 25 mcg PO DAILY hydralazine 50 mg tablet 50 mg PO Q8H PRN (Reason: Hypertension) Rx Instructions: If SBP>160 or DBP>90 magnesium oxide 400 mg magnesium capsule 400 mg PO BID Qty: 60 0RF cranberry extract 425 mg Capsule 425 mg PO DAILY Rx Instructions: administer with a meal sennosides [senna] 8.6 mg Tablet 8.6 mg PO DAILY trazodone 50 mg tablet 37.5 mg PO BEDTIME ondansetron HCl [Zofran] 4 mg Tablet 4 mg PO Q8H PRN (Reason: Nausea And Vomiting) ascorbic acid (vitamin C) [Vitamin C] 500 mg Tablet 500 mg PO BID fentanyl 100 mcg/hr patch 72 hour 1 patch topical Q72H baclofen 10 mg tablet 10 mg PO BID insulin aspart U-100 100 unit/mL solution 2 - 10 unit TID Rx Instructions: If 200-249=2, 250-299=4, 300-349=6, 350-399=8, 400-449=10 450+ or greater call lisinopril 10 mg tablet 5 mg PO DAILY melatonin 5 mg Tablet 5 mg PO BEDTIME PRN (Reason: Sleep) Eliquis 5 mg tablet 5 mg PO BID metoprolol succinate 50 mg Capsule,Sprinkle,Er 24hr 25 mg PO DAILY bisacodyl 5 mg Tablet 10 mg PO BID PRN (Reason: Constipation) dextrose [Glutose-45] 40 % Gel 10 g PO Q15M PRN (Reason: Hypocalcemia) Rx Instructions: until symptoms of low blood sugar are controlled omeprazole [Prilosec] 40 mg Capsule,Delayed Release(Dr/Ec) 40 mg PO DAILY@0630 magnesium hydroxide [Milk of Magnesia] 400 mg/5 mL Suspension 30 ml PO DAILY PRN (Reason: Constipation) Rx Instructions: (step 1) If no BM for 3 days bisacodyl 10 mg Suppository 10 mg NH Q8H PRN (Reason: Constipation) Rx Instructions: If no bowel movement for 8 hours after MOM Fleet Enema 19-7 gram/118 mL Enema 118 ml NH DAILY PRN (Reason: Constipation) Rx Instructions: (step 3) If no BM for 8 hours after Bisacodyl suppository GlucaGen HypoKit 1 mg Recon Soln 1 mg SUBCUT Q20M PRN (Reason: Hypoglycemia) Rx Instructions: until target blood sugar attained fluticasone furoate-vilanterol [Breo Ellipta] 100-25 mcg/dose blister with device 1 puff inhalation DAILY MRX1 Rx Instructions: Rinse mouth after each use guaifenesin [Mucinex] 600 mg tablet extended release 12hr 600 mg PO BID Referrals: [facility] [Outside] (Urinary tract infection, incidental findings on CT scan) Interventions: ED Discharge Assessment Last Done: 01/21/24 20:12 Discharge Date/Time: 01/21/24 20:13 Print Language: Guamanian
[2024-01-21 12:32] LABS: Alanine Aminotransferase 12 U/L (0-31); Albumin Level 3.7 g/dL (3.5-5.0); Alkaline Phosphatase 98 U/L (39-117); Anion Gap 18 (12-20); Aspartate Amino Transferase 17 U/L (5-31); Bilirubin Total 0.3 mg/dL (0.0-1.0); Blood Urea Nitrogen 11 mg/dL (9-16); Calcium 8.6 mg/dL (8.4-10.2); Carbon Dioxide 22 mmol/L (22-29); Chloride 104 mmol/L (96-108); Creatinine Clr Calc Pharmacy 55.8; Estimated Glomerular Filt Rate 52; Glucose Random 218 mg/dL (60-115); Potassium 4.3 mmol/L (3.3-5.1); Sodium 140 mmol/L (135-145); Total Protein 7.3 g/dL (6.5-8.0)
[2024-01-21 13:00] LABS: Lipase 17 U/L (8-78)
[2024-01-21] MEDS: 0.9 % Sodium Chloride 1,000 ML 999 ML IV (13:11)
[2024-01-21] MEDS: iohexoL 350 MG/ML 100 ML INFUS..BTL IV (13:13)
[2024-01-21 13:56] LABS: C Reactive Protein 1.17 mg/dL (< or = 0.50)
[2024-01-21] MEDS: cefTRIAXone sodium 1 GM in 0.9 % Sodium Chloride 50 ML IV (15:36)
--- NOTE | 2024-01-21 16:45 | PHA.MEDREC ---
Pharmacy Consult ? Medication Reconciliation Pharmacy has completed the medication reconciliation. Utilized med list from [facility]( [phone]) to confirm med list.
[2024-01-21] MEDS: ondansetron HCL 4 MG/2 ML VIAL IVPUSH (20:02)
[2024-01-21 20:08] VITALS: BP 163/81; PULSE 91; RESP 18; TEMP 36.6; O2SAT 93
[2024-01-21 20:12] VITALS: BP 163/81; PULSE 91; RESP 18; TEMP 36.6; O2SAT 93
== END 2024-01-21 20:13 | disposition home or self-care (01) ==
PROVIDERS: Emergency Provider Emergency Medicine; PCP Internal Medicine
DX: N39.0 Urinary tract infection, site not specified (principal); B96.20 Unspecified Escherichia coli [E. coli] as the cause of diseases classified elsewhere; R10.11 Right upper quadrant pain; R91.1 Solitary pulmonary nodule; E11.9 Type 2 diabetes mellitus without complications; I10 Essential (primary) hypertension; E78.5 Hyperlipidemia, unspecified; I48.0 Paroxysmal atrial fibrillation; J44.9 Chronic obstructive pulmonary disease, unspecified; F17.210 Nicotine dependence, cigarettes, uncomplicated; Z79.84 Long term (current) use of oral hypoglycemic drugs; Z79.899 Other long term (current) drug therapy; Z79.01 Long term (current) use of anticoagulants
CPT/HCPCS: 36415; 74177; 80053; 81001; 82947; 83690; 85025; 86140; 87086; 87088; 87186; 96361; 96365; 96366; 96375; 99284; J0696; J2405; Q9967